=== PATIENT | female | born 1965 | race Caucasian/White ===

== ENCOUNTER → 2020-02-09 08:03 | Outpatient (CLI) | payer BC, SELFPAY ==
--- NOTE | ~2020-02-09 | CT_ITS ---
EXAMINATION:CT lung screening DATE: 02/09/2020 09:01 INDICATION: Personal history of tobacco dependence. Smoker who quit 10 years ago with 70 pack year hi story. TECHNIQUE: Computed tomography (CT) of the chest was performed without intravenous contrast. Automate d exposure control and iterative reconstruction technique were employed. The dose-length product (DLP ) was 386.52 mGy-cm. COMPARISON: Chest CT 05/04/2017 FINDINGS: There is severe emphysema. There is chronic mild scarring at the lung apices. There is a ne w 6 mm nodule in right lung apex. There is a chronic 6 mm nodule at the minor fissure. There are a fe w scattered 2-4 mm nodules in the lungs. No pleural effusion. The heart size is normal. No pericardia l effusion. There are no pathologically enlarged lymph nodes. There are changes of cholecystectomy. T here is moderate thoracic spondylosis. IMPRESSION: 1. Lung-RADS category 4A: Suspicious. Noncontrast, low-dose chest CT is recommended in 3 months. Reviewed, dictated and finalized at location B. IMPRESSION: 1. Lung-RADS category 4A: Suspicious. Noncontrast, low-dose chest CT is recomme nded in 3 months.
== END ==
PROVIDERS: PCP Family Medicine; Visit Provider Nurse Practitioner Family
DX: Z12.2 Encounter for screening for malignant neoplasm of respiratory organs (principal); Z87.891 Personal history of nicotine dependence; R91.8 Other nonspecific abnormal finding of lung field
CPT/HCPCS: G0297

== ENCOUNTER → 2020-02-09 08:05 | Outpatient (CLI) | payer BC, SELFPAY ==
--- NOTE | ~2020-02-09 | XR_ITS ---
XR lumbar spine 2-3V DATE: 02/09/2020 08:45 INDICATION: Low back pain TECHNIQUE: Standing AP, lateral and coned lateral lumbosacral views COMPARISON: 09/16/2009 CT lumbar spine 11/26/2014 MRI lumbar spine FINDINGS: There is a transitional L5 vertebra with sacralization on the right. There is minimal levoscoliosis of the lumbar spine. There is degenerative change of the facet joints with associated grade 1 anterolisthesis at L3-4. There is moderate degenerative disc disease at L2-3 and severe degenerative disc disease at L4-5. The sacroiliac joints are normal. Surgical clips, right upper quadrant, consistent with cholecystectomy. IMPRESSION: Sacralization of L5 on the right Multilevel degenerative disc disease, most pronounced at L4-5 Reviewed, dictated and finalized at location A.
== END ==
PROVIDERS: PCP Family Medicine; Visit Provider Physician Assistant
DX: M54.5 Low back pain (principal); Q76.49 Other congenital malformations of spine, not associated with scoliosis; M51.36 Other intervertebral disc degeneration, lumbar region
CPT/HCPCS: 72100

== ENCOUNTER → 2020-05-11 08:51 | Outpatient (CLI) | payer BC, SELFPAY ==
--- NOTE | ~2020-05-11 | CT_ITS ---
EXAMINATION: CT chest wo con DATE: 05/11/2020 09:07 INDICATION: Other nonspecified abnormal finding of lung field R91.8 - Other nonspecific abnormal find ing of lung field TECHNIQUE: Computed tomography (CT) of the chest was performed without intravenous contrast. Addition al 3D reconstructions utilizing coronal maximum intensity projection (MIP) were performed. Automated exposure control and iterative reconstruction technique were employed. The dose-length product was 32 3.98 mGy-cm. COMPARISON: 02/09/2020 and 05/04/2017 FINDINGS: Severe emphysema with chronic mild biapical pleural-parenchymal scarring. Persistent linear atelectas is/scarring extending across the previously new 6 mm nodule at the right apex which has decreased in size, now measuring 3 mm. Unchanged 6 mm flat lenticular nodule likely an intrafissural lymph node wh ich is aligned along the right minor fissure. No interval change in multiple additional scattered mahsa ateral 2-3 mm nodules throughout both lungs several of which are calcified consistent with old granul omatous disease. No new or enlarging pulmonary nodules identified. No pleural effusion. Heart size is normal. No pericardial effusion. Thoracic aorta is normal in caliber. No pathologically enlarged tho racic lymphadenopathy. Diffuse hepatic steatosis. Moderate thoracic spondylosis. IMPRESSION: 1. Decrease in size of the previously new 6 mm right apical nodule currently measuring 3 mm. Recommen d returning to one-year annual screening with low-dose noncontrast chest CT. 2. Severe emphysema. 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 APPLICATION SUPPORT SPECIALIST IMPRESSION: 1. Decrease in size of the previously new 6 mm right apical nodule currently me asuring 3 mm. Recommend returning to one-year annual screening with low-dose no ncontrast chest CT. 2. Severe emphysema.
== END ==
PROVIDERS: PCP Family Medicine; Visit Provider Nurse Practitioner Family
DX: R91.8 Other nonspecific abnormal finding of lung field (principal); J43.9 Emphysema, unspecified
CPT/HCPCS: 71250

== ENCOUNTER → 2020-10-20 15:33 | Outpatient (CLI) | payer BC, SELFPAY ==
--- NOTE | ~2020-10-20 | XR_ITS ---
EXAMINATION: XR chest 2V DATE: 10/20/2020 15:43 INDICATION: Shortness of breath TECHNIQUE: frontal and lateral views of the chest were obtained. COMPARISON: Chest radiograph dated 03/01/2019 FINDINGS: Emphysema with increased lucency and architectural distortion at the bilateral apices. Mild right api kristy pleural-parenchymal scarring. No other airspace opacities, pulmonary edema, pleural effusion or p neumothorax. The cardiomediastinal silhouette is normal. Moderate thoracic spondylosis. IMPRESSION: 1. Emphysema. No acute cardiopulmonary disease. 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
== END ==
PROVIDERS: PCP Family Medicine; Visit Provider Nurse Practitioner Family
DX: R06.02 Shortness of breath (principal); J43.9 Emphysema, unspecified
CPT/HCPCS: 71046

== ENCOUNTER 2020-12-02 08:02 | Outpatient (CLI) | payer BC, SELFPAY ==
[2020-12-02 08:30] VITALS: PULSE 74; PULSE 84; O2SAT 85; O2SAT 93
[2020-12-02 08:35] VITALS: PULSE 86; O2SAT 86
[2020-12-02 08:40] VITALS: PULSE 94; O2SAT 88
[2020-12-02 08:45] VITALS: PULSE 98; O2SAT 90
[2020-12-02 09:00] VITALS: PULSE 76; O2SAT 92
--- NOTE | 2020-12-02 11:28 | HOMEO2EVAL ---
Evaluation was performed at [facility] Home Oxygen Evaluation RC: Home Oxygen (O2) Evaluation Start: 12/02/20 11:24 Freq: Status: Active Protocol: RPE Activity Type Activity Date Activity User E-Sign Co-Sign Detail Recorded Client Recorded Date Recorded By Document 12/02/20 08:30 CHINYERE [id number] 12/02/20 11:28 CHINYERE Document 12/02/20 08:30 CHINYERE [email or web address] 12/02/20 11:28 CHINYERE Document 12/02/20 08:35 CHINYERE [email or web address] 12/02/20 11:28 CHINYERE Document 12/02/20 08:40 CHINYERE [email or web address] 12/02/20 11:28 CHINYERE Document 12/02/20 08:45 CHINYERE [email or web address] 12/02/20 11:28 CHINYERE Document 12/02/20 09:00 CHINYERE [email or web address] 12/02/20 11:28 CHINYERE 12/02/20 12/02/20 12/02/20 08:30 08:30 08:35 Home O2 Evaluation Test Phase Resting Exercise Exercise Oxygen Delivery Room Air Room Air Nasal Cannula Oxygen Flow Rate (L/min) 1 Pulse Oximetry (90-100 %) 93 85 L 86 L Pulse Rate (60-100 beats/min) 74 84 86 Activity Tolerance Ambulation Distance (feet) Treatment Charges O2 Evaluation - Outpatient 12/02/20 12/02/20 12/02/20 08:40 08:45 09:00 Home O2 Evaluation Test Phase Exercise Exercise Resting Oxygen Delivery Nasal Cannula Nasal Cannula Room Air Oxygen Flow Rate (L/min) 2 3 Pulse Oximetry (90-100 %) 88 L 90 92 Pulse Rate (60-100 beats/min) 94 98 76 Activity Tolerance Excellent Ambulation Distance (feet) 1,000 Treatment Charges
== END 2020-12-02 08:03 | disposition home or self-care (01) ==
PROVIDERS: PCP Family Medicine; Visit Provider Nurse Practitioner Family
DX: R06.02 Shortness of breath (principal)
CPT/HCPCS: 94618

== ENCOUNTER → 2020-12-02 09:34 | Outpatient (CLI) | payer BC, SELFPAY ==
--- NOTE | ~2020-12-02 | XR_ITS ---
EXAMINATION: XR hand LT min 3V DATE: 12/02/2020 10:01 INDICATION: Pain at the left first metacarpal TECHNIQUE: Posteroanterior, oblique and lateral views of the left hand were obtained. COMPARISON: None. FINDINGS: Alignment is normal. No fracture. Mild polyarticular osteoarthritis including at the distal radioulna r, wrist, midcarpal, triscaphe, first carpometacarpal and multiple metacarpophalangeal and interphala ngeal joints. No erosions to suggest inflammatory arthritis. Soft tissues are unremarkable. IMPRESSION: 1. 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 No other osseous abnormality. 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 IMPRESSION: 1. 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 No other osseo us abnormality.
== END ==
PROVIDERS: PCP Family Medicine; Visit Provider Physician Assistant
DX: M19.032 Primary osteoarthritis, left wrist (principal); M19.042 Primary osteoarthritis, left hand
CPT/HCPCS: 73130

== ENCOUNTER 2021-01-07 14:24 | Outpatient (CLI) | payer BC, SELFPAY ==
--- NOTE | 2021-01-12 14:46 | P.PCNPFT_ITS ---
PFT Procedure Performed PFT Procedure Performed Spirometry with Pre/Post Bronchodilator Plethysmography (Lung Vol) Diffusing Cap (DLCO) Flow Vol Loop PFT Interpretation DOS: 01/07/2021 REQUESTING: Fabio Martinez APRN REASON FOR TESTING: COPD PULMONARY FUNCTION TESTS Results are reliable and reproducible. Spirometry: FEV1 is 35% predicted, 0.98 L. FVC is 67%. FEV 1% is reduced 41% consistent with airflow obstruction. There is a 14% increase in FEV1 after bronchodilator, and this is greater than 200 mils. This is statistically significant. Lung volumes: Total lung capacity 104% normal. Vital capacity 75% which is higher than the forced vital capacity. This suggests dynamic airway obstruc tion. residual volume increased 148% consistent with moderate air trapping. Increased airway resistance 344%. Diffusion: DLCO 56% moderately reduced Flow volume loop: scooping of the expiratory limb consistent with obstruction. IMPRESSION: severe obstructive ventilatory impairment, moderate air trapping, moderate diffusion impairment. Good response to bronchodilator. Since a prior study 05/04/2017 values are similar. FEV1 was 37% now 35%. The FVC has improved currently 67% and 2.39 L compared to 58% and 2.03 L. more air trapping is present. Diffusion is the same. Skyla Anderson MD
--- NOTE | 2021-01-12 15:00 | WPDSIXMINUTE ---
Six Minute Walk Procedure Procedure Performed Pulmonary Stress Test (6 min walk) Six Minute Walk Six Minute Walk: DATE OF SERVICE: 01/07/2021 REQUESTING: Dr Anderson REASON: Exertional dyspnea SIX MINUTE WALK This test was conducted per ATS guidelines. The initial saturation was 97% on room air and pulse was 76. The patient walked without stopping for a total of 950 ft/ 289.6 m. He did not use any assist device. His lowest saturation was 93%. Highest pulse 128. IMPRESSION: No supplemental oxygen is indicated with exertion. Distance walked is less than expected for age. Skyla Anderson MD
--- NOTE | 2021-01-12 15:04 | WPDPFTINT ---
PFT Procedure Performed PFT Procedure Performed Spirometry with Pre/Post Bronchodilator Plethysmography (Lung Vol) Diffusing Cap (DLCO) Flow Vol Loop PFT Interpretation DOS:01/07/2021 REQUESTING: Dr Anderson REASON FOR TESTING: Exertional dyspnea PULMONARY FUNCTION TESTS Spirometry results are reliable and reproducible. Spirometry: FEV1 is 64% predicted, 2.13 L. FVC is 61%. The ratio is normal 80%. There is no change with bronchodilator administration. Lung volumes: Total lung capacity is 63% consistent with moderate restriction. residual volume is 66%. RV/TLC is 36% consistent with air trapping. Airway resistance is elevated 203%. Diffusion: DLCO 67% mildly decreased. Flow volume loop: Irregular and not reproducible IMPRESSION: There is a moderate restrictive impairment with mild air trapping and mild diffusion impairment. This is consistent with restrictive and obstructive overlap. Restriction can mask obstruction. There is no response to bronchodilator. Lack of response to bronchodilators should not preclude use of clinically indicated Skyla Anderson MD
== END 2021-01-07 14:25 | disposition home or self-care (01) ==
PROVIDERS: PCP Family Medicine; Visit Provider Nurse Practitioner Family
DX: J44.9 Chronic obstructive pulmonary disease, unspecified (principal)
CPT/HCPCS: 94060; 94726; 94729

== ENCOUNTER 2021-03-01 14:42 | Emergency (ER) | payer BC, SELFPAY ==
--- NOTE | 2021-03-01 14:45 | ED.SKABFB ---
HPI - Skin/Abscess/Foreign Bdy General Chief complaint: Skin/Abscess/Foreign Body Stated complaint: rash Time Seen by Provider: 03/01/21 14:56 Source: patient and RN notes reviewed Mode of arrival: ambulatory Limitations: no limitations History of Present Illness HPI narrative: 56-year-old female presents with concern for rash to the right wrist. Reports noticing the rash yesterday, reports it spread slightly today. Reports it is very itchy. Reports she is used [id number] cream, taken a Benadryl with little relief. She denies any other rash, swollen lips, swollen tongue, trouble breathing. Denies any recent change in medications, household products, personal care products. She denies history of allergies. MD complaint: rash Related Data Home Medications Medication Instructions Recorded Confirmed brimonidine 0.2 % eye drops 1 drop EACH EYE Q12H ml 06/17/19 12/28/20 ipratropium 20 mcg-albuterol 100 1 puff INHALATION QID 06/17/19 12/28/20 mcg/actuation mist for inhalation latanoprost 0.005 % eye drops 1 drop EACH EYE QPM 06/17/19 12/28/20 Allergies Allergy/AdvReac Type Severity Reaction Status Date / Time amoxicillin Allergy Unknown Rash Verified 12/28/20 14:51 codeine Allergy Unknown Nausea Verified 12/28/20 14:51 clavulanic acid AdvReac Unknown UTI Verified 12/28/20 14:51 Review of Systems Review of Systems: CONSTITUTIONAL: Denies malaise, chills, sweats, or fever. ENT: Denies polyps, swollen tongue CARDIOVASCULAR: Denies chest pain, palpitations, or edema. RESPIRATORY: Denies cough or dyspnea. SKIN: Itchy rash to the right wrist All systems reviewed & are unremarkable except as noted in HPI and below PMFSH Surgical History Surgical History History of bladder surgery History of cholecystectomy Status post hysterectomy with oophorectomy Family History Family History Father Hypertension Family history of diabetes mellitus in first degree relative Family history of lung cancer Diabetes mellitus Mother Hypertension Family history of chronic obstructive pulmonary disease Family history of diabetes mellitus in first degree relative Diabetes mellitus Acute myocardial infarction Family history of sleep apnea Sibling Diabetes mellitus Hypertension Family history of sleep apnea Social History Social History Smoking packs per day: 2 Smoking cigarettes per day: 40.0 Years smoked: 35 Smoking pack-years: 70.00 Smoking status: Never smoker Tobacco type: cigarettes Second hand tobacco smoke exposure: No Smoking end date: 07/02/09 Alcohol intake: current Drinks per week: 5 Substance use: never Substance use type: does not use Additional living arrangements comments: lives with spouse 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 There is no relevant family history pertinent to the presenting complaint Exam Narrative: GENERAL: Well-appearing, well-nourished, and in no acute distress. HEAD: Normocephalic, atraumatic. EYES: PERRLA, conjunctivae clear ENT: Mucous membranes moist. NECK: Supple. No lymphadenopathy CHEST: Clear to auscultation. No respiratory distress. HEART: Regular rate and rhythm. SKIN: Warm, dry. 4-5 scattered erythematous papules noted to the right lateral wrist with mild surrounding erythema without induration, warmth, edema NEURO: Alert and oriented x3. PSYCH: Normal mood and affect Course Course Emergency Course: Patient is aware of diagnosis, understands and agrees to treatment plan. Anticipatory guidance given. Patient agrees to follow-u
[2021-03-01 14:47] VITALS: BP 173/71; PULSE 79; RESP 20; TEMP 36.8; O2SAT 95
== END 2021-03-01 15:10 | disposition home or self-care (01) ==
PROVIDERS: Emergency Provider Nurse Practitioner; PCP Family Medicine
DX: R21 Rash and other nonspecific skin eruption (principal); F17.210 Nicotine dependence, cigarettes, uncomplicated
CPT/HCPCS: 99213; G0463

== ENCOUNTER → 2021-05-25 09:46 | Outpatient (CLI) | payer BC, SELFPAY ==
--- NOTE | ~2021-05-25 | CT_ITS ---
EXAMINATION: CT lung screening DATE: 05/25/2021 10:04 INDICATION: Personal history of nicotine dependence. TECHNIQUE: Computed tomography (CT) of the chest was performed without intravenous contrast. The dose -length product was 356.28 mGy-cm. Automated exposure control and iterative reconstruction technique were employed. COMPARISON: CT dated 05/11/2020 FINDINGS: No thoracic lymphadenopathy. No significant pleural or pericardial effusion. Heart size is normal. There is mild atherosclerosis. The upper abdomen is unremarkable. There is severe emphysema. Stable fissural nodule on the right measuring 6 mm. There are multiple additional smaller right upper lobe nodules, unchanged from prior examination. There is a 3-4 mm left upper lobe nodule which is no t significantly changed. No significant pleural effusion. No lytic or blastic lesions are identified. Mild thoracic spondylosis. No new or enlarging pulmonary nodules. IMPRESSION: 1. Lung-RADS category 2: Benign appearance or behavior. Continue annual screening with noncontrast lo w-dose chest CT in 12 months. 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 Lung-RADS category 2: Benign appearance or behavior. Continue annual screeni ng with noncontrast low-dose chest CT in 12 months.
== END ==
PROVIDERS: PCP Family Medicine; Visit Provider Nurse Practitioner Family
DX: Z87.891 Personal history of nicotine dependence (principal)
CPT/HCPCS: 71271

== ENCOUNTER 2021-06-02 08:20 | Outpatient (CLI) | payer BC, SELFPAY ==
--- NOTE | 2021-06-20 16:12 | WPDSLEEPSTUD ---
Sleep Study Date of Study: 06/02/21 <Adela Dunbar, DO - Last Filed: 06/20/21 18:15> Ordering Provider: Fabio Martinez APRN <Adela Dunbar, DO - Last Filed: 06/20/21 18:15> Interpreting Physician: Adela Dunbar DO <Adela Dunbar DO - Last Filed: 06/20/21 18:15> Sleep Study Type: CPAP Titration <Adela Dunbar DO - Last Filed: 06/20/21 18:15> Height: 1.68 m <Adela Dunbar DO - Last Filed: 06/20/21 18:15> Weight: 124.738 kg <Adela Dunbar DO - Last Filed: 06/20/21 18:15> Body Mass Index: 44.4 <Adela Dunbar DO - Last Filed: 06/20/21 18:15> Neck Circumference (inches): 17 <Adela Dunbar DO - Last Filed: 06/20/21 18:15> [place]: 12 <Adela Dunbar DO - Last Filed: 06/20/21 18:15> Reason for Sleep Study The patient has known RANI and is on PAP Therapy. The patient had nocturnal oximetry that showed 131 minutes spent with an SpO2 below 88%. <Adela Dunbar, DO - Last Filed: 06/20/21 18:15> Sleep History The patient is a 56 y/o female with asthma, COPD, emphysema, RANI on PAP, and arthritis that had a PAP Titration ordered due to nocturnal hypoxemia. The patient occasionally awakens from sleep short of breath. The patient rarely awakens at night with heartburn, belching or cough. The patient occasionally snores loud enough that other complain. The patient occasionally has trouble sleeping when she has a cold. The patient occasionally wakes up gasping for breath throughout the night. The patient frequently has breathing problems at night observed by others. The patient constantly sweats excessively at night. The patient rarely notices heart palpitations or irregular heart beats throughout the night. The patient occasionally falls asleep during the day but never while driving. The patient denies sleep paralysis. The patient occasionally experiences loss of muscle tone when extremely emotional. The patient occasionally has trouble at work due to sleepiness. The patient rarely experiences vivid dreamlike scenes upon awakening or falling asleep. The patient occasionally has nightmares. The patient frequently has thoughts racing through her mind. The patient occasionally feels sad, depressed and anxious. The patient frequently notices parts of her body jerk as well as kicking throughout the night. The patient constantly experiences crawling and aching feelings in her legs as well as leg pain during the night. The patient denies grinding her teeth at night and rarely has morning jaw pain. The patient is constantly bothered by pain during the day and frequently awakened by pain during the night. The patient frequently wakes up feeling stiff in the morning with sore and achy muscles. She constantly awakends with pain in the neck, spine and other joints. The patient goes to bed between 10-11 pm on both weekdays and weekends. The patient falls asleep within 30 minutes. She wakes up 2-4 times per night. When she awakens, she will take a drink of water and see what time it is. She can fall back asleep within 5 minutes. She wakes up between 6-7 am on both weekdays and weekends. She typically gets between 6 and 7 hours of sleep per night. She will stay in bed for 30 minutes after awakening in the morning. The patient currently lives with her . The patient does not consume any caffeinated beverages within 2 hours of bedtime. She does not engage in physical exercise before bedtime. She will watch television before falling asleep. The patient does not nap in the afternoon or evening. The patient smokes 2 ppd x 35 years. The patient drinks 5 alcoholic beverages per week. The patient denies recreational drug use. <Adela Dunbar DO - Last Filed: 06/20/21 18:15> [facility] Surgical History Surgical History: Surgical History History of bladder surgery History of cholecystec
[2021-06-20 17:01] VITALS: BMI 44.4
== END 2021-06-03 07:40 | disposition home or self-care (01) ==
LOC: ANHCSM 08:21
PROVIDERS: PCP Family Medicine; Visit Provider Nurse Practitioner Family
DX: G47.33 Obstructive sleep apnea (adult) (pediatric) (principal)
CPT/HCPCS: 95811

== ENCOUNTER 2022-01-23 08:56 | Outpatient (CLI) | payer BC, SELFPAY ==
--- NOTE | ~2022-01-23 | XR_ITS ---
MODIFIED ESOPHAGRAM HISTORY: Dysphagia. TECHNIQUE: Modified barium esophagram was performed by speech pathologist under radiologist fluorosco pic guidance. This was recorded on tape. The exam was reviewed on 01/23/2022 10:29 CDT. The DAP for this procedure was 0.694 Gycm2. Fluoroscopy time is 0.6 minutes. FINDINGS: Lateral projection of the cervical spine demonstrates normal alignment. Normal swallowing function without penetration or aspiration.. IMPRESSION: 1: Normal swallowing function without penetration or aspiration. 2: Please refer to speech pathologist report for additional detail. 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
--- NOTE | 2022-01-23 11:22 | STOPEVAL ---
Outpatient Evaluation Modified Barium Swallow Study 01/23/02 Adela Brooks, Ph.D., [facility] [employer]AL[employer] MANAGEMENT Speech Pathologist Thank you for referring Autumn Eli to [facility] Attending Provider: SCARLETT Mello Outpatient Evaluation Start: 01/23/22 10:42 Freq: Status: Active Protocol: Document 01/23/22 11:09 [facility] (Rec: 01/23/22 11:21 [facility] [email or web address]) Therapy Assessment Status Assessment Status Assessment Status Evaluation Outpatient Past Medical History Past Medical History No Past Medical/Surgical History Patient/Family Denies Significant Past Medical/ Surgical History Evaluation Information Problem Diagnosis swallowing difficulty Onset 10/30/21 Subjective Information Patient reports frequent Query Text:As Reported By Patient/ coughing and coughing up of Family food pieces during eating, including potato chips and breads. Pain Assessment Self Report Self Report Pain Level 0 Pain Score Pain Score 0: Self Report Modified Barium Swallow Evaluation Recent Swallowing History Reports Dysphagia Yes Onset of Dysphagia 10/30/21 History of Dysphagia No Reported Difficult Consistencies Solids Intake Method Prior to Swallow Oral Evaluation Diet Prior to Swallow Evaluation Regular, Level 7 Liquid Consistency Prior to Swallow Thin (0) Evaluation Consistency Mixed Consistency 3 mL Method of Presentation Spoon Oral Preparatory Symptoms None Oral Phase Symptoms None Pharyngeal Phase Symptoms None Severity of Vallecular Residue None - 0% No Residue Severity of Pyriform Sinus Residue None - 0% No Residue 8 Point Laryngeal Penetration-Aspiration Material Does Not Enter Airway Scale Cervical/Esophageal Symptoms None Solid Consistency Method of Presentation nabila sized piece of chuy cracker by fingers Oral Preparatory Symptoms None Oral Phase Symptoms None Pharyngeal Phase Symptoms None Severity of Vallecular Residue None - 0% No Residue Severity of Pyriform Sinus Residue None - 0% No Residue 8 Point Laryngeal Penetration-Aspiration Material Does Not Enter Airway Scale Cervical/Esophageal Symptoms None Pureed Consistency 3 mL Method of Presentation Spoon Oral Preparatory Symptoms None Oral Phase Symptoms None Pharyngeal Phase Symptoms None Severity of Vallecular Residue None - 0% No Residue Severity of Pyriform Sinus Residue None - 0% No Residue 8 Point Laryngeal Penetration-Aspiration Material Does Not Enter Airway Scale
== END 2022-01-23 08:57 | disposition home or self-care (01) ==
PROVIDERS: PCP Family Medicine; Visit Provider Physician Assistant
DX: R13.10 Dysphagia, unspecified (principal)
CPT/HCPCS: 92611

== ENCOUNTER → 2022-02-16 15:05 | Outpatient (CLI) | payer BC, SELFPAY ==
--- NOTE | ~2022-02-16 | XR_ITS ---
XR knee RT 3V 02/16/2022 15:16 Indication: Right knee pain Procedure: 3 views right knee Comparison: No prior studies for comparison. Findings: There is mild osteoarthritis of the right knee. No fracture, subluxation or dislocation. No significant joint effusion. Impression: 1: Mild osteoarthritis of the right knee. Reviewed, dictated and finalized at location B. Impression: 1: Mild osteoarthritis of the right knee.
== END ==
PROVIDERS: PCP Family Medicine; Visit Provider Nurse Practitioner Family
DX: M17.11 Unilateral primary osteoarthritis, right knee (principal)
CPT/HCPCS: 73562

== ENCOUNTER 2022-02-20 00:58 | Day surgery (SDC) | payer BC, SELFPAY ==
[2022-02-07 14:53] VITALS: BMI 45.1
--- NOTE | 2022-02-17 15:20 | PM.HPGS ---
History of Present Illness History of Present Illness Consent: Risks, benefits, and alternatives have been discussed and questions answered. Patient agrees to proceed with procedure. Chief complaint: neoplasm screening, hx of rectal polyp Narrative: Autumn Eli is a 57 year old female Referred for colon cancer screening. She had a polyp removed 5 years ago. Review of Systems Review of Systems: All systems reviewed & are unremarkable except as noted in HPI and below PMFSH Past Medical History Medical History Asthma-COPD overlap syndrome Chronic GERD Dysphagia Essential (primary) hypertension Former smoker HLD (hyperlipidemia) Lung nodules Surgical History Surgical History History of bladder surgery History of cholecystectomy Status post hysterectomy with oophorectomy Family History Family History Father Hypertension Family history of diabetes mellitus in first degree relative Family history of lung cancer Diabetes mellitus Mother Hypertension Family history of chronic obstructive pulmonary disease Family history of diabetes mellitus in first degree relative Diabetes mellitus Acute myocardial infarction Family history of sleep apnea Sibling Diabetes mellitus Hypertension Family history of sleep apnea Social History Social History Smoking packs per day: 2 Smoking cigarettes per day: 40.0 Years smoked: 35 Smoking pack-years: 70.00 Smoking status: Former smoker Tobacco type: cigarettes Second hand tobacco smoke exposure: No Smoking end date: 07/02/09 Alcohol intake: current Drinks per week: 5 Substance use: never Substance use type: does not use Living arrangements: with family Additional living arrangements comments: lives with spouse 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 Gender identity (if verbalized by the patient): Female Sexual Orientation (if Verbalized by the Patient): Straight or Heterosexual Spiritual care concerns: No Meds Home Medications and Allergies Home Medications Medication Instructions Recorded Confirmed Type brimonidine 0.2 % eye drops 1 drop ophthalmic (eye) Q12H 06/17/19 02/20/22 History latanoprost 0.005 % eye drops 1 drop ophthalmic (eye) QPM /02/20/22 History fluticasone propionate 50 2 spray intranasal DAILY #16 grams 02/28/21 02/20/22 Rx mcg/actuation nasal spray,suspension clobetasol 0.05 % topical cream 1 applic topical BID 7 days #45 03/01/21 02/20/22 Rx grams fluticasone fur. 100 mcg-umeclid 1 inh inhalation Q24H #60 ea 05/06/21 02/20/22 Rx 62.5 mcg-vilant 25 mcg inhalat.powder (Trelegy Ellipta) Ventolin HFA 90 mcg/actuation See Rx Instructions .Route 06/15/21 02/20/22 Rx aerosol inhaler (albuterol sulfate) .COMPLEX #18 grams albuterol sulfate 2.5 mg/3 mL 2.5 mg (3 mL) inhalation Q4-6H PRN 07/12/21 02/20/22 Rx (0.083 %) solution for nebulization shortness of breath or wheezing #90 mL hydrochlorothiazide 25 mg tablet 25 mg PO DAILY #90 tabs 10/10/21 02/20/22 Rx lansoprazole 30 mg capsule,delayed See Rx Instructions .Route 10/10/21 02/20/22 Rx release .COMPLEX #90 caps losartan 100 mg tablet 100 mg PO DAILY #90 tabs 10/10/21 02/20/22 Rx amlodipine 10 mg tablet 10 mg PO DAILY #30 tabs 11/30/21 02/20/22 Rx meloxicam 15 mg tablet 15 mg PO DAILY #30 tabs 11/30/21 02/20/22 Rx cetirizine 10 mg tablet See Rx Instructions .Route 01/23/22 02/20/22 Rx .COMPLEX #90 tabs hydrocodone 5 mg-acetaminophen 325 1 tablet PO Q6H PRN pain #60 tabs 01/25/22 02/20/22 Rx mg tablet escitalopram oxalate 20 mg tablet 20 mg PO DAILY #90 tabs 02/15/22 02/20/22 Rx Allergies Allergy/AdvReac Type Severity Reaction Status Date / Time amoxicillin Allergy Unknown Rash Ve
[2022-02-20 07:49] VITALS: BP 161/67; PULSE 83; RESP 20; TEMP 36.4; O2SAT 93
[2022-02-20] MEDS: LACTATED RINGERS 1,000 ML 150 ML IV CONT (07:52)
--- NOTE | 2022-02-20 08:34 | WPDANESEPPF ---
Anes - Initial Pre Proc Eval Procedure: Operation Date: 02/20/22 09:00 Proposed Procedures p Screening Colonoscopy - Caleb Olivera MD Date/Time: 02/20/22 08:34 Surgeon: Caleb Olivera MD Pre Op Diagnosis: neoplasm screening, hx of rectal polyp Patient Data Age: 57 Gender: F Height: 1.68 m Weight: 128.3 kg Last Vital Signs Temp 97.6 F 02/20/22 07:49 Pulse 83 02/20/22 07:49 Resp 20 02/20/22 07:49 BP 161/67 H 02/20/22 07:49 Pulse Ox 93 02/20/22 07:49 O2 Del Method Room Air 02/20/22 07:49 Allergies Allergy/AdvReac Type Severity Reaction Status Date / Time amoxicillin Allergy Unknown Rash Verified 02/20/22 07:47 codeine Allergy Unknown Nausea Verified 02/20/22 07:47 clavulanic acid AdvReac Unknown UTI Verified 02/20/22 07:47 Home Medications Medication Instructions Recorded Confirmed Type brimonidine 0.2 % eye drops 1 drop ophthalmic (eye) Q12H 06/17/19 02/20/22 History latanoprost 0.005 % eye drops 1 drop ophthalmic (eye) QPM 06/17/19 02/20/22 History fluticasone propionate 50 2 spray intranasal DAILY #16 grams 02/28/21 02/20/22 Rx mcg/actuation nasal spray,suspension clobetasol 0.05 % topical cream 1 applic topical BID 7 days #45 03/01/21 02/20/22 Rx grams fluticasone fur. 100 mcg-umeclid 1 inh inhalation Q24H #60 ea 05/06/21 02/20/22 Rx 62.5 mcg-vilant 25 mcg inhalat.powder (Trelegy Ellipta) Ventolin HFA 90 mcg/actuation See Rx Instructions .Route 06/15/21 02/20/22 Rx aerosol inhaler (albuterol sulfate) .COMPLEX #18 grams albuterol sulfate 2.5 mg/3 mL 2.5 mg (3 mL) inhalation Q4-6H PRN 07/12/21 02/20/22 Rx (0.083 %) solution for nebulization shortness of breath or wheezing #90 mL hydrochlorothiazide 25 mg tablet 25 mg PO DAILY #90 tabs 10/10/21 02/20/22 Rx lansoprazole 30 mg capsule,delayed See Rx Instructions .Route 10/10/21 02/20/22 Rx release .COMPLEX #90 caps losartan 100 mg tablet 100 mg PO DAILY #90 tabs 10/10/21 02/20/22 Rx amlodipine 10 mg tablet 10 mg PO DAILY #30 tabs 11/30/21 02/20/22 Rx meloxicam 15 mg tablet 15 mg PO DAILY #30 tabs 11/30/21 02/20/22 Rx cetirizine 10 mg tablet See Rx Instructions .Route 01/23/22 02/20/22 Rx .COMPLEX #90 tabs hydrocodone 5 mg-acetaminophen 325 1 tablet PO Q6H PRN pain #60 tabs 01/25/22 02/20/22 Rx mg tablet escitalopram oxalate 20 mg tablet 20 mg PO DAILY #90 tabs 02/15/22 02/20/22 Rx Patient hx anesthesia problems: none Family hx anesthesia problems: none Results Review: All pre-operative results and documents have been reviewed as part of the pre-operative evaluation. [facility] Past Medical History Medical History Asthma-COPD overlap syndrome Chronic GERD Dysphagia Essential (primary) hypertension Former smoker HLD (hyperlipidemia) Lung nodules Surgical History Surgical History History of bladder surgery History of cholecystectomy Status post hysterectomy with oophorectomy Family History Family History Father Hypertension Family history of diabetes mellitus in first degree relative Family history of lung cancer Diabetes mellitus Mother Hypertension Family history of chronic obstructive pulmonary disease Family history of diabetes mellitus in first degree relative Diabetes mellitus Acute myocardial infarction Family history of sleep apnea Sibling Diabetes mellitus Hypertension Family history of sleep apnea Social History Social History Smoking packs per day: 2 Smoking cigarettes per day: 40.0 Years smoked: 35 Smoking pack-years: 70.00 Smoking status: Former smoker Tobacco type: cigarettes Second hand tobacco smoke exposure: No Smoking end date: 07/02/09 Alcohol intake: current Drinks per week: 5 Substance use: never Substance
[2022-02-20 09:19] VITALS: BP 142/78; PULSE 69; RESP 19; O2SAT 96
[2022-02-20 09:29] VITALS: BP 167/82; PULSE 64; RESP 18; O2SAT 98
[2022-02-20 09:39] VITALS: BP 154/92; PULSE 63; RESP 16; O2SAT 95
== END 2022-02-20 09:56 | disposition home or self-care (01) ==
PROVIDERS: PCP Family Medicine; Visit Provider Internal Medicine Gastroenterology
PROC: 0DJD8ZZ Inspection of Lower Intestinal Tract, Via Natural or Artificial Opening Endoscopic (ICD-10-PCS; CPT 45378; principal; 2022-02-20 09:00)
DX: Z12.11 Encounter for screening for malignant neoplasm of colon (principal); Z86.010 Personal history of colon polyps; K57.30 Diverticulosis of large intestine without perforation or abscess without bleeding; Z79.51 Long term (current) use of inhaled steroids; K21.9 Gastro-esophageal reflux disease without esophagitis; E78.5 Hyperlipidemia, unspecified; Z90.49 Acquired absence of other specified parts of digestive tract; Z87.891 Personal history of nicotine dependence; E66.01 Morbid (severe) obesity due to excess calories; Z68.42 Body mass index [BMI] 45.0-49.9, adult; J45.909 Unspecified asthma, uncomplicated
CPT/HCPCS: 45378; J2704; J7120

== ENCOUNTER → 2022-04-04 14:05 | Outpatient (CLI) | payer BC, SELFPAY ==
--- NOTE | ~2022-04-04 | XR_ITS ---
XR foot RT min 3V 04/04/2022 14:28 Indication: Right foot pain Procedure: 4 views right foot Comparison: 11/09/2008 Findings: No acute fracture, subluxation or dislocation. There is mild osteoarthritis of the first MT P joint. Lisfranc joint intact. There is a prominent degenerative calcaneal enthesophyte. No focal so ft tissue abnormality. No foreign bodies. Impression: 1: Prominent degenerative calcaneal plantar enthesophyte. Reviewed, dictated and finalized at location B. Impression: 1: Prominent degenerative calcaneal plantar enthesophyte.
--- NOTE | ~2022-04-04 | XR_ITS ---
XR_[id number] 04/04/2022 14:27 Indication: Neck pain Procedure: 4 view cervical spine Comparison: No prior studies for comparison. Findings: There is moderate disc narrowing at C5-6 and C6-7. Vertebral body heights are maintained. N o prevertebral soft tissue swelling. There is multilevel uncinate and facet hypertrophy. Lung apices are normal. Odontoid process is normal. Impression: 1: Moderate cervical spondylosis. Reviewed, dictated and finalized at location B. Impression: 1: Moderate cervical spondylosis.
== END ==
PROVIDERS: PCP Family Medicine; Visit Provider Nurse Practitioner Family
DX: M77.31 Calcaneal spur, right foot (principal); M47.892 Other spondylosis, cervical region
CPT/HCPCS: 72040; 73630

== ENCOUNTER → 2022-05-17 12:41 | Outpatient (CLI) | payer BC, SELFPAY ==
--- NOTE | ~2022-05-17 | MR_ITS ---
EXAMINATION: MR cervical spine wo con DATE: 05/17/2022 13:37 INDICATION: Neck pain. TECHNIQUE: Magnetic resonance imaging (MRI) of the cervical spine was performed without intravenous c ontrast. Sequences included sagittal T2-weighted FSE, sagittal T2-weighted FS FSE, sagittal T1-weight ed FSE, axial MERGE, and axial T2-weighted FSE. COMPARISON: Cervical spine MRI 11/26/2014 FINDINGS: There is kyphosis of cervical spine. Vertebral body heights are normal. There is mildly dec reased disc height at C3-C4 and severely decreased disc height at C5-C6 and C6-C7. The spinal cord si gnal intensity is normal. The following disc levels are specifically discussed: C2-C3: The disc does not extend beyond the endplate margin. There is no uncovertebral joint osteoarth ritis. There is mild bilateral facet joint osteoarthritis. There is no neural foraminal stenosis. The re is no central canal stenosis. C3-C4: The disc is bulging. There is mild bilateral uncovertebral joint osteoarthritis. There is mode rate right and mild left facet joint osteoarthritis. There is no neural foraminal stenosis. There is mild central canal stenosis with ventral indentation of the spinal cord. C4-C5: The disc does not extend beyond the endplate margin. There is mild bilateral uncovertebral aakash nt osteoarthritis. There is severe right and moderate left facet joint osteoarthritis. There is mild right neural foraminal stenosis. There is no central canal stenosis. C5-C6: The disc is bulging. There is severe bilateral uncovertebral joint osteoarthritis. There is mi ld bilateral facet joint osteoarthritis. There is mild right and moderate left neural foraminal steno sis. There is moderate central canal stenosis with ventral and dorsal indentation of the spinal cord. C6-C7: The disc is bulging. There is mild bilateral uncovertebral joint osteoarthritis. There is no f acet joint osteoarthritis. There is mild bilateral neural foraminal stenosis. There is mild central c anal stenosis. C7-T1: The disc does not extend beyond the endplate margin. There is no uncovertebral joint osteoarth ritis. There is severe bilateral facet joint osteoarthritis. There is mild bilateral neural foraminal stenosis. There is no central canal stenosis. IMPRESSION: 1. Severe cervical spondylosis, slightly worsened from 11/26/2014. 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
== END ==
PROVIDERS: PCP Family Medicine; Visit Provider Nurse Practitioner Family
DX: M47.892 Other spondylosis, cervical region (principal)
CPT/HCPCS: 72141

== ENCOUNTER → 2022-05-29 14:06 | Outpatient (CLI) | payer BC, SELFPAY ==
--- NOTE | ~2022-05-29 | CT_ITS ---
EXAMINATION: CT lung screening DATE: 05/29/2022 14:22 INDICATION: Annual screening mammogram. TECHNIQUE: Computed tomography (CT) of the chest was performed without intravenous contrast. The dose -length product was 370.03 mGy-cm. Automated exposure control and iterative reconstruction technique were employed. COMPARISON: CT dated 05/25/2021 and 05/11/2020 FINDINGS: No thoracic lymphadenopathy. There is atherosclerosis. Heart size is normal. No significant pleural or pericardial effusion. The upper abdomen is unremarkable. Severe emphysema. There is a sub solid nodule in the right upper lobe with central cavitation measuring 7 x 4 mm greatest axial dimens ion. This is new compared with prior study. Largest solid component measures 3 mm. There is apical pl eural thickening/scarring. Stable 6 mm fissural nodule on the right, image 63. There are additional u pper lobe nodules measuring 3 mm or less which are stable. There are a few scattered calcified granul omas of the lungs. No focal airspace consolidation. No endobronchial lesions. No pneumothorax. Modera te thoracic spondylosis. IMPRESSION: 1. Lung-RADS category 3: Probably benign. Further evaluation is recommended with noncontrast low-dose chest CT in 6 months. 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 TION WORKER IMPRESSION: 1. Lung-RADS category 3: Probably benign. Further evaluation is recommended wit h noncontrast low-dose chest CT in 6 months.
== END ==
PROVIDERS: PCP Family Medicine; Visit Provider Physician Assistant
DX: Z12.2 Encounter for screening for malignant neoplasm of respiratory organs (principal); Z87.891 Personal history of nicotine dependence
CPT/HCPCS: 71271

== ENCOUNTER 2022-09-09 11:07 | Inpatient (IN) | payer BC, SELFPAY ==
[2022-09-09] VITALS (17 sets, daily range): BP systolic 114–170; BP diastolic 64–109; PULSE 79–104; RESP 16–22; TEMP 36.6–37.4; O2SAT 81–98; BMI 45.7
--- NOTE | ~2022-09-09 | XR_ITS ---
EXAMINATION: XR chest 1V portable DATE: 09/09/2022 11:36 INDICATION: COVID positive presenting with cough and shortness of breath TECHNIQUE: frontal view of the chest was obtained. COMPARISON: Chest radiograph dated 05/21/2022 FINDINGS: The lungs are clear with no focal airspace opacities, pulmonary edema, pleural effusion or pneumothor ax. Increased lucency and architectural distortion in the upper lung zones consistent with emphysema better appreciated on the prior CT. The cardiomediastinal silhouette is normal. Visualized bones and soft tissues are unremarkable. IMPRESSION: 1. Emphysema. No acute cardiopulmonary disease. 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 TECHNICIAN
--- NOTE | 2022-09-09 11:09 | ECG_ITS ---
Measurements Intervals [place] Rate: 100 P: 53 [place]: 161 QRS: 65 QRSD: 92 T: 65 QT: 329 QTc: 425 Interpretive Statements SINUS TACHYCARDIA VENTRICULAR PREMATURE COMPLEX BORDERLINE ECG NO PREVIOUS ECG AVAILABLE FOR COMPARISON Electronically Signed On 09-09-2022 12:34:31 ZIPPER LINING FOLDER by Abram Sandoval D.O.
--- NOTE | 2022-09-09 11:34 | ED.GENADULT ---
HPI - General Adult General Chief complaint: Shortness of Breath/Dyspnea Stated complaint: fever, boday aches, covid+ History of Present Illness HPI narrative: 57-year-old female with history of COPD, high cholesterol, hypertension presenting to the emergency department by EMS from a local [facility] care for evaluation after testing positive for COVID. Patient states last night she had onset of chills and did check her temperature and it was 102.9. Patient did take some Tylenol this morning at about 6 AM. Patient did take a COVID test at home that was positive. [facility] the [facility] and they were concerned about her vital signs so they sent her to the emergency department by EMS for evaluation. Patient states when she is at rest at home she is not on oxygen and she states her normal oxygenation is at 92 to 94%. Patient increases her oxygen to 3 L with ambulation. Patient did have her oxygen at 3 L when she walked into the [facility] care and she was saturating 84%. Related Data Home Medications Medication Instructions Recorded Confirmed brimonidine 0.2 % eye drops 1 drop ophthalmic (eye) Q12H 06/17/19 09/09/22 latanoprost 0.005 % eye drops 1 drop ophthalmic (eye) QPM 06/17/19 09/09/22 Allergies Allergy/AdvReac Type Severity Reaction Status Date / Time amoxicillin Allergy Unknown Rash Verified 06/01/22 13:06 clavulanic acid AdvReac Unknown UTI Verified 06/01/22 13:06 codeine AdvReac Unknown Nausea Verified 09/09/22 12:00 Review of Systems Review of Systems: All systems reviewed & are unremarkable except as noted in HPI and below PMFSH Past Medical History Medical History (Updated 09/09/22 @ 15:53 by Danika Sood NP) Anxiety Asthma-COPD overlap syndrome Chronic GERD Dysphagia Essential (primary) hypertension Former smoker Glaucoma Hiatal hernia HLD (hyperlipidemia) Lung nodules Obstructive sleep apnea (adult) (pediatric) bipap Surgical History Surgical History (Updated 09/09/22 @ 15:53 by Danika Sood NP) H/O cataract extraction H/O tubal ligation History of appendectomy History of bladder surgery TVT History of cholecystectomy History of nasal surgery Status post hysterectomy with oophorectomy Family History Family History Father Hypertension Family history of diabetes mellitus in first degree relative Family history of lung cancer Diabetes mellitus Mother Hypertension Family history of chronic obstructive pulmonary disease Family history of diabetes mellitus in first degree relative Diabetes mellitus Acute myocardial infarction Family history of sleep apnea Sibling Diabetes mellitus Hypertension Family history of sleep apnea Social History Social History (Updated 09/09/22 @ 15:54 by Danika Sood NP) Social History: She lives with her . She has 2 children. 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 Code status full code Smoking packs per day: 1 Smoking cigarettes per day: 20.0 Years smoked: 35 Smoking pack-years: 35.00 Smoking status: Former smoker Tobacco type: cigarettes Second hand tobacco smoke exposure: No Smoking end date: 07/02/09 Alcohol intake: current Drinks per week: 4 Substance use: never Substance use type: does not use Lack of Transportation: No Lack of Food: Never True Current Housing: I Have Housing Concerned About Future Housing: No Difficulty Paying Gas/Electric Bills: No Difficulty Paying for Meds: No Currently Unemployed: No Education: High School Diploma/GED Difficulty w/ Childcare or Family Care: No Living arrangements: with family Additional living arrangements comments: lives with spouse Occupation/Education: occupation 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
[2022-09-09 11:42] LABS: Basophils Absolute Auto 0.1 K/mm3 (0.0-0.1); Basophils Percent Auto 0.9 % (0.2-1.2); Eosinophils Absolute Auto 0.1 K/mm3 (0-0.3); Eosinophils Percent Auto 0.8 % (0-4.4); Hematocrit 48.7 % (37.0-47.0); Hemoglobin 15.6 g/dL (12.0-15.0); Immature Granulocyte Absolute 0.06 K/mm3 (0.00-0.031); Immature Granulocyte Percent A 0.8 % (0-0.5); Lymphocytes Absolute Auto 1.49 K/mm3 (0.9-3.2); Lymphocytes Percent Auto 19.4 % (18.3-44.2); Mean Corpuscular Hemoglobin 29.6 pg (26-34); Mean Corpuscular Volume 92.4 fl (80-100); Mean Platelet Volume 11.1 fl (7.4-10.4); Monocytes Absolute Auto 1.3 K/mm3 (0.1-0.6); Monocytes Percent Auto 16.4 % (2.6-8.5); Neutrophils Absolute Auto 4.8 K/mm3 (1.3-6.7); Neutrophils Percent Auto 61.7 % (45.5-73.1); Platelet Count Result 189 k/mm3 (150-375); Red Blood Count 5.27 M/mm3 (4.2-5.4); Red Cell Distribution Width 13.4 % (11.5-14.5); White Blood Count 7.7 K/mm3 (4.5-10.0)
[2022-09-09] MEDS: ALBUTEROL SULFATE NEB 2.5 MG/3 ML INH 5 MG INHALATION (11:50)
[2022-09-09 11:54] LABS: Alanine Aminotransferase 52 U/L (6-35); Albumin Level 4.7 g/dL (3.5-5.1); Alkaline Phosphatase 86 U/L (38-126); Anion Gap 7 mmol/L (8-16); Aspartate Amino Transferase 50 U/L (14-36); Bilirubin,Total 0.9 mg/dL (0.2-1.3); Blood Urea Nitrogen 20 mg/dL (7-17); Carbon Dioxide 31 mmol/L (22-30); Chloride 103 mmol/L (98-107); Estimated CRCL calculation 123 ml/min; Estimated Glomerular Filt Rate > 60; Glucose 97 mg/dL (65-110); Potassium 4.3 mmol/L (3.4-5.0); Sodium 141 mmol/L (137-145)
[2022-09-09] MEDS: hydroCHLOROthiazide 25 MG TABLET PO (12:11)
[2022-09-09] MEDS: LOSARTAN POTASSIUM 100 MG TABLET PO (12:30)
[2022-09-09 13:16] LABS: Influenza A QL RT-PCR Negative (Negative); Influenza B QL RT-PCR Negative (Negative); RSV RNA, RT-PCR Negative (Negative); SARS-CoV-2 RNA PCR Positive
--- NOTE | 2022-09-09 13:45 | PM.IMHP ---
H&P: HPI History of Present Illness Date/Time: 09/09/22 13:45 Chief Complaint: Shortness of breath Narrative: This is a 57-year-old female patient who has a history of COPD, hyperlipidemia and hypertension. The patient came to the emergency department with complaints of shortness of breath. The patient did go to local urgent care for evaluation after his chest positive for home COVID. Last night she started having fever and chills and she had a temperature of 102.9?. The patient took Tylenol at 6:00 a.m. this morning. The patient does not have any home oxygen and on oxygen level is 92-94%. When the patient ambulate she desaturates to 84% and was given oxygen at 3 L per nasal cannula. The patient was started on Decadron and remdesivir. H&H is 15.6 and 48.7. She is for COVID here as well. She was given a nebulizer treatment losartan, hydrochlorothiazide Decadron remdesivir and magnesium in the emergency room. The patient is being admitted to inpatient status on the date of service of 09/09/2022. Review of Systems Review of Systems: See HPI All systems reviewed & are unremarkable except as noted in HPI and below Constitutional: Constitutional: Reports as per HPI and Reports no additional constitutional complaints Eyes: Eyes: Reports as per HPI and Reports no additional eye complaints ENT: Reports system reviewed and no additional complaints, except as documented and Reports Normal hearing present Cardiovascular: Cardiovascular: Reports no additional cardiovascular complaints Respiratory: Respiratory: Reports no additional respiratory complaints and Reports no additional respiratory complaints Gastrointestinal: Gastrointestinal: Reports as per HPI and Reports no additional gastrointestinal complaints Musculoskeletal: Musculoskeletal: Reports no additional musculoskeletal complaints Integumentary/Breasts: Skin/Breast: Reports system reviewed and no additional complaints, except as docu and Reports as per HPI Neurologic: Reports system reviewed and no additional complaints, except as documented, Reports as per HPI and Reports Normal hearing present Psychiatric: Psychiatric: Reports no additional psychiatric complaints and Reports as per HPI Endocrine: Endocrine: Reports no additional endocrine complaints Hematologic/Lymphatic: Hematologic/Lymphatic: Reports no additional hematologic/lymphatic complaints Allergic/Immunologic: Allergic/Immunologic: Reports no additional allergic/immunologic complaints [facility] Past Medical History Medical History (Updated 09/09/22 @ 15:53 by Danika Sood NP) Anxiety Asthma-COPD overlap syndrome Chronic GERD Dysphagia Essential (primary) hypertension Former smoker Glaucoma Hiatal hernia HLD (hyperlipidemia) Lung nodules Obstructive sleep apnea (adult) (pediatric) bipap Surgical History Surgical History (Updated 09/09/22 @ 15:53 by Danika Sood NP) H/O cataract extraction H/O tubal ligation History of appendectomy History of bladder surgery TVT History of cholecystectomy History of nasal surgery Status post hysterectomy with oophorectomy Family History Family History Father Hypertension Family history of diabetes mellitus in first degree relative Family history of lung cancer Diabetes mellitus Mother Hypertension Family history of chronic obstructive pulmonary disease Family history of diabetes mellitus in first degree relative Diabetes mellitus Acute myocardial infarction Family history of sleep apnea Sibling Diabetes mellitus Hypertension Family history of sleep apnea Social History Social History (Updated 09/09/22 @ 15:54 by Danika Sood NP) Social History: She lives with her . She has 2 children. 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 Code status full code Smoking packs per day: 1 Smoking cigarettes per day: 20.0 Years smoked: 35 Smoking pack-years: 35.0
--- NOTE | 2022-09-09 14:29 | PC.NURSE ---
This patient, Auutmn Eli, was admitted to IMU status, and placed in IMU Room 211-01. Patient/family oriented to hospital policies and general routines including ID bracelet, bed and alarms, visiting hours, pain management, procedures, bathroom and other care routines, personal items, smoking policy, room service/diet, and visiting hours. Valuables list has been completed. Information on how to activate the Rapid Response Team has been discussed. Patient/Family are encouraged to report perceived risks to care and to ask questions if they do not understand what they are told or what they should do.
[2022-09-09] MEDS: REMDESIVIR 200 MG/NS 250 ML 200 MG/250 ML BAG 250 MG IVPB (15:11)
[2022-09-09 15:22] LABS: Alanine Aminotransferase 52 U/L (6-35); Estimated CRCL calculation 121 ml/min; Estimated Glomerular Filt Rate > 60
[2022-09-09 15:24] LABS: Prothrombin Time 12.3 Seconds (11.1-14.7)
[2022-09-09] MEDS: MAGNESIUM SULF 2 GM/WATER 50ML 2 GM/50 ML BAG IVPB (16:41)
[2022-09-09] MEDS: LATANOPROST 0.005% OP SOLN 2.5 ML BTL 1 DROP EACH EYE (16:41)
[2022-09-09] MEDS: BRIMONIDINE TARTRATE 0.2% OP SOLN 5 ML BTL 1 DROP EACH EYE (19:36)
[2022-09-09] MEDS: HYDROcodone/acetaminophen (*CRX) 5-325 MG TABLET 1 TAB PO (19:56)
[2022-09-09] MEDS: ALBUTEROL SULFATE NEB 2.5 MG/3 ML INH INHALATION ×2 (20:31→20:32)
[2022-09-10] VITALS (23 sets, daily range): BP systolic 121–157; BP diastolic 56–72; PULSE 68–89; RESP 14–20; TEMP 35.7–36.5; O2SAT 92–100
--- NOTE | 2022-09-10 00:52 | PC.NURSE ---
Daylight Savings Time For Daylight Savings Time Ending in the Fall - Clocks are moved back. For Daylight Savings Time Beginning in the Spring - Clocks are moved ahead. For [facility], the time of change occurs at 0200 hrs. Time is taken from the websphere process server developer. This entry on the patient's chart recognizes the change in time reflected during documentation. Example: 2 entries for vital signs may be charted for 0200 hrs.
[2022-09-10] MEDS: ALBUTEROL SULFATE NEB 2.5 MG/3 ML INH INHALATION ×3 (03:21→20:37)
[2022-09-10] MEDS: HYDROcodone/acetaminophen (*CRX) 5-325 MG TABLET 1 TAB PO ×3 (03:56→20:40)
[2022-09-10 04:14] LABS: Basophils Percent Auto 0.4 % (0.2-1.2); Hematocrit 44.6 % (37.0-47.0); Hemoglobin 14.3 g/dL (12.0-15.0); Immature Granulocyte Absolute 0.05 K/mm3 (0.00-0.031); Immature Granulocyte Percent A 0.9 % (0-0.5); Lymphocytes Absolute Auto 1.26 K/mm3 (0.9-3.2); Lymphocytes Percent Auto 23.6 % (18.3-44.2); Mean Corpuscular HGB Conc 32.1 g/dl (32-36); Mean Corpuscular Hemoglobin 29.6 pg (26-34); Mean Corpuscular Volume 92.3 fl (80-100); Mean Platelet Volume 10.7 fl (7.4-10.4); Monocytes Absolute Auto 0.6 K/mm3 (0.1-0.6); Monocytes Percent Auto 10.5 % (2.6-8.5); Neutrophils Absolute Auto 3.4 K/mm3 (1.3-6.7); Neutrophils Percent Auto 64.6 % (45.5-73.1); Platelet Count Result 157 k/mm3 (150-375); Red Blood Count 4.83 M/mm3 (4.2-5.4); Red Cell Distribution Width 13.4 % (11.5-14.5); White Blood Count 5.3 K/mm3 (4.5-10.0)
[2022-09-10 04:26] LABS: Lactic Acid Reflex 0.9 mmol/L (0.7-2.0)
[2022-09-10 04:28] LABS: Prothrombin Time 12.9 Seconds (11.1-14.7)
[2022-09-10 04:42] LABS: Alanine Aminotransferase 47 U/L (6-35); Alkaline Phosphatase 78 U/L (38-126); Anion Gap 5 mmol/L (8-16); Aspartate Amino Transferase 36 U/L (14-36); Bilirubin,Total 0.5 mg/dL (0.2-1.3); Blood Urea Nitrogen 20 mg/dL (7-17); Calcium 8.4 mg/dL (8.4-10.2); Carbon Dioxide 30 mmol/L (22-30); Chloride 102 mmol/L (98-107); Estimated CRCL calculation 142 ml/min; Estimated Glomerular Filt Rate > 60; Glucose 150 mg/dL (65-110); Lactate Dehydrogenase 222 U/L (120-246); Magnesium 2.8 mg/dL (1.6-2.3); Potassium 3.8 mmol/L (3.4-5.0); Sodium 137 mmol/L (137-145)
[2022-09-10 06:01] LABS: Thyroid Stimulating Hormone Reflex 0.333 uIU/mL (0.465-4.68)
[2022-09-10 06:43] LABS: Free T4 Free Thyroxine Reflex 1.25 ng/dL (0.78-2.19)
[2022-09-10 09:24] LABS: CRP 1.8 mg/dL (<1.0)
[2022-09-10] MEDS: ENOXAPARIN 40 MG/0.4 ML SYRINGE SUB-Q (09:45)
[2022-09-10] MEDS: MONTELUKAST SODIUM 10 MG TABLET PO (09:45)
[2022-09-10] MEDS: LOSARTAN POTASSIUM 100 MG TABLET PO (09:45)
[2022-09-10] MEDS: PANTOPRAZOLE 40 MG TABLET PO (09:45)
[2022-09-10] MEDS: hydroCHLOROthiazide 25 MG TABLET PO (09:45)
[2022-09-10] MEDS: ESCITALOPRAM OXALATE 10 MG TABLET 20 MG PO (09:45)
[2022-09-10] MEDS: FLUTICASONE PROPIONATE 0.05% NA SPR 16 GM BTL (*BKC) 2 SPRAY NASAL (09:45)
[2022-09-10] MEDS: MELOXICAM 7.5 MG TABLET 15 MG PO (09:46)
[2022-09-10] MEDS: REMDESIVIR 100 MG/NS 250 ML 100 MG/250 ML BAG 250 MG IVPB (09:46)
[2022-09-10] MEDS: FLUTICASONE/UMECLIDIN/VILANTER 100-62.5-25 MCG ELLIPTA 1 PUFF INHALATION (10:43)
[2022-09-10] MEDS: BRIMONIDINE TARTRATE 0.2% OP SOLN 5 ML BTL 1 DROP EACH EYE ×2 (11:29→20:40)
--- NOTE | 2022-09-10 12:11 | PM.IMPN ---
Progress Note: A&P Assessment and Plan (1) COVID: Code(s): U07.1 - COVID-19 Status: Acute Assessment and Plan: Decadron and remdesivir Neb treatment Robitussin Droplet and contact isolation (2) Asthma-COPD overlap syndrome: Code(s): J44.9 - Chronic obstructive pulmonary disease, unspecified Status: Acute Assessment and Plan: The patient was given magnesium Continue with Decadron Continue with nebulizer treatment Continue singular (3) Essential (primary) hypertension: Code(s): I10 - Essential (primary) hypertension Status: Acute Assessment and Plan: Continue with hydrochlorothiazide Continue with losartan (4) Chronic GERD: Code(s): K21.9 - Gastro-esophageal reflux disease without esophagitis Status: Acute Assessment and Plan: Continue with PPI (5) Glaucoma: Code(s): H40.9 - Unspecified glaucoma Status: Acute Assessment and Plan: Patient stated that she had surgery. (6) Anxiety: Code(s): F41.9 - Anxiety disorder, unspecified Status: Acute Assessment and Plan: The patient is no longer on Lexapro Subjective Date/time seen: 09/10/22 12:11 No new complaints Exam Const: General: cooperative, healthy appearing, comfortable, no acute distress, well developed, alert, awake, Physically active, average body habitus and overweight Nutritional Appearance: average body habitus and overweight Orientation/consciousness: oriented to person, oriented to place, oriented to time and patient oriented x3 Limitations: no limitations HENMT: Head: normal to inspection, No palpable skull fracture present, normocephalic and atraumatic Ears: hearing grossly normal bilaterally and external ears normal Face/Nose/Sinus: Normal external nose present and Normal nares present Mouth: Yes Normal oral and palatal mucosa present Eyes: General: appearance normal, both eyes and all related structures Alignment and Position: alignment normal Periorbital: periorbital findings normal Eyelids: eyelids normal Sclera: sclerae normal Cornea: corneas normal Pupils: Equal, round and reactive pupils present EOM: EOMs intact bilaterally Neck: Neck: normal visual inspection, full ROM, no lymphadenopathy, trachea midline and supple Chest: Chest palpation & inspection: normal inspection of the chest Resp: Effort & Inspection: normal respiratory effort Auscultation: diminished lung sounds Cardio: Palpation: normal PMI Rate: tachycardic Rhythm: regular rhythm Heart sounds: S1 normal heart sound present and S2 normal heart sound present Peripheral pulses: Peripheral pulses 2+ throughout GI: Inspection: normal to inspection Auscultation: normal bowel sounds Rectal Exam: deferred : General: Yes no CVA tenderness Back/Spine/Pelvis: Back: no CVA tenderness Cervical Spine: cervical ROM normal Thoracic/Lumbar Spine: thoracic and lumbar spine normal to inspection Pelvis: no pain with anterior-posterior compression Skin: General skin exam: normal color Lesions: no lesions Rashes: no rashes Trauma: no lacerations or abrasions Wounds: no wounds Hair: normal Nails: normal Neuro: General: oriented to person, oriented to place, oriented to time and patient oriented x3 Cranial nerves: Yes Equal, round and reactive pupils present and Yes Normal hearing present Cognition (Neuro): normal cognition Speech: normal speech Gait exam (Neuro): Normal gait present Motor exam (neuro): 5/5 motor strength present throughout Sensory Exam: normal sensation Extrem: General: normal to inspection Right upper extremity: normal to inspection and shoulder/upper arm Left upper extremity: normal to inspection and shoulder/upper arm Right lower extremity: normal to inspection and edema Details: 2+ Left lower extremity: normal to inspection and edema Details: 2+ Psych: Appearance: grossly normal Mental Status: mental status grossly normal Speech and move
[2022-09-10] MEDS: LATANOPROST 0.005% OP SOLN 2.5 ML BTL 1 DROP EACH EYE (18:30)
[2022-09-10] MEDS: CYCLOBENZAPRINE HCL 10 MG TABLET PO (22:11)
[2022-09-10] MEDS: amLODIPine BESYLATE 5 MG TABLET 10 MG PO (22:11)
[2022-09-11] VITALS (23 sets, daily range): BP systolic 141–162; BP diastolic 62–76; PULSE 63–91; RESP 16–22; TEMP 35.8–36.7; O2SAT 88–98
[2022-09-11] MEDS: ALBUTEROL SULFATE NEB 2.5 MG/3 ML INH INHALATION ×3 (04:00→20:37)
[2022-09-11 04:54] LABS: Basophils Percent Auto 0.3 % (0.2-1.2); Hematocrit 46.8 % (37.0-47.0); Hemoglobin 15.2 g/dL (12.0-15.0); Immature Granulocyte Absolute 0.03 K/mm3 (0.00-0.031); Immature Granulocyte Percent A 0.4 % (0-0.5); Lymphocytes Absolute Auto 2.24 K/mm3 (0.9-3.2); Lymphocytes Percent Auto 32.8 % (18.3-44.2); Mean Corpuscular HGB Conc 32.5 g/dl (32-36); Mean Corpuscular Hemoglobin 29.8 pg (26-34); Mean Corpuscular Volume 91.8 fl (80-100); Mean Platelet Volume 10.6 fl (7.4-10.4); Monocytes Absolute Auto 0.8 K/mm3 (0.1-0.6); Neutrophils Absolute Auto 3.8 K/mm3 (1.3-6.7); Neutrophils Percent Auto 55.5 % (45.5-73.1); Platelet Count Result 166 k/mm3 (150-375); Red Cell Distribution Width 13.2 % (11.5-14.5); White Blood Count 6.8 K/mm3 (4.5-10.0)
[2022-09-11 05:03] LABS: Prothrombin Time 12.3 Seconds (11.1-14.7)
[2022-09-11 05:07] LABS: Anion Gap 6 mmol/L (8-16); Blood Urea Nitrogen 17 mg/dL (7-17); Calcium 8.9 mg/dL (8.4-10.2); Carbon Dioxide 31 mmol/L (22-30); Chloride 100 mmol/L (98-107); Estimated CRCL calculation 142 ml/min; Estimated Glomerular Filt Rate > 60; Glucose 109 mg/dL (65-110); Potassium 3.3 mmol/L (3.4-5.0); Sodium 137 mmol/L (137-145)
[2022-09-11 08:06] LABS: Alanine Aminotransferase 45 U/L (6-35)
[2022-09-11] MEDS: HYDROcodone/acetaminophen (*CRX) 5-325 MG TABLET 1 TAB PO ×2 (08:12→21:11)
[2022-09-11] MEDS: ESCITALOPRAM OXALATE 10 MG TABLET 20 MG PO (08:12)
[2022-09-11] MEDS: LOSARTAN POTASSIUM 100 MG TABLET PO (08:12)
[2022-09-11] MEDS: hydroCHLOROthiazide 25 MG TABLET PO (08:12)
[2022-09-11] MEDS: PANTOPRAZOLE 40 MG TABLET PO (08:12)
[2022-09-11] MEDS: MONTELUKAST SODIUM 10 MG TABLET PO (08:12)
[2022-09-11] MEDS: MELOXICAM 7.5 MG TABLET 15 MG PO (08:13)
[2022-09-11] MEDS: FLUTICASONE PROPIONATE 0.05% NA SPR 16 GM BTL (*BKC) 2 SPRAY NASAL (08:13)
[2022-09-11] MEDS: ENOXAPARIN 40 MG/0.4 ML SYRINGE SUB-Q (08:13)
[2022-09-11] MEDS: BRIMONIDINE TARTRATE 0.2% OP SOLN 5 ML BTL 1 DROP EACH EYE ×2 (08:14→21:40)
[2022-09-11] MEDS: FLUTICASONE/UMECLIDIN/VILANTER 100-62.5-25 MCG ELLIPTA 1 PUFF INHALATION (08:41)
[2022-09-11] MEDS: REMDESIVIR 100 MG/NS 250 ML 100 MG/250 ML BAG 250 MG IVPB (09:37)
[2022-09-11] MEDS: POTASSIUM CHLORIDE 20 MEQ PACKET (FOR LIQUID) 40 MEQ PO (10:40)
--- NOTE | 2022-09-11 12:26 | P.PNIM_ITS ---
Progress Note: A&P Assessment and Plan (1) COVID: Code(s): U07.1 - COVID-19 Status: Acute Assessment and Plan: Decadron and remdesivir Neb treatment Robitussin Droplet and contact isolation (2) Asthma-COPD overlap syndrome: Code(s): J44.9 - Chronic obstructive pulmonary disease, unspecified Status: Acute Assessment and Plan: The patient was given magnesium Continue with Decadron Continue with nebulizer treatment Continue singular (3) Essential (primary) hypertension: Code(s): I10 - Essential (primary) hypertension Status: Acute Assessment and Plan: Continue with hydrochlorothiazide Continue with losartan (4) Chronic GERD: Code(s): K21.9 - Gastro-esophageal reflux disease without esophagitis Status: Acute Assessment and Plan: Continue with PPI (5) Glaucoma: Code(s): H40.9 - Unspecified glaucoma Status: Acute Assessment and Plan: Patient stated that she had surgery. (6) Anxiety: Code(s): F41.9 - Anxiety disorder, unspecified Status: Acute Assessment and Plan: The patient is no longer on Lexapro Subjective Date/time seen: 09/11/22 12:26 Still mildly short of breath Exam Const: General: cooperative, healthy appearing, comfortable, no acute distress, well developed, alert, awake, Physically active, average body habitus and overweight Nutritional Appearance: average body habitus and overweight Orientation/consciousness: oriented to person, oriented to place, oriented to time and patient oriented x3 Limitations: no limitations HENMT: Head: normal to inspection, No palpable skull fracture present, normocephalic and atraumatic Ears: hearing grossly normal bilaterally and external ears normal Face/Nose/Sinus: Normal external nose present and Normal nares present Mouth: Yes Normal oral and palatal mucosa present Eyes: General: appearance normal, both eyes and all related structures Alignment and Position: alignment normal Periorbital: periorbital findings normal Eyelids: eyelids normal Sclera: sclerae normal Cornea: corneas normal Pupils: Equal, round and reactive pupils present EOM: EOMs intact bilaterally Neck: Neck: normal visual inspection, full ROM, no lymphadenopathy, trachea midline and supple Chest: Chest palpation & inspection: normal inspection of the chest Resp: Effort & Inspection: normal respiratory effort Auscultation: diminished lung sounds Cardio: Palpation: normal PMI Rate: tachycardic Rhythm: regular rhythm Heart sounds: S1 normal heart sound present and S2 normal heart sound present Peripheral pulses: Peripheral pulses 2+ throughout GI: Inspection: normal to inspection Auscultation: normal bowel sounds Rectal Exam: deferred : General: Yes no CVA tenderness Back/Spine/Pelvis: Back: no CVA tenderness Cervical Spine: cervical ROM normal Thoracic/Lumbar Spine: thoracic and lumbar spine normal to inspection Pelvis: no pain with anterior-posterior compression Skin: General skin exam: normal color Lesions: no lesions Rashes: no rashes Trauma: no lacerations or abrasions Wounds: no wounds Hair: normal Nails: normal Neuro: General: oriented to person, oriented to place, oriented to time and patient oriented x3 Cranial nerves: Yes Equal, round and reactive pupils present and Yes Normal hearing present Cognition (Neuro): normal cognition Speech: normal speech Gait exam (Neuro)
[2022-09-11] MEDS: LATANOPROST 0.005% OP SOLN 2.5 ML BTL 1 DROP EACH EYE (17:02)
[2022-09-11] MEDS: amLODIPine BESYLATE 5 MG TABLET 10 MG PO (21:06)
[2022-09-11] MEDS: DOCUSATE SODIUM 100 MG CAPSULE PO (21:06)
[2022-09-11] MEDS: CYCLOBENZAPRINE HCL 10 MG TABLET PO (21:10)
[2022-09-12] VITALS (8 sets, daily range): BP systolic 141–147; BP diastolic 72–84; PULSE 61–87; RESP 18; TEMP 36.3–36.6; O2SAT 93–98
[2022-09-12 05:51] LABS: Prothrombin Time 12.5 Seconds (11.1-14.7)
[2022-09-12 06:06] LABS: Alanine Aminotransferase 52 U/L (6-35); Estimated CRCL calculation 142 ml/min; Estimated Glomerular Filt Rate > 60
[2022-09-12] MEDS: BRIMONIDINE TARTRATE 0.2% OP SOLN 5 ML BTL 1 DROP EACH EYE (08:35)
[2022-09-12] MEDS: DOCUSATE SODIUM 100 MG CAPSULE PO (08:36)
[2022-09-12] MEDS: ENOXAPARIN 40 MG/0.4 ML SYRINGE SUB-Q (08:36)
[2022-09-12] MEDS: FLUTICASONE/UMECLIDIN/VILANTER 100-62.5-25 MCG ELLIPTA 1 PUFF INHALATION (08:37)
[2022-09-12] MEDS: ESCITALOPRAM OXALATE 10 MG TABLET 20 MG PO (08:37)
[2022-09-12] MEDS: FLUTICASONE PROPIONATE 0.05% NA SPR 16 GM BTL (*BKC) 2 SPRAY NASAL (08:37)
[2022-09-12] MEDS: LOSARTAN POTASSIUM 100 MG TABLET PO (08:38)
[2022-09-12] MEDS: hydroCHLOROthiazide 25 MG TABLET PO (08:38)
[2022-09-12] MEDS: PANTOPRAZOLE 40 MG TABLET PO (08:39)
[2022-09-12] MEDS: MONTELUKAST SODIUM 10 MG TABLET PO (08:39)
[2022-09-12] MEDS: MELOXICAM 7.5 MG TABLET 15 MG PO (08:39)
[2022-09-12] MEDS: ALBUTEROL SULFATE NEB 2.5 MG/3 ML INH INHALATION (08:52)
[2022-09-12] MEDS: REMDESIVIR 100 MG/NS 250 ML 100 MG/250 ML BAG 250 MG IVPB (09:21)
--- NOTE | 2022-09-12 11:40 | PM.DS ---
DS: Admitting Diagnosis Discharge Date September 12, 2022 Admitting Diagnosis COVID DS: Discharge Diagnosis Discharge Diagnosis (1) COVID: Code(s): U07.1 - COVID-19 Status: Acute (2) Asthma-COPD overlap syndrome: Code(s): J44.9 - Chronic obstructive pulmonary disease, unspecified Status: Acute (3) Essential (primary) hypertension: Code(s): I10 - Essential (primary) hypertension Status: Acute (4) Chronic GERD: Code(s): K21.9 - Gastro-esophageal reflux disease without esophagitis Status: Acute (5) Glaucoma: Code(s): H40.9 - Unspecified glaucoma Status: Acute (6) Anxiety: Code(s): F41.9 - Anxiety disorder, unspecified Status: Acute DS: Summary Hospital Course Hospital Course: Patient was admitted for COVID and COPD exacerbation. That being said she never required any additional oxygen. She was mostly just feeling weak and had a viral illness. She will be sent home on dexamethasone for the next few days but otherwise she is feeling like her normal self and can be discharged home. Time Spent with Patient Time attestation: Total time spent providing and/or coordinating discharge services: Exam Const: General: cooperative, healthy appearing, comfortable, no acute distress, well developed, alert, awake, Physically active, average body habitus and overweight Nutritional Appearance: average body habitus and overweight Orientation/consciousness: oriented to person, oriented to place, oriented to time and patient oriented x3 Limitations: no limitations HENMT: Head: normal to inspection, No palpable skull fracture present, normocephalic and atraumatic Ears: hearing grossly normal bilaterally and external ears normal Face/Nose/Sinus: Normal external nose present and Normal nares present Mouth: Yes Normal oral and palatal mucosa present Eyes: General: appearance normal, both eyes and all related structures Alignment and Position: alignment normal Periorbital: periorbital findings normal Eyelids: eyelids normal Sclera: sclerae normal Cornea: corneas normal Pupils: Equal, round and reactive pupils present EOM: EOMs intact bilaterally Neck: Neck: normal visual inspection, full ROM, no lymphadenopathy, trachea midline and supple Chest: Chest palpation & inspection: normal inspection of the chest Resp: Effort & Inspection: normal respiratory effort Auscultation: diminished lung sounds Cardio: Palpation: normal PMI Rate: tachycardic Rhythm: regular rhythm Heart sounds: S1 normal heart sound present and S2 normal heart sound present Peripheral pulses: Peripheral pulses 2+ throughout GI: Inspection: normal to inspection Auscultation: normal bowel sounds Rectal Exam: deferred : General: Yes no CVA tenderness Back/Spine/Pelvis: Back: no CVA tenderness Cervical Spine: cervical ROM normal Thoracic/Lumbar Spine: thoracic and lumbar spine normal to inspection Pelvis: no pain with anterior-posterior compression Skin: General skin exam: normal color Lesions: no lesions Rashes: no rashes Trauma: no lacerations or abrasions Wounds: no wounds Hair: normal Nails: normal Neuro: General: oriented to person, oriented to place, oriented to time and patient oriented x3 Cranial nerves: Yes Equal, round and reactive pupils present and Yes Normal hearing present Cognition (Neuro): normal cognition Speech: normal speech Gait exam (Neuro): Normal gait present Motor exam (neuro): 5/5 motor strength present throughout Sensory Exam: normal sensation Extrem: General: normal to inspection Right upper extremity: normal to inspection and shoulder/upper arm Left upper extremity: normal to inspection and shoulder/upper arm Right lower extremity: normal to inspection and edema Details: 2+ Left lower extremity: normal to inspection and edema Details: 2+ Psych: Appearance: grossly normal Mental Status: mental status grossly normal Speech and movement: Normal speec
== END 2022-09-12 12:55 | disposition home or self-care (01) | DRG 178 ==
LOC: ANHED 12:34 → ANHIMU 13:51
PROVIDERS: Nurse Practitioner; Admitting Provider Internal Medicine; Emergency Provider Emergency Medicine; PCP Family Medicine; Visit Provider Chiropractor
DX: U07.1 COVID-19 (principal); J44.1 Chronic obstructive pulmonary disease with (acute) exacerbation; I10 Essential (primary) hypertension; K21.9 Gastro-esophageal reflux disease without esophagitis; F41.9 Anxiety disorder, unspecified; H40.9 Unspecified glaucoma; E78.5 Hyperlipidemia, unspecified; G47.33 Obstructive sleep apnea (adult) (pediatric); Z87.891 Personal history of nicotine dependence; Z88.1 Allergy status to other antibiotic agents; Z88.5 Allergy status to narcotic agent; Z79.899 Other long term (current) drug therapy
CPT/HCPCS: 36415; 71045; 80048; 80053; 82565; 83605; 83615; 83735; 84439; 84443; 84460; 84480; 85025; 85610; 86140; 87637; 93005; 94640; 96374; 99285; A9270; J0248; J1100; J1650; J3475

== ENCOUNTER → 2022-11-21 14:47 | Outpatient (CLI) | payer BC, SELFPAY ==
--- NOTE | ~2022-11-21 | CT_ITS ---
EXAMINATION: CT diagnostic chest wo con DATE: 11/21/2022 15:02 INDICATION: Pulmonary nodule TECHNIQUE: Computed tomography (CT) of the chest was performed without intravenous contrast. The dose -length product was 364.53 mGy-cm. Automated exposure control and iterative reconstruction technique were employed. COMPARISON: CT dated 05/29/2022 FINDINGS: No thoracic lymphadenopathy. Heart size normal. No significant pleural or pericardial effus ion. There is atherosclerosis of the aorta. Upper abdomen is unremarkable. There are emphysematous ch anges. There is right apical pleural thickening/scarring. There is calcified granuloma right upper lo be, image 37. There is a 2 mm right upper lobe nodule, image 44 which is unchanged. Stable 5 mm fissu ral nodule on the right, image 55. There are a few additional nodules in the upper lobes measuring 2 mm or less. There is emphysema. No pneumothorax. No endobronchial lesion. There is moderate thoracic spondylosis. IMPRESSION: 1. Stable bilateral pulmonary nodules, likely benign. Recommend follow-up low dose CT chest in 12 mon ths. 2: Emphysema. Reviewed, dictated and finalized at location B. IMPRESSION: 1. Stable bilateral pulmonary nodules, likely benign. Recommend follow-up low d ose CT chest in 12 months. 2: Emphysema.
== END ==
PROVIDERS: PCP Family Medicine; Visit Provider Physician Assistant
DX: R91.8 Other nonspecific abnormal finding of lung field (principal); J43.9 Emphysema, unspecified
CPT/HCPCS: 71250

== ENCOUNTER 2022-11-28 14:40 | Outpatient (CLI) | payer BC, SELFPAY ==
--- NOTE | ~2022-11-28 | XR_ITS ---
EXAMINATION: XR chest 2V DATE: 11/28/2022 14:58 INDICATION: Chronic obstructive pulmonary disease. TECHNIQUE: frontal and lateral views of the chest were obtained. COMPARISON: Chest radiograph dated 09/09/[address] dated 11/21/2022 FINDINGS: Hyperexpansion of lungs consistent with emphysema which is better appreciated on prior CT. There is m ild right apical pleural-parenchymal scarring. No other airspace opacities, pulmonary edema, pleural effusion or pneumothorax. The cardiomediastinal silhouette is normal. Moderate thoracic spondylosis w ith mild anterior wedging of a couple mid thoracic vertebral bodies. IMPRESSION: 1. Emphysema with mild right apical pleural-parenchymal scarring. Reviewed, dictated and finalized at location B.
== END 2022-11-28 14:41 ==
LOC: MICIMG 14:41
PROVIDERS: PCP Family Medicine; Visit Provider Physician Assistant
DX: J44.9 Chronic obstructive pulmonary disease, unspecified (principal); J43.9 Emphysema, unspecified
CPT/HCPCS: 71046

== ENCOUNTER → 2023-02-23 13:29 | Outpatient (CLI) | payer BC, SELFPAY ==
--- NOTE | ~2023-02-23 | MR_ITS ---
EXAMINATION: MR lumbar spine wo con DATE: 02/23/2023 13:56 INDICATION: Lumbar radiculopathy. Low back pain. Bilateral leg pain. TECHNIQUE: Magnetic resonance imaging (MRI) of the lumbar spine was performed without intravenous con trast. Sequences included sagittal T2-weighted FSE, sagittal T2-weighted FS FSE, sagittal T1-weighted FSE, and axial T2-weighted FSE. COMPARISON: Lumbar spine MRI 11/26/2014 FINDINGS: There is 8 degrees levocurvature of lumbar spine. S1 is a transitional segment. There is 3 mm anterolisthesis of L4 on L5. There is mild chronic anterior wedging of T11 and T12 vertebral ana s. There is moderately decreased disc height at T12-L1, severely decreased disc height at L3-L4, mild ly decreased disc height at L4-L5, and severely decreased disc height at L5-S1. The distal spinal cor d signal intensity is normal. The conus medullaris is at L2. The following disc levels are specifical ly discussed: L1-L2: The disc does not extend beyond the endplate margin. There is moderate right and mild left fac et joint osteoarthritis. There is no neural foraminal stenosis. There is no central canal stenosis. L2-L3: There is a right central protrusion. There is mild right and moderate left facet joint osteoar thritis. There is no neural foraminal stenosis. There is mild central canal stenosis. L3-L4: The disc is bulging. There is moderate bilateral facet joint osteoarthritis. There is mild mahsa ateral neural foraminal stenosis. There is mild central canal stenosis. L4-L5: The disc is bulging. There is severe bilateral facet joint osteoarthritis. There is mild bilat eral neural foraminal stenosis. There is mild central canal stenosis. L5-S1: The disc is bulging. There is severe bilateral facet joint osteoarthritis. There is mild right and moderate left neural foraminal stenosis. There is no central canal stenosis. IMPRESSION: 1. Severe lumbar spondylosis, worsened from 11/18/2014. 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
== END ==
PROVIDERS: PCP Family Medicine; Visit Provider Nurse Practitioner Family
DX: M47.26 Other spondylosis with radiculopathy, lumbar region (principal)
CPT/HCPCS: 72148

== ENCOUNTER → 2023-03-16 14:46 | Outpatient (CLI) | payer MEDICARE, OTHER, SELFPAY ==
--- NOTE | ~2023-03-16 | MM_ITS ---
EXAMINATION: MM screening liliana BI w fransico HISTORY: Screening mammogram TECHNIQUE: Craniocaudal and mediolateral oblique 3-D tomosynthesis images were obtained and synthetic 2-D images were generated. CAD analysis was submitted and interpreted. COMPARISON: 01/27/2019 bilateral screening mammogram examination 12/25/2017 bilateral screening mammogram BREAST PARENCHYMAL COMPOSITION: There are scattered areas of fibroglandular density. FINDINGS: There is no evidence of suspicious mass, calcification, or architectural distortion to sugg est malignancy in either breast. There has been no suspicious interval change. IMPRESSION: 1. No mammographic evidence of malignancy. 2. Recommend routine screening mammography in one year. BI-RADS Category 1: Negative Reviewed, dictated and finalized at location A.
== END ==
PROVIDERS: PCP Family Medicine; Visit Provider Family Medicine
DX: Z12.31 Encounter for screening mammogram for malignant neoplasm of breast (principal)
CPT/HCPCS: 77063; 77067

== ENCOUNTER 2023-08-24 10:06 | Emergency (ER) | payer MEDICARE, OTHER, SELFPAY ==
--- NOTE | ~2023-08-24 | XR_ITS ---
EXAMINATION: XR chest 2V DATE: 08/24/2023 10:45 INDICATION: Cough and fever TECHNIQUE: Frontal and lateral views of the chest are obtained COMPARISON: 11/28/2022 FINDINGS: The lungs are free of acute opacities. No pleural effusion or pneumothorax. The cardiomedia stinal silhouette is normal. There is moderate thoracic spondylosis. IMPRESSION: 1. No acute cardiopulmonary abnormality. Reviewed, dictated and finalized at location B. 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
[2023-08-24 10:20] VITALS: BP 156/74; PULSE 91; RESP 20; TEMP 37.7; O2SAT 93
[2023-08-24 10:36] LABS: Basophils Absolute Auto 0.1 K/mm3 (0.0-0.1); Basophils Percent Auto 1.1 % (0.2-1.2); Eosinophils Percent Auto 0.4 % (0-4.4); Hematocrit 46.6 % (37.0-47.0); Hemoglobin 15.4 g/dL (12.0-15.0); Immature Granulocyte Absolute 0.02 K/mm3 (0.00-0.031); Immature Granulocyte Percent A 0.4 % (0-0.5); Lymphocytes Percent Auto 33.3 % (18.3-44.2); Mean Corpuscular Hemoglobin 29.3 pg (26-34); Mean Corpuscular Volume 88.8 fl (80-100); Mean Platelet Volume 10.7 fl (7.4-10.4); Monocytes Absolute Auto 0.7 K/mm3 (0.1-0.6); Monocytes Percent Auto 13.5 % (2.6-8.5); Neutrophils Absolute Auto 2.8 K/mm3 (1.3-6.7); Neutrophils Percent Auto 51.3 % (45.5-73.1); Platelet Count Result 154 k/mm3 (150-375); Red Blood Count 5.25 M/mm3 (4.2-5.4); White Blood Count 5.4 K/mm3 (4.5-10.0)
[2023-08-24 10:49] LABS: Alanine Aminotransferase 59 U/L (6-35); Albumin Level 4.3 g/dL (3.5-5.1); Alkaline Phosphatase 89 U/L (38-126); Anion Gap 5 mmol/L (8-16); Aspartate Amino Transferase 46 U/L (14-36); Bilirubin,Total 0.7 mg/dL (0.2-1.3); Blood Urea Nitrogen 17 mg/dL (7-17); Calcium 9.3 mg/dL (8.4-10.2); Carbon Dioxide 32 mmol/L (22-30); Chloride 100 mmol/L (98-107); Estimated CRCL calculation 121 ml/min; Estimated Glomerular Filt Rate > 60; Glucose 127 mg/dL (65-110); Potassium 2.8 mmol/L (3.4-5.0); Sodium 137 mmol/L (137-145)
[2023-08-24 11:16] LABS: Influenza A QL RT-PCR Positive (Negative); Influenza B QL RT-PCR Negative (Negative); RSV RNA, RT-PCR Negative (Negative); SARS-CoV-2 RNA PCR Negative (Negative)
--- NOTE | 2023-08-24 12:29 | ED.GENADULT ---
HPI - General Adult General Chief complaint: Fever Stated complaint: FEVER ON HOME O2 Time Seen by Provider: 08/24/23 12:29 Source: patient and family History of Present Illness HPI narrative: 58 years old white female came to the emergency room by private car complaining of fever, chills, runny nose, nasal congestion, coughing, body aches started yesterday. History of COPD on oxygen as needed. Related Data Home Medications Medication Instructions Recorded Confirmed brimonidine 0.2 % eye drops 1 drop ophthalmic (eye) Q12H 06/17/19 06/06/23 latanoprost 0.005 % eye drops 1 drop ophthalmic (eye) QPM 06/17/19 06/06/23 amlodipine 10 mg tablet 10 mg PO HS 09/10/22 06/06/23 cyclobenzaprine 10 mg tablet 10 mg PO TID PRN Muscle Spasm 09/10/22 06/06/23 Allergies Allergy/AdvReac Type Severity Reaction Status Date / Time amoxicillin Allergy Unknown Rash Verified 08/24/23 10:07 clavulanic acid AdvReac Unknown UTI Verified 08/24/23 10:07 codeine AdvReac Unknown Nausea Verified 08/24/23 10:07 Review of Systems Review of Systems: All systems reviewed & are unremarkable except as noted in HPI and below PMFSH Past Medical History Medical History Anxiety Asthma-COPD overlap syndrome Chronic GERD Dysphagia Essential (primary) hypertension Former smoker Glaucoma Hiatal hernia HLD (hyperlipidemia) Lung nodules Obstructive sleep apnea (adult) (pediatric) bipap Surgical History Surgical History H/O cataract extraction H/O tubal ligation History of appendectomy History of bladder surgery TVT History of cholecystectomy History of nasal surgery Status post hysterectomy with oophorectomy Family History Family History Father Hypertension Family history of diabetes mellitus in first degree relative Family history of lung cancer Diabetes mellitus Mother Hypertension Family history of chronic obstructive pulmonary disease Family history of diabetes mellitus in first degree relative Diabetes mellitus Acute myocardial infarction Family history of sleep apnea Sibling Diabetes mellitus Hypertension Family history of sleep apnea Social History Social History Social History: She lives with her . She has 2 children. 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 Code status full code Smoking packs per day: 1 Smoking cigarettes per day: 20.0 Years smoked: 35 Smoking pack-years: 35.00 Smoking status: Former smoker Tobacco type: cigarettes Second hand tobacco smoke exposure: No Smoking end date: 07/02/09 Alcohol intake: current Drinks per week: 4 Alcohol use details: socially Substance use: never Substance use type: does not use Lack of Transportation: No Lack of Food: Never True Current Housing: I Have Housing Concerned About Future Housing: No Difficulty Paying Gas/Electric Bills: No Difficulty Paying for Meds: No Currently Unemployed: No Education: High School Diploma/GED Difficulty w/ Childcare or Family Care: No Living arrangements: with family Additional living arrangements comments: lives with spouse Occupation/Education: occupation 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
[2023-08-24] MEDS: POTASSIUM CHLORIDE 20 MEQ ER TABLET 40 MEQ PO (13:18)
[2023-08-24] MEDS: predniSONE 20 MG TABLET 60 MG PO (13:19)
[2023-08-24 13:21] VITALS: BP 139/74; PULSE 80; RESP 18; TEMP 36.7; O2SAT 96
[2023-08-24 13:27] VITALS: RESP 18
[2023-08-24 13:45] VITALS: BP 138/72; PULSE 72; RESP 18; TEMP 36.7; O2SAT 97
[2023-08-24 14:14] LABS: Appearance Urine Clear (Clear); Bacteria Urine None Seen /hpf; Bilirubin Urine Negative (Negative); Blood Urine Negative (Negative); Color Urine Yellow (Yellow); Glucose Urine UA Negative (Negative); Ketones Urine Negative (Negative); Leukocyte Esterase Ur 1+ LEU/UL (Negative); Need Manual Microscopic Reviewed; Nitrate Urine Negative (Negative); Non Pathogenic Casts 0-2; Protein Urine Negative (Negative); RBC Urine 0-2 /hpf (0-2); Specific Grav Ur 1.012 (1.001-1.035); Squamous Epithelial Cell Urine None seen /hpf (Few); Urobilinogen Urine 0.2 mg/dL (<2.0); WBC Urine 0-5 /hpf; pH Urine 6.5 (5.0-9.0)
[2023-08-24 14:16] LABS: Add Urine Microscopic? YES
== END 2023-08-24 13:46 | disposition home or self-care (01) ==
PROVIDERS: Emergency Medicine; Emergency Provider Emergency Medicine; PCP Family Medicine
DX: J10.1 Influenza due to other identified influenza virus with other respiratory manifestations (principal); E87.6 Hypokalemia; J44.9 Chronic obstructive pulmonary disease, unspecified; I10 Essential (primary) hypertension; E78.5 Hyperlipidemia, unspecified; H40.9 Unspecified glaucoma; K21.9 Gastro-esophageal reflux disease without esophagitis; G47.33 Obstructive sleep apnea (adult) (pediatric); Z98.49 Cataract extraction status, unspecified eye; Z90.49 Acquired absence of other specified parts of digestive tract; Z90.710 Acquired absence of both cervix and uterus; Z87.891 Personal history of nicotine dependence
CPT/HCPCS: 36415; 71046; 80053; 81001; 85025; 87637; 99283; A9270; J7512

== ENCOUNTER 2023-11-26 13:26 | Emergency (ER) | payer MEDICARE, OTHER, SELFPAY ==
[2023-11-26 13:36] VITALS: BP 137/66; PULSE 93; RESP 16; TEMP 37.1; O2SAT 99
--- NOTE | 2023-11-26 13:49 | ED.SKABFB ---
HPI - Skin/Abscess/Foreign Bdy General Chief complaint: Skin/Abscess/Foreign Body Stated complaint: Bite On Face/Ear Pain Time Seen by Provider: 11/26/23 13:49 Source: patient Mode of arrival: ambulatory Limitations: no limitations History of Present Illness HPI narrative: 58-year-old female presents with complaint of insect bite to right side of face with tenderness, itching and swelling. States she woke up with it 2 days ago. Concern for spider bite. All systems reviewed and negative except as noted above. Related Data Allergies Allergy/AdvReac Type Severity Reaction Status Date / Time amoxicillin Allergy Unknown Rash Verified 11/26/23 13:47 clavulanic acid AdvReac Unknown UTI Verified 11/26/23 13:47 codeine AdvReac Unknown Nausea Verified 11/26/23 13:47 Review of Systems Review of Systems: CONSTITUTIONAL: Denies fever, chills, or sweats. EYES: Denies visual changes, redness, or discharge. ENT: Denies rhinorrhea, congestion, sore throat, or otalgia. CARDIOVASCULAR: Denies chest pain, palpitations, or edema. RESPIRATORY: Denies cough or dyspnea. GASTROINTESTINAL: Denies abdominal pain, nausea, vomiting, or diarrhea. GENITOURINARY: Denies dysuria or hematuria. SKIN: Reports redness, swelling, itching to right forehead. MUSCULOSKELETAL: Denies back pain, joint pain, or myalgia. NEUROLOGIC: Denies headache, numbness, or weakness. PSYCHIATRIC: Denies anxiety or depression. All other systems reviewed are negative, except as documented in HPI. [facility] Past Medical History Medical History Anxiety Asthma-COPD overlap syndrome Chronic GERD Dysphagia Essential (primary) hypertension Former smoker Glaucoma Hiatal hernia HLD (hyperlipidemia) Lung nodules Obstructive sleep apnea (adult) (pediatric) bipap Surgical History Surgical History H/O cataract extraction H/O tubal ligation History of appendectomy History of bladder surgery TVT History of cholecystectomy History of nasal surgery Status post hysterectomy with oophorectomy Family History Family History Father Hypertension Family history of diabetes mellitus in first degree relative Family history of lung cancer Diabetes mellitus Mother Hypertension Family history of chronic obstructive pulmonary disease Family history of diabetes mellitus in first degree relative Diabetes mellitus Acute myocardial infarction Family history of sleep apnea Sibling Diabetes mellitus Hypertension Family history of sleep apnea Social History Social History Social History: She lives with her . She has 2 children. 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 Code status full code Smoking packs per day: 1 Smoking cigarettes per day: 20.0 Years smoked: 35 Smoking pack-years: 35.00 Smoking status: Former smoker Tobacco type: cigarettes Second hand tobacco smoke exposure: No Smoking end date: 07/02/09 Alcohol intake: current Drinks per week: 4 Alcohol use details: socially Substance use: never Substance use type: does not use Lack of Transportation: No Lack of Food: Never True Current Housing: I Have Housing Concerned About Future Housing: No Difficulty Paying Gas/Electric Bills: No Difficulty Paying for Meds: No Currently Unemployed: No Education: High School Diploma/GED Difficulty w/ Childcare or Family Care: No Living arrangements: with family Additional living arrangements comments: lives with spouse Occupation/Education: occupation 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
== END 2023-11-26 14:10 | disposition home or self-care (01) ==
PROVIDERS: Emergency Provider Nurse Practitioner Family; PCP Family Medicine
DX: S00.86XA Insect bite (nonvenomous) of other part of head, initial encounter (principal); L08.9 Local infection of the skin and subcutaneous tissue, unspecified; W57.XXXA Bitten or stung by nonvenomous insect and other nonvenomous arthropods, initial encounter; Z87.891 Personal history of nicotine dependence; J44.9 Chronic obstructive pulmonary disease, unspecified; K21.9 Gastro-esophageal reflux disease without esophagitis; I10 Essential (primary) hypertension; H40.9 Unspecified glaucoma; E78.5 Hyperlipidemia, unspecified; G47.33 Obstructive sleep apnea (adult) (pediatric)
CPT/HCPCS: 99213; G0463

== ENCOUNTER 2023-11-29 10:50 | Outpatient (CLI) | payer MEDICARE, OTHER, SELFPAY ==
--- NOTE | ~2023-11-29 | CT_ITS ---
CT Scan of the Chest without Contrast: Clinical Indication: Lung cancer screening, nicotine dependence Technique: Contiguous sections were acquired throughout the chest without intravenous contrast. Dose reduction technique was used on this scan by utilizing automated exposure control and iterative recon struction technique. The dose-length product (DLP) was 370.03 mGy-cm. COMPARISON: 11/22/2019 Findings: There is no evidence of any significant mediastinal, hilar or axillary lymphadenopathy. The mediastin al soft tissues appear normal. There is no evidence of pleural or pericardial effusion. There is moderate to advanced emphysema. Stable 3 mm right upper lobe pulmonary nodules noted. Stable 5 mm fissural nodule along the right minor fissure. . Images through the upper abdomen reveal no abnormalities. Impression: Lung RADS 2: Benign appearance. 12 month follow-up screening CT advised. Reviewed, dictated and finalized at [facility]. Impression: Lung RADS 2: Benign appearance. 12 month follow-up screening CT advised.
== END 2023-11-29 10:51 ==
LOC: MICIMG 10:51
PROVIDERS: PCP Family Medicine; Visit Provider Physician Assistant
DX: Z12.2 Encounter for screening for malignant neoplasm of respiratory organs (principal); Z87.891 Personal history of nicotine dependence
CPT/HCPCS: 71271

== ENCOUNTER 2024-01-02 14:44 | Outpatient (CLI) | payer MEDICARE, OTHER, SELFPAY ==
[2024-01-02 16:01] LABS: Influenza A QL RT-PCR Negative (Negative); Influenza B QL RT-PCR Negative (Negative); RSV RNA, RT-PCR Negative (Negative); SARS-CoV-2 RNA PCR Negative (Negative)
== END 2024-01-02 14:45 | disposition home or self-care (01) ==
LOC: ANHLAB 14:46
PROVIDERS: PCP Family Medicine; Visit Provider Physician Assistant
DX: R09.02 Hypoxemia (principal); Z20.822 Contact with and (suspected) exposure to COVID-19
CPT/HCPCS: 87637

== ENCOUNTER 2024-01-16 09:12 | Outpatient (CLI) | payer MEDICARE, OTHER, SELFPAY ==
--- NOTE | ~2024-01-16 | XR_ITS ---
Left foot Technique: AP and lateral views were obtained. Clinical History: Pain Findings: No acute fracture or dislocation is seen. Osseous alignment is anatomic. Joint spaces are p reserved without erosive or degenerative change. Soft tissues are unremarkable. Impression: Unremarkable left foot radiographs. Reviewed, dictated and finalized at [facility]. Impression: Unremarkable left foot radiographs.
== END 2024-01-16 09:13 ==
PROVIDERS: PCP Family Medicine; Visit Provider Family Medicine
DX: M79.672 Pain in left foot (principal)
CPT/HCPCS: 73620

== ENCOUNTER 2024-02-25 15:15 | Outpatient (CLI) | payer MEDICARE, OTHER, SELFPAY ==
[2024-02-25 16:51] LABS: Vitamin D 25 Hydroxy 15.3 ng/mL
[2024-02-25 17:50] LABS: Hemoglobin A1C 5.8 % (<5.7)
== END 2024-02-25 15:16 | disposition home or self-care (01) ==
LOC: ANHLAB 15:18
PROVIDERS: PCP Family Medicine; Visit Provider Podiatrist Foot & Ankle Surgery
DX: E55.9 Vitamin D deficiency, unspecified (principal); E11.49 Type 2 diabetes mellitus with other diabetic neurological complication
CPT/HCPCS: 36415; 82306; 83036

== ENCOUNTER 2024-05-13 15:26 | Outpatient (CLI) | payer MEDICARE, OTHER, SELFPAY ==
[2024-05-13 16:01] LABS: Alanine Aminotransferase 34 U/L (6-35); Aspartate Amino Transferase 36 U/L (14-36)
== END 2024-05-13 15:27 | disposition home or self-care (01) ==
PROVIDERS: PCP Family Medicine; Visit Provider Podiatrist Foot & Ankle Surgery
DX: B35.1 Tinea unguium (principal)
CPT/HCPCS: 36415; 84450; 84460

== ENCOUNTER 2024-06-10 10:31 | Outpatient (CLI) | payer MEDICARE, OTHER, SELFPAY ==
[2024-06-10 11:44] LABS: Alanine Aminotransferase 37 U/L (6-35); Albumin Level 4.4 g/dL (3.5-5.1); Alkaline Phosphatase 96 U/L (38-126); Anion Gap 1 mmol/L (4-12); Aspartate Amino Transferase 32 U/L (14-36); Bilirubin,Total 0.5 mg/dL (0.2-1.3); Blood Urea Nitrogen 13 mg/dL (7-17); Calcium 9.8 mg/dL (8.4-10.2); Carbon Dioxide 35 mmol/L (22-30); Chloride 105 mmol/L (98-107); Estimated Glomerular Filt Rate > 60; Glucose 101 mg/dL (65-110); Potassium 3.7 mmol/L (3.4-5.0); Sodium 141 mmol/L (137-145)
[2024-06-10 12:47] LABS: Hemoglobin A1C 5.8 % (<5.7)
== END 2024-06-10 10:32 | disposition home or self-care (01) ==
LOC: ANHLAB 10:33
PROVIDERS: PCP Family Medicine; Visit Provider Family Medicine
DX: R73.01 Impaired fasting glucose (principal); I10 Essential (primary) hypertension
CPT/HCPCS: 36415; 80053; 83036

== ENCOUNTER 2024-06-18 10:21 | Inpatient (IN) | payer MEDICARE, OTHER, SELFPAY ==
[2024-06-18] VITALS (14 sets, daily range): BP systolic 132–149; BP diastolic 56–75; PULSE 86–110; RESP 14–30; TEMP 36.1–37; O2SAT 93–99
--- NOTE | ~2024-06-18 | XR_ITS ---
XR chest 2V Ordering provider: Danielle Donovan PA-C History: 59 years Female with . SOB, copd, FEVER, CONGESTION . Comparison: August 24, 2023 FINDINGS: MEDIASTINUM: The cardiac silhouette is not enlarged. LUNGS: No infiltrates, effusions or pneumothorax. Prominent bronchovascular markings bilaterally with interstitial thickening which may indicate pneumonitis. Follow-up advised. Underlying emphysematous changes. OTHER: No free air under the diaphragm. IMPRESSION: Possible bilateral pneumonitis. Follow-up advised. 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
--- NOTE | ~2024-06-18 | CT_ITS ---
CTA chest PE protocol Ordering provider: Danielle Donovan PA-C History: 59 years Female with . dyspnea, tachycardia . Comparison: November 29, 2023 Technique: CT angiogram chest was performed following timed intravenous injection of contrast. Thin s lice axial images and reformatted coronal images were obtained. Three dimensional reformatted images of the chest were also obtained using a [employer] workstation. . Automated exposure control and iterati ve reconstruction technique were employed. The dose-length product was 1060.40 mGy-cm. 100 mL Omnipaq ue 350 was given IV. Findings: PULMONARY ARTERIES: No pulmonary embolus. VISUALIZED THORACIC INLET: Normal. MEDIASTINUM: Aorta/coronary arteries: Mild atheromatous disease. Heart/other: The heart is not enlarged. Lymph nodes: No mediastinal adenopathy. Right hilar lymph node is seen measuring 2.7 x 1.3 cm. LUNGS: 5 mm nodule is seen in the right upper lobe. Follow-up CT scan in 6 to 12 months is advised. No pulmo nary masses. No infiltrates or effusions. No pneumothorax. Emphysematous changes of the lungs. VISUALIZED UPPER ABDOMEN: Fat infiltration of the liver. Status post cholecystectomy. Stone in the ri ght kidney midpole. Otherwise, the visualized upper abdomen is normal. MUSCULOSKELETAL: Soft tissues: The superficial soft tissues are normal. Bones: Age appropriate degenerative changes of the spine. IMPRESSION: 1. No pulmonary embolism. 2. No acute cardiopulmonary pathology. 3. 5 mm nodule in the right upper lobe. Follow-up CT in 6-12 months is advised. 4. Right hilar lymphadenopathy. 5. Fat infiltration of the liver. 6. Stone in the right kidney. 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 SE RACK WORKER IMPRESSION: 1. No pulmonary embolism. 2. No acute cardiopulmonary pathology. 3. 5 mm nodule in the right upper lobe. Follow-up CT in 6-12 months is advised . 4. Right hilar lymphadenopathy. 5. Fat infiltration of the liver. 6. Stone in the right kidney.
--- NOTE | 2024-06-18 10:46 | ECG_ITS ---
Test Date: 2024-06-18 10:53:08 Measurements Intervals [place] Rate: 96 P: 63 VA: 165 QRS: 50 QRSD: 107 T: 65 QT: 348 QTc: 441 Interpretive Statements SINUS RHYTHM No previous ECG available for comparison Electronically Signed On 06-18-2024 14:45:07 MANUFACTURING PRODUCTION TECHNICIAN by Sara Medel M.D.
--- NOTE | 2024-06-18 10:52 | ED.URI ---
HPI - URI/Sore Throat General Chief Complaint: Upper Respiratory Infection <Danielle Donovan PA-C - Last Filed: 06/18/24 13:34> Stated Complaint: fever, headache, cough <RHIANNON Schmitz Last Filed: 06/18/24 13:34> Time Seen by Provider: 06/18/24 10:42 <RHIANNON Schmitz Last Filed: 06/18/24 13:34> History of Present Illness HPI Narrative: 59-year-old female with history of hyperlipidemia, hypertension, COPD on O2 presents to emergency department with complaints of URI symptoms for 3 days. Patient states 3 days ago she woke up with right ear pain and over the past couple of days has progressed into shortness of breath, chest burning, productive cough, malaise. She went to her PCPs office yesterday and was given antibiotics and steroids, however woke up today with worsening symptoms. She states she took Tylenol 2 hours prior to arrival with improvement in her fever. T-max was 103? at home. Patient states she would normally does not wear O2 at rest but wears 3 L when mobile. She reports extremity edema that is unchanged from her baseline. Denies history of CHF. Reports decreased p.o. intake over the past 3 days. <RHIANNON Schmitz Last Filed: 06/18/24 13:34> Related Data Home Medications: Home Medications ?Medication ?Instructions ?Recorded ?Confirmed ?Last Taken ?Type terbinafine HCl 250 mg tablet 250 mg PO DAILY 05/26/24 06/18/24 Unknown History <RHIANNON Schmitz Last Filed: 06/18/24 13:34> Allergies/Adverse Reactions: Allergies Allergy/AdvReac Type Severity Reaction Status Date / Time amoxicillin Allergy Unknown Rash Verified 06/18/24 16:23 clavulanic acid AdvReac Unknown UTI Verified 06/18/24 16:23 codeine AdvReac Unknown Nausea Verified 06/18/24 16:23 <RHIANNON Schmitz Last Filed: 06/18/24 13:34> Review of Systems Review of Systems: All systems reviewed & are unremarkable except as noted in HPI and below <RHIANNON Schmitz Last Filed: 06/18/24 13:34> [facility] Past Medical History Medical History: Medical History Hiatal hernia Anxiety Dysphagia Asthma-COPD overlap syndrome HLD (hyperlipidemia) Former smoker Chronic GERD Essential (primary) hypertension Glaucoma Lung nodules Obstructive sleep apnea (adult) (pediatric) bipap <Danielle Donovan PA-C - Last Filed: 06/18/24 13:34> Surgical History Surgical History: Surgical History H/O tubal ligation History of appendectomy History of nasal surgery H/O cataract extraction History of bladder surgery TVT History of cholecystectomy Status post hysterectomy with oophorectomy <Danielle Donovan PA-C - Last Filed: 06/18/24 13:34> Family History Family History: Family History Father Hypertension Family history of diabetes mellitus in first degree relative Family history of lung cancer Diabetes mellitus Mother Hypertension Family history of chronic obstructive pulmonary disease Family history of diabetes mellitus in first degree relative Diabetes mellitus Acute myocardial infarction Family history of sleep apnea Sibling Diabetes mellitus Hypertension Family history of sleep apnea <Danielle Donovan PA-C - Last Filed: 06/18/24 13:34> Social History Social History: Social History Social History: She lives with her . She has 2 children. 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 Code status full code Smoking packs per day: 1 Smoking cigarettes per day: 20.0 Years smoked: 35 Smoking pack-years: 35.00 Smoking status: Former smoker Tobacco type: cigarettes Second hand tobacco smoke exposure: No Smoking end date: 07/02/09 Alcohol intake: never Drinks per week: 4 Alcohol use details: socially Substance use: never Substance use type: does not use Do You Feel Safe in your Home?: Yes Lack of Transportation: No Lack of Food: Never True Current Housing: I Have Housing Concerned About Future Housing: No Difficulty Paying Gas/Electric Bills: No Difficulty Paying for Meds: No Currently Unemployed: No Education: Don't Know Difficulty w/ Childcare or Family Care: No Living arrangements: with family Additional living arrangements comments: lives with spouse Occupation/Education: occupation 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 EYES: PERRLA and EOMI. ENT: Nares clear, no rhinorrhea or epistaxis. Mucous membranes moist. Bilateral TMs are chakraborty nonbulging with normal canals NECK: Supple. CHEST: expiratory wheezing in the lower lung cueto satting 94% on room air HEART: Regular rate and rhythm. No murmur heard. Normal peripheral pulses. ABDOMEN: Soft, nontender, nondistended, normal active bowel sounds. EXTREMITIES: Normal range of motion. No edema. SKIN: Warm, dry, no rash. NEURO: No focal deficits. Alert and oriented x3 <Danielle Donovan PA-C - Last Filed: 06/18/24 13:34> Course CLINICAL ENGINEERING DIRECTOR/PA Physician Supervision For this patient encounter, I reviewed the CLINICAL ENGINEERING DIRECTOR or PA documentation, treatment plan, and medical decision making; and I had [id number] time with this patient. <Marshall Weaver MD - Last Filed: 06/18/24 20:01> Vital Signs Vital signs: Vital Signs Temperature 98.6 F 06/18/24 10:25 Pulse Rate 103 H 06/18/24 10:25 Respiratory Rate 18 06/18/24 10:25 Blood Pressure 149/75 H 06/18/24 10:25 Pulse Oximetry 93 06/18/24 10:25 Oxygen Delivery Nasal Cannula 06/18/24 10:25 Oxygen Flow Rate 6 06/18/24 10:25 Temperature 97.3 F L 06/18/24 16:20 Pulse Rate 88 06/18/24 16:20 Respiratory Rate 20 06/18/24 16:20 Blood Pressure 132/60 06/18/24 16:20 Pulse Oximetry 96 06/18/24 16:20 Oxygen Delivery Room Air 06/18/24 11:06 Oxygen Flow Rate 6 06/18/24 10:25 <Danielle Donovan PA-C - Last Filed: 06/18/24 13:34> Vital Signs Temperature 98.6 F 06/18/24 10:25 Pulse Rate 103 H 06/18/24 10:25 Respiratory Rate 18 06/18/24 10:25 Blood Pressure 149/75 H 06/18/24 10:25 Pulse Oximetry 93 06/18/24 10:25 Oxygen Delivery Nasal Cannula 06/18/24 10:25 Oxygen Flow Rate 6 06/18/24 10:25 Temperature 97.3 F L 06/18/24 16:20 Pulse Rate 88 06/18/24 16:20 Respiratory Rate 20 06/18/24 16:20 Blood Pressure 132/60 06/18/24 16:20 Pulse Oximetry 96 06/18/24 16:20 Oxygen Delivery Room Air 06/18/24 11:06 Oxygen Flow Rate 6 06/18/24 10:25 <Marshall Weaver MD - Last Filed: 06/18/24 20:01> MDM - URI/Sore Throat MDM Narrative Medical decision making narrative: 59-year-old female with history of COPD and chronic hypoxic respiratory failure presents to the emergency department for fever, cough, congestion, otalgia for 3 days. See HPI for further history. Triage vitals with mild tachycardia 103, otherwise unremarkable. Patient is afebrile upon arrival to the ED but did reportedly take Tylenol 2 hours prior to arrival. Upon my evaluation the patient was satting 97% on 3 L nasal cannula. I did decrease the O2 to room air and she remains satting 94% in no respiratory distress. Lung sounds are significant for expiratory wheezing. CBC shows no leukocytosis. ABG shows normal pH is 7.430, pCO2 45, PO2 53 next hemoglobin of 87.7. Chemistries revealed hypokalemia of 3.1 which is been orally repleted, magnesium is normal. CTA chest PE obtained which shows no PE, no acute cardiopulmonary pathology. There is a 5 mm nodule right upper lobe with recommendations for 6-12 month follow-up, right hilar lymphadenopathy, fatty infiltration of the liver no stone in the right kidney. EKG shows sinus rhythm with no ischemic changes. Troponin within normal limits. Viral swabs are positive for influenza A. Patient received 125 mg of Solu-Medrol an hour long DuoNeb for presumed COPD exacerbation. She did become hypoxic at 88% while off of her O2 while at rest. she normally does not need O2 at rest. 4 L of O2 provided and she has now satting 90s%. Plan to admit for acute on chronic hypoxic respiratory failure with influenza and COPD exacerbation. Patient was given a dose of Tamiflu in the ED. hospitalist CLINICAL ENGINEERING DIRECTOR, Nanci, accepts admission. <Danielle Donovan PA-C - Last Filed: 06/18/24 13:34> Lab Data Result diagrams: 06/18/24 10:58 06/18/24 10:58 <Danielle Donovan PA-C - Last Filed: 06/18/24 13:34> Labs: Lab Results 06/18/24 06/18/24 06/18/24 Range/Units 10:58 10:58 10:58 WBC 6.4 (4.5-10.0) K/mm3 RBC 5.18 (4.2-5.4) M/mm3 Hgb 15.4 H (12.0-15.0) g/dL Hct 46.0 (37.0-47.0) % MCV 88.8 (80-100) fl MCH 29.7 (26-34) pg MCHC 33.5 (32-36) g/dl RDW 13.1 (11.5-14.5) % Plt Count 148 L (150-375) k/mm3 MPV 10.5 H (7.4-10.4) fl Immature Gran % (Auto) 0.8 H (0-0.5) % Neut % (Auto) 81.9 H (45.5-73.1) % Lymph % (Auto) 8.0 L (18.3-44.2) % Davison % (Auto) 8.8 H (2.6-8.5) % Eos % (Auto) 0.0 (0-4.4) % Baso % (Auto) 0.5 (0.2-1.2) % Lymph # (Auto) 0.51 L (0.9-3.2) K/mm3 Davison # (Auto) 0.6 (0.1-0.6) K/mm3 Eos # (Auto) 0.0 (0-0.3) K/mm3 Baso # (Auto) 0.0 (0.0-0.1) K/mm3 Abs Immat Gran (auto) 0.05 H (0.00-0.031) K/mm3 Absolute Neuts (auto) 5.2 (1.3-6.7) K/mm3 Absolute Nucleated RBC 0.000 (0.0-0.012) K/mm3 Nucleated RBC % 0.0 (0.0-0.2) % PT 13.5 (11.1-14.7) Seconds INR 1.0 APTT 36.4 (22.3-36.8) Seconds Sodium 138 (137-145) mmol/L Potassium 3.1 L (3.4-5.0) mmol/L Chloride 100 (98-107) mmol/L Carbon Dioxide 33 H (22-30) mmol/L Anion Gap 5 (4-12) mmol/L BUN 14 (7-17) mg/dL Creatinine 0.70 (0.7-1.0) mg/dL Estim Creat Clear Calc 103 ml/min Estimated GFR > 60 (59 - ) Glucose 126 H (65-110) mg/dL Calcium 9.3 (8.4-10.2) mg/dL Magnesium 1.9 Cancelled (1.6-2.3) mg/dL Total Bilirubin 0.6 (0.2-1.3) mg/dL AST 41 H (14-36) U/L ALT 40 H (6-35) U/L Alkaline Phosphatase 88 (38-126) U/L Troponin I 0.023 Cancelled (0.000-0.034) ng/mL Total Protein 8.0 (6.3-8.2) g/dL Albumin 4.3 (3.5-5.1) g/dL Urine Color (Yellow) Urine Appearance (Clear) Urine pH (5.0-9.0) Ur Specific [place] (1.001-1.035) Urine Protein (Negative) mg/dL Urine Glucose (UA) (Negative) mg/dL Urine Ketones (Negative) mg/dL Ur Blood (Man) (Negative) Urine Nitrate (Negative) Urine Bilirubin (Negative) Urine Urobilinogen (<2.0) mg/dL Leukocyte Esterase Rfl (Negative) FRAN/UL Influenza A (RT-PCR) Positive A (Negative) Influenza B (RT-PCR) Negative (Negative) SARS-CoV-2 RNA (RT-PCR) Negative (Negative) 06/18/24 Range/Units 12:55 WBC (4.5-10.0) K/mm3 RBC (4.2-5.4) M/mm3 Hgb (12.0-15.0) g/dL Hct (37.0-47.0) % MCV (80-100) fl MCH (26-34) pg MCHC (32-36) g/dl RDW (11.5-14.5) % Plt Count (150-375) k/mm3 MPV (7.4-10.4) fl Immature Gran % (Auto) (0-0.5) % Neut % (Auto) (45.5-73.1) % Lymph % (Auto) (18.3-44.2) % Davison % (Auto) (2.6-8.5) % Eos % (Auto) (0-4.4) % Baso % (Auto) (0.2-1.2) % Lymph # (Auto) (0.9-3.2) K/mm3 Davison # (Auto) (0.1-0.6) K/mm3 Eos # (Auto) (0-0.3) K/mm3 Baso # (Auto) (0.0-0.1) K/mm3 Abs Immat Gran (auto) (0.00-0.031) K/mm3 Absolute Neuts (auto) (1.3-6.7) K/mm3 Absolute Nucleated RBC (0.0-0.012) K/mm3 Nucleated RBC % (0.0-0.2) % PT (11.1-14.7) Seconds INR APTT (22.3-36.8) Seconds Sodium (137-145) mmol/L Potassium (3.4-5.0) mmol/L Chloride (98-107) mmol/L Carbon Dioxide (22-30) mmol/L Anion Gap (4-12) mmol/L BUN (7-17) mg/dL Creatinine (0.7-1.0) mg/dL Estim Creat Clear Calc ml/min Estimated GFR (59 - ) Glucose (65-110) mg/dL Calcium (8.4-10.2) mg/dL Magnesium (1.6-2.3) mg/dL Total Bilirubin (0.2-1.3) mg/dL AST (14-36) U/L ALT (6-35) U/L Alkaline Phosphatase (38-126) U/L Troponin I (0.000-0.034) ng/mL Total Protein (6.3-8.2) g/dL Albumin (3.5-5.1) g/dL Urine Color Yellow (Yellow) Urine Appearance Clear (Clear) Urine pH 6.5 (5.0-9.0) Ur Specific [place] 1.025 (1.001-1.035) Urine Protein Negative (Negative) mg/dL Urine Glucose (UA) Negative (Negative) mg/dL Urine Ketones Negative (Negative) mg/dL Ur Blood (Man) Negative (Negative) Urine Nitrate Negative (Negative) Urine Bilirubin Negative (Negative) Urine Urobilinogen 0.2 (<2.0) mg/dL Leukocyte Esterase Rfl Negative (Negative) FRAN/UL Influenza A (RT-PCR) (Negative) Influenza B (RT-PCR) (Negative) SARS-CoV-2 RNA (RT-PCR) (Negative) <Danielle Donovan PA-C - Last Filed: 06/18/24 13:34> Lab Results 06/18/24 06/18/24 06/18/24 Range/Units 10:58 10:58 10:58 WBC 6.4 (4.5-10.0) K/mm3 RBC 5.18 (4.2-5.4) M/mm3 Hgb 15.4 H (12.0-15.0) g/dL Hct 46.0 (37.0-47.0) % MCV 88.8 (80-100) fl MCH 29.7 (26-34) pg MCHC 33.5 (32-36) g/dl RDW 13.1 (11.5-14.5) % Plt Count 148 L (150-375) k/mm3 MPV 10.5 H (7.4-10.4) fl Immature Gran % (Auto) 0.8 H (0-0.5) % Neut % (Auto) 81.9 H (45.5-73.1) % Lymph % (Auto) 8.0 L (18.3-44.2) % Davison % (Auto) 8.8 H (2.6-8.5) % Eos % (Auto) 0.0 (0-4.4) % Baso % (Auto) 0.5 (0.2-1.2) % Lymph # (Auto) 0.51 L (0.9-3.2) K/mm3 Davison # (Auto) 0.6 (0.1-0.6) K/mm3 Eos # (Auto) 0.0 (0-0.3) K/mm3 Baso # (Auto) 0.0 (0.0-0.1) K/mm3 Abs Immat Gran (auto) 0.05 H (0.00-0.031) K/mm3 Absolute Neuts (auto) 5.2 (1.3-6.7) K/mm3 Absolute Nucleated RBC 0.000 (0.0-0.012) K/mm3 Nucleated RBC % 0.0 (0.0-0.2) % PT 13.5 (11.1-14.7) Seconds INR 1.0 APTT 36.4 (22.3-36.8) Seconds Sodium 138 (137-145) mmol/L Potassium 3.1 L (3.4-5.0) mmol/L Chloride 100 (98-107) mmol/L Carbon Dioxide 33 H (22-30) mmol/L Anion Gap 5 (4-12) mmol/L BUN 14 (7-17) mg/dL Creatinine 0.70 (0.7-1.0) mg/dL Estim Creat Clear Calc 103 ml/min Estimated GFR > 60 (59 - ) Glucose 126 H (65-110) mg/dL Calcium 9.3 (8.4-10.2) mg/dL Magnesium 1.9 Cancelled (1.6-2.3) mg/dL Total Bilirubin 0.6 (0.2-1.3) mg/dL AST 41 H (14-36) U/L ALT 40 H (6-35) U/L Alkaline Phosphatase 88 (38-126) U/L Troponin I 0.023 Cancelled (0.000-0.034) ng/mL Total Protein 8.0 (6.3-8.2) g/dL Albumin 4.3 (3.5-5.1) g/dL Urine Color (Yellow) Urine Appearance (Clear) Urine pH (5.0-9.0) Ur Specific [place] (1.001-1.035) Urine Protein (Negative) mg/dL Urine Glucose (UA) (Negative) mg/dL Urine Ketones (Negative) mg/dL Ur Blood (Man) (Negative) Urine Nitrate (Negative) Urine Bilirubin (Negative) Urine Urobilinogen (<2.0) mg/dL Leukocyte Esterase Rfl (Negative) FRAN/UL Influenza A (RT-PCR) Positive A (Negative) Influenza B (RT-PCR) Negative (Negative) SARS-CoV-2 RNA (RT-PCR) Negative (Negative) 06/18/24 Range/Units 12:55 WBC (4.5-10.0) K/mm3 RBC (4.2-5.4) M/mm3 Hgb (12.0-15.0) g/dL Hct (37.0-47.0) % MCV (80-100) fl MCH (26-34) pg MCHC (32-36) g/dl RDW (11.5-14.5) % Plt Count (150-375) k/mm3 MPV (7.4-10.4) fl Immature Gran % (Auto) (0-0.5) % Neut % (Auto) (45.5-73.1) % Lymph % (Auto) (18.3-44.2) % Davison % (Auto) (2.6-8.5) % Eos % (Auto) (0-4.4) % Baso % (Auto) (0.2-1.2) % Lymph # (Auto) (0.9-3.2) K/mm3 [place]ison # (Auto) (0.1-0.6) K/mm3 Eos # (Auto) (0-0.3) K/mm3 Baso # (Auto) (0.0-0.1) K/mm3 Abs Immat Gran (auto) (0.00-0.031) K/mm3 Absolute Neuts (auto) (1.3-6.7) K/mm3 Absolute Nucleated RBC (0.0-0.012) K/mm3 Nucleated RBC % (0.0-0.2) % PT (11.1-14.7) Seconds INR APTT (22.3-36.8) Seconds Sodium (137-145) mmol/L Potassium (3.4-5.0) mmol/L Chloride (98-107) mmol/L Carbon Dioxide (22-30) mmol/L Anion Gap (4-12) mmol/L BUN (7-17) mg/dL Creatinine (0.7-1.0) mg/dL Estim Creat Clear Calc ml/min Estimated GFR (59 - ) Glucose (65-110) mg/dL Calcium (8.4-10.2) mg/dL Magnesium (1.6-2.3) mg/dL Total Bilirubin (0.2-1.3) mg/dL AST (14-36) U/L ALT (6-35) U/L Alkaline Phosphatase (38-126) U/L Troponin I (0.000-0.034) ng/mL Total Protein (6.3-8.2) g/dL Albumin (3.5-5.1) g/dL Urine Color Yellow (Yellow) Urine Appearance Clear (Clear) Urine pH 6.5 (5.0-9.0) Ur Specific [place] 1.025 (1.001-1.035) Urine Protein Negative (Negative) mg/dL Urine Glucose (UA) Negative (Negative) mg/dL Urine Ketones Negative (Negative) mg/dL Ur Blood (Man) Negative (Negative) Urine Nitrate Negative (Negative) Urine Bilirubin Negative (Negative) Urine Urobilinogen 0.2 (<2.0) mg/dL Leukocyte Esterase Rfl Negative (Negative) FRAN/UL Influenza A (RT-PCR) (Negative) Influenza B (RT-PCR) (Negative) SARS-CoV-2 RNA (RT-PCR) (Negative) <Marshall Weaver MD - Last Filed: 06/18/24 20:01> ABG Data ABG results: 06/18/24 11:06 Puncture Site Right radial ABG pH 7.430 ABG pCO2 45.0 ABG pO2 53.0 L ABG PO2/FiO2 Ratio 2.52 ABG HCO3 29.2 H ABG O2 Saturation 88.2 L ABG O2 Content 19.7 ABG Base Excess 4.1 A-a Gradient 42.8 Oxyhemoglobin 87.7 L* Total Hemoglobin 16.0 O2 Delivery Device Room air O2 Liters/Min Not Reportable FiO2 21 <Danielle Donovan PA-C - Last Filed: 06/18/24 13:34> 06/18/24 11:06 Puncture Site Right radial ABG pH 7.430 ABG pCO2 45.0 ABG pO2 53.0 L ABG PO2/FiO2 Ratio 2.52 ABG HCO3 29.2 H ABG O2 Saturation 88.2 L ABG O2 Content 19.7 ABG Base Excess 4.1 A-a Gradient 42.8 Oxyhemoglobin 87.7 L* Total Hemoglobin 16.0 O2 Delivery Device Room air O2 Liters/Min Not Reportable FiO2 21 <Marshall Weaver MD - Last Filed: 06/18/24 20:01> Discharge Plan Discharge Clinical Impression: Influenza A, Acute and chronic respiratory failure with hypoxia, COPD exacerbation <Danielle Donovan PA-C - Last Filed: 06/18/24 13:34> Patient Disposition: Still a Patient <Danielle Donovan PA-C - Last Filed: 06/18/24 13:34> Condition: Stable <Danielle Donovan PA-C - Last Filed: 06/18/24 13:34>
[2024-06-18] MEDS: IPRATROPIUM 0.5 MG/ALBUTEROL SULFATE 2.5 MG AMPUL.NEB 3 ML NEBULIZE ×3 (11:03→11:38)
[2024-06-18 11:07] LABS: Basophils Percent Auto 0.5 % (0.2-1.2); Hemoglobin 15.4 g/dL (12.0-15.0); Immature Granulocyte Absolute 0.05 K/mm3 (0.00-0.031); Immature Granulocyte Percent A 0.8 % (0-0.5); Lymphocytes Absolute Auto 0.51 K/mm3 (0.9-3.2); Mean Corpuscular HGB Conc 33.5 g/dl (32-36); Mean Corpuscular Hemoglobin 29.7 pg (26-34); Mean Corpuscular Volume 88.8 fl (80-100); Mean Platelet Volume 10.5 fl (7.4-10.4); Monocytes Absolute Auto 0.6 K/mm3 (0.1-0.6); Monocytes Percent Auto 8.8 % (2.6-8.5); Neutrophils Absolute Auto 5.2 K/mm3 (1.3-6.7); Neutrophils Percent Auto 81.9 % (45.5-73.1); Platelet Count Result 148 k/mm3 (150-375); Red Blood Count 5.18 M/mm3 (4.2-5.4); Red Cell Distribution Width 13.1 % (11.5-14.5); White Blood Count 6.4 K/mm3 (4.5-10.0)
[2024-06-18] MEDS: methylPREDNISolone SOD SUCC 125 MG VIAL IV PUSH (11:07)
[2024-06-18 11:08] LABS: Alveolar/Arterial O2 Gradient 42.8 mmHg; Base Excess ABG 4.1 mEq/l (+/-2.0); Fractional Inspired Oxygen 21 %; HCO3 ABG 29.2 mEq/l (22.0-26.0); Oxygen Content ABG 19.7 %vol (16.0-22.0); Oxygen Saturation ABG 88.2 % (95.0-100.0); PO2 FiO2 Ratio Arterial Blood 2.52 %
[2024-06-18] MEDS: SODIUM CHLORIDE 0.9% IV 500 ML 999 ML IV CONT (11:09)
[2024-06-18 11:10] LABS: Device ROOM AIR; Modified Allen's Test Pass; Oxyhemoglobin 87.7 % THb (90.0-100.0); Site Drawn RIGHT RADIAL
[2024-06-18 11:17] LABS: Alanine Aminotransferase 40 U/L (6-35); Albumin Level 4.3 g/dL (3.5-5.1); Alkaline Phosphatase 88 U/L (38-126); Anion Gap 5 mmol/L (4-12); Aspartate Amino Transferase 41 U/L (14-36); Bilirubin,Total 0.6 mg/dL (0.2-1.3); Blood Urea Nitrogen 14 mg/dL (7-17); Calcium 9.3 mg/dL (8.4-10.2); Carbon Dioxide 33 mmol/L (22-30); Chloride 100 mmol/L (98-107); Estimated CRCL calculation 103 ml/min; Estimated Glomerular Filt Rate > 60; Glucose 126 mg/dL (65-110); Magnesium 1.9 mg/dL (1.6-2.3); Potassium 3.1 mmol/L (3.4-5.0); Sodium 138 mmol/L (137-145)
[2024-06-18 11:28] LABS: Troponin I 0.023 ng/mL (0.000-0.034)
[2024-06-18 11:32] LABS: Prothrombin Time 13.5 Seconds (11.1-14.7)
[2024-06-18 11:33] LABS: Partial Thromboplastin Time 36.4 Seconds (22.3-36.8)
[2024-06-18] MEDS: POTASSIUM CHLORIDE 20 MEQ PACKET (FOR LIQUID) 40 MEQ PO (11:43)
[2024-06-18 11:44] LABS: Influenza A QL RT-PCR Positive (Negative); Influenza B QL RT-PCR Negative (Negative); SARS-CoV-2 RNA PCR Negative (Negative)
--- NOTE | 2024-06-18 12:19 | PC.NURSE ---
pt noted to be 86% on RA after returning from CT scan pt placed on 3l NC PROVIDER IN ROOM, NNO
[2024-06-18] MEDS: ACETAMINOPHEN 500 MG TABLET 1000 MG PO (12:54)
[2024-06-18 13:12] LABS: Add Urine Microscopic? NO; Appearance Urine Clear (Clear); Bilirubin Urine Negative (Negative); Blood Urine Negative (Negative); Color Urine Yellow (Yellow); Glucose Urine UA Negative (Negative); Ketones Urine Negative (Negative); Leukocyte Esterase Ur Negative LEU/UL (Negative); Nitrate Urine Negative (Negative); Protein Urine Negative (Negative); Specific Grav Ur 1.025 (1.001-1.035); Urobilinogen Urine 0.2 mg/dL (<2.0); pH Urine 6.5 (5.0-9.0)
[2024-06-18] MEDS: OSELTAMIVIR PHOSPHATE 75 MG CAPSULE PO ×2 (14:46→20:56)
--- NOTE | 2024-06-18 14:52 | PM.IMHP ---
H&P: HPI History of Present Illness Date/Time: 06/18/24 14:52 Chief Complaint: URI Symptoms Narrative: 59 y/o F presents here with sore throat, cough, ear pain with PMH of asthma- COPD, HLD, former smoker, HTN, glaucoma, and RANI. The patient presents here with cold-like symptoms that have been ongoing for the past 2 days. She initially sought care with her PCP on 06/17. She was started on a steroid course of which she has taken 2 doses. However, her symptoms have worsened over the last 24 hours including worsening shortness of breath. Now running a fever at home, max T of 103? F. Patient contacted her PCP who directed her to the ED for further evaluation of possible pneumonia. She is currently endorsing shortness of breath, intermittently productive cough, sore throat, ear pain, headache, weakness, and body aches. Denies nausea, vomiting or diarrhea. She is a former smoker with cessation 13 years ago, previously smoked 2 PPD x 30ish years. Has baseline O2 requirement: 3L with ambulation, 2L at night, and none at rest. Now requiring 2L at rest. Initial VS at presentation: ED workup showed: No leukocytosis, hemoglobin 15.4, coags within normal limits, ABG showed low O2 saturation, high bicarb, and low oxyhemoglobin, potassium 3.1, normal renal function, glucose 126, initial troponin 0.0-3, and UA unremarkable. Patient tested positive for flu A.CXR showed possible bilateral pneumonitis. Chest CTA showed no PE, no acute cardiopulmonary pathology, 5 mm nodule in the right upper lobe, right hilar lymphadenopathy, fatty infiltration of the liver, stone in the right kidney. EKG showed sinus rhythm, rate 96. Review of Systems Review of Systems: All systems reviewed & are unremarkable except as noted in HPI and below PMFSH Past Medical History Medical History Hiatal hernia Anxiety Dysphagia Asthma-COPD overlap syndrome HLD (hyperlipidemia) Former smoker Chronic GERD Essential (primary) hypertension Glaucoma Lung nodules Obstructive sleep apnea (adult) (pediatric) bipap Surgical History Surgical History H/O tubal ligation History of appendectomy History of nasal surgery H/O cataract extraction History of bladder surgery TVT History of cholecystectomy Status post hysterectomy with oophorectomy Family History Family History Father Hypertension Family history of diabetes mellitus in first degree relative Family history of lung cancer Diabetes mellitus Mother Hypertension Family history of chronic obstructive pulmonary disease Family history of diabetes mellitus in first degree relative Diabetes mellitus Acute myocardial infarction Family history of sleep apnea Sibling Diabetes mellitus Hypertension Family history of sleep apnea Social History Social History Social History: She lives with her . She has 2 children. 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 Code status full code Smoking packs per day: 1 Smoking cigarettes per day: 20.0 Years smoked: 35 Smoking pack-years: 35.00 Smoking status: Former smoker Tobacco type: cigarettes Second hand tobacco smoke exposure: No Smoking end date: 07/02/09 Alcohol intake: never Drinks per week: 4 Alcohol use details: socially Substance use: never Substance use type: does not use Do You Feel Safe in your Home?: Yes Lack of Transportation: No Lack of Food: Never True Current Housing: I Have Housing Concerned About Future Housing: No Difficulty Paying Gas/Electric Bills: No Difficulty Paying for Meds: No Currently Unemployed: No Education: Don't Know Difficulty w/ Childcare or Family Care: No Living arrangements: with family Additional living arrangements comments: lives with spouse Occupation/Education: occupation 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 Gender identity (if verbalized by the patient): Female Sexual Orientation (if Verbalized by the Patient): Straight or Heterosexual Spiritual care concerns: No Meds Home Medications and Allergies Home Medications ?Medication ?Instructions ?Recorded ?Confirmed ?Type triamcinolone acetonide 0.1 % 1 applic topical BID PRN insect 11/26/23 06/18/24 Rx topical cream bite #15 grams albuterol sulfate 2.5 mg/3 mL 2.5 mg (3 mL) inhalation Q4-6H PRN 12/12/23 06/18/24 Rx (0.083 %) solution for nebulization shortness of breath or wheezing #90 mL brimonidine 0.2 % eye drops 1 drp ophthalmic (eye) Q12H #5 mL 12/12/23 06/18/24 Rx cyclobenzaprine 10 mg tablet 10 mg PO TID PRN Muscle Spasm #30 12/12/23 06/18/24 Rx tabs fluticasone propionate 50 2 spray intranasal DAILY #16 grams 12/12/23 06/18/24 Rx mcg/actuation nasal spray,suspension latanoprost 0.005 % eye drops 1 drp ophthalmic (eye) QPM #2.5 mL 12/12/23 06/18/24 Rx amlodipine 10 mg tablet 10 mg PO HS #90 tabs 12/13/23 06/18/24 Rx hydrochlorothiazide 25 mg tablet 25 mg PO DAILY #90 tabs 02/05/24 06/18/24 Rx montelukast 10 mg tablet 10 mg PO DAILY #90 tabs 02/05/24 06/18/24 Rx (Singulair) losartan 100 mg tablet 100 mg PO DAILY #90 tabs 02/11/24 06/18/24 Rx fluticasone fur. 100 mcg-umeclid See Rx Instructions .Route 02/12/24 06/18/24 Rx 62.5 mcg-vilant 25 mcg .COMPLEX #60 ea inhalat.powder (Trelegy Ellipta) lansoprazole 30 mg capsule,delayed See Rx Instructions .Route 03/27/24 06/18/24 Rx release .COMPLEX #90 caps meloxicam 15 mg tablet See Rx Instructions .Route 03/27/24 06/18/24 Rx .COMPLEX #90 tabs terbinafine HCl 250 mg tablet 250 mg PO DAILY 05/26/24 06/18/24 History hydrocodone 5 mg-acetaminophen 325 1 tablet PO Q6H PRN pain #60 tabs 06/04/24 06/18/24 Rx mg tablet albuterol sulfate 90 mcg/actuation See Rx Instructions .Route 06/05/24 06/18/24 Rx aerosol inhaler .COMPLEX #8.5 grams cetirizine 10 mg tablet See Rx Instructions .Route 06/09/24 06/18/24 Rx .COMPLEX #90 tabs prednisone 10 mg tablet See Rx Instructions .Route 06/17/24 06/18/24 Rx .COMPLEX #18 tabs Allergies Allergy/AdvReac Type Severity Reaction Status Date / Time amoxicillin Allergy Unknown Rash Verified 06/18/24 16:23 clavulanic acid AdvReac Unknown UTI Verified 06/18/24 16:23 codeine AdvReac Unknown Nausea Verified 06/18/24 16:23 Vital Signs Vital Signs - 24 hr 06/18/24 10:25 06/18/24 11:03 06/18/24 11:06 Temperature 98.6 F Pulse Rate 103 H 97 Respiratory Rate 18 22 H Blood Pressure 149/75 H Pulse Oximetry 93 98 Oxygen Delivery Nasal Cannula Room Air Oxygen Flow Rate 6 06/18/24 11:12 06/18/24 11:26 06/18/24 11:32 Temperature Pulse Rate 101 H 93 102 H Respiratory Rate 14 30 H 24 H Blood Pressure Pulse Oximetry Oxygen Delivery Oxygen Flow Rate 06/18/24 11:38 06/18/24 11:47 Temperature Pulse Rate 103 H 110 H Respiratory Rate 18 19 Blood Pressure Pulse Oximetry Oxygen Delivery Oxygen Flow Rate Exam Const: General: comfortable and no acute distress Other: , female, modestly ill-appearing HENMT: Face/Nose/Sinus: Normal nares present Mouth: Yes moist mucous membranes Other: NC in place Eyes: General: appearance normal, both eyes and all related structures Sclera: sclerae normal Pupils: Equal, round and reactive pupils present EOM: EOMs intact bilaterally Resp: Effort & Inspection: normal respiratory effort Other: tight on left, faint exp wheeze on right. Cardio: Rate: regular rate Rhythm: regular rhythm Other: S1-S2 present without murmur, rub, ectopy GI: Other: Abdomen soft, nondistended, nontender Skin: General skin exam: normal color and no rashes or lesions noted Wounds: no wounds Neuro: Speech: normal speech Motor exam (neuro): 5/5 motor strength present throughout Sensory Exam: normal sensation Other: A&O x4 Extrem: General: normal to inspection Psych: Mental Status: mental status grossly normal Affect: normal affect Other: Good insight and judgment, pleasant H&P: Results Labs Labs: Short CBC 06/18/24 Range/Units 10:58 WBC 6.4 (4.5-10.0) K/mm3 Hgb 15.4 H (12.0-15.0) g/dL Hct 46.0 (37.0-47.0) % Plt Count 148 L (150-375) k/mm3 BMP 06/18/24 10:58 Sodium 138 Potassium 3.1 L Chloride 100 Carbon Dioxide 33 H BUN 14 Creatinine 0.70 Glucose 126 H Calcium 9.3 Cardiac Enzymes 06/18/24 12 Range/Units 10:58 10:58 Troponin I 0.023 Cancelled (0.000-0.034) ng/mL Liver Function 06/18/24 Range/Units 10:58 Total Bilirubin 0.6 (0.2-1.3) mg/dL AST 41 H (14-36) U/L ALT 40 H (6-35) U/L Alkaline Phosphatase 88 (38-126) U/L Albumin 4.3 (3.5-5.1) g/dL Urine 06/18/24 Range/Units 12:55 Urine Color Yellow (Yellow) Urine Appearance Clear (Clear) Urine pH 6.5 (5.0-9.0) Ur Specific [place] 1.025 (1.001-1.035) Urine Protein Negative (Negative) mg/dL Urine Glucose (UA) Negative (Negative) mg/dL Assessment and Plan Assessment and plan (1) Influenza A: Code(s): J10.1 - Influenza due to other identified influenza virus with other respiratory manifestations Status: Acute Assessment and Plan: - CXR: Possible bilateral pneumonitis, follow-up advised. - Chest CTA: 1. No pulmonary embolism. 2. No acute cardiopulmonary pathology. 3. 5 mm nodule in the right upper lobe. Follow-up CT in 6-12 months is advised. 4. Right hilar lymphadenopathy. 5. Fat infiltration of the liver. 6. Stone in the right kidney. - started on Tamiflu on 06/18 - new O2 requirement, continue to maintain O2 sat above 92%. Wean as tolerated. - supportive care (2) COPD exacerbation: Code(s): J44.1 - Chronic obstructive pulmonary disease with (acute) exacerbation Status: Acute Assessment and Plan: - started on Solu-Medrol IVP scheduled - scheduled nebs (3) Essential (primary) hypertension: Code(s): I10 - Essential (primary) hypertension Status: Chronic Assessment and Plan: - chronic, currently 149/75 - continue home medications: Amlodipine, HCTZ, losartan - monitor (4) Obstructive sleep apnea (adult) (pediatric): Code(s): G47.33 - Obstructive sleep apnea (adult) (pediatric) Status: Acute Assessment and Plan: - continue home BiPAP/CPAP Plan mild hypokalemia, K 3.1. repleted with 40 p.o., repeat in a.m.. Diet: heart healthy GI Prophylaxis: not currently indicated DVT Prophylaxis: SCDs Lines: peripheral Code Status: full code Quality VTE Prophylaxis VTE prophylaxis: mechanical ordered Hospitalist MIPS Advance Care Plan I have confirmed that the patient's Advanced Care Plan is present, code status is documented, or surrogate decision maker is listed in patient medical record.: Yes Medication Reconciliation I have utilized all available resources to obtain, update and review the patients current medications (includes all prescriptions, OTC, herbals, cannabis, and nutritional supplements).: Yes
--- NOTE | 2024-06-18 16:12 | ADMGEN ---
This patient, Autumn Eli, was admitted to [facility] Surg Room 309-01. Patient/family oriented to hospital policies and general routines including ID bracelet, bed and alarms, visiting hours, pain management, procedures, bathroom and other care routines, personal items, smoking policy, room service/diet, and visiting hours. Information on how to activate the Rapid Response Team has been discussed. Patient/Family are encouraged to report perceived risks to care and to ask questions if they do not understand what they are told or what they should do.
[2024-06-18] MEDS: LACTATED RINGERS 1,000 ML 100 ML IV CONT (16:46)
[2024-06-18] MEDS: methylPREDNISolone SOD SUCC 125 MG VIAL 60 MG IV PUSH ×2 (16:46→23:37)
[2024-06-18] MEDS: IPRATROPIUM 0.5 MG/ALBUTEROL SULFATE 2.5 MG AMPUL.NEB 3 ML INHALATION (20:20)
[2024-06-18] MEDS: guaiFENesin 12 HR 600 MG TABCR PO (20:56)
[2024-06-18] MEDS: HYDROcodone/acetaminophen (*CRX) 5-325 MG TABLET 1 TAB PO (22:05)
[2024-06-18] MEDS: BRIMONIDINE TARTRATE 0.2% OP SOLN 5 ML BTL 1 DROP EACH EYE (23:36)
[2024-06-19] VITALS (15 sets, daily range): BP systolic 127–163; BP diastolic 56–77; PULSE 77–90; RESP 16–20; TEMP 36.5–36.6; O2SAT 92–94
[2024-06-19] MEDS: IPRATROPIUM 0.5 MG/ALBUTEROL SULFATE 2.5 MG AMPUL.NEB 3 ML INHALATION ×4 (02:32→21:15)
[2024-06-19] MEDS: methylPREDNISolone SOD SUCC 125 MG VIAL 60 MG IV PUSH ×3 (05:44→17:52)
[2024-06-19 07:19] LABS: Basophils Percent Auto 0.2 % (0.2-1.2); Hematocrit 45.6 % (37.0-47.0); Immature Granulocyte Absolute 0.03 K/mm3 (0.00-0.031); Immature Granulocyte Percent A 0.6 % (0-0.5); Lymphocytes Absolute Auto 0.75 K/mm3 (0.9-3.2); Mean Corpuscular HGB Conc 32.9 g/dl (32-36); Mean Corpuscular Hemoglobin 29.9 pg (26-34); Mean Corpuscular Volume 90.8 fl (80-100); Mean Platelet Volume 10.8 fl (7.4-10.4); Monocytes Absolute Auto 0.2 K/mm3 (0.1-0.6); Monocytes Percent Auto 4.1 % (2.6-8.5); Neutrophils Absolute Auto 4.3 K/mm3 (1.3-6.7); Neutrophils Percent Auto 81.1 % (45.5-73.1); Platelet Count Result 143 k/mm3 (150-375); Red Blood Count 5.02 M/mm3 (4.2-5.4); Red Cell Distribution Width 13.1 % (11.5-14.5); White Blood Count 5.4 K/mm3 (4.5-10.0)
[2024-06-19 07:29] LABS: Anion Gap 3 mmol/L (4-12); Blood Urea Nitrogen 14 mg/dL (7-17); Calcium 9.2 mg/dL (8.4-10.2); Carbon Dioxide 34 mmol/L (22-30); Chloride 102 mmol/L (98-107); Estimated CRCL calculation 139 ml/min; Estimated Glomerular Filt Rate > 60; Glucose 143 mg/dL (65-110); Potassium 3.5 mmol/L (3.4-5.0); Sodium 139 mmol/L (137-145)
[2024-06-19] MEDS: FLUTICASONE/UMECLIDIN/VILANTER 100-62.5-25 MCG ELLIPTA 1 PUFF INHALATION (08:50)
[2024-06-19] MEDS: MONTELUKAST SODIUM 10 MG TABLET PO (09:14)
[2024-06-19] MEDS: OSELTAMIVIR PHOSPHATE 75 MG CAPSULE PO ×2 (09:14→21:11)
[2024-06-19] MEDS: guaiFENesin 12 HR 600 MG TABCR PO ×2 (09:14→21:11)
[2024-06-19] MEDS: hydroCHLOROthiazide 25 MG TABLET PO (09:14)
[2024-06-19] MEDS: PANTOPRAZOLE 40 MG TABLET PO (09:14)
[2024-06-19] MEDS: LOSARTAN POTASSIUM 100 MG TABLET PO (09:14)
[2024-06-19] MEDS: MELOXICAM 7.5 MG TABLET 15 MG PO (09:14)
[2024-06-19] MEDS: LORATADINE 10 MG TABLET PO (09:14)
[2024-06-19] MEDS: BENZOCAINE/MENTHOL (*BKC) 18 EA LOZENGE 1 LOZENGE PO (09:15)
[2024-06-19] MEDS: BRIMONIDINE TARTRATE 0.2% OP SOLN 5 ML BTL 1 DROP EACH EYE ×2 (09:16→21:13)
[2024-06-19] MEDS: FLUTICASONE PROPIONATE 0.05% NA SPR 16 GM BTL (*BKC) 2 SPRAY NASAL (09:17)
[2024-06-19] MEDS: TERBINAFINE HCL 250 MG TABLET PO (09:21)
[2024-06-19] MEDS: ACETAMINOPHEN 325 MG TABLET 650 MG PO (09:21)
--- NOTE | 2024-06-19 11:56 | P.PNIM_ITS ---
Progress Note: A&P Assessment and Plan (1) Influenza A: Code(s): J10.1 - Influenza due to other identified influenza virus with other respiratory manifestations Status: Acute Assessment and Plan: - CXR: Possible bilateral pneumonitis, follow-up advised. - Chest CTA: 1. No pulmonary embolism. 2. No acute cardiopulmonary pathology. 3. 5 mm nodule in the right upper lobe. Follow-up CT in 6-12 months is advised. 4. Right hilar lymphadenopathy. 5. Fat infiltration of the liver. 6. Stone in the right kidney. - started on Tamiflu on 06/18 - new O2 requirement, continue to maintain O2 sat above 92%. Wean as tolerated. - supportive care 06/19/24: * Continue supportive care. * Attempt to wean oxygen as tolerated. She does not normally require her supplemental oxygen at rest. * Continue meds as ordered. * Droplet solation. (2) COPD exacerbation: Code(s): J44.1 - Chronic obstructive pulmonary disease with (acute) exacerbation Status: Acute Assessment and Plan: - started on Solu-Medrol IVP scheduled - scheduled nebs 06/19/24: * Continue supportive care, solumedrol and nebs * Wean oxygen as tolerated. (3) Essential (primary) hypertension: Code(s): I10 - Essential (primary) hypertension Status: Chronic Assessment and Plan: - chronic, currently 149/75 - continue home medications: Amlodipine, HCTZ, losartan - monitor 06/19/24: * Continue current medication regimen. * BP is fluctuating ranging from 1-teens SBP-160s/60s-70s. * Continue to monitor. (4) Obstructive sleep apnea (adult) (pediatric): Code(s): G47.33 - Obstructive sleep apnea (adult) (pediatric) Status: Acute Assessment and Plan: - continue home BiPAP/CPAP 06/19/24: * Continue home settings * Consider pulmonology consult if any worsening in respiratory status. Time Spent With Patient Time with patient: 25 - 35 minutes Subjective Date/time seen: 06/19/24 1030 Interval history: This pt was examined at the bedside today in interval assessment since being admitted to the hospital positive for Influenza A. She has a baseline oxygen requirement but is also requiring it at rest currently at 3L which she did not require at home previously. She has no acute complaints otherwise. Review of Systems Review of Systems: All systems reviewed & are unremarkable except as noted in HPI and below Exam Narrative: CONSTITUTIONAL: Pleasant female sitting up in bed at this time in no acute distress. She appears comfortable HENMT: Head is atraumatic and normocephalic. MMM RESPIRATORY: Decreased in bases bilaterally CARDIO: RRR, S1 and S2 present. No S3, S4, m,r,g,h or displacement of PMI. GI: Soft, NT, BS+x4 quads and without any rebound or guarding. SKIN: Intact without lesion and no pallor. NEURO: Grossly intact and without any focal deficits. EXTREMITIES: No edema, intact pulses and full active ROM. PSYCH: Pleasant, Alert and oriented x4 Objective Data Vital Signs Vital Signs: Vital Signs - 24 hr 06/18/24 15:52 06/18/24 16:20 06/18/24 20:00 Temperature 97.3 F L Pulse Rate 86 88 Respiratory Rate 16 20 Blood Pressure 144/75 H 132/60 Pulse Oximetry 93 96 95 Oxygen Delivery Nasal Cannula Oxygen Flow Rate 3 06/18/24 20:35 06/18/24 20:45 06/18/24 20:45 Temperature Pulse Rate 90 90 94 Respiratory Rate 20 20 Blood Pressure Pulse Oximetry 95 Oxygen Delivery Nasal Cannula Oxygen Flow Rate 3 06/18/24 22:28 06/19/24 02:15 06/19/24 02:25 Temperature 97.0 F L Pulse Rate 93 80 84 Respiratory Rate 20 20 20 Blood Pressure 135/56 L Pulse Oximetry 99 Oxygen Delivery Oxygen Flow Rate 06/19/24 06:00 06/19/24 06:17 06/19/24 06:40 Temperature 97.9 F Pulse Rate 85 80 82 Respiratory Rate 16 20 20 Blood Pressure 163/77 H Pulse Oximetry 94 Oxygen Delivery Oxygen Flow Rate 06/19/24 06:40 06/19/24 08:50 Temperature Pulse Rate 80 Respiratory Rate Blood Pressure Pulse Oximetry 94 92 Oxygen Delivery Nasal Cannula Nasal Cannula Oxygen Flow Rate 3 3 Intake/Output Intake/Output: Intake & Output 06/16/24 06/17/24 06/18/24 06/19/24 23:59 23:59 23:59 23:59 Intake Total 740 1840 Balance 740 1840 Meds/Results Medications: Active Medications Generic Name Dose Route Start Last Admin Trade Name Freq PRN Reason Stop Dose Admin Acetaminophen 650 mg 12/18/24 19:00 06/19/24 09:21 Acetaminophen 325 Mg Tablet PO 650 mg Q6H PRN Administration Mild Pain (1-3) or Fever Hydrocodone Bitart/Acetaminophen 1 tab 06/18/24 21:51 06/18/24 22:05 Hydrocodone/Acetaminophen (*Crx) 5-325 Mg Tablet PO 1 tab Q6H PRN Administration PAIN RATED 4-6 Albuterol 2 puff 06/18/24 21:55 Albuterol Sulfate (*Sp) Aerosol 1 Puff INHALATION Q6H PRN SHORTNESS OF BREATH/WHEEZING Albuterol/Ipratropium 3 ml 06/18/24 14:00 06/19/24 06:17 Ipratropium 0.5 Mg/Albuterol Sulfate 2.5 Mg Ampul.Neb 3 Ml INHALATION 3 ml Q6HRT MEHRAN Administration Amlodipine Besylate 10 mg 06/19/24 21:00 Amlodipine Besylate 10 Mg Tablet PO HS [facility] Benzocaine 1 lozenge 06/18/24 15:05 06/19/24 09:15 Benzocaine/Menthol (*Bkc) 18 Ea Lozenge PO 1 lozenge PRN PRN Administration Sore Throat Benzonatate 100 mg 06/18/24 15:05 Benzonatate 100 Mg Capsule PO TID PRN Cough Brimonidine Tartrate 1 drop 06/18/24 23:05 06/19/24 09:16 Brimonidine Tartrate 0.2% Op Soln 5 Ml Btl EACH EYE 1 drop Q12HR MEHRAN Administration Cyclobenzaprine HCl 10 mg 06/18/24 23:02 Cyclobenzaprine Hcl 10 Mg Tablet PO TID PRN Muscle Spasm Fluticasone Propionate 2 spray 06/19/24 09:00 06/19/24 09:17 Fluticasone Propionate 0.05% Na Spr 16 Gm Btl (*Bkc) NASAL 2 spray DAILY MEHRAN Administration Fluticasone/Umeclidinium/Vilanterol 1 puff 06/19/24 08:00 06/19/24 08:50 Fluticasone/Umeclidin/Vilanter 100-62.5-25 Mcg Ellipta INHALATION 1 puff DAILYRT [facility] Administration Guaifenesin 600 mg 06/18/24 21:00 06/19/24 09:14 Guaifenesin 12 Hr 600 Mg Tabcr PO 600 mg Q12HR MEHRAN Administration Hydrochlorothiazide 25 mg 06/19/24 09:00 06/19/24 09:14 Hydrochlorothiazide 25 Mg Tablet PO 25 mg DAILY MEHRAN Administration Latanoprost 1 drop 06/19/24 18:00 Latanoprost 0.005% Op Soln 2.5 Ml Btl EACH EYE QPM MEHRAN Loratadine 10 mg 06/19/24 09:00 06/19/24 09:14 Loratadine 10 Mg Tablet PO 10 mg QAM MEHRAN Administration Losartan Potassium 100 mg 06/19/24 09:00 06/19/24 09:14 Losartan Potassium 100 Mg Tablet PO 100 mg DAILY MEHRAN Administration Meloxicam 15 mg 06/19/24 09:00 06/19/24 09:14 Meloxicam 7.5 Mg Tablet PO 15 mg QAM MEHRAN Administration Methylprednisolone Sodium Succinate 60 mg 06/18/24 18:00 06/19/24 05:44 Methylprednisolone Sod Succ 125 Mg Vial IV PUSH 60 mg Q6HR MEHRAN Administration Montelukast Sodium 10 mg 06/19/24 09:00 06/19/24 09:14 Montelukast Sodium 10 Mg Tablet PO 10 mg DAILY [facility] Administration Ondansetron HCl 4 mg 06/18/24 15:05 Ondansetron Hcl Odt 4 Mg Tablet PO Q6H PRN Nausea And Vomiting Oseltamivir Phosphate 75 mg 06/18/24 13:40 06/19/24 09:14 Oseltamivir Phosphate 75 Mg Capsule PO 06/23/24 13:39 75 mg Q12HR MEHRAN Administration Pantoprazole Sodium 40 mg 06/19/24 09:00 06/19/24 09:14 Pantoprazole 40 Mg Tablet PO 40 mg QAM [facility] Administration Terbinafine HCl 250 mg 06/19/24 09:00 06/19/24 09:21 Terbinafine Hcl 250 Mg Tablet PO 250 mg DAILY [facility] Administration Triamcinolone Acetonide 1 applic 06/18/24 23:02 Triamcinolone Acet 0.1% Cream 15 Gm Tube TOPICAL BID PRN insect bite Radiology Results: ITS Impressions Chest X-Ray 06/18/24 11:25 IMPRESSION: Possible bilateral pneumonitis. Follow-up advised. Chest CTA 06/18/24 12:15 IMPRESSION: 1. No pulmonary embolism. 2. No acute cardiopulmonary pathology. 3. 5 mm nodule in the right upper lobe. Follow-up CT in 6-12 months is advised. 4. Right hilar lymphadenopathy. 5. Fat infiltration of the liver. 6. Stone in the right kidney. Labs Labs: Laboratory Results - last 24 hr 06/18/24 06/19/24 12:55 07:01 WBC 5.4 RBC 5.02 Hgb 15.0 Hct 45.6 MCV 90.8 MCH 29.9 MCHC 32.9 RDW 13.1 Plt Count 143 L MPV 10.8 H Immature Gran % (Auto) 0.6 H Neut % (Auto) 81.1 H Lymph % (Auto) 14.0 L [place] % (Auto) 4.1 Eos % (Auto) 0.0 Baso % (Auto) 0.2 Lymph # (Auto) 0.75 L [place] # (Auto) 0.2 Eos # (Auto) 0.0 Baso # (Auto) 0.0 Abs Immat Gran (auto) 0.03 Absolute Neuts (auto) 4.3 Absolute Nucleated RBC 0.000 Nucleated RBC % 0.0 Sodium 139 Potassium 3.5 Chloride 102 Carbon Dioxide 34 H Anion Gap 3 L BUN 14 Creatinine 0.50 L Estim Creat Clear Calc 139 Estimated GFR > 60 Glucose 143 H Calcium 9.2 Urine Color Yellow Urine Appearance Clear Urine pH 6.5 Ur Specific [place] 1.025 Urine Protein Negative Urine Glucose (UA) Negative Urine Ketones Negative Ur Blood (Man) Negative Urine Nitrate Negative Urine Bilirubin Negative Urine Urobilinogen 0.2 Leukocyte Esterase Rfl Negative Quality VTE Prophylaxis VTE prophylaxis: mechanical ordered
[2024-06-19] MEDS: LATANOPROST 0.005% OP SOLN 2.5 ML BTL 1 DROP EACH EYE (17:55)
[2024-06-19] MEDS: amLODIPine BESYLATE 10 MG TABLET PO (21:11)
[2024-06-19] MEDS: CYCLOBENZAPRINE HCL 10 MG TABLET PO (21:11)
[2024-06-19] MEDS: HYDROcodone/acetaminophen (*CRX) 5-325 MG TABLET 1 TAB PO (21:12)
[2024-06-20] VITALS (13 sets, daily range): BP systolic 137–148; BP diastolic 57–82; PULSE 71–88; RESP 16–24; TEMP 35.8–36.2; O2SAT 92–100
[2024-06-20] MEDS: methylPREDNISolone SOD SUCC 125 MG VIAL 60 MG IV PUSH ×4 (00:28→17:07)
[2024-06-20] MEDS: IPRATROPIUM 0.5 MG/ALBUTEROL SULFATE 2.5 MG AMPUL.NEB 3 ML INHALATION ×4 (02:12→14:33)
[2024-06-20 07:10] LABS: Basophils Percent Auto 0.1 % (0.2-1.2); Hematocrit 47.9 % (37.0-47.0); Hemoglobin 15.7 g/dL (12.0-15.0); Immature Granulocyte Absolute 0.07 K/mm3 (0.00-0.031); Immature Granulocyte Percent A 0.7 % (0-0.5); Lymphocytes Absolute Auto 0.95 K/mm3 (0.9-3.2); Lymphocytes Percent Auto 9.4 % (18.3-44.2); Mean Corpuscular HGB Conc 32.8 g/dl (32-36); Mean Corpuscular Hemoglobin 29.4 pg (26-34); Mean Corpuscular Volume 89.7 fl (80-100); Mean Platelet Volume 11.2 fl (7.4-10.4); Monocytes Absolute Auto 0.5 K/mm3 (0.1-0.6); Monocytes Percent Auto 4.4 % (2.6-8.5); Neutrophils Absolute Auto 8.7 K/mm3 (1.3-6.7); Neutrophils Percent Auto 85.4 % (45.5-73.1); Platelet Count Result 164 k/mm3 (150-375); Red Blood Count 5.34 M/mm3 (4.2-5.4); Red Cell Distribution Width 13.1 % (11.5-14.5); White Blood Count 10.2 K/mm3 (4.5-10.0)
[2024-06-20 07:17] LABS: Alanine Aminotransferase 36 U/L (6-35); Alkaline Phosphatase 77 U/L (38-126); Anion Gap 4 mmol/L (4-12); Aspartate Amino Transferase 37 U/L (14-36); Bilirubin,Total 0.5 mg/dL (0.2-1.3); Blood Urea Nitrogen 20 mg/dL (7-17); Calcium 9.5 mg/dL (8.4-10.2); Carbon Dioxide 34 mmol/L (22-30); Chloride 101 mmol/L (98-107); Estimated CRCL calculation 118 ml/min; Estimated Glomerular Filt Rate > 60; Glucose 174 mg/dL (65-110); Magnesium 2.1 mg/dL (1.6-2.3); Potassium 3.5 mmol/L (3.4-5.0); Sodium 139 mmol/L (137-145)
[2024-06-20] MEDS: FLUTICASONE/UMECLIDIN/VILANTER 100-62.5-25 MCG ELLIPTA 1 PUFF INHALATION (08:20)
[2024-06-20] MEDS: hydroCHLOROthiazide 25 MG TABLET PO (09:35)
[2024-06-20] MEDS: LOSARTAN POTASSIUM 100 MG TABLET PO (09:35)
[2024-06-20] MEDS: PANTOPRAZOLE 40 MG TABLET PO (09:35)
[2024-06-20] MEDS: MONTELUKAST SODIUM 10 MG TABLET PO (09:35)
[2024-06-20] MEDS: TERBINAFINE HCL 250 MG TABLET PO (09:35)
[2024-06-20] MEDS: LORATADINE 10 MG TABLET PO (09:35)
[2024-06-20] MEDS: guaiFENesin 12 HR 600 MG TABCR PO ×2 (09:35→21:20)
[2024-06-20] MEDS: OSELTAMIVIR PHOSPHATE 75 MG CAPSULE PO ×2 (09:36→21:19)
[2024-06-20] MEDS: FLUTICASONE PROPIONATE 0.05% NA SPR 16 GM BTL (*BKC) 2 SPRAY NASAL (09:36)
[2024-06-20] MEDS: MELOXICAM 7.5 MG TABLET 15 MG PO (09:36)
[2024-06-20] MEDS: TRIAMCINOLONE ACET 0.1% CREAM 15 GM TUBE 1 APPLIC TOPICAL (09:37)
[2024-06-20] MEDS: BRIMONIDINE TARTRATE 0.2% OP SOLN 5 ML BTL 1 DROP EACH EYE ×2 (09:37→21:21)
[2024-06-20] MEDS: ALBUTEROL SULFATE (*SP) AEROSOL 1 PUFF 2 PUFF INHALATION (09:44)
--- NOTE | 2024-06-20 15:18 | PM.IMPN ---
Progress Note: A&P Assessment and Plan (1) Influenza A: Code(s): J10.1 - Influenza due to other identified influenza virus with other respiratory manifestations Status: Acute Assessment and Plan: Increasing shortness of breath with new fevers on Sunday Baseline oxygen: none at rest, 3L with activity - CXR: Possible bilateral pneumonitis, follow-up advised. - Chest CTA: 1. No pulmonary embolism. 2. No acute cardiopulmonary pathology. 3. 5 mm nodule in the right upper lobe. Follow-up CT in 6-12 months is advised. 4. Right hilar lymphadenopathy. 5. Fat infiltration of the liver. 6. Stone in the right kidney. - started Tamiflu 06/18 - new O2 requirement, continue to maintain O2 sat above 92%. Wean as tolerated. - supportive care --Holding off on cpap due to cough for now --Droplet solation. --Tessalon perles, lozenges and guaifenesin dm for cough (2) COPD exacerbation: Code(s): J44.1 - Chronic obstructive pulmonary disease with (acute) exacerbation Status: Acute Assessment and Plan: Home meds: Trelegy Ellipta, Albuterol prn On Solumedrol 60 q6, continue. Start prednisone in AM Change q6 duonebs to albuterol q4, duonebs q8 Wean oxygen as tolerated. (3) Essential (primary) hypertension: Code(s): I10 - Essential (primary) hypertension Status: Chronic Assessment and Plan: Blood pressures slightly above goal. In the setting of mildly increased work of breathing and steroids - chronic, currently 149/75 - continue home medications: Amlodipine, HCTZ, losartan - monitor (4) Obstructive sleep apnea (adult) (pediatric): Code(s): G47.33 - Obstructive sleep apnea (adult) (pediatric) Status: Acute Assessment and Plan: Continue BiPAP/CPAP, home settings Consider pulmonology consult if any worsening in respiratory status. Time Spent With Patient Time: 57 minutes Subjective Date/time seen: 06/20/24 15:18 Interval history: This pt was examined at the bedside today in interval assessment since being admitted to the hospital positive for Influenza A. She has a baseline oxygen requirement but is also requiring it at rest currently at 3L which she did not require at home previously. She has no acute complaints otherwise. Review of Systems Review of Systems: All systems reviewed & are unremarkable except as noted in HPI and below Exam Narrative: CONSTITUTIONAL: Pleasant female sitting up in bed at this time in no acute distress. She appears comfortable HENMT: Head is atraumatic and normocephalic. MMM RESPIRATORY: Decreased in bases bilaterally CARDIO: RRR, S1 and S2 present. No S3, S4, m,r,g,h or displacement of PMI. GI: Soft, NT, BS+x4 quads and without any rebound or guarding. SKIN: Intact without lesion and no pallor. NEURO: Grossly intact and without any focal deficits. EXTREMITIES: No edema, intact pulses and full active ROM. PSYCH: Pleasant, Alert and oriented x4 Objective Data Vital Signs Vital Signs: Vital Signs - 24 hr 06/19/24 20:00 06/19/24 21:15 06/19/24 21:16 Temperature 97.7 F Pulse Rate 79 77 Respiratory Rate 20 20 Blood Pressure 127/68 Pulse Oximetry 94 93 Oxygen Delivery Nasal Cannula Oxygen Flow Rate 2 06/19/24 21:19 06/19/24 21:25 06/20/24 02:12 Temperature Pulse Rate 87 77 Respiratory Rate 20 20 Blood Pressure Pulse Oximetry 94 Oxygen Delivery Nasal Cannula Oxygen Flow Rate 3 06/20/24 02:22 06/20/24 05:20 06/20/24 08:00 Temperature 96.9 F L Pulse Rate 88 87 Respiratory Rate 20 20 Blood Pressure 144/68 H Pulse Oximetry 95 95 Oxygen Delivery Nasal Cannula Oxygen Flow Rate 3 06/20/24 08:22 06/20/24 08:22 06/20/24 08:34 Temperature Pulse Rate 76 84 Respiratory Rate 20 20 Blood Pressure Pulse Oximetry 94 Oxygen Delivery Nasal Cannula Oxygen Flow Rate 3 06/20/24 14:00 06/20/24 14:33 06/20/24 14:40 Temperature 96.5 F L Pulse Rate 74 71 77 Respiratory Rate 16 18 18 Blood Pressure 137/57 L Pulse Oximetry 97 Oxygen Delivery Oxygen Flow Rate Intake/Output Intake/Output: Intake & Output 06/17/24 06/18/24 06/19/24 06/20/24 23:59 23:59 23:59 23:59 Intake Total 740 2320 1576 Balance 740 2320 1576 Meds/Results Medications: Active Medications Generic Name Dose Route Start Last Admin Trade Name Freq PRN Reason Stop Dose Admin Acetaminophen 650 mg 06/18/24 19:00 06/19/24 09:21 Acetaminophen 325 Mg Tablet PO 650 mg Q6H PRN Administration Mild Pain (1-3) or Fever Hydrocodone Bitart/Acetaminophen 1 tab 06/18/24 21:51 06/19/24 21:12 Hydrocodone/Acetaminophen (*Crx) 5-325 Mg Tablet PO 1 tab Q6H PRN Administration PAIN RATED 4-6 Albuterol 2 puff 06/18/24 21:55 06/20/24 09:44 Albuterol Sulfate (*Sp) Aerosol 1 Puff INHALATION 2 puff Q6H PRN Administration SHORTNESS OF BREATH/WHEEZING Albuterol/Ipratropium 3 ml 06/18/24 14:00 06/20/24 14:33 Ipratropium 0.5 Mg/Albuterol Sulfate 2.5 Mg Ampul.Neb 3 Ml INHALATION 3 ml Q6HRT MEHRAN Administration Amlodipine Besylate 10 mg 06/19/24 21:00 06/19/24 21:11 Amlodipine Besylate 10 Mg Tablet PO 10 mg HS MEHRAN Administration Benzocaine 1 lozenge 06/18/24 15:05 06/19/24 09:15 Benzocaine/Menthol (*Bkc) 18 Ea Lozenge PO 1 lozenge PRN PRN Administration Sore Throat Benzonatate 100 mg 06/18/24 15:05 Benzonatate 100 Mg Capsule PO TID PRN Cough Brimonidine Tartrate 1 drop 06/18/24 23:05 06/20/24 09:37 Brimonidine Tartrate 0.2% Op Soln 5 Ml Btl EACH EYE 1 drop Q12HR MEHRAN Administration Cyclobenzaprine HCl 10 mg 06/18/24 23:02 06/19/24 21:11 Cyclobenzaprine Hcl 10 Mg Tablet PO 10 mg TID PRN Administration Muscle Spasm Fluticasone Propionate 2 spray 06/19/24 09:00 06/20/24 09:36 Fluticasone Propionate 0.05% Na Spr 16 Gm Btl (*Bkc) NASAL 2 spray DAILY MEHRAN Administration Fluticasone/Umeclidinium/Vilanterol 1 puff 06/19/24 08:00 06/20/24 08:20 Fluticasone/Umeclidin/Vilanter 100-62.5-25 Mcg Ellipta INHALATION 1 puff DAILYRT MEHRAN Administration Guaifenesin 600 mg 06/18/24 21:00 06/20/24 09:35 Guaifenesin 12 Hr 600 Mg Tabcr PO 600 mg Q12HR MEHRAN Administration Hydrochlorothiazide 25 mg 06/19/24 09:00 06/20/24 09:35 Hydrochlorothiazide 25 Mg Tablet PO 25 mg DAILY MEHRAN Administration Latanoprost 1 drop 06/19/24 18:00 06/19/24 17:55 Latanoprost 0.005% Op Soln 2.5 Ml Btl EACH EYE 1 drop QPM MEHRAN Administration Loratadine 10 mg 06/19/24 09:00 06/20/24 09:35 Loratadine 10 Mg Tablet PO 10 mg QAM MEHRAN Administration Losartan Potassium 100 mg 06/19/24 09:00 06/20/24 09:35 Losartan Potassium 100 Mg Tablet PO 100 mg DAILY MEHRAN Administration Meloxicam 15 mg 06/19/24 09:00 06/20/24 09:36 Meloxicam 7.5 Mg Tablet PO 15 mg QAM MEHRAN Administration Methylprednisolone Sodium Succinate 60 mg 06/18/24 18:00 06/20/24 13:04 Methylprednisolone Sod Succ 125 Mg Vial IV PUSH 60 mg Q6HR MEHRAN Administration Montelukast Sodium 10 mg 06/19/24 09:00 06/20/24 09:35 Montelukast Sodium 10 Mg Tablet PO 10 mg DAILY MEHRAN Administration Ondansetron HCl 4 mg 06/18/24 15:05 Ondansetron Hcl Odt 4 Mg Tablet PO Q6H PRN Nausea And Vomiting Oseltamivir Phosphate 75 mg 06/18/24 13:40 06/20/24 09:36 Oseltamivir Phosphate 75 Mg Capsule PO 06/23/24 13:39 75 mg Q12HR MEHRAN Administration Pantoprazole Sodium 40 mg 06/19/24 09:00 06/20/24 09:35 Pantoprazole 40 Mg Tablet PO 40 mg QAM MEHRNA Administration Terbinafine HCl 250 mg 06/19/24 09:00 06/20/24 09:35 Terbinafine Hcl 250 Mg Tablet PO 250 mg DAILY MEHRAN Administration Triamcinolone Acetonide 1 applic 06/18/24 23:02 06/20/24 09:37 Triamcinolone Acet 0.1% Cream 15 Gm Tube TOPICAL 1 applic BID PRN Administration insect bite Radiology Results: ITS Impressions Chest X-Ray 06/18/24 11:25 IMPRESSION: Possible bilateral pneumonitis. Follow-up advised. Chest CTA 06/18/24 12:15 IMPRESSION: 1. No pulmonary embolism. 2. No acute cardiopulmonary pathology. 3. 5 mm nodule in the right upper lobe. Follow-up CT in 6-12 months is advised. 4. Right hilar lymphadenopathy. 5. Fat infiltration of the liver. 6. Stone in the right kidney. Labs Labs: Laboratory Results - last 24 hr 06/20/24 06:32 WBC 10.2 H RBC 5.34 Hgb 15.7 H Hct 47.9 H MCV 89.7 MCH 29.4 MCHC 32.8 RDW 13.1 Plt Count 164 MPV 11.2 H Immature Gran % (Auto) 0.7 H Neut % (Auto) 85.4 H Lymph % (Auto) 9.4 L [place] % (Auto) 4.4 Eos % (Auto) 0.0 Baso % (Auto) 0.1 L Lymph # (Auto) 0.95 [place] # (Auto) 0.5 Eos # (Auto) 0.0 Baso # (Auto) 0.0 Abs Immat Gran (auto) 0.07 H Absolute Neuts (auto) 8.7 H Absolute Nucleated RBC 0.000 Nucleated RBC % 0.0 Sodium 139 Potassium 3.5 Chloride 101 Carbon Dioxide 34 H Anion Gap 4 BUN 20 H Creatinine 0.60 L Estim Creat Clear Calc 118 Estimated GFR > 60 Glucose 174 H Calcium 9.5 Magnesium 2.1 Total Bilirubin 0.5 AST 37 H ALT 36 H Alkaline Phosphatase 77 Total Protein 7.0 Albumin 4.0 Quality VTE Prophylaxis VTE prophylaxis: mechanical ordered Hospitalist [facility] Advance Care Plan I have confirmed that the patient's Advanced Care Plan is present, code status is documented, or surrogate decision maker is listed in patient medical record.: Yes Medication Reconciliation I have utilized all available resources to obtain, update and review the patients current medications (includes all prescriptions, OTC, herbals, cannabis, and nutritional supplements).: Yes
[2024-06-20] MEDS: BENZONATATE 100 MG CAPSULE 200 MG PO (17:07)
[2024-06-20] MEDS: LATANOPROST 0.005% OP SOLN 2.5 ML BTL 1 DROP EACH EYE (17:07)
[2024-06-20] MEDS: ALBUTEROL SULFATE NEB 2.5 MG/3 ML INH INHALATION (21:02)
[2024-06-20] MEDS: amLODIPine BESYLATE 10 MG TABLET PO (21:20)
[2024-06-20] MEDS: CYCLOBENZAPRINE HCL 10 MG TABLET PO (21:27)
[2024-06-20] MEDS: HYDROcodone/acetaminophen (*CRX) 5-325 MG TABLET 1 TAB PO (21:28)
[2024-06-21] VITALS (21 sets, daily range): BP systolic 142–160; BP diastolic 70–82; PULSE 69–91; RESP 14–20; TEMP 36.1; O2SAT 92–100
[2024-06-21] MEDS: methylPREDNISolone SOD SUCC 125 MG VIAL 60 MG IV PUSH ×2 (00:47→05:06)
[2024-06-21] MEDS: ALBUTEROL SULFATE NEB 2.5 MG/3 ML INH INHALATION ×7 (00:51→23:46)
[2024-06-21] MEDS: FLUTICASONE/UMECLIDIN/VILANTER 100-62.5-25 MCG ELLIPTA 1 PUFF INHALATION (07:32)
[2024-06-21] MEDS: PANTOPRAZOLE 40 MG TABLET PO (09:54)
[2024-06-21] MEDS: OSELTAMIVIR PHOSPHATE 75 MG CAPSULE PO ×2 (09:54→22:03)
[2024-06-21] MEDS: MONTELUKAST SODIUM 10 MG TABLET PO (09:54)
[2024-06-21] MEDS: guaiFENesin 12 HR 600 MG TABCR PO ×2 (09:54→22:03)
[2024-06-21] MEDS: LOSARTAN POTASSIUM 100 MG TABLET PO (09:54)
[2024-06-21] MEDS: BENZONATATE 100 MG CAPSULE 200 MG PO ×3 (09:54→16:46)
[2024-06-21] MEDS: MELOXICAM 7.5 MG TABLET 15 MG PO (09:55)
[2024-06-21] MEDS: LORATADINE 10 MG TABLET PO (09:55)
[2024-06-21] MEDS: TERBINAFINE HCL 250 MG TABLET PO (09:55)
[2024-06-21] MEDS: hydroCHLOROthiazide 25 MG TABLET PO (09:55)
[2024-06-21] MEDS: predniSONE 20 MG TABLET 60 MG PO (11:56)
[2024-06-21] MEDS: BRIMONIDINE TARTRATE 0.2% OP SOLN 5 ML BTL 1 DROP EACH EYE ×2 (11:59→22:04)
[2024-06-21] MEDS: FLUTICASONE PROPIONATE 0.05% NA SPR 16 GM BTL (*BKC) 2 SPRAY NASAL (11:59)
--- NOTE | 2024-06-21 12:01 | P.PNIM_ITS ---
Progress Note: A&P Assessment and Plan (1) Influenza A: Code(s): J10.1 - Influenza due to other identified influenza virus with other respiratory manifestations Status: Acute Assessment and Plan: Increasing shortness of breath with new fevers on Sunday Baseline oxygen: none at rest, 3L with activity - CXR: Possible bilateral pneumonitis, follow-up advised. - Chest CTA: 1. No pulmonary embolism. 2. No acute cardiopulmonary pathology. 3. 5 mm nodule in the right upper lobe. Follow-up CT in 6-12 months is advised. 4. Right hilar lymphadenopathy. 5. Fat infiltration of the liver. 6. Stone in the right kidney. - started Tamiflu 06/18 - new O2 requirement, continue to maintain O2 sat above 92%. Wean as tolerated. - supportive care --Holding off on cpap due to cough for now --Droplet solation. --Tessalon perles, lozenges and guaifenesin dm for cough (2) COPD exacerbation: Code(s): J44.1 - Chronic obstructive pulmonary disease with (acute) exacerbation Status: Acute Assessment and Plan: Home meds: Trelegy Ellipta, Albuterol prn * Slightly improved but still wheezing, change IV solumedrol to prednisone 60mg today * Continuing trelegy * Change q6 duonebs to albuterol q4, duonebs q8 * Wean oxygen as tolerated. * Pulmonary consult if not improving (3) Essential (primary) hypertension: Code(s): I10 - Essential (primary) hypertension Status: Chronic Assessment and Plan: Blood pressures slightly above goal. In the setting of mildly increased work of breathing and steroids. 127-163/56-77 during admission - continue home medications: Amlodipine, HCTZ, losartan - monitor -142/82 this morning (4) Obstructive sleep apnea (adult) (pediatric): Code(s): G47.33 - Obstructive sleep apnea (adult) (pediatric) Status: Acute Assessment and Plan: * Continue BiPAP/CPAP, home settings * Consider pulmonology consult if any worsening in respiratory status. Time Spent With Patient Time: 62 minutes Subjective Date/time seen: 06/21/24 12:01 Interval history: Still desatting to 70's with 4L O2 with activity Can tolerate short periods at rest without oxygen but still needs 1-2 liters at rest Feeling slightly better, but still some wheezing with IV solumedrol Review of Systems Review of Systems: All systems reviewed & are unremarkable except as noted in HPI and below Exam Narrative: CONSTITUTIONAL: Pleasant female sitting up in bed at this time in no acute di stress. She appears comfortable HENMT: Head is atraumatic and normocephalic. MMM RESPIRATORY: Mild wheezing CARDIO: RRR, S1 and S2 present. No S3, S4, m,r,g,h or displacement of PMI. GI: Soft, NT, BS+x4 quads and without any rebound or guarding. SKIN: Intact without lesion and no pallor. NEURO: Grossly intact and without any focal deficits. EXTREMITIES: No edema, intact pulses and full active ROM. PSYCH: Pleasant, Alert and oriented x4 Objective Data Vital Signs Vital Signs: Vital Signs - 24 hr 06/20/24 14:00 06/20/24 14:33 06/20/24 14:40 Temperature 96.5 F L Pulse Rate 74 71 77 Respiratory Rate 16 18 18 Blood Pressure 137/57 L Pulse Oximetry 97 Oxygen Delivery Oxygen Flow Rate 06/20/24 20:00 06/20/24 21:02 06/20/24 21:02 Temperature Pulse Rate 74 74 Respiratory Rate 20 Blood Pressure Pulse Oximetry 92 92 Oxygen Delivery Nasal Cannula Nasal Cannula Oxygen Flow Rate 2 2 06/20/24 21:09 06/20/24 21:14 06/21/24 00:51 Temperature 97.1 F L Pulse Rate 72 79 72 Respiratory Rate 24 H 20 18 Blood Pressure 148/82 H Pulse Oximetry 100 Oxygen Delivery Oxygen Flow Rate 06/21/24 01:04 06/21/24 05:01 06/21/24 05:11 Temperature Pulse Rate 69 74 77 Respiratory Rate 18 20 20 Blood Pressure Pulse Oximetry Oxygen Delivery Oxygen Flow Rate 06/21/24 05:26 06/21/24 07:32 06/21/24 07:34 Temperature 96.9 F L Pulse Rate 84 83 Respiratory Rate 18 20 Blood Pressure 142/82 H Pulse Oximetry 94 95 Oxygen Delivery Nasal Cannula Oxygen Flow Rate 2 06/21/24 07:42 06/21/24 08:00 06/21/24 11:43 Temperature Pulse Rate 88 78 Respiratory Rate 20 20 Blood Pressure Pulse Oximetry 94 Oxygen Delivery Nasal Cannula Oxygen Flow Rate 2 06/21/24 11:53 Temperature Pulse Rate 78 Respiratory Rate 20 Blood Pressure Pulse Oximetry Oxygen Delivery Oxygen Flow Rate Intake/Output Intake/Output: Intake & Output 06/18/24 06/19/24 06/20/24 06/21/24 23:59 23:59 23:59 23:59 Intake Total 740 2320 2916 1530 Balance 740 2320 2916 1530 Meds/Results Medications: Active Medications Generic Name Dose Route Start Last Admin Trade Name Freq PRN Reason Stop Dose Admin Acetaminophen 650 mg 06/18/24 19:00 06/19/24 09:21 Acetaminophen 325 Mg Tablet PO 650 mg Q6H PRN Administration Mild Pain (1-3) or Fever Hydrocodone Bitart/Acetaminophen 1 tab 06/18/24 21:51 06/20/24 21:28 Hydrocodone/Acetaminophen (*Crx) 5-325 Mg Tablet PO 1 tab Q6H PRN Administration PAIN RATED 4-6 Albuterol 2 puff 06/18/24 21:55 06/20/24 09:44 Albuterol Sulfate (*Sp) Aerosol 1 Puff INHALATION 2 puff Q6H PRN Administration SHORTNESS OF BREATH/WHEEZING Albuterol 2.5 mg 06/20/24 16:00 06/21/24 11:42 Albuterol Sulfate Neb 2.5 Mg/3 Ml Inh INHALATION 2.5 mg Q4HRT MEHRAN Administration Amlodipine Besylate 10 mg 06/19/24 21:00 06/20/24 21:20 Amlodipine Besylate 10 Mg Tablet PO 10 mg HS MEHRAN Administration Benzocaine 1 lozenge 06/18/24 15:05 06/19/24 09:15 Benzocaine/Menthol (*Bkc) 18 Ea Lozenge PO 1 lozenge PRN PRN Administration Sore Throat Benzonatate 100 mg 06/18/24 15:05 Benzonatate 100 Mg Capsule PO TID PRN Cough Benzonatate 200 mg 06/20/24 17:00 06/21/24 11:59 Benzonatate 100 Mg Capsule PO 200 mg TID MEHRAN Administration Brimonidine Tartrate 1 drop 06/18/24 23:05 06/21/24 11:59 Brimonidine Tartrate 0.2% Op Soln 5 Ml Btl EACH EYE 1 drop Q12HR MEHRAN Administration Cyclobenzaprine HCl 10 mg 06/18/24 23:02 06/20/24 21:27 Cyclobenzaprine Hcl 10 Mg Tablet PO 10 mg TID PRN Administration Muscle Spasm Fluticasone Propionate 2 spray 06/19/24 09:00 06/21/24 11:59 Fluticasone Propionate 0.05% Na Spr 16 Gm Btl (*Bkc) NASAL 2 spray DAILY MEHRAN Administration Fluticasone/Umeclidinium/Vilanterol 1 puff 06/19/24 08:00 06/21/24 07:32 Fluticasone/Umeclidin/Vilanter 100-62.5-25 Mcg Ellipta INHALATION 1 puff DAILYRT MEHRAN Administration Guaifenesin 600 mg 06/18/24 21:00 06/21/24 09:54 Guaifenesin 12 Hr 600 Mg Tabcr PO 600 mg Q12HR MEHRAN Administration Hydrochlorothiazide 25 mg 06/19/24 09:00 06/21/24 09:55 Hydrochlorothiazide 25 Mg Tablet PO 25 mg DAILY MEHRAN Administration Ipratropium [place] 0.5 mg 06/20/24 15:25 Ipratropium Br 0.02% Inh Soln 0.5 Mg/2.5 Ml Vial INHALATION Q8HRT PRN Shortness Of Breath Latanoprost 1 drop 06/19/24 18:00 06/20/24 17:07 Latanoprost 0.005% Op Soln 2.5 Ml Btl EACH EYE 1 drop QPM MEHRAN Administration Loratadine 10 mg 06/19/24 09:00 06/21/24 09:55 Loratadine 10 Mg Tablet PO 10 mg QAM MEHRAN Administration Losartan Potassium 100 mg 06/19/24 09:00 06/21/24 09:54 Losartan Potassium 100 Mg Tablet PO 100 mg DAILY MEHRAN Administration Meloxicam 15 mg 06/19/24 09:00 06/21/24 09:55 Meloxicam 7.5 Mg Tablet PO 15 mg QAM MEHRAN Administration Montelukast Sodium 10 mg 06/19/24 09:00 06/21/24 09:54 Montelukast Sodium 10 Mg Tablet PO 10 mg DAILY MEHRAN Administration Ondansetron HCl 4 mg 06/18/24 15:05 Ondansetron Hcl Odt 4 Mg Tablet PO Q6H PRN Nausea And Vomiting Oseltamivir Phosphate 75 mg 06/18/24 13:40 06/21/24 09:54 Oseltamivir Phosphate 75 Mg Capsule PO 06/23/24 13:39 75 mg Q12HR MEHRAN Administration Pantoprazole Sodium 40 mg 06/19/24 09:00 06/21/24 09:54 Pantoprazole 40 Mg Tablet PO 40 mg QAM MEHRAN Administration Prednisone 60 mg 06/21/24 11:30 06/21/24 11:56 Prednisone 20 Mg Tablet PO 60 mg DAILY@0800 MEHRAN Administration Terbinafine HCl 250 mg 06/19/24 09:00 06/21/24 09:55 Terbinafine Hcl 250 Mg Tablet PO 250 mg DAILY MEHRAN Administration Triamcinolone Acetonide 1 applic 06/18/24 23:02 06/20/24 09:37 Triamcinolone Acet 0.1% Cream 15 Gm Tube TOPICAL 1 applic BID PRN Administration insect bite Radiology Results: ITS Impressions Chest X-Ray 06/18/24 11:25 IMPRESSION: Possible bilateral pneumonitis. Follow-up advised. Chest CTA 06/18/24 12:15 IMPRESSION: 1. No pulmonary embolism. 2. No acute cardiopulmonary pathology. 3. 5 mm nodule in the right upper lobe. Follow-up CT in 6-12 months is advised. 4. Right hilar lymphadenopathy. 5. Fat infiltration of the liver. 6. Stone in the right kidney. Quality VTE Prophylaxis VTE prophylaxis: mechanical ordered and pharmacologic ordered Hospitalist [facility] Advance Care Plan I have confirmed that the patient's Advanced Care Plan is present, code status is documented, or surrogate decision maker is listed in patient medical record.: Yes Medication Reconciliation I have utilized all available resources to obtain, update and review the patients current medications (includes all prescriptions, OTC, herbals, cannabis, and nutritional supplements).: Yes
[2024-06-21] MEDS: LATANOPROST 0.005% OP SOLN 2.5 ML BTL 1 DROP EACH EYE (17:00)
[2024-06-21] MEDS: amLODIPine BESYLATE 10 MG TABLET PO (22:03)
[2024-06-21] MEDS: HYDROcodone/acetaminophen (*CRX) 5-325 MG TABLET 1 TAB PO (22:03)
[2024-06-21] MEDS: CYCLOBENZAPRINE HCL 10 MG TABLET PO (22:03)
[2024-06-21] MEDS: ENOXAPARIN 40 MG/0.4 ML SYRINGE SUB-Q (22:04)
[2024-06-22] VITALS (11 sets, daily range): BP systolic 134–157; BP diastolic 74–91; PULSE 75–84; RESP 16–22; TEMP 36.1–36.9; O2SAT 91–97
[2024-06-22] MEDS: ALBUTEROL SULFATE NEB 2.5 MG/3 ML INH INHALATION ×3 (06:55→16:20)
[2024-06-22] MEDS: FLUTICASONE/UMECLIDIN/VILANTER 100-62.5-25 MCG ELLIPTA 1 PUFF INHALATION (06:56)
[2024-06-22 08:44] LABS: Basophils Percent Auto 0.1 % (0.2-1.2); Eosinophils Percent Auto 0.1 % (0-4.4); Hematocrit 51.2 % (37.0-47.0); Hemoglobin 16.4 g/dL (12.0-15.0); Immature Granulocyte Absolute 0.11 K/mm3 (0.00-0.031); Immature Granulocyte Percent A 1.1 % (0-0.5); Lymphocytes Absolute Auto 1.86 K/mm3 (0.9-3.2); Lymphocytes Percent Auto 18.7 % (18.3-44.2); Mean Corpuscular Hemoglobin 29.2 pg (26-34); Mean Corpuscular Volume 91.3 fl (80-100); Mean Platelet Volume 10.5 fl (7.4-10.4); Monocytes Percent Auto 10.4 % (2.6-8.5); Neutrophils Absolute Auto 6.9 K/mm3 (1.3-6.7); Neutrophils Percent Auto 69.6 % (45.5-73.1); Platelet Count Result 170 k/mm3 (150-375); Red Blood Count 5.61 M/mm3 (4.2-5.4); Red Cell Distribution Width 13.1 % (11.5-14.5); White Blood Count 9.9 K/mm3 (4.5-10.0)
[2024-06-22 08:56] LABS: Blood Urea Nitrogen 21 mg/dL (7-17); Calcium 9.4 mg/dL (8.4-10.2); Carbon Dioxide > 40 mmol/L (22-30); Chloride 97 mmol/L (98-107); Estimated CRCL calculation 118 ml/min; Estimated Glomerular Filt Rate > 60; Glucose 96 mg/dL (65-110); Potassium 3.1 mmol/L (3.4-5.0); Sodium 140 mmol/L (137-145)
[2024-06-22] MEDS: hydroCHLOROthiazide 25 MG TABLET PO (09:12)
[2024-06-22] MEDS: PANTOPRAZOLE 40 MG TABLET PO (09:12)
[2024-06-22] MEDS: BENZONATATE 100 MG CAPSULE 200 MG PO ×3 (09:12→17:26)
[2024-06-22] MEDS: LOSARTAN POTASSIUM 100 MG TABLET PO (09:12)
[2024-06-22] MEDS: MELOXICAM 7.5 MG TABLET 15 MG PO (09:12)
[2024-06-22] MEDS: OSELTAMIVIR PHOSPHATE 75 MG CAPSULE PO ×2 (09:12→21:55)
[2024-06-22] MEDS: LORATADINE 10 MG TABLET PO (09:12)
[2024-06-22] MEDS: MONTELUKAST SODIUM 10 MG TABLET PO (09:12)
[2024-06-22] MEDS: predniSONE 20 MG TABLET 60 MG PO (09:12)
[2024-06-22] MEDS: TERBINAFINE HCL 250 MG TABLET PO (09:12)
[2024-06-22] MEDS: guaiFENesin 12 HR 600 MG TABCR PO ×2 (09:13→21:55)
[2024-06-22] MEDS: FLUTICASONE PROPIONATE 0.05% NA SPR 16 GM BTL (*BKC) 2 SPRAY NASAL (09:14)
[2024-06-22] MEDS: BRIMONIDINE TARTRATE 0.2% OP SOLN 5 ML BTL 1 DROP EACH EYE ×2 (09:15→21:56)
[2024-06-22] MEDS: ENOXAPARIN 40 MG/0.4 ML SYRINGE SUB-Q ×2 (09:19→21:55)
[2024-06-22] MEDS: POTASSIUM CHLORIDE 20 MEQ ER TABLET 40 MEQ PO (10:00)
[2024-06-22 11:37] LABS: Glucose Point of Care 113 mg/dl (65-105)
[2024-06-22 16:53] LABS: Glucose Point of Care 176 mg/dl (65-105)
[2024-06-22] MEDS: LATANOPROST 0.005% OP SOLN 2.5 ML BTL 1 DROP EACH EYE (17:27)
--- NOTE | 2024-06-22 19:09 | P.PNIM_ITS ---
Progress Note: A&P Assessment and Plan (1) Influenza A: Code(s): J10.1 - Influenza due to other identified influenza virus with other respiratory manifestations Status: Acute Assessment and Plan: Increasing shortness of breath with new fevers on Sunday Baseline oxygen: none at rest, 3L with activity - CXR: Possible bilateral pneumonitis, follow-up advised. - Chest CTA: 1. No pulmonary embolism. 2. No acute cardiopulmonary pathology. 3. 5 mm nodule in the right upper lobe. Follow-up CT in 6-12 months is advised. 4. Right hilar lymphadenopathy. 5. Fat infiltration of the liver. 6. Stone in the right kidney. - started Tamiflu 06/18 - new O2 requirement, continue to maintain O2 sat above 92%. Wean as tolerated. - supportive care --Holding off on cpap due to cough for now --Droplet solation. --Tessalon perles, lozenges and guaifenesin dm for cough (2) COPD exacerbation: Code(s): J44.1 - Chronic obstructive pulmonary disease with (acute) exacerbation Status: Acute Assessment and Plan: Home meds: Trelegy Ellipta, Albuterol prn * Not improving quickly. Still wheezing, changed IV solumedrol to prednisone 60mg 06/22 * Continuing trelegy * Change q6 duonebs to albuterol q4, duonebs q8 * Wean oxygen as tolerated. * Pulmonary consult (3) Essential (primary) hypertension: Code(s): I10 - Essential (primary) hypertension Status: Chronic Assessment and Plan: Blood pressures slightly above goal. In the setting of mildly increased work of breathing and steroids. 127-163/56-77 during admission - continue home medications: Amlodipine, HCTZ, losartan - monitor (4) Obstructive sleep apnea (adult) (pediatric): Code(s): G47.33 - Obstructive sleep apnea (adult) (pediatric) Status: Acute Assessment and Plan: * Continue BiPAP/CPAP, home settings * Consider pulmonology consult if any worsening in respiratory status. Time Spent With Patient Time: 65 minutes Subjective Date/time seen: 06/22/24 19:09 Interval history: Still wheezing, tight Still on 2L at rest, desats with activity and still wheezing. [place] breathing was worse this morning but better in the afternoon. Not improving quickly l Review of Systems Review of Systems: All systems reviewed & are unremarkable except as noted in HPI and below Exam Narrative: CONSTITUTIONAL: Pleasant female sitting up in bed at this time in no acute distress. She appears comfortable HENMT: Head is atraumatic and normocephalic. MMM RESPIRATORY: Wheezing, tight CARDIO: RRR, S1 and S2 present. No S3, S4, m,r,g,h or displacement of PMI. GI: Soft, NT, BS+x4 quads and without any rebound or guarding. SKIN: Intact without lesion and no pallor. NEURO: Grossly intact and without any focal deficits. EXTREMITIES: No edema, intact pulses and full active ROM. PSYCH: Pleasant, Alert and oriented x4 Objective Data Vital Signs Vital Signs: Vital Signs - 24 hr 06/21/24 20:00 06/21/24 20:22 06/21/24 20:24 Temperature Pulse Rate 86 Respiratory Rate 20 Blood Pressure Pulse Oximetry 93 94 Oxygen Delivery Nasal Cannula Nasal Cannula Oxygen Flow Rate 2 2 06/21/24 20:30 06/21/24 22:00 06/21/24 23:48 Temperature 96.9 F L Pulse Rate 83 74 80 Respiratory Rate 20 20 20 Blood Pressure 154/70 H Pulse Oximetry 92 Oxygen Delivery Oxygen Flow Rate 06/21/24 23:54 06/22/24 05:54 06/22/24 06:55 Temperature 98.0 F Pulse Rate 74 75 76 Respiratory Rate 20 22 H 18 Blood Pressure 134/74 Pulse Oximetry 97 95 Oxygen Delivery Nasal Cannula Oxygen Flow Rate 2 06/22/24 06:55 06/22/24 07:05 06/22/24 08:00 Temperature Pulse Rate 76 75 Respiratory Rate 18 18 Blood Pressure Pulse Oximetry 95 Oxygen Delivery Nasal Cannula Oxygen Flow Rate 2 06/22/24 10:40 06/22/24 10:48 06/22/24 14:00 Temperature 97.0 F L Pulse Rate 82 80 84 Respiratory Rate 20 18 18 Blood Pressure 157/79 H Pulse Oximetry 91 Oxygen Delivery Oxygen Flow Rate 06/22/24 16:20 06/22/24 16:30 Temperature Pulse Rate 83 82 Respiratory Rate 18 18 Blood Pressure Pulse Oximetry Oxygen Delivery Oxygen Flow Rate Intake/Output Intake/Output: Intake & Output 06/19/24 06/20/24 06/21/24 06/22/24 23:59 23:59 23:59 23:59 Intake Total 2320 2916 3710 2490 Balance 2320 2916 9040 2490 Meds/Results Medications: Active Medications Generic Name Dose Route Start Last Admin Trade Name Freq PRN Reason Stop Dose Admin Acetaminophen 650 mg 06/18/24 19:00 06/19/24 09:21 Acetaminophen 325 Mg Tablet PO 650 mg Q6H PRN Administration Mild Pain (1-3) or Fever Hydrocodone Bitart/Acetaminophen 1 tab 06/18/24 21:51 06/21/24 22:03 Hydrocodone/Acetaminophen (*Crx) 5-325 Mg Tablet PO 1 tab Q6H PRN Administration PAIN RATED 4-6 Albuterol 2 puff 06/18/24 21:55 06/20/24 09:44 Albuterol Sulfate (*Sp) Aerosol 1 Puff INHALATION 2 puff Q6H PRN Administration SHORTNESS OF BREATH/WHEEZING Albuterol 2.5 mg 06/20/24 16:00 06/22/24 16:20 Albuterol Sulfate Neb 2.5 Mg/3 Ml Inh INHALATION 2.5 mg Q4HRT MEHRAN Administration Amlodipine Besylate 10 mg 06/19/24 21:00 06/21/24 22:03 Amlodipine Besylate 10 Mg Tablet PO 10 mg HS MEHRAN Administration Benzocaine 1 lozenge 06/18/24 15:05 06/19/24 09:15 Benzocaine/Menthol (*Bkc) 18 Ea Lozenge PO 1 lozenge PRN PRN Administration Sore Throat Benzonatate 100 mg 06/18/24 15:05 Benzonatate 100 Mg Capsule PO TID PRN Cough Benzonatate 200 mg 06/20/24 17:00 06/22/24 17:26 Benzonatate 100 Mg Capsule PO 200 mg TID MEHRAN Administration Brimonidine Tartrate 1 drop 06/18/24 23:05 06/22/24 09:15 Brimonidine Tartrate 0.2% Op Soln 5 Ml Btl EACH EYE 1 drop Q12HR MEHRAN Administration Cyclobenzaprine HCl 10 mg 06/18/24 23:02 06/21/24 22:03 Cyclobenzaprine Hcl 10 Mg Tablet PO 10 mg TID PRN Administration Muscle Spasm Dextrose 12.5 gm 06/22/24 07:49 Dextrose 50% 25 Gm/50 Ml Syringe IV PUSH PRN PRN Hypoglycemia Protocol Enoxaparin Sodium 40 mg 06/21/24 21:00 06/22/24 09:19 Enoxaparin 40 Mg/0.4 Ml Syringe SUB-Q 40 mg Q12HR MEHRAN Administration Fluticasone Propionate 2 spray 06/19/24 09:00 06/22/24 09:14 Fluticasone Propionate 0.05% Na Spr 16 Gm Btl (*Bkc) NASAL 2 spray DAILY MEHRAN Administration Fluticasone/Umeclidinium/Vilanterol 1 puff 06/19/24 08:00 06/22/24 06:56 Fluticasone/Umeclidin/Vilanter 100-62.5-25 Mcg Ellipta INHALATION 1 puff DAILYRT MEHRAN Administration Glucagon 1 mg 06/22/24 07:49 Glucagon For Inj 1 Mg Vial IM PRN PRN Hypoglycemia Protocol Glucose 15 gm 06/22/24 07:49 Glucose Oral Gel 15 Gm Of Glucse In 37.5 Gm Tube PO PRN PRN Hypoglycemia Protocol Guaifenesin 600 mg 06/18/24 21:00 06/22/24 09:13 Guaifenesin 12 Hr 600 Mg Tabcr PO 600 mg Q12HR MEHRAN Administration Hydrochlorothiazide 25 mg 06/19/24 09:00 06/22/24 09:12 Hydrochlorothiazide 25 Mg Tablet PO 25 mg DAILY MEHRAN Administration Dextrose 1,000 mls @ 100 mls/hr 06/22/24 07:49 Dextrose 5% 1,000 Ml IVPB PRN PRN Hypoglycemia Protocol Insulin Aspart 2 - 5 units 06/22/24 08:00 06/22/24 17:26 Insulin Aspart (*Bkc) 100 Units/Ml SUB-Q Not Given TIDWM MEHRAN Protocol Insulin Aspart 1 - 2 units 06/22/24 21:00 Insulin Aspart (*Bkc) 100 Units/Ml SUB-Q HS MEHRAN Protocol Ipratropium [place] 0.5 mg 06/20/24 15:25 Ipratropium Br 0.02% Inh Soln 0.5 Mg/2.5 Ml Vial INHALATION Q8HRT PRN Shortness Of Breath Latanoprost 1 drop 06/19/24 18:00 06/22/24 17:27 Latanoprost 0.005% Op Soln 2.5 Ml Btl EACH EYE 1 drop QPM MEHRAN Administration Loratadine 10 mg 06/19/24 09:00 06/22/24 09:12 Loratadine 10 Mg Tablet PO 10 mg QAM MEHRAN Administration Losartan Potassium 100 mg 06/19/24 09:00 06/22/24 09:12 Losartan Potassium 100 Mg Tablet PO 100 mg DAILY MEHRAN Administration Meloxicam 15 mg 06/19/24 09:00 06/22/24 09:12 Meloxicam 7.5 Mg Tablet PO 15 mg QAM MEHRAN Administration Montelukast Sodium 10 mg 06/19/24 09:00 06/22/24 09:12 Montelukast Sodium 10 Mg Tablet PO 10 mg DAILY MEHRAN Administration Ondansetron HCl 4 mg 06/18/24 15:05 Ondansetron Hcl Odt 4 Mg Tablet PO Q6H PRN Nausea And Vomiting Oseltamivir Phosphate 75 mg 06/18/24 13:40 06/22/24 09:12 Oseltamivir Phosphate 75 Mg Capsule PO 06/23/24 13:39 75 mg Q12HR MEHRAN Administration Pantoprazole Sodium 40 mg 06/19/24 09:00 06/22/24 09:12 Pantoprazole 40 Mg Tablet PO 40 mg QAM MEHRAN Administration Prednisone 60 mg 06/21/24 11:30 06/22/24 09:12 Prednisone 20 Mg Tablet PO 60 mg DAILY@0800 MEHRAN Administration Terbinafine HCl 250 mg 06/19/24 09:00 06/22/24 09:12 Terbinafine Hcl 250 Mg Tablet PO 250 mg DAILY MEHRAN Administration Triamcinolone Acetonide 1 applic 06/18/24 23:02 06/20/24 09:37 Triamcinolone Acet 0.1% Cream 15 Gm Tube TOPICAL 1 applic BID PRN Administration insect bite Radiology Results: ITS Impressions Chest X-Ray 06/18/24 11:25 IMPRESSION: Possible bilateral pneumonitis. Follow-up advised. Chest CTA 06/18/24 12:15 IMPRESSION: 1. No pulmonary embolism. 2. No acute cardiopulmonary pathology. 3. 5 mm nodule in the right upper lobe. Follow-up CT in 6-12 months is advised. 4. Right hilar lymphadenopathy. 5. Fat infiltration of the liver. 6. Stone in the right kidney. Labs Labs: Laboratory Results - last 24 hr 06/22/24 06/22/24 06/22/24 08:38 11:32 16:40 WBC 9.9 RBC 5.61 H Hgb 16.4 H Hct 51.2 H MCV 91.3 MCH 29.2 MCHC 32.0 RDW 13.1 Plt Count 170 MPV 10.5 H Immature Gran % (Auto) 1.1 H Neut % (Auto) 69.6 Lymph % (Auto) 18.7 [place] % (Auto) 10.4 H Eos % (Auto) 0.1 Baso % (Auto) 0.1 L Lymph # (Auto) 1.86 [place] # (Auto) 1.0 H Eos # (Auto) 0.0 Baso # (Auto) 0.0 Abs Immat Gran (auto) 0.11 H Absolute Neuts (auto) 6.9 H Absolute Nucleated RBC 0.000 Nucleated RBC % 0.0 Sodium 140 Potassium 3.1 L Chloride 97 L Carbon Dioxide > 40 H Anion Gap BUN 21 H Creatinine 0.60 L Estim Creat Clear Calc 118 Estimated GFR > 60 Glucose 96 POC Capillary Glucose 113 H 176 H Calcium 9.4 Quality VTE Prophylaxis VTE prophylaxis: mechanical ordered and pharmacologic ordered Hospitalist MIPS Advance Care Plan I have confirmed that the patient's Advanced Care Plan is present, code status is documented, or surrogate decision maker is listed in patient medical record.: Yes Medication Reconciliation I have utilized all available resources to obtain, update and review the patients current medications (includes all prescriptions, OTC, herbals, cannabis, and nutritional supplements).: Yes
[2024-06-22] MEDS: amLODIPine BESYLATE 10 MG TABLET PO (21:55)
[2024-06-22] MEDS: CYCLOBENZAPRINE HCL 10 MG TABLET PO (21:55)
[2024-06-22] MEDS: HYDROcodone/acetaminophen (*CRX) 5-325 MG TABLET 1 TAB PO (21:55)
[2024-06-23] VITALS (17 sets, daily range): BP systolic 134–150; BP diastolic 75–89; PULSE 64–93; RESP 16–20; TEMP 36.1–36.3; O2SAT 92–94
[2024-06-23] MEDS: ALBUTEROL SULFATE NEB 2.5 MG/3 ML INH INHALATION ×6 (01:06→20:27)
[2024-06-23 01:57] LABS: Glucose Point of Care 172 mg/dl (65-105)
[2024-06-23 06:51] LABS: Basophils Percent Auto 0.4 % (0.2-1.2); Hematocrit 47.7 % (37.0-47.0); Hemoglobin 15.4 g/dL (12.0-15.0); Immature Granulocyte Absolute 0.14 K/mm3 (0.00-0.031); Immature Granulocyte Percent A 1.8 % (0-0.5); Lymphocytes Percent Auto 32.8 % (18.3-44.2); Mean Corpuscular HGB Conc 32.3 g/dl (32-36); Mean Corpuscular Hemoglobin 29.2 pg (26-34); Mean Corpuscular Volume 90.5 fl (80-100); Mean Platelet Volume 11.2 fl (7.4-10.4); Monocytes Absolute Auto 0.9 K/mm3 (0.1-0.6); Monocytes Percent Auto 11.5 % (2.6-8.5); Neutrophils Absolute Auto 4.1 K/mm3 (1.3-6.7); Neutrophils Percent Auto 53.5 % (45.5-73.1); Platelet Count Result 148 k/mm3 (150-375); Red Blood Count 5.27 M/mm3 (4.2-5.4); Red Cell Distribution Width 13.1 % (11.5-14.5); White Blood Count 7.6 K/mm3 (4.5-10.0)
[2024-06-23 07:26] LABS: Anion Gap 0 mmol/L (4-12); Blood Urea Nitrogen 23 mg/dL (7-17); Calcium 8.9 mg/dL (8.4-10.2); Carbon Dioxide 37 mmol/L (22-30); Chloride 99 mmol/L (98-107); Estimated CRCL calculation 118 ml/min; Estimated Glomerular Filt Rate > 60; Glucose 101 mg/dL (65-110); Magnesium 2.1 mg/dL (1.6-2.3); Phosphorus 3.2 mg/dL (2.5-4.5); Potassium 3.6 mmol/L (3.4-5.0); Sodium 136 mmol/L (137-145)
[2024-06-23] MEDS: FLUTICASONE/UMECLIDIN/VILANTER 100-62.5-25 MCG ELLIPTA 1 PUFF INHALATION (07:31)
[2024-06-23] MEDS: MELOXICAM 7.5 MG TABLET 15 MG PO (08:41)
[2024-06-23] MEDS: MONTELUKAST SODIUM 10 MG TABLET PO (08:41)
[2024-06-23] MEDS: PANTOPRAZOLE 40 MG TABLET PO (08:41)
[2024-06-23] MEDS: predniSONE 20 MG TABLET 60 MG PO (08:41)
[2024-06-23] MEDS: TERBINAFINE HCL 250 MG TABLET PO (08:41)
[2024-06-23] MEDS: OSELTAMIVIR PHOSPHATE 75 MG CAPSULE PO (08:41)
[2024-06-23] MEDS: hydroCHLOROthiazide 25 MG TABLET PO (08:41)
[2024-06-23] MEDS: BENZONATATE 100 MG CAPSULE 200 MG PO ×3 (08:42→16:12)
[2024-06-23] MEDS: guaiFENesin 12 HR 600 MG TABCR PO ×2 (08:42→21:34)
[2024-06-23] MEDS: LORATADINE 10 MG TABLET PO (08:42)
[2024-06-23] MEDS: LOSARTAN POTASSIUM 100 MG TABLET PO (08:42)
[2024-06-23] MEDS: FLUTICASONE PROPIONATE 0.05% NA SPR 16 GM BTL (*BKC) 2 SPRAY NASAL (08:48)
[2024-06-23] MEDS: BRIMONIDINE TARTRATE 0.2% OP SOLN 5 ML BTL 1 DROP EACH EYE ×2 (08:48→21:35)
[2024-06-23] MEDS: ENOXAPARIN 40 MG/0.4 ML SYRINGE SUB-Q ×2 (08:52→21:34)
[2024-06-23 11:26] LABS: Glucose Point of Care 111 mg/dl (65-105)
--- NOTE | 2024-06-23 11:55 | P.PNIM_ITS ---
Progress Note: A&P Assessment and Plan (1) Influenza A: Code(s): J10.1 - Influenza due to other identified influenza virus with other respiratory manifestations Status: Acute Assessment and Plan: Increasing shortness of breath with new fevers on Sunday Baseline oxygen: none at rest, 3L with activity - CXR: Possible bilateral pneumonitis, follow-up advised. - Chest CTA: 1. No pulmonary embolism. 2. No acute cardiopulmonary pathology. 3. 5 mm nodule in the right upper lobe. Follow-up CT in 6-12 months is advised. 4. Right hilar lymphadenopathy. 5. Fat infiltration of the liver. 6. Stone in the right kidney. - started Tamiflu 06/18 - new O2 requirement, continue to maintain O2 sat above 92%. Wean as tolerated. - supportive care --Holding off on cpap due to cough for now --Droplet isolation. --Tessalon perles, lozenges and guaifenesin dm for cough (2) COPD exacerbation: Code(s): J44.1 - Chronic obstructive pulmonary disease with (acute) exacerbation Status: Acute Assessment and Plan: Home meds: Trelegy Ellipta, Albuterol prn * Not improving quickly. Still wheezing, changed IV solumedrol to prednisone 60mg 06/22 * Continuing trelegy * Change q6 duonebs to albuterol q4, duonebs q8 * Wean oxygen as tolerated. * Pulmonary consult (3) Essential (primary) hypertension: Code(s): I10 - Essential (primary) hypertension Status: Chronic Assessment and Plan: Blood pressures slightly above goal. In the setting of mildly increased work of breathing and steroids. 127-163/56-77 during admission - continue home medications: Amlodipine, HCTZ, losartan - Blood pressure 134/75 today. - monitor (4) Obstructive sleep apnea (adult) (pediatric): Code(s): G47.33 - Obstructive sleep apnea (adult) (pediatric) Status: Acute Assessment and Plan: * Continue BiPAP/CPAP, home settings * Pulmonology consult. (5) Headache: Code(s): R51.9 - Headache, unspecified Status: Acute Assessment and Plan: * Tylenol 650 mg PO q 6 PRN. Subjective Date/time seen: 06/23/24 11:55 Interval history: Patient reports shortness of breath at times at rest and with activity. Patient denies chest pain, palpitations, headache, dizziness, nausea, or vomiting. Patient reports feeling a little better. Patient reports a headache that is a 7 , constant, and aching. Patient reports coughing up yellow green sputum. Review of Systems Review of Systems: All systems reviewed & are unremarkable except as noted in HPI and below Exam Const: General: no acute distress and uncomfortable Eyes: Sclera: sclerae normal Resp: Auscultation: wheezes expiratory wheezes and diminished lung sounds Cardio: Rate: regular rate Rhythm: regular rhythm GI: GI Palp: Yes Soft to palpation Auscultation: normal bowel sounds Skin: General skin exam: no rashes or lesions noted Extrem: General: no pedal edema Psych: Mental Status: mental status grossly normal Affect: normal affect Objective Data Vital Signs Vital Signs: Vital Signs - 24 hr 06/22/24 14:00 06/22/24 16:20 06/22/24 16:30 Temperature 97.0 F L Pulse Rate 84 83 82 Respiratory Rate 18 18 18 Blood Pressure 157/79 H Pulse Oximetry 91 Oxygen Delivery Oxygen Flow Rate Fraction of Inspired Oxygen 06/22/24 20:00 06/22/24 22:16 06/23/24 01:07 Temperature 98.5 F Pulse Rate 78 87 Respiratory Rate 16 20 Blood Pressure 154/91 H Pulse Oximetry 94 93 Oxygen Delivery Nasal Cannula Oxygen Flow Rate 2 Fraction of Inspired Oxygen 06/23/24 01:18 06/23/24 04:26 06/23/24 04:35 Temperature Pulse Rate 82 73 76 Respiratory Rate 20 20 20 Blood Pressure Pulse Oximetry Oxygen Delivery Oxygen Flow Rate Fraction of Inspired Oxygen 06/23/24 06:00 06/23/24 07:28 06/23/24 07:28 Temperature 97.0 F L Pulse Rate 64 77 Respiratory Rate 16 20 Blood Pressure 134/75 Pulse Oximetry 93 91 Oxygen Delivery Room Air Oxygen Flow Rate Fraction of Inspired Oxygen 06/23/24 07:42 Temperature Pulse Rate 80 Respiratory Rate 20 Blood Pressure Pulse Oximetry Oxygen Delivery Oxygen Flow Rate Fraction of Inspired Oxygen Intake/Output Intake/Output: Intake & Output 06/20/24 06/21/24 06/22/24 06/23/24 23:59 23:59 23:59 23:59 Intake Total 2916 3710 3590 880 Balance 2916 3710 3590 880 Meds/Results Medications: Active Medications Generic Name Dose Route Start Last Admin Trade Name Freq PRN Reason Stop Dose Admin Acetaminophen 650 mg 06/18/24 19:00 06/19/24 09:21 Acetaminophen 325 Mg Tablet PO 650 mg Q6H PRN Administration Mild Pain (1-3) or Fever Hydrocodone Bitart/Acetaminophen 1 tab 06/18/24 21:51 06/22/24 21:55 Hydrocodone/Acetaminophen (*Crx) 5-325 Mg Tablet PO 1 tab Q6H PRN Administration PAIN RATED 4-6 Albuterol 2 puff 06/18/24 21:55 06/20/24 09:44 Albuterol Sulfate (*Sp) Aerosol 1 Puff INHALATION 2 puff Q6H PRN Administration SHORTNESS OF BREATH/WHEEZING Albuterol 2.5 mg 06/20/24 16:00 06/23/24 07:28 Albuterol Sulfate Neb 2.5 Mg/3 Ml Inh INHALATION 2.5 mg Q4HRT MEHRAN Administration Amlodipine Besylate 10 mg 06/19/24 21:00 06/22/24 21:55 Amlodipine Besylate 10 Mg Tablet PO 10 mg HS MEHRAN Administration Benzocaine 1 lozenge 06/18/24 15:05 06/19/24 09:15 Benzocaine/Menthol (*Bkc) 18 Ea Lozenge PO 1 lozenge PRN PRN Administration Sore Throat Benzonatate 100 mg 06/18/24 15:05 Benzonatate 100 Mg Capsule PO TID PRN Cough Benzonatate 200 mg 06/20/24 17:00 06/23/24 08:42 Benzonatate 100 Mg Capsule PO 200 mg TID MEHRAN Administration Brimonidine Tartrate 1 drop 06/18/24 23:05 06/23/24 08:48 Brimonidine Tartrate 0.2% Op Soln 5 Ml Btl EACH EYE 1 drop Q12HR MEHRAN Administration Cyclobenzaprine HCl 10 mg 06/18/24 23:02 06/22/24 21:55 Cyclobenzaprine Hcl 10 Mg Tablet PO 10 mg TID PRN Administration Muscle Spasm Dextrose 12.5 gm 06/22/24 07:49 Dextrose 50% 25 Gm/50 Ml Syringe IV PUSH PRN PRN Hypoglycemia Protocol Enoxaparin Sodium 40 mg 06/21/24 21:00 06/23/24 08:52 Enoxaparin 40 Mg/0.4 Ml Syringe SUB-Q 40 mg Q12HR MEHRAN Administration Fluticasone Propionate 2 spray 06/19/24 09:00 06/23/24 08:48 Fluticasone Propionate 0.05% Na Spr 16 Gm Btl (*Bkc) NASAL 2 spray DAILY MEHRAN Administration Fluticasone/Umeclidinium/Vilanterol 1 puff 06/19/24 08:00 06/23/24 07:31 Fluticasone/Umeclidin/Vilanter 100-62.5-25 Mcg Ellipta INHALATION 1 puff DAILYRT MEHRAN Administration Glucagon 1 mg 06/22/24 07:49 Glucagon For Inj 1 Mg Vial IM PRN PRN Hypoglycemia Protocol Glucose 15 gm 06/22/24 07:49 Glucose Oral Gel 15 Gm Of Glucse In 37.5 Gm Tube PO PRN PRN Hypoglycemia Protocol Guaifenesin 600 mg 06/18/24 21:00 06/23/24 08:42 Guaifenesin 12 Hr 600 Mg Tabcr PO 600 mg Q12HR MEHRAN Administration Hydrochlorothiazide 25 mg 06/19/24 09:00 06/23/24 08:41 Hydrochlorothiazide 25 Mg Tablet PO 25 mg DAILY MEHRAN Administration Dextrose 1,000 mls @ 100 mls/hr 06/22/24 07:49 Dextrose 5% 1,000 Ml IVPB PRN PRN Hypoglycemia Protocol Insulin Aspart 2 - 5 units 06/22/24 08:00 06/23/24 08:48 Insulin Aspart (*Bkc) 100 Units/Ml SUB-Q Not Given TIDWM MEHRAN Protocol Insulin Aspart 1 - 2 units 06/22/24 21:00 06/22/24 21:56 Insulin Aspart (*Bkc) 100 Units/Ml SUB-Q Not Given HS MEHRAN Protocol Ipratropium [place] 0.5 mg 06/20/24 15:25 Ipratropium Br 0.02% Inh Soln 0.5 Mg/2.5 Ml Vial INHALATION Q8HRT PRN Shortness Of Breath Latanoprost 1 drop 06/19/24 18:00 06/22/24 17:27 Latanoprost 0.005% Op Soln 2.5 Ml Btl EACH EYE 1 drop QPM MEHRAN Administration Loratadine 10 mg 06/19/24 09:00 06/23/24 08:42 Loratadine 10 Mg Tablet PO 10 mg QAM MEHRAN Administration Losartan Potassium 100 mg 06/19/24 09:00 06/23/24 08:42 Losartan Potassium 100 Mg Tablet PO 100 mg DAILY MEHRAN Administration Meloxicam 15 mg 06/19/24 09:00 06/23/24 08:41 Meloxicam 7.5 Mg Tablet PO 15 mg QAM MEHRAN Administration Montelukast Sodium 10 mg 06/19/24 09:00 06/23/24 08:41 Montelukast Sodium 10 Mg Tablet PO 10 mg DAILY MEHRAN Administration Ondansetron HCl 4 mg 06/18/24 15:05 Ondansetron Hcl Odt 4 Mg Tablet PO Q6H PRN Nausea And Vomiting Oseltamivir Phosphate 75 mg 06/18/24 13:40 06/23/24 08:41 Oseltamivir Phosphate 75 Mg Capsule PO 06/23/24 13:39 75 mg Q12HR MEHRAN Administration Pantoprazole Sodium 40 mg 06/19/24 09:00 06/23/24 08:41 Pantoprazole 40 Mg Tablet PO 40 mg QAM MEHRAN Administration Prednisone 60 mg 06/21/24 11:30 06/23/24 08:41 Prednisone 20 Mg Tablet PO 60 mg DAILY@0800 MEHRAN Administration Terbinafine HCl 250 mg 06/19/24 09:00 06/23/24 08:41 Terbinafine Hcl 250 Mg Tablet PO 250 mg DAILY MEHRAN Administration Triamcinolone Acetonide 1 applic 06/18/24 23:02 06/20/24 09:37 Triamcinolone Acet 0.1% Cream 15 Gm Tube TOPICAL 1 applic BID PRN Administration insect bite Radiology Results: ITS Impressions Chest X-Ray 06/18/24 11:25 IMPRESSION: Possible bilateral pneumonitis. Follow-up advised. Chest CTA 06/18/24 12:15 IMPRESSION: 1. No pulmonary embolism. 2. No acute cardiopulmonary pathology. 3. 5 mm nodule in the right upper lobe. Follow-up CT in 6-12 months is advised. 4. Right hilar lymphadenopathy. 5. Fat infiltration of the liver. 6. Stone in the right kidney. Labs Labs: Laboratory Results - last 24 hr 06/22/24 06/22/24 06/23/24 16:40 21:19 06:08 WBC 7.6 RBC 5.27 Hgb 15.4 H Hct 47.7 H MCV 90.5 MCH 29.2 MCHC 32.3 RDW 13.1 Plt Count 148 L MPV 11.2 H Immature Gran % (Auto) 1.8 H Neut % (Auto) 53.5 Lymph % (Auto) 32.8 [place] % (Auto) 11.5 H Eos % (Auto) 0.0 Baso % (Auto) 0.4 Lymph # (Auto) 2.50 [place] # (Auto) 0.9 H Eos # (Auto) 0.0 Baso # (Auto) 0.0 Abs Immat Gran (auto) 0.14 H Absolute Neuts (auto) 4.1 Absolute Nucleated RBC 0.000 Nucleated RBC % 0.0 Sodium 136 L Potassium 3.6 Chloride 99 Carbon Dioxide 37 H Anion Gap 0 L BUN 23 H Creatinine 0.60 L Estim Creat Clear Calc 118 Estimated GFR > 60 Glucose 101 POC Capillary Glucose 176 H 172 H Calcium 8.9 Phosphorus 3.2 Magnesium 2.1 06/23/24 11:18 WBC RBC Hgb Hct MCV MCH MCHC RDW Plt Count MPV Immature Gran % (Auto) Neut % (Auto) Lymph % (Auto) [place] % (Auto) Eos % (Auto) Baso % (Auto) Lymph # (Auto) [place] # (Auto) Eos # (Auto) Baso # (Auto) Abs Immat Gran (auto) Absolute Neuts (auto) Absolute Nucleated RBC Nucleated RBC % Sodium Potassium Chloride Carbon Dioxide Anion Gap BUN Creatinine Estim Creat Clear Calc Estimated GFR Glucose POC Capillary Glucose 111 H Calcium Phosphorus Magnesium Quality VTE Prophylaxis VTE prophylaxis: mechanical ordered and pharmacologic ordered
[2024-06-23] MEDS: LATANOPROST 0.005% OP SOLN 2.5 ML BTL 1 DROP EACH EYE (16:12)
[2024-06-23 16:45] LABS: Glucose Point of Care 271 mg/dl (65-105)
[2024-06-23] MEDS: INSULIN ASPART (*BKC) 100 UNITS/ML SUB-Q (17:58)
[2024-06-23] MEDS: amLODIPine BESYLATE 10 MG TABLET PO (21:34)
[2024-06-23] MEDS: CYCLOBENZAPRINE HCL 10 MG TABLET PO (21:34)
[2024-06-23] MEDS: HYDROcodone/acetaminophen (*CRX) 5-325 MG TABLET 1 TAB PO (21:37)
[2024-06-23 23:04] LABS: Glucose Point of Care 169 mg/dl (65-105)
[2024-06-24] VITALS (19 sets, daily range): BP systolic 128–138; BP diastolic 65–77; PULSE 70–104; RESP 16–20; TEMP 36.3–36.4; O2SAT 92–96
[2024-06-24] MEDS: ALBUTEROL SULFATE NEB 2.5 MG/3 ML INH INHALATION ×7 (00:50→23:40)
[2024-06-24 06:26] LABS: Basophils Percent Auto 0.4 % (0.2-1.2); Eosinophils Percent Auto 0.4 % (0-4.4); Hematocrit 46.9 % (37.0-47.0); Hemoglobin 15.4 g/dL (12.0-15.0); Immature Granulocyte Absolute 0.24 K/mm3 (0.00-0.031); Immature Granulocyte Percent A 2.9 % (0-0.5); Lymphocytes Absolute Auto 2.73 K/mm3 (0.9-3.2); Lymphocytes Percent Auto 32.6 % (18.3-44.2); Mean Corpuscular HGB Conc 32.8 g/dl (32-36); Mean Corpuscular Hemoglobin 29.3 pg (26-34); Mean Corpuscular Volume 89.3 fl (80-100); Monocytes Absolute Auto 0.8 K/mm3 (0.1-0.6); Monocytes Percent Auto 9.3 % (2.6-8.5); Neutrophils Absolute Auto 4.6 K/mm3 (1.3-6.7); Neutrophils Percent Auto 54.4 % (45.5-73.1); Platelet Count Result 163 k/mm3 (150-375); Red Blood Count 5.25 M/mm3 (4.2-5.4); Red Cell Distribution Width 12.9 % (11.5-14.5); White Blood Count 8.4 K/mm3 (4.5-10.0)
[2024-06-24 06:44] LABS: Alanine Aminotransferase 148 U/L (6-35); Albumin Level 3.7 g/dL (3.5-5.1); Alkaline Phosphatase 86 U/L (38-126); Anion Gap -3 mmol/L (4-12); Aspartate Amino Transferase 54 U/L (14-36); Bilirubin,Total 0.7 mg/dL (0.2-1.3); Blood Urea Nitrogen 20 mg/dL (7-17); Carbon Dioxide 39 mmol/L (22-30); Chloride 99 mmol/L (98-107); Estimated CRCL calculation 118 ml/min; Estimated Glomerular Filt Rate > 60; Glucose 97 mg/dL (65-110); Potassium 3.2 mmol/L (3.4-5.0); Sodium 135 mmol/L (137-145)
[2024-06-24] MEDS: FLUTICASONE/UMECLIDIN/VILANTER 100-62.5-25 MCG ELLIPTA 1 PUFF INHALATION (06:55)
[2024-06-24 08:01] LABS: Glucose Point of Care 105 mg/dl (65-105)
[2024-06-24] MEDS: MONTELUKAST SODIUM 10 MG TABLET PO (08:30)
[2024-06-24] MEDS: predniSONE 20 MG TABLET 60 MG PO (08:30)
[2024-06-24] MEDS: hydroCHLOROthiazide 25 MG TABLET PO (08:30)
[2024-06-24] MEDS: TERBINAFINE HCL 250 MG TABLET PO (08:31)
[2024-06-24] MEDS: guaiFENesin 12 HR 600 MG TABCR PO ×2 (08:31→20:37)
[2024-06-24] MEDS: LOSARTAN POTASSIUM 100 MG TABLET PO (08:31)
[2024-06-24] MEDS: PANTOPRAZOLE 40 MG TABLET PO (08:31)
[2024-06-24] MEDS: BENZONATATE 100 MG CAPSULE 200 MG PO ×3 (08:31→17:08)
[2024-06-24] MEDS: MELOXICAM 7.5 MG TABLET 15 MG PO (08:31)
[2024-06-24] MEDS: LORATADINE 10 MG TABLET PO (08:31)
[2024-06-24] MEDS: FLUTICASONE PROPIONATE 0.05% NA SPR 16 GM BTL (*BKC) 2 SPRAY NASAL (08:35)
[2024-06-24] MEDS: BRIMONIDINE TARTRATE 0.2% OP SOLN 5 ML BTL 1 DROP EACH EYE ×2 (08:36→20:37)
[2024-06-24] MEDS: ENOXAPARIN 40 MG/0.4 ML SYRINGE SUB-Q ×2 (08:41→20:36)
[2024-06-24] MEDS: POTASSIUM CHLORIDE 20 MEQ ER TABLET 40 MEQ PO (08:41)
--- NOTE | 2024-06-24 10:51 | P.PNIM_ITS ---
Progress Note: A&P Assessment and Plan (1) Influenza A: Code(s): J10.1 - Influenza due to other identified influenza virus with other respiratory manifestations Status: Acute Assessment and Plan: Increasing shortness of breath with new fevers on Sunday Baseline oxygen: none at rest, 3L with activity - CXR: Possible bilateral pneumonitis, follow-up advised. - Chest CTA: 1. No pulmonary embolism. 2. No acute cardiopulmonary pathology. 3. 5 mm nodule in the right upper lobe. Follow-up CT in 6-12 months is advised. 4. Right hilar lymphadenopathy. 5. Fat infiltration of the liver. 6. Stone in the right kidney. - started Tamiflu 06/18 - new O2 requirement, continue to maintain O2 sat above 92%. Wean as tolerated. - supportive care --Holding off on cpap due to cough for now --Droplet isolation. --Tessalon perles, lozenges and guaifenesin dm for cough (2) COPD exacerbation: Code(s): J44.1 - Chronic obstructive pulmonary disease with (acute) exacerbation Status: Acute Assessment and Plan: Home meds: Trelegy Ellipta, Albuterol prn * Not improving quickly. Still wheezing, changed IV solumedrol to prednisone 60mg 06/22 * Continuing trelegy * Change q6 duonebs to albuterol q4, duonebs q8 * Wean oxygen as tolerated. * Pulmonary consult (3) Essential (primary) hypertension: Code(s): I10 - Essential (primary) hypertension Status: Chronic Assessment and Plan: Blood pressures slightly above goal. In the setting of mildly increased work of breathing and steroids. 127-163/56-77 during admission - continue home medications: Amlodipine, HCTZ, losartan - Blood pressure 138/77 today. - monitor (4) Obstructive sleep apnea (adult) (pediatric): Code(s): G47.33 - Obstructive sleep apnea (adult) (pediatric) Status: Acute Assessment and Plan: * Continue BiPAP/CPAP, home settings * Pulmonology consult. (5) Headache: Code(s): R51.9 - Headache, unspecified Status: Acute Assessment and Plan: * Tylenol 650 mg PO q 6 PRN. (6) Hypokalemia: Code(s): E87.6 - Hypokalemia Status: Acute Assessment and Plan: * Potassium 3.2. * Potassium chloride 40 meq PO X1 Subjective Date/time seen: 06/24/24 10:51 Interval history: Patient sitting up in bed. Patient denies shortness of breath at rest, chest pain, palpitations, headache, or dizziness. Review of Systems Review of Systems: All systems reviewed & are unremarkable except as noted in HPI and below Exam Const: General: comfortable and no acute distress Resp: Auscultation: wheezes expiratory wheezes and diminished lung sounds Cardio: Rate: regular rate Rhythm: regular rhythm GI: GI Palp: Yes Soft to palpation Auscultation: normal bowel sounds Skin: General skin exam: no rashes or lesions noted Neuro: Speech: normal speech Extrem: General: no pedal edema Psych: Mental Status: mental status grossly normal Affect: normal affect Objective Data Vital Signs Vital Signs: Vital Signs - 24 hr 06/23/24 12:01 06/23/24 12:09 06/23/24 14:00 Temperature 97.1 F L Pulse Rate 76 78 93 Respiratory Rate 20 20 16 Blood Pressure 150/85 H Pulse Oximetry 94 Oxygen Delivery Oxygen Flow Rate 06/23/24 16:13 06/23/24 16:20 06/23/24 20:00 Temperature Pulse Rate 85 86 Respiratory Rate 20 20 Blood Pressure Pulse Oximetry 94 Oxygen Delivery Nasal Cannula Oxygen Flow Rate 2 06/23/24 20:27 06/23/24 20:27 06/23/24 20:34 Temperature Pulse Rate 81 85 Respiratory Rate 20 20 Blood Pressure Pulse Oximetry 92 Oxygen Delivery Nasal Cannula Oxygen Flow Rate 2 06/23/24 22:00 06/24/24 00:52 06/24/24 00:58 Temperature 97.4 F L Pulse Rate 77 76 76 Respiratory Rate 16 18 20 Blood Pressure 145/89 H Pulse Oximetry 94 Oxygen Delivery Oxygen Flow Rate 06/24/24 04:06 06/24/24 04:14 06/24/24 06:00 Temperature 97.5 F L Pulse Rate 70 74 79 Respiratory Rate 18 20 16 Blood Pressure 136/73 Pulse Oximetry 93 Oxygen Delivery Oxygen Flow Rate 06/24/24 06:55 06/24/24 06:55 06/24/24 07:05 Temperature Pulse Rate 74 74 75 Respiratory Rate 18 18 18 Blood Pressure Pulse Oximetry 92 Oxygen Delivery Nasal Cannula Oxygen Flow Rate 2 Intake/Output Intake/Output: Intake & Output 06/21/24 06/22/24 06/23/24 06/24/24 23:59 23:59 23:59 23:59 Intake Total 3710 3590 1440 1740 Balance 3710 3590 1440 1740 Meds/Results Medications: Active Medications Generic Name Dose Route Start Last Admin Trade Name Freq PRN Reason Stop Dose Admin Acetaminophen 650 mg 06/18/24 19:00 06/19/24 09:21 Acetaminophen 325 Mg Tablet PO 650 mg Q6H PRN Administration Mild Pain (1-3) or Fever Hydrocodone Bitart/Acetaminophen 1 tab 06/18/24 21:51 06/23/24 21:37 Hydrocodone/Acetaminophen (*Crx) 5-325 Mg Tablet PO 1 tab Q6H PRN Administration PAIN RATED 4-6 Albuterol 2 puff 06/18/24 21:55 06/20/24 09:44 Albuterol Sulfate (*Sp) Aerosol 1 Puff INHALATION 2 puff Q6H PRN Administration SHORTNESS OF BREATH/WHEEZING Albuterol 2.5 mg 06/20/24 16:00 06/24/24 06:55 Albuterol Sulfate Neb 2.5 Mg/3 Ml Inh INHALATION 2.5 mg Q4HRT MEHRAN Administration Amlodipine Besylate 10 mg 06/19/24 21:00 06/23/24 21:34 Amlodipine Besylate 10 Mg Tablet PO 10 mg HS MEHRAN Administration Benzocaine 1 lozenge 06/18/24 15:05 06/19/24 09:15 Benzocaine/Menthol (*Bkc) 18 Ea Lozenge PO 1 lozenge PRN PRN Administration Sore Throat Benzonatate 100 mg 06/18/24 15:05 Benzonatate 100 Mg Capsule PO TID PRN Cough Benzonatate 200 mg 06/20/24 17:00 06/24/24 08:31 Benzonatate 100 Mg Capsule PO 200 mg TID MEHRAN Administration Brimonidine Tartrate 1 drop 06/18/24 23:05 06/24/24 08:36 Brimonidine Tartrate 0.2% Op Soln 5 Ml Btl EACH EYE 1 drop Q12HR MEHRAN Administration Calcium Carbonate 200 mg 06/23/24 16:42 Calcium Carbonate (Tums) 500 Mg (200 Mg Elemental) PO Q6H PRN Indigestion Cyclobenzaprine HCl 10 mg 06/18/24 23:02 06/23/24 21:34 Cyclobenzaprine Hcl 10 Mg Tablet PO 10 mg TID PRN Administration Muscle Spasm Dextrose 12.5 gm 06/22/24 07:49 Dextrose 50% 25 Gm/50 Ml Syringe IV PUSH PRN PRN Hypoglycemia Protocol Enoxaparin Sodium 40 mg 06/21/24 21:00 06/24/24 08:41 Enoxaparin 40 Mg/0.4 Ml Syringe SUB-Q 40 mg Q12HR MEHRAN Administration Fluticasone Propionate 2 spray 06/19/24 09:00 06/24/24 08:35 Fluticasone Propionate 0.05% Na Spr 16 Gm Btl (*Bkc) NASAL 2 spray DAILY MEHRAN Administration Fluticasone/Umeclidinium/Vilanterol 1 puff 06/19/24 08:00 06/24/24 06:55 Fluticasone/Umeclidin/Vilanter 100-62.5-25 Mcg Ellipta INHALATION 1 puff DAILYRT MEHRAN Administration Glucagon 1 mg 06/22/24 07:49 Glucagon For Inj 1 Mg Vial IM PRN PRN Hypoglycemia Protocol Glucose 15 gm 06/22/24 07:49 Glucose Oral Gel 15 Gm Of Glucse In 37.5 Gm Tube PO PRN PRN Hypoglycemia Protocol Guaifenesin 600 mg 06/18/24 21:00 06/24/24 08:31 Guaifenesin 12 Hr 600 Mg Tabcr PO 600 mg Q12HR MEHRAN Administration Hydrochlorothiazide 25 mg 06/19/24 09:00 06/24/24 08:30 Hydrochlorothiazide 25 Mg Tablet PO 25 mg DAILY MEHRAN Administration Dextrose 1,000 mls @ 100 mls/hr 06/22/24 07:49 Dextrose 5% 1,000 Ml IVPB PRN PRN Hypoglycemia Protocol Insulin Aspart 2 - 5 units 06/22/24 08:00 06/24/24 08:43 Insulin Aspart (*Bkc) 100 Units/Ml SUB-Q Not Given TIDWM MEHRAN Protocol Insulin Aspart 1 - 2 units 06/22/24 21:00 06/23/24 21:34 Insulin Aspart (*Bkc) 100 Units/Ml SUB-Q Not Given HS MEHRAN Protocol Ipratropium [place] 0.5 mg 06/20/24 15:25 Ipratropium Br 0.02% Inh Soln 0.5 Mg/2.5 Ml Vial INHALATION Q8HRT PRN Shortness Of Breath Latanoprost 1 drop 06/19/24 18:00 06/23/24 16:12 Latanoprost 0.005% Op Soln 2.5 Ml Btl EACH EYE 1 drop QPM MEHRAN Administration Loratadine 10 mg 06/19/24 09:00 06/24/24 08:31 Loratadine 10 Mg Tablet PO 10 mg QAM MEHRAN Administration Losartan Potassium 100 mg 06/19/24 09:00 06/24/24 08:31 Losartan Potassium 100 Mg Tablet PO 100 mg DAILY MEHRAN Administration Meloxicam 15 mg 06/19/24 09:00 06/24/24 08:31 Meloxicam 7.5 Mg Tablet PO 15 mg QAM MEHRAN Administration Montelukast Sodium 10 mg 06/19/24 09:00 06/24/24 08:30 Montelukast Sodium 10 Mg Tablet PO 10 mg DAILY MEHRAN Administration Ondansetron HCl 4 mg 06/18/24 15:05 Ondansetron Hcl Odt 4 Mg Tablet PO Q6H PRN Nausea And Vomiting Pantoprazole Sodium 40 mg 06/19/24 09:00 06/24/24 08:31 Pantoprazole 40 Mg Tablet PO 40 mg QAM MEHRAN Administration Prednisone 60 mg 06/21/24 11:30 06/24/24 08:30 Prednisone 20 Mg Tablet PO 60 mg DAILY@0800 MEHRAN Administration Terbinafine HCl 250 mg 06/19/24 09:00 06/24/24 08:31 Terbinafine Hcl 250 Mg Tablet PO 250 mg DAILY MEHRAN Administration Triamcinolone Acetonide 1 applic 06/18/24 23:02 06/20/24 09:37 Triamcinolone Acet 0.1% Cream 15 Gm Tube TOPICAL 1 applic BID PRN Administration insect bite Radiology Results: ITS Impressions Chest X-Ray 06/18/24 11:25 IMPRESSION: Possible bilateral pneumonitis. Follow-up advised. Chest CTA 06/18/24 12:15 IMPRESSION: 1. No pulmonary embolism. 2. No acute cardiopulmonary pathology. 3. 5 mm nodule in the right upper lobe. Follow-up CT in 6-12 months is advised. 4. Right hilar lymphadenopathy. 5. Fat infiltration of the liver. 6. Stone in the right kidney. Labs Labs: Laboratory Results - last 24 hr 06/23/24 06/23/24 06/23/24 11:18 16:36 21:13 WBC RBC Hgb Hct MCV MCH MCHC RDW Plt Count MPV Immature Gran % (Auto) Neut % (Auto) Lymph % (Auto) [place] % (Auto) Eos % (Auto) Baso % (Auto) Lymph # (Auto) [place] # (Auto) Eos # (Auto) Baso # (Auto) Abs Immat Gran (auto) Absolute Neuts (auto) Absolute Nucleated RBC Nucleated RBC % Sodium Potassium Chloride Carbon Dioxide Anion Gap BUN Creatinine Estim Creat Clear Calc Estimated GFR Glucose POC Capillary Glucose 111 H 271 H 169 H Calcium Total Bilirubin AST ALT Alkaline Phosphatase Total Protein Albumin 06/24/24 06/24/24 05:42 07:48 WBC 8.4 RBC 5.25 Hgb 15.4 H Hct 46.9 MCV 89.3 MCH 29.3 MCHC 32.8 RDW 12.9 Plt Count 163 MPV 11.0 H Immature Gran % (Auto) 2.9 H Neut % (Auto) 54.4 Lymph % (Auto) 32.6 [place] % (Auto) 9.3 H Eos % (Auto) 0.4 Baso % (Auto) 0.4 Lymph # (Auto) 2.73 [place] # (Auto) 0.8 H Eos # (Auto) 0.0 Baso # (Auto) 0.0 Abs Immat Gran (auto) 0.24 H Absolute Neuts (auto) 4.6 Absolute Nucleated RBC 0.000 Nucleated RBC % 0.0 Sodium 135 L Potassium 3.2 L Chloride 99 Carbon Dioxide 39 H Anion Gap -3 L BUN 20 H Creatinine 0.60 L Estim Creat Clear Calc 118 Estimated GFR > 60 Glucose 97 POC Capillary Glucose 105 Calcium 9.0 Total Bilirubin 0.7 AST 54 H ALT 148 H Alkaline Phosphatase 86 Total Protein 6.0 L Albumin 3.7 Quality VTE Prophylaxis VTE prophylaxis: mechanical ordered and pharmacologic ordered
[2024-06-24 11:48] LABS: Glucose Point of Care 151 mg/dl (65-105)
[2024-06-24 16:59] LABS: Glucose Point of Care 185 mg/dl (65-105)
[2024-06-24] MEDS: LATANOPROST 0.005% OP SOLN 2.5 ML BTL 1 DROP EACH EYE (17:08)
[2024-06-24] MEDS: ALBUTEROL SULFATE (*SP) AEROSOL 1 PUFF 2 PUFF INHALATION (17:09)
[2024-06-24 19:51] LABS: Glucose Point of Care 237 mg/dl (65-105)
[2024-06-24] MEDS: amLODIPine BESYLATE 10 MG TABLET PO (20:36)
[2024-06-24] MEDS: CYCLOBENZAPRINE HCL 10 MG TABLET PO (20:36)
[2024-06-24] MEDS: INSULIN ASPART (*BKC) 100 UNITS/ML SUB-Q (20:37)
[2024-06-25] VITALS (14 sets, daily range): BP systolic 128–163; BP diastolic 69–88; PULSE 71–89; RESP 12–20; TEMP 35.7–36.4; O2SAT 92–99
[2024-06-25] MEDS: ALBUTEROL SULFATE NEB 2.5 MG/3 ML INH INHALATION ×5 (03:37→20:42)
[2024-06-25 06:30] LABS: Basophils Absolute Auto 0.1 K/mm3 (0.0-0.1); Basophils Percent Auto 0.7 % (0.2-1.2); Eosinophils Absolute Auto 0.1 K/mm3 (0-0.3); Eosinophils Percent Auto 0.5 % (0-4.4); Hematocrit 47.3 % (37.0-47.0); Hemoglobin 15.3 g/dL (12.0-15.0); Immature Granulocyte Absolute 0.36 K/mm3 (0.00-0.031); Immature Granulocyte Percent A 3.4 % (0-0.5); Lymphocytes Absolute Auto 2.83 K/mm3 (0.9-3.2); Lymphocytes Percent Auto 26.4 % (18.3-44.2); Mean Corpuscular HGB Conc 32.3 g/dl (32-36); Mean Corpuscular Hemoglobin 29.1 pg (26-34); Mean Corpuscular Volume 90.1 fl (80-100); Mean Platelet Volume 10.4 fl (7.4-10.4); Monocytes Absolute Auto 0.8 K/mm3 (0.1-0.6); Monocytes Percent Auto 7.8 % (2.6-8.5); Neutrophils Absolute Auto 6.6 K/mm3 (1.3-6.7); Neutrophils Percent Auto 61.2 % (45.5-73.1); Platelet Count Result 181 k/mm3 (150-375); Red Blood Count 5.25 M/mm3 (4.2-5.4); Red Cell Distribution Width 12.8 % (11.5-14.5); White Blood Count 10.7 K/mm3 (4.5-10.0)
[2024-06-25 06:43] LABS: Alanine Aminotransferase 140 U/L (6-35); Albumin Level 3.7 g/dL (3.5-5.1); Alkaline Phosphatase 85 U/L (38-126); Anion Gap 0 mmol/L (4-12); Aspartate Amino Transferase 51 U/L (14-36); Bilirubin,Total 0.5 mg/dL (0.2-1.3); Blood Urea Nitrogen 25 mg/dL (7-17); Calcium 9.3 mg/dL (8.4-10.2); Carbon Dioxide 36 mmol/L (22-30); Chloride 102 mmol/L (98-107); Estimated CRCL calculation 118 ml/min; Estimated Glomerular Filt Rate > 60; Glucose 104 mg/dL (65-110); Potassium 3.7 mmol/L (3.4-5.0); Sodium 138 mmol/L (137-145)
[2024-06-25] MEDS: FLUTICASONE/UMECLIDIN/VILANTER 100-62.5-25 MCG ELLIPTA 1 PUFF INHALATION (07:10)
[2024-06-25 07:32] LABS: Glucose Point of Care 116 mg/dl (65-105)
[2024-06-25] MEDS: LOSARTAN POTASSIUM 100 MG TABLET PO (08:24)
[2024-06-25] MEDS: PANTOPRAZOLE 40 MG TABLET PO (08:24)
[2024-06-25] MEDS: MELOXICAM 7.5 MG TABLET 15 MG PO (08:24)
[2024-06-25] MEDS: TERBINAFINE HCL 250 MG TABLET PO (08:24)
[2024-06-25] MEDS: MONTELUKAST SODIUM 10 MG TABLET PO (08:24)
[2024-06-25] MEDS: predniSONE 20 MG TABLET 60 MG PO (08:24)
[2024-06-25] MEDS: LORATADINE 10 MG TABLET PO (08:25)
[2024-06-25] MEDS: guaiFENesin 12 HR 600 MG TABCR PO ×2 (08:25→20:59)
[2024-06-25] MEDS: BENZONATATE 100 MG CAPSULE 200 MG PO ×3 (08:25→17:33)
[2024-06-25] MEDS: hydroCHLOROthiazide 25 MG TABLET PO (08:25)
[2024-06-25] MEDS: FLUTICASONE PROPIONATE 0.05% NA SPR 16 GM BTL (*BKC) 2 SPRAY NASAL (08:28)
[2024-06-25] MEDS: ENOXAPARIN 40 MG/0.4 ML SYRINGE SUB-Q ×2 (08:28→20:59)
[2024-06-25] MEDS: BRIMONIDINE TARTRATE 0.2% OP SOLN 5 ML BTL 1 DROP EACH EYE ×2 (08:28→21:00)
[2024-06-25 11:40] LABS: Glucose Point of Care 168 mg/dl (65-105)
[2024-06-25 16:55] LABS: Glucose Point of Care 235 mg/dl (65-105)
[2024-06-25] MEDS: LATANOPROST 0.005% OP SOLN 2.5 ML BTL 1 DROP EACH EYE (17:33)
--- NOTE | 2024-06-25 17:37 | PM.CNPUL ---
Assessment and Plan Assessment and plan (1) Influenza A: Code(s): J10.1 - Influenza due to other identified influenza virus with other respiratory manifestations Status: Acute Assessment and Plan: Tested positive for influenza A this admission, on Tamiflu. She did not have influenza vaccination this season. She was planning to get flu vaccine and COVID booster at the same time but waiting until June is not recommended. She needs to get her vaccinations earlier in the fall so she has several weeks to build immunity. (2) Asthma-COPD overlap syndrome: Code(s): J44.9 - Chronic obstructive pulmonary disease, unspecified Status: Acute Assessment and Plan: Longstanding asthma COPD overlap (3) Former smoker: Code(s): Z87.891 - Personal history of nicotine dependence Status: Acute Assessment and Plan: No tobacco for 14 years, quit 2010, 70 pack years (4) Nocturnal oxygen desaturation: Code(s): G47.34 - Idiopathic sleep related nonobstructive alveolar hypoventilation Status: Acute Assessment and Plan: Use oxygen at home 3 L at night Plan plan: she is stable and should be discharged tomorrow. She can follow up with our pulmonary office in 2-4 weeks. She needs a COVID booster, can wait 2 weeks to recover from this episode of influenza to get this. History of Present Illness History of Present Illness Consult date: 06/25/24 Chief complaint: Influenza Narrative: NEW: Autumn Eli is 59 years old, is a patient in our practice who had influenza A on 08/24/2023. She has, obstructive sleep apnea on BiPAP with 2 L of oxygen. Is COPD asthma, uses Trelegy, p.r.n. albuterol, Flonase and Singulair. She tells me that last Sunday over a week ago she had a significant earache, saw Dr. Boyer in the office on Sunday while she was feeling short of breath. He treated her inner ear was steroids. She noted fever up to 103 and 104. Her saturation was fluctuating. She also had a cough. He eventually told her to go to the emergency department and she was admitted 06/18, a week ago, with influenza A, started Tamilflu, and feels much better. She is now on her usual oxygen, room air at rest and 3 L with exertion. She also uses oxygen with sleep. She was not able to use PAP last night because of her coughing but has a machine in the room to night which she please use at least 4 hours. She feels much better compared to admission. Sputum was ionitially green, now less amount and light yellow color. She still wheezes however air entry is better, and she is less short of breath. Her was also sick around the same time, he may have had influenza a but did not get tested and did not take any specific medications. He has diabetes but does not have lung disease. He smokes but keeps all of his smoking activity outdoors. She did not have a flu vaccination this fall or a COVID booster. She says that because she gets sick after taking these, she wanted to schedule a visit to get her vaccinations at a time where was convenient. I instructed her to get her vaccinations in March on a day when she feels good. She does not need to schedule a vaccination. She can pick a day when she feels well, go to a drug store and get the vaccination. With her medical comorbidities she cannot wait at to get this into June. Influenza A positive 08/24/23. COPD: Today she tells me overall her breathing feels better some days than others. Tx 1 month ago with azithromycin + prednisone for flare up. She states her cough is at baseline, no worse than her normal. Was wheezing last month but that resolved with the medications. She is maintained on Trelegy daily; albuterol PRN. She uses Flonase once daily, Singulair daily. Using albuterol HFA a few times per day lately. Has a nebulizer for albuterol she only uses when she's sick. O2: She is on 3L/min with exertion and takes it off with rest. Uses a pulse oximeter at home to check oxygen saturations, occasionally dipping to 88% with exertion with O2 on - stops to take breaks and recovers quickly. Planning for a month-long trip next summer so planning out oxygen needs/supplies. Tobacco: Former smoker, quit in 2009. 70 pack year history. Sleep: She is on BiPAP with 2L/min O2 bleed in. Uses BiPAP nightly without issues. Not sleeping well and partly attributes this to back pain and recent foot pain. Denies morning headaches. Denies nocturia. Overall her daytime function feels adequate, able to stay awake and alert. Using a half face mask with BiPAP and doing well with this. DATA * 06/18/24; CTA MEDIASTINUM: Aorta/coronary arteries: Mild atheromatous disease. Heart/other: The heart is not enlarged. Lymph nodes: No mediastinal adenopathy. Right hilar lymph node is seen measuring 2.7 x 1.3 cm. LUNGS: 5 mm nodule is seen in the right upper lobe. Follow-up CT scan in 6 to 12 months is advised. No pulmonary masses. No infiltrates or effusions. No pneumothorax. Emphysematous changes of the lungs. VISUALIZED UPPER ABDOMEN: Fat infiltration of the liver. Status post cholecystectomy. Stone in the right kidney midpole. Otherwise, the visualized upper abdomen is normal. MUSCULOSKELETAL: Soft tissues: The superficial soft tissues are normal. Bones: Age appropriate degenerative changes of the spine. IMPRESSION: 1. No pulmonary embolism. 2. No acute cardiopulmonary pathology. 3. 5 mm nodule in the right upper lobe. Follow-up CT in 6-12 months is advised. 4. Right hilar lymphadenopathy. 5. Fat infiltration of the liver. 6. Stone in the right kidney. * 06/18/2024, ABG, pH 7.43, pCO2 45, pO2 53, HC03 29, saturation 88% on room air * 06/18/2024 white blood cell count 6.4, fluctuated up to 10.2, today June 25 10.7 * 06/18/24 Hemoglobin hematocrit 15.3/47.3, elevated Review of Systems Review of Systems: All systems reviewed & are unremarkable except as noted in HPI and below PMFSH Past Medical History Medical History Hiatal hernia Anxiety Dysphagia Asthma-COPD overlap syndrome HLD (hyperlipidemia) Former smoker Chronic GERD Essential (primary) hypertension Glaucoma Lung nodules Obstructive sleep apnea (adult) (pediatric) bipap Surgical History Surgical History H/O tubal ligation History of appendectomy History of nasal surgery H/O cataract extraction History of bladder surgery TVT History of cholecystectomy Status post hysterectomy with oophorectomy Family History Family History Father Hypertension Family history of diabetes mellitus in first degree relative Family history of lung cancer Diabetes mellitus Mother Hypertension Family history of chronic obstructive pulmonary disease Family history of diabetes mellitus in first degree relative Diabetes mellitus Acute myocardial infarction Family history of sleep apnea Sibling Diabetes mellitus Hypertension Family history of sleep apnea Social History Social History Social History: She lives with her . She has 2 children. 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 Code status full code Smoking packs per day: 1 Smoking cigarettes per day: 20.0 Years smoked: 35 Smoking pack-years: 35.00 Smoking status: Former smoker Tobacco type: cigarettes Second hand tobacco smoke exposure: No Smoking end date: 07/02/09 Alcohol intake: never Drinks per week: 4 Alcohol use details: socially Substance use: never Substance use type: does not use Do You Feel Safe in your Home?: Yes Lack of Transportation: No Lack of Food: Never True Current Housing: I Have Housing Concerned About Future Housing: No Difficulty Paying Gas/Electric Bills: No Difficulty Paying for Meds: No Currently Unemployed: No Education: Don't Know Difficulty w/ Childcare or Family Care: No Living arrangements: with family Additional living arrangements comments: lives with spouse Occupation/Education: occupation 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 Gender identity (if verbalized by the patient): Female Sexual Orientation (if Verbalized by the Patient): Straight or Heterosexual Spiritual care concerns: No Meds Home Medications and Allergies Home Medications ?Medication ?Instructions ?Recorded ?Confirmed ?Type triamcinolone acetonide 0.1 % 1 applic topical BID PRN insect 11/26/23 06/18/24 Rx topical cream bite #15 grams albuterol sulfate 2.5 mg/3 mL 2.5 mg (3 mL) inhalation Q4-6H PRN 12/12/23 06/18/24 Rx (0.083 %) solution for nebulization shortness of breath or wheezing #90 mL brimonidine 0.2 % eye drops 1 drp ophthalmic (eye) Q12H #5 mL 12/12/23 06/18/24 Rx cyclobenzaprine 10 mg tablet 10 mg PO TID PRN Muscle Spasm #30 12/12/23 06/18/24 Rx tabs fluticasone propionate 50 2 spray intranasal DAILY #16 grams 12/12/23 06/18/24 Rx mcg/actuation nasal spray,suspension latanoprost 0.005 % eye drops 1 drp ophthalmic (eye) QPM #2.5 mL 12/12/23 06/18/24 Rx amlodipine 10 mg tablet 10 mg PO HS #90 tabs 12/13/23 06/18/24 Rx hydrochlorothiazide 25 mg tablet 25 mg PO DAILY #90 tabs 02/05/24 06/18/24 Rx montelukast 10 mg tablet 10 mg PO DAILY #90 tabs 02/05/24 06/18/24 Rx (Singulair) losartan 100 mg tablet 100 mg PO DAILY #90 tabs 02/11/24 06/18/24 Rx fluticasone fur. 100 mcg-umeclid See Rx Instructions .Route 02/12/24 06/18/24 Rx 62.5 mcg-vilant 25 mcg .COMPLEX #60 ea inhalat.powder (Trelegy Ellipta) lansoprazole 30 mg capsule,delayed See Rx Instructions .Route 03/27/24 06/18/24 Rx release .COMPLEX #90 caps meloxicam 15 mg tablet See Rx Instructions .Route 03/27/24 06/18/24 Rx .COMPLEX #90 tabs terbinafine HCl 250 mg tablet 250 mg PO DAILY 05/26/24 06/18/24 History hydrocodone 5 mg-acetaminophen 325 1 tablet PO Q6H PRN pain #60 tabs 06/04/24 06/18/24 Rx mg tablet albuterol sulfate 90 mcg/actuation See Rx Instructions .Route 06/05/24 06/18/24 Rx aerosol inhaler .COMPLEX #8.5 grams cetirizine 10 mg tablet See Rx Instructions .Route 06/09/24 06/18/24 Rx .COMPLEX #90 tabs prednisone 10 mg tablet See Rx Instructions .Route 06/17/24 06/18/24 Rx .COMPLEX #18 tabs Allergies Allergy/AdvReac Type Severity Reaction Status Date / Time amoxicillin Allergy Unknown Rash Verified 06/18/24 16:23 clavulanic acid AdvReac Unknown UTI Verified 06/18/24 16:23 codeine AdvReac Unknown Nausea Verified 06/18/24 16:23 Vital Signs Vital Signs - 24 hr 06/24/24 19:55 06/24/24 19:55 06/24/24 20:00 Temperature Pulse Rate 104 H 104 H Respiratory Rate 20 Blood Pressure Pulse Oximetry 96 96 Oxygen Delivery Nasal Cannula Nasal Cannula Oxygen Flow Rate 2 2 06/24/24 20:04 06/24/24 20:51 06/24/24 23:40 Temperature 36.3 C L Pulse Rate 92 84 89 Respiratory Rate 20 19 20 Blood Pressure 128/65 Pulse Oximetry 96 Oxygen Delivery Oxygen Flow Rate 06/24/24 23:59 06/24/24 23:59 06/25/24 03:39 Temperature Pulse Rate 75 75 84 Respiratory Rate 20 20 17 Blood Pressure Pulse Oximetry 96 Oxygen Delivery BiPAP Oxygen Flow Rate 06/25/24 03:45 06/25/24 06:00 06/25/24 07:05 Temperature 36.4 C L Pulse Rate 80 77 Respiratory Rate 20 12 Blood Pressure 135/69 Pulse Oximetry 99 92 Oxygen Delivery Nasal Cannula Oxygen Flow Rate 2 06/25/24 07:05 06/25/24 07:13 06/25/24 08:00 Temperature Pulse Rate 71 75 Respiratory Rate 20 20 Blood Pressure Pulse Oximetry 95 Oxygen Delivery Nasal Cannula Oxygen Flow Rate 1 06/25/24 11:29 06/25/24 11:36 06/25/24 14:00 Temperature 36.3 C L Pulse Rate 81 80 88 Respiratory Rate 20 20 20 Blood Pressure 128/69 Pulse Oximetry 95 Oxygen Delivery Oxygen Flow Rate 06/25/24 15:15 06/25/24 15:23 Temperature Pulse Rate 87 84 Respiratory Rate 20 20 Blood Pressure Pulse Oximetry Oxygen Delivery Oxygen Flow Rate Exam Narrative: GEN: Alert, oriented, not in distress. She had expiratory wheezes, on room air. HEENT: pupils are equal, EOMI, symmetrical face; oral membranes moist, Mallampati III airway NECK: Trachea is midline CHEST: Equal air entry, symmetric excursion, expiratory wheezes, few crackles scattered CV: Regular S1S2 no m/g/r ABD : (+) bowel sounds Extremities : no clubbing, cyanosis, 1+ non pitting pre-tibial edema PSYCH: normal thought and speech, gait is not tested Results Laboratory Findings 06/25/24 06:21 06/25/24 06:21 ABG, PT/INR, D-dimer: ABG ABG pH 7.430 (7.350-7.450) 06/18/24 11:06 ABG pCO2 45.0 mmHg (35.0-45.0) 06/18/24 11:06 ABG pO2 53.0 mmHg (80.0-100.0) L 06/18/24 11:06 ABG O2 Saturation 88.2 % (95.0-100.0) L 06/18/24 11:06 PT/INR, D-dimer PT 13.5 Seconds (11.1-14.7) 06/18/24 10:58 INR 1.0 06/18/24 10:58 Abnormal lab findings: Abnormal Labs 06/18/24 06/18/24 06/19/24 10:58 11:06 07:01 WBC RBC Hgb 15.4 H Hct Plt Count 148 L 143 L MPV 10.5 H 10.8 H Immature Gran % (Auto) 0.8 H 0.6 H Neut % (Auto) 81.9 H 81.1 H Lymph % (Auto) 8.0 L 14.0 L [place] % (Auto) 8.8 H Baso % (Auto) Lymph # (Auto) 0.51 L 0.75 L [place] # (Auto) Abs Immat Gran (auto) 0.05 H Absolute Neuts (auto) ABG pO2 53.0 L ABG HCO3 29.2 H ABG O2 Saturation 88.2 L Oxyhemoglobin 87.7 L* Sodium Potassium 3.1 L Chloride Carbon Dioxide 33 H 34 H Anion Gap 3 L BUN Creatinine 0.50 L Glucose 126 H 143 H POC Capillary Glucose AST 41 H ALT 40 H Total Protein Influenza A (RT-PCR) Positive A 06/20/24 06/22/24 06/22/24 06:32 08:38 11:32 WBC 10.2 H RBC 5.61 H Hgb 15.7 H 16.4 H Hct 47.9 H 51.2 H Plt Count MPV 11.2 H 10.5 H Immature Gran % (Auto) 0.7 H 1.1 H Neut % (Auto) 85.4 H Lymph % (Auto) 9.4 L [place] % (Auto) 10.4 H Baso % (Auto) 0.1 L 0.1 L Lymph # (Auto) [place] # (Auto) 1.0 H Abs Immat Gran (auto) 0.07 H 0.11 H Absolute Neuts (auto) 8.7 H 6.9 H ABG pO2 ABG HCO3 ABG O2 Saturation Oxyhemoglobin Sodium Potassium 3.1 L Chloride 97 L Carbon Dioxide 34 H > 40 H Anion Gap BUN 20 H 21 H Creatinine 0.60 L 0.60 L Glucose 174 H POC Capillary Glucose 113 H AST 37 H ALT 36 H Total Protein Influenza A (RT-PCR) 06/22/24 06/22/24 06/23/24 16:40 21:19 06:08 WBC RBC Hgb 15.4 H Hct 47.7 H Plt Count 148 L MPV 11.2 H Immature Gran % (Auto) 1.8 H Neut % (Auto) Lymph % (Auto) [place] % (Auto) 11.5 H Baso % (Auto) Lymph # (Auto) [place] # (Auto) 0.9 H Abs Immat Gran (auto) 0.14 H Absolute Neuts (auto) ABG pO2 ABG HCO3 ABG O2 Saturation Oxyhemoglobin Sodium 136 L Potassium Chloride Carbon Dioxide 37 H Anion Gap 0 L BUN 23 H Creatinine 0.60 L Glucose POC Capillary Glucose 176 H 172 H AST ALT Total Protein Influenza A (RT-PCR) 06/23/24 06/23/24 06/23/24 11:18 16:36 21:13 WBC RBC Hgb Hct Plt Count MPV Immature Gran % (Auto) Neut % (Auto) Lymph % (Auto) [place] % (Auto) Baso % (Auto) Lymph # (Auto) [place] # (Auto) Abs Immat Gran (auto) Absolute Neuts (auto) ABG pO2 ABG HCO3 ABG O2 Saturation Oxyhemoglobin Sodium Potassium Chloride Carbon Dioxide Anion Gap BUN Creatinine Glucose POC Capillary Glucose 111 H 271 H 169 H AST ALT Total Protein Influenza A (RT-PCR) 06/24/24 06/24/24 06/24/24 05:42 11:44 16:45 WBC RBC Hgb 15.4 H Hct Plt Count MPV 11.0 H Immature Gran % (Auto) 2.9 H Neut % (Auto) Lymph % (Auto) [place] % (Auto) 9.3 H Baso % (Auto) Lymph # (Auto) [place] # (Auto) 0.8 H Abs Immat Gran (auto) 0.24 H Absolute Neuts (auto) ABG pO2 ABG HCO3 ABG O2 Saturation Oxyhemoglobin Sodium 135 L Potassium 3.2 L Chloride Carbon Dioxide 39 H Anion Gap -3 L BUN 20 H Creatinine 0.60 L Glucose POC Capillary Glucose 151 H 185 H AST 54 H ALT 148 H Total Protein 6.0 L Influenza A (RT-PCR) 06/24/24 06/25/24 06/25/24 19:28 06:21 07:17 WBC 10.7 H RBC Hgb 15.3 H Hct 47.3 H Plt Count MPV Immature Gran % (Auto) 3.4 H Neut % (Auto) Lymph % (Auto) [place] % (Auto) Baso % (Auto) Lymph # (Auto) [place] # (Auto) 0.8 H Abs Immat Gran (auto) 0.36 H Absolute Neuts (auto) ABG pO2 ABG HCO3 ABG O2 Saturation Oxyhemoglobin Sodium Potassium Chloride Carbon Dioxide 36 H Anion Gap 0 L BUN 25 H Creatinine 0.60 L Glucose POC Capillary Glucose 237 H 116 H AST 51 H ALT 140 H Total Protein 6.0 L Influenza A (RT-PCR) 06/25/24 06/25/24 11:35 16:32 WBC RBC Hgb Hct Plt Count MPV Immature Gran % (Auto) Neut % (Auto) Lymph % (Auto) [place] % (Auto) Baso % (Auto) Lymph # (Auto) [place] # (Auto) Abs Immat Gran (auto) Absolute Neuts (auto) ABG pO2 ABG HCO3 ABG O2 Saturation Oxyhemoglobin Sodium Potassium Chloride Carbon Dioxide Anion Gap BUN Creatinine Glucose POC Capillary Glucose 168 H 235 H AST ALT Total Protein Influenza A (RT-PCR)
--- NOTE | 2024-06-25 18:04 | P.PNIM_ITS ---
Progress Note: A&P Assessment and Plan (1) Influenza A: Code(s): J10.1 - Influenza due to other identified influenza virus with other respiratory manifestations Status: Acute Assessment and Plan: Initial CXR with possible bilateral pneumonitis. Baseline oxygen: none at rest, 3L with activity - Repeat CXR ordered. - Chest CTA: 1. No pulmonary embolism. 2. No acute cardiopulmonary pathology. 3. 5 mm nodule in the right upper lobe. Follow-up CT in 6-12 months is advised. 4. Right hilar lymphadenopathy. 5. Fat infiltration of the liver. 6. Stone in the right kidney. - Completed Tamiflu treatment. - new O2 requirement, continue to maintain O2 for sats > 90%. Wean as tolerated. - Continue supportive care; Tessalon perles, lozenges and guaifenesin dm for cough, bronchodilators. (2) COPD exacerbation: Code(s): J44.1 - Chronic obstructive pulmonary disease with (acute) exacerbation Status: Acute Assessment and Plan: Home meds: Trelegy Ellipta, Albuterol prn * Currently on prednisone 60mg. * Continuing trelegy * Continue scheduled duoneb treatment. * Wean oxygen as tolerated, now on 2L/NC for sats > 90 %. * Pulmonary consulted. (3) Essential (primary) hypertension: Code(s): I10 - Essential (primary) hypertension Status: Chronic Assessment and Plan: Blood pressure appears better controlled. Monitor for now on current treatment. (4) Obstructive sleep apnea (adult) (pediatric): Code(s): G47.33 - Obstructive sleep apnea (adult) (pediatric) Status: Acute Assessment and Plan: * Continue BiPAP/CPAP, home settings * Pulmonology consulted. (5) Headache: Code(s): R51.9 - Headache, unspecified Status: Acute Assessment and Plan: * Tylenol 650 mg PO q 6 PRN. (6) Hypokalemia: Code(s): E87.6 - Hypokalemia Status: Acute Assessment and Plan: * Replete as needed. Time Spent With Patient Time with patient: 15 - 25 minutes Subjective Date/time seen: 06/25/24 11:04 Patient states she still gets winded with minimal activity. States unable to tolerate much activity due to SOB. Interval history: Patient on bedrest with conversational dyspnea. Currently on 2L/NC for sats > 90 %. Review of Systems Review of Systems: All systems reviewed & are unremarkable except as noted in HPI and below Exam Narrative: CONSTITUTIONAL: Pleasant female sitting up in bed with some respiratory distress on minimal activity. HENNT: Head is atraumatic and normocephalic. MMM RESPIRATORY: Faint wheezing, slightly tight CARDIO: RRR, No murmurs. GI: Soft, NT, non-distended, BS+x4 quads. SKIN: Intact without lesion and no pallor. NEURO: Grossly intact and without any focal deficits. EXTREMITIES: No edema, intact pulses and full active ROM. PSYCH: Pleasant, Alert and oriented x4 Objective Data Vital Signs Vital Signs: Vital Signs - 24 hr 06/24/24 19:55 06/24/24 19:55 06/24/24 20:00 Temperature Pulse Rate 104 H 104 H Respiratory Rate 20 Blood Pressure Pulse Oximetry 96 96 Oxygen Delivery Nasal Cannula Nasal Cannula Oxygen Flow Rate 2 2 06/24/24 20:04 06/24/24 20:51 06/24/24 23:40 Temperature 97.3 F L Pulse Rate 92 84 89 Respiratory Rate 20 19 20 Blood Pressure 128/65 Pulse Oximetry 96 Oxygen Delivery Oxygen Flow Rate 06/24/24 23:59 06/24/24 23:59 06/25/24 03:39 Temperature Pulse Rate 75 75 84 Respiratory Rate 20 20 17 Blood Pressure Pulse Oximetry 96 Oxygen Delivery BiPAP Oxygen Flow Rate 06/25/24 03:45 06/25/24 06:00 06/25/24 07:05 Temperature 97.5 F L Pulse Rate 80 77 Respiratory Rate 20 12 Blood Pressure 135/69 Pulse Oximetry 99 92 Oxygen Delivery Nasal Cannula Oxygen Flow Rate 2 06/25/24 07:05 06/25/24 07:13 06/25/24 08:00 Temperature Pulse Rate 71 75 Respiratory Rate 20 20 Blood Pressure Pulse Oximetry 95 Oxygen Delivery Nasal Cannula Oxygen Flow Rate 1 06/25/24 11:29 06/25/24 11:36 06/25/24 14:00 Temperature 97.4 F L Pulse Rate 81 80 88 Respiratory Rate 20 20 20 Blood Pressure 128/69 Pulse Oximetry 95 Oxygen Delivery Oxygen Flow Rate 06/25/24 15:15 06/25/24 15:23 Temperature Pulse Rate 87 84 Respiratory Rate 20 20 Blood Pressure Pulse Oximetry Oxygen Delivery Oxygen Flow Rate Intake/Output Intake/Output: Intake & Output 06/22/24 06/23/24 06/24/24 06/25/24 23:59 23:59 23:59 23:59 Intake Total 3590 1440 2340 2310 Balance 3590 1440 2340 2310 Meds/Results Medications: Active Medications Generic Name Dose Route Start Last Admin Trade Name Freq PRN Reason Stop Dose Admin Acetaminophen 650 mg 06/18/24 19:00 06/19/24 09:21 Acetaminophen 325 Mg Tablet PO 650 mg Q6H PRN Administration Mild Pain (1-3) or Fever Hydrocodone Bitart/Acetaminophen 1 tab 06/18/24 21:51 06/23/24 21:37 Hydrocodone/Acetaminophen (*Crx) 5-325 Mg Tablet PO 1 tab Q6H PRN Administration PAIN RATED 4-6 Albuterol 2 puff 06/18/24 21:55 06/24/24 17:09 Albuterol Sulfate (*Sp) Aerosol 1 Puff INHALATION 2 puff Q6H PRN Administration SHORTNESS OF BREATH/WHEEZING Albuterol 2.5 mg 06/20/24 16:00 06/25/24 15:15 Albuterol Sulfate Neb 2.5 Mg/3 Ml Inh INHALATION 2.5 mg Q4HRT MEHRAN Administration Amlodipine Besylate 10 mg 06/19/24 21:00 06/24/24 20:36 Amlodipine Besylate 10 Mg Tablet PO 10 mg HS MEHRAN Administration Benzocaine 1 lozenge 06/18/24 15:05 06/19/24 09:15 Benzocaine/Menthol (*Bkc) 18 Ea Lozenge PO 1 lozenge PRN PRN Administration Sore Throat Benzonatate 100 mg 06/18/24 15:05 Benzonatate 100 Mg Capsule PO TID PRN Cough Benzonatate 200 mg 06/20/24 17:00 06/25/24 17:33 Benzonatate 100 Mg Capsule PO 200 mg TID MEHRAN Administration Brimonidine Tartrate 1 drop 06/18/24 23:05 06/25/24 08:28 Brimonidine Tartrate 0.2% Op Soln 5 Ml Btl EACH EYE 1 drop Q12HR MEHRAN Administration Calcium Carbonate 200 mg 06/23/24 16:42 Calcium Carbonate (Tums) 500 Mg (200 Mg Elemental) PO Q6H PRN Indigestion Cyclobenzaprine HCl 10 mg 06/18/24 23:02 06/24/24 20:36 Cyclobenzaprine Hcl 10 Mg Tablet PO 10 mg TID PRN Administration Muscle Spasm Dextrose 12.5 gm 06/22/24 07:49 Dextrose 50% 25 Gm/50 Ml Syringe IV PUSH PRN PRN Hypoglycemia Protocol Enoxaparin Sodium 40 mg 06/21/24 21:00 06/25/24 08:28 Enoxaparin 40 Mg/0.4 Ml Syringe SUB-Q 40 mg Q12HR MEHRAN Administration Fluticasone Propionate 2 spray 06/19/24 09:00 06/25/24 08:28 Fluticasone Propionate 0.05% Na Spr 16 Gm Btl (*Bkc) NASAL 2 spray DAILY MEHRAN Administration Fluticasone/Umeclidinium/Vilanterol 1 puff 06/19/24 08:00 06/25/24 07:10 Fluticasone/Umeclidin/Vilanter 100-62.5-25 Mcg Ellipta INHALATION 1 puff DAILYRT MEHRAN Administration Glucagon 1 mg 06/22/24 07:49 Glucagon For Inj 1 Mg Vial IM PRN PRN Hypoglycemia Protocol Glucose 15 gm 06/22/24 07:49 Glucose Oral Gel 15 Gm Of Glucse In 37.5 Gm Tube PO PRN PRN Hypoglycemia Protocol Guaifenesin 600 mg 06/18/24 21:00 06/25/24 08:25 Guaifenesin 12 Hr 600 Mg Tabcr PO 600 mg Q12HR MEHRAN Administration Hydrochlorothiazide 25 mg 06/19/24 09:00 06/25/24 08:25 Hydrochlorothiazide 25 Mg Tablet PO 25 mg DAILY MEHRAN Administration Dextrose 1,000 mls @ 100 mls/hr 06/22/24 07:49 Dextrose 5% 1,000 Ml IVPB PRN PRN Hypoglycemia Protocol Insulin Aspart 2 - 5 units 06/22/24 08:00 06/25/24 08:29 Insulin Aspart (*Bkc) 100 Units/Ml SUB-Q Not Given TIDWM MEHRAN Protocol Insulin Aspart 1 - 2 units 06/22/24 21:00 06/24/24 20:37 Insulin Aspart (*Bkc) 100 Units/Ml SUB-Q 1 units HS MEHRAN Administration Protocol Ipratropium Axson 0.5 mg 06/20/24 15:25 Ipratropium Br 0.02% Inh Soln 0.5 Mg/2.5 Ml Vial INHALATION Q8HRT PRN Shortness Of Breath Latanoprost 1 drop 06/19/24 18:00 06/25/24 17:33 Latanoprost 0.005% Op Soln 2.5 Ml Btl EACH EYE 1 drop QPM MEHRAN Administration Loratadine 10 mg 06/19/24 09:00 06/25/24 08:25 Loratadine 10 Mg Tablet PO 10 mg QAM MEHRAN Administration Losartan Potassium 100 mg 06/19/24 09:00 06/25/24 08:24 Losartan Potassium 100 Mg Tablet PO 100 mg DAILY MEHRAN Administration Meloxicam 15 mg 06/19/24 09:00 06/25/24 08:24 Meloxicam 7.5 Mg Tablet PO 15 mg QAM MEHRAN Administration Montelukast Sodium 10 mg 06/19/24 09:00 06/25/24 08:24 Montelukast Sodium 10 Mg Tablet PO 10 mg DAILY MEHRAN Administration Ondansetron HCl 4 mg 06/18/24 15:05 Ondansetron Hcl Odt 4 Mg Tablet PO Q6H PRN Nausea And Vomiting Pantoprazole Sodium 40 mg 06/19/24 09:00 06/25/24 08:24 Pantoprazole 40 Mg Tablet PO 40 mg QAM MEHRAN Administration Prednisone 60 mg 06/21/24 11:30 06/25/24 08:24 Prednisone 20 Mg Tablet PO 60 mg DAILY@0800 MEHRAN Administration Terbinafine HCl 250 mg 06/19/24 09:00 06/25/24 08:24 Terbinafine Hcl 250 Mg Tablet PO 250 mg DAILY MEHRAN Administration Triamcinolone Acetonide 1 applic 06/18/24 23:02 06/20/24 09:37 Triamcinolone Acet 0.1% Cream 15 Gm Tube TOPICAL 1 applic BID PRN Administration insect bite Radiology Results: ITS Impressions Chest X-Ray 06/18/24 11:25 IMPRESSION: Possible bilateral pneumonitis. Follow-up advised. Chest CTA 06/18/24 12:15 IMPRESSION: 1. No pulmonary embolism. 2. No acute cardiopulmonary pathology. 3. 5 mm nodule in the right upper lobe. Follow-up CT in 6-12 months is advised. 4. Right hilar lymphadenopathy. 5. Fat infiltration of the liver. 6. Stone in the right kidney. Labs Labs: Laboratory Results - last 24 hr 06/24/24 06/25/24 06/25/24 19:28 06:21 07:17 WBC 10.7 H RBC 5.25 Hgb 15.3 H Hct 47.3 H MCV 90.1 MCH 29.1 MCHC 32.3 RDW 12.8 Plt Count 181 MPV 10.4 Immature Gran % (Auto) 3.4 H Neut % (Auto) 61.2 Lymph % (Auto) 26.4 [place] % (Auto) 7.8 Eos % (Auto) 0.5 Baso % (Auto) 0.7 Lymph # (Auto) 2.83 [place] # (Auto) 0.8 H Eos # (Auto) 0.1 Baso # (Auto) 0.1 Abs Immat Gran (auto) 0.36 H Absolute Neuts (auto) 6.6 Absolute Nucleated RBC 0.000 Nucleated RBC % 0.0 Sodium 138 Potassium 3.7 Chloride 102 Carbon Dioxide 36 H Anion Gap 0 L BUN 25 H Creatinine 0.60 L Estim Creat Clear Calc 118 Estimated GFR > 60 Glucose 104 POC Capillary Glucose 237 H 116 H Calcium 9.3 Total Bilirubin 0.5 AST 51 H ALT 140 H Alkaline Phosphatase 85 Total Protein 6.0 L Albumin 3.7 06/25/24 06/25/24 11:35 16:32 WBC RBC Hgb Hct MCV MCH MCHC RDW Plt Count MPV Immature Gran % (Auto) Neut % (Auto) Lymph % (Auto) [place] % (Auto) Eos % (Auto) Baso % (Auto) Lymph # (Auto) [place] # (Auto) Eos # (Auto) Baso # (Auto) Abs Immat Gran (auto) Absolute Neuts (auto) Absolute Nucleated RBC Nucleated RBC % Sodium Potassium Chloride Carbon Dioxide Anion Gap BUN Creatinine Estim Creat Clear Calc Estimated GFR Glucose POC Capillary Glucose 168 H 235 H Calcium Total Bilirubin AST ALT Alkaline Phosphatase Total Protein Albumin Quality VTE Prophylaxis VTE prophylaxis: mechanical ordered and pharmacologic ordered Hospitalist MIPS Advance Care Plan I have confirmed that the patient's Advanced Care Plan is present, code status is documented, or surrogate decision maker is listed in patient medical record.: Yes Medication Reconciliation I have utilized all available resources to obtain, update and review the patients current medications (includes all prescriptions, OTC, herbals, cannabis, and nutritional supplements).: Yes
[2024-06-25] MEDS: amLODIPine BESYLATE 10 MG TABLET PO (20:59)
[2024-06-25 21:25] LABS: Glucose Point of Care 178 mg/dl (65-105)
[2024-06-25] MEDS: HYDROcodone/acetaminophen (*CRX) 5-325 MG TABLET 1 TAB PO (22:42)
[2024-06-25] MEDS: CYCLOBENZAPRINE HCL 10 MG TABLET PO (22:42)
[2024-06-26] VITALS (12 sets, daily range): BP systolic 136–138; BP diastolic 62–63; PULSE 78–93; RESP 18–20; TEMP 35.8–36.9; O2SAT 91–100
[2024-06-26] MEDS: ALBUTEROL SULFATE NEB 2.5 MG/3 ML INH INHALATION ×4 (01:19→13:37)
[2024-06-26 07:02] LABS: Basophils Absolute Auto 0.1 K/mm3 (0.0-0.1); Basophils Percent Auto 0.6 % (0.2-1.2); Eosinophils Absolute Auto 0.1 K/mm3 (0-0.3); Eosinophils Percent Auto 0.6 % (0-4.4); Hematocrit 50.2 % (37.0-47.0); Immature Granulocyte Absolute 0.52 K/mm3 (0.00-0.031); Immature Granulocyte Percent A 3.8 % (0-0.5); Lymphocytes Absolute Auto 3.51 K/mm3 (0.9-3.2); Lymphocytes Percent Auto 25.5 % (18.3-44.2); Mean Corpuscular HGB Conc 31.9 g/dl (32-36); Mean Corpuscular Volume 91.1 fl (80-100); Mean Platelet Volume 10.7 fl (7.4-10.4); Monocytes Absolute Auto 1.2 K/mm3 (0.1-0.6); Monocytes Percent Auto 8.4 % (2.6-8.5); Neutrophils Absolute Auto 8.4 K/mm3 (1.3-6.7); Neutrophils Percent Auto 61.1 % (45.5-73.1); Platelet Count Result 220 k/mm3 (150-375); Red Blood Count 5.51 M/mm3 (4.2-5.4); White Blood Count 13.8 K/mm3 (4.5-10.0)
[2024-06-26 07:30] LABS: Alanine Aminotransferase 129 U/L (6-35); Alkaline Phosphatase 101 U/L (38-126); Anion Gap -1 mmol/L (4-12); Aspartate Amino Transferase 45 U/L (14-36); Bilirubin,Total 0.5 mg/dL (0.2-1.3); Blood Urea Nitrogen 23 mg/dL (7-17); Calcium 9.5 mg/dL (8.4-10.2); Carbon Dioxide 39 mmol/L (22-30); Chloride 100 mmol/L (98-107); Estimated CRCL calculation 103 ml/min; Estimated Glomerular Filt Rate > 60; Glucose 122 mg/dL (65-110); Potassium 3.5 mmol/L (3.4-5.0); Sodium 138 mmol/L (137-145)
[2024-06-26] MEDS: BENZONATATE 100 MG CAPSULE 200 MG PO (08:36)
[2024-06-26] MEDS: MELOXICAM 7.5 MG TABLET 15 MG PO (08:37)
[2024-06-26] MEDS: predniSONE 20 MG TABLET 60 MG PO (08:37)
[2024-06-26] MEDS: guaiFENesin 12 HR 600 MG TABCR PO (08:37)
[2024-06-26] MEDS: LOSARTAN POTASSIUM 100 MG TABLET PO (08:37)
[2024-06-26] MEDS: TERBINAFINE HCL 250 MG TABLET PO (08:37)
[2024-06-26] MEDS: hydroCHLOROthiazide 25 MG TABLET PO (08:37)
[2024-06-26] MEDS: PANTOPRAZOLE 40 MG TABLET PO (08:37)
[2024-06-26] MEDS: LORATADINE 10 MG TABLET PO (08:37)
[2024-06-26] MEDS: MONTELUKAST SODIUM 10 MG TABLET PO (08:38)
[2024-06-26] MEDS: ENOXAPARIN 40 MG/0.4 ML SYRINGE SUB-Q (08:38)
[2024-06-26] MEDS: BRIMONIDINE TARTRATE 0.2% OP SOLN 5 ML BTL 1 DROP EACH EYE (08:38)
[2024-06-26] MEDS: FLUTICASONE PROPIONATE 0.05% NA SPR 16 GM BTL (*BKC) 2 SPRAY NASAL (08:38)
[2024-06-26] MEDS: FLUTICASONE/UMECLIDIN/VILANTER 100-62.5-25 MCG ELLIPTA 1 PUFF INHALATION (08:39)
--- NOTE | 2024-06-26 09:32 | PCNWS ---
Weekly nutritional screen. Patient is tolerating current Diabetic diet with adequate intake 50-100%. No weight loss reported. No nutritional recommendations at this time.
[2024-06-26 11:46] LABS: Glucose Point of Care 165 mg/dl (65-105)
--- NOTE | 2024-06-26 13:43 | P.DS_ITS ---
DS: Admitting Diagnosis Discharge Date 06/26/24 Admitting Diagnosis Shortness of Breath DS: Discharge Diagnosis Discharge Diagnosis (1) Influenza A: Code(s): J10.1 - Influenza due to other identified influenza virus with other respiratory manifestations Status: Acute Assessment and Plan: Initial CXR with possible bilateral pneumonitis. Baseline oxygen: none at rest, 3L with activity - Repeat CXR ordered. - Chest CTA: 1. No pulmonary embolism. 2. No acute cardiopulmonary pathology. 3. 5 mm nodule in the right upper lobe. Follow-up CT in 6-12 months is advised. 4. Right hilar lymphadenopathy. 5. Fat infiltration of the liver. 6. Stone in the right kidney. - Completed Tamiflu treatment. - Patient on O2 at home, 2-3L/NC with activity and none at rest. - Continue to maintain O2 for sats > 90 with activity and at rest PRN. - Continue supportive care; Tessalon perles, lozenges and guaifenesin dm for cough, bronchodilators. (2) COPD exacerbation: Code(s): J44.1 - Chronic obstructive pulmonary disease with (acute) exacerbation Status: Acute Assessment and Plan: Home meds: Trelegy Ellipta, Albuterol prn * Currently on prednisone 60mg and we'll taper dose. * Continuing trelegy at home. * Continue duoneb treatments at home PRN. * Continue Pulmonary f/u outpatient. (3) Essential (primary) hypertension: Code(s): I10 - Essential (primary) hypertension Status: Chronic Assessment and Plan: Blood pressure fairly well controlled for the most part. Home meds resumed. (4) Obstructive sleep apnea (adult) (pediatric): Code(s): G47.33 - Obstructive sleep apnea (adult) (pediatric) Status: Acute Assessment and Plan: * Continue CPAP with home settings * Seen by [facility] inpatient. (5) Headache: Code(s): R51.9 - Headache, unspecified Status: Acute Assessment and Plan: * Tylenol 650 mg PO q 6 PRN. * Resolved prior to discharge. (6) Hypokalemia: Code(s): E87.6 - Hypokalemia Status: Acute Assessment and Plan: * Replete as needed. * Resolved prior to discharge. Plan Discharge home on self care. DS: Summary Hospital Course Reason for hospitalization: Acute Hypoxic Respiratory Failure Hospital Course: Patient presented to the ER with reports of shortness of breath and flu-like symptoms. Work-up labs in the ER revealed influenza A, and the patient was also noted to be in acute exacerbation of COPD. Patient was treated with Tamiflu, bronchodilators and steroids. She was seen by the cell repairer during her hospitalization who assisted stabilizing her. Patient uses supplemental O2 at home with activity and was initially on supplemental O2 during admission but it has been able to be weaned off prior to discharge during rest. Patient will continue to use supplemental O2 at home during activity and as needed during rest. Patient has been cleared for discharge by the cell repairer who will continue to follow-up with her outpatient. She's being discharged on a tapered steroids dose. Patient states she feels good and is ready to go home. Patient medically stable for discharge with no acute distress noted or reported prior to discharge. Status at Discharge Functional status at discharge: independent ambulation Overall status at discharge: patient is progressing back to baseline Time Spent with Patient Time attestation: Total time spent providing and/or coordinating discharge services: Time spent: Greater than 30 minutes Exam Narrative: CONSTITUTIONAL: Pleasant female sitting up in bed with no acute distress. HEENT: Head is atraumatic and normocephalic. MMM RESPIRATORY: Faint expiratory wheezes. CARDIO: RRR, No murmurs. GI: Soft, NT, non-distended, BS+x4 quads. SKIN: Intact without lesion and no pallor. NEURO: Grossly intact and without any focal deficits. EXTREMITIES: No edema, intact pulses and full active ROM. PSYCH: Pleasant, Alert and oriented x4 DS: Data Data Completed and Pending Labs on day of discharge: Labs from last 24 hours 06/26/24 06/26/24 06/25/24 11:34 06:47 21:04 WBC 13.8 H RBC 5.51 H Hgb 16.0 H Hct 50.2 H MCV 91.1 MCH 29.0 MCHC 31.9 L RDW 13.0 Plt Count 220 MPV 10.7 H Immature Gran % (Auto) 3.8 H Neut % (Auto) 61.1 Lymph % (Auto) 25.5 [place] % (Auto) 8.4 Eos % (Auto) 0.6 Baso % (Auto) 0.6 Lymph # (Auto) 3.51 H [place] # (Auto) 1.2 H Eos # (Auto) 0.1 Baso # (Auto) 0.1 Abs Immat Gran (auto) 0.52 H Absolute Neuts (auto) 8.4 H Absolute Nucleated RBC 0.000 Nucleated RBC % 0.0 Sodium 138 Potassium 3.5 Chloride 100 Carbon Dioxide 39 H Anion Gap -1 L BUN 23 H Creatinine 0.70 Estim Creat Clear Calc 103 Estimated GFR > 60 Glucose 122 H POC Capillary Glucose 165 H 178 H Calcium 9.5 Total Bilirubin 0.5 AST 45 H ALT 129 H Alkaline Phosphatase 101 Total Protein 6.0 L Albumin 4.0 06/25/24 16:32 WBC RBC Hgb Hct MCV MCH MCHC RDW Plt Count MPV Immature Gran % (Auto) Neut % (Auto) Lymph % (Auto) [place] % (Auto) Eos % (Auto) Baso % (Auto) Lymph # (Auto) [place] # (Auto) Eos # (Auto) Baso # (Auto) Abs Immat Gran (auto) Absolute Neuts (auto) Absolute Nucleated RBC Nucleated RBC % Sodium Potassium Chloride Carbon Dioxide Anion Gap BUN Creatinine Estim Creat Clear Calc Estimated GFR Glucose POC Capillary Glucose 235 H Calcium Total Bilirubin AST ALT Alkaline Phosphatase Total Protein Albumin Discharge Plan Discharge Attending physician on discharge: Donald Blackman Consulting providers: Skyla Anderson Discharging Clinician: Jorge Alberto Cam Anticipated Discharge Date/Time: 06/26/24 14:16 Patient Disposition: Home, Self-Care Activity: as tolerated Diet: heart healthy Patient Instructions: Antibiotic Form Patient Language: Monegasque Stand Alone Forms: General Discharge Information Follow-up/Referrals: Yves Boyer MD [Primary Care Provider] - 1 Week Skyla Anderson MD [Physician] - 2 Weeks Discharge Medications: New guaifenesin [Mucus Relief ER] 600 mg Tablet Extended Release 12hr 600 mg PO Q12HR Qty: 10 0RF benzonatate 100 mg Capsule 200 mg PO TID Qty: 20 0RF prednisone 20 mg tablet 60 mg PO DAILY@0800 Qty: 13 0RF Rx Instructions: 60 mg X 2 days 40 mg X 2 days 20 mg X 3 days then discontinue Continued triamcinolone acetonide 0.1 % cream 1 applic topical BID PRN (Reason: insect bite) Qty: 15 0RF latanoprost 0.005 % drops 1 drp EACH EYE QPM Qty: 2.5 0RF fluticasone propionate 50 mcg/actuation spray,suspension 2 spray NASAL DAILY Qty: 16 3RF cyclobenzaprine 10 mg tablet 10 mg PO TID PRN (Reason: Muscle Spasm) Qty: 30 0RF brimonidine 0.2 % drops 1 drp EACH EYE Q12H Qty: 5 0RF albuterol sulfate 2.5 mg /3 mL (0.083 %) solution for nebulization 2.5 mg inhalation Q4-6H PRN (Reason: shortness of breath or wheezing) Qty: 90 3RF terbinafine HCl 250 mg tablet 250 mg PO DAILY amlodipine 10 mg tablet 10 mg PO HS Qty: 90 3RF montelukast [Singulair] 10 mg tablet 10 mg PO DAILY Qty: 90 2RF hydrochlorothiazide 25 mg tablet 25 mg PO DAILY Qty: 90 1RF losartan 100 mg tablet 100 mg PO DAILY Qty: 90 1RF Trelegy Ellipta 100-62.5-25 mcg blister with device See Rx Instructions .ROUTE .COMPLEX Qty: 60 5RF Dose Instruction: INHALE 1 PUFF BY MOUTH EVERY 24 HOURS, RINSE AND SPIT AFTER EVERY USE. THIS IS REPLACING BREZTRI Rx Instructions: INHALE 1 PUFF BY MOUTH EVERY 24 HOURS, RINSE AND SPIT AFTER EVERY USE. THIS IS REPLACING BREZTRI lansoprazole 30 mg capsule,delayed release(DR/EC) See Rx Instructions .ROUTE .COMPLEX Qty: 90 1RF Dose Instruction: TAKE 1 CAPSULE BY MOUTH EVERY DAY BEFORE A MEAL Rx Instructions: TAKE 1 CAPSULE BY MOUTH EVERY DAY BEFORE A MEAL meloxicam 15 mg tablet See Rx Instructions .ROUTE .COMPLEX Qty: 90 1RF Dose Instruction: TAKE 1 TABLET BY MOUTH DAILY Rx Instructions: TAKE 1 TABLET BY MOUTH DAILY hydrocodone-acetaminophen 5-325 mg tablet 1 tablet PO Q6H PRN (Reason: pain) Qty: 60 0RF albuterol sulfate 90 mcg/actuation HFA aerosol inhaler See Rx Instructions .ROUTE .COMPLEX Qty: 8.5 3RF Dose Instruction: INHALE 2 INHALATION BY MOUTH EVERY 6 HOURS NEEDED FOR SHORTNESS OF BREATH OR WHEEZING Rx Instructions: INHALE 2 INHALATION BY MOUTH EVERY 6 HOURS NEEDED FOR SHORTNESS OF BREATH OR WHEEZING cetirizine 10 mg tablet See Rx Instructions .ROUTE .COMPLEX Qty: 90 3RF Dose Instruction: TAKE 1 TABLET BY MOUTH EVERY DAY Rx Instructions: TAKE 1 TABLET BY MOUTH EVERY DAY Discontinued prednisone 10 mg tablet See Rx Instructions .Route .COMPLEX Qty: 18 0RF Rx Instructions: 3 tabs po qd x 3 d, then 2 tabs po qd x 3 d, then 1 tab po qd x 3 d ; Date of admission: 06/18/24 16:08 Primary Care Provider: Yves Boyer Admitting Provider: Toy Mo Attending physician on admission: Paula Leblanc Condition: Stable Quality If No VTE Prophylaxis Answer both mechanical and pharmacologic: Reason no mechanical VTE proph: low risk/not indicated Reason no pharmacologic proph: low risk/not indicated Hospitalist MIPS Heart Failure (Exclusion) Patient has history of Heart Transplant or Left Ventricular Assistive Device?: No IF YES, STOP HERE Heart Failure (Qualifier) Patient has current or prior documentation of LVEF less than or equal to 40%, or mod/servere depressed LVSF?: No IF NO, STOP HERE
== END 2024-06-26 14:50 | disposition home or self-care (01) | DRG 193 ==
LOC: ANHED 12:51 → ANH3MEDSUR 14:14
PROVIDERS: Nurse Practitioner Adult Health; Nurse Practitioner Family; Student in an Organized Health Care Education/Training Program; Admitting Provider Hospitalist; Emergency Provider Physician Assistant; PCP Family Medicine; Visit Provider Nurse Practitioner Acute Care
DX: J10.1 Influenza due to other identified influenza virus with other respiratory manifestations (principal); J96.01 Acute respiratory failure with hypoxia; J44.1 Chronic obstructive pulmonary disease with (acute) exacerbation; G47.33 Obstructive sleep apnea (adult) (pediatric); E78.5 Hyperlipidemia, unspecified; E87.6 Hypokalemia; H40.9 Unspecified glaucoma; I10 Essential (primary) hypertension; J44.9 Chronic obstructive pulmonary disease, unspecified; K21.9 Gastro-esophageal reflux disease without esophagitis; Z99.81 Dependence on supplemental oxygen; Z87.891 Personal history of nicotine dependence; Z90.49 Acquired absence of other specified parts of digestive tract
CPT/HCPCS: 36415; 36600; 71046; 71275; 80048; 80053; 81003; 82805; 82948; 83735; 84100; 84484; 85018; 85025; 85610; 85730; 87636; 93005; 94640; 96361; 96374; 99285; A9270; G0378; J1650; J1815; J2919; J7030; J7120; J7512; Q9967

== ENCOUNTER 2024-08-18 11:43 | Outpatient (CLI) | payer MEDICARE, OTHER, SELFPAY ==
[2024-08-18 12:38] LABS: Influenza A QL RT-PCR Negative (Negative); Influenza B QL RT-PCR Negative (Negative); RSV RNA, RT-PCR Negative (Negative); SARS-CoV-2 RNA PCR Negative (Negative)
--- OUTSIDE RECORDS SUMMARY | 2024-08-18 14:32 | XMS_ITS | Continuity of Care Document ---
Author Organization [facility] Address [address] [place] [address] Phone Care Team Providers Care Artificial Flowers Dyer Name Role Phone Ritesh HOLGUIN, Adrian Unavailable [...] into both eyes 1 drop - Active Procedures Procedure Date EYE EXAM & TREATMENT VISUAL FIELD EXAMINATION(S) GDX Optic Nerve SPECIAL EYE EVALUATION OFFICE/OUTPATIENT VISIT, [facility] GDX Optic Nerve Advance Directives Directive Yes / No Effective Date File Name No Information Encounters Encounter Description Practice Location Reason(s) For Visit Diagnoses Date Provider Providers Copied on Encounter [facility], [address] [place] [address], [id number], tel:[phone] OPH CONSULT KAYE MERCER No Information 8 Ritesh Campbell. [address] [place] [address], [address], [address], [place]. tel:[phone] Referring Provider: Adrian Mei, [address] [place] [address], [id number]. tel:[phone] [facility], [address] [place] [address], [id number], tel:[phone] OPH CONSULT KAYE MERCER POAG (chief complaint) Primary open-angle glaucoma, moderate stageVitreous degeneration, bilateralAge-r elated nuclear cataract, bilateral Mar- 6 Ritesh Campbell. [address] [place] [address], [address], [address], [place]. tel:[phone] Referring Provider: Adrian Mei, [address] [place] [address], [place], [address]. tel:[phone] OFFICE/OUTPA TIENT VISIT, NEW [facility], [address], [place], [place], [id number], [place] tel:[phone] Oph Consult [facility] Office Glc eval (chief complaint) Age-related nuclear cataract, bilateralPrima ry open-angle glaucoma, moderate stageVitreous degeneration, bilateral 6 Eliseo Howard. [address], [address], [place], [address], [place]. tel:[phone] Referring Provider: Lee Weston, [address], [place], [address]. tel:[phone] Family History Family Member Type Diagnosis Age At Onset Mother Problem (finding) Glaucoma Maternal grandmother Problem (finding) Glaucoma Payers Payer name Insurance type Covered democrat ID Authoriza tion(s) No Information Social History Type Description Quantity Date Captured Comments Sex Female Smoking Status No Information Chief Complaint And Reason For Visit No Information Plan Of Treatment Date Type Action Status No Information History Of Present Illness Encounter [...] new physician. Was followed by Dr. Jacobo Instructions Date Instruction Additional Infor davin Impression/Plan [...]
--- OUTSIDE RECORDS SUMMARY | 2024-08-18 14:32 | XMS_ITS | Clinical Summary ---
Author Organization [facility] Address [address] [place] [address] Care Team Providers Care Insurance Clerk Name Role Phone Kari Leblanc MD Primary Care Provider [phone] Source Comments [facility],non-owned Affiliates and Associated Physician Practices is amultiple site organization consisting of ambulatory clinics and hospital sitesin [place], [place], [place] and [place]. This disclosure is being madepursuant to the Care Everywhere program and may not contain all information available regarding this patient. Last updated 18.[facility] Allergies No known active allergies Medications * Be aware that medications may not be up to date on this document. Alwaysverify current medications with the patient. Medication Sig Dispensed Refills Start Date End Date Status amLODIPine (NORVASC) 10 MG tablet Take 10 mg by mouth once daily 5 10/19/2015 Active brimonidine (ALPHAGAN) 0.2 % ophthalmic solution Instill 1 Drop into both eyes 2 times daily 5 09/15/2015 Active dorzolamide (TRUSOPT) 2 % ophthalmic solution Instill 1 Drop into both eyes 2 times daily 1 08/16/2015 Active famotidine (PEPCID) 20 MG tablet Take 20 mg by mouth once daily 5 09/05/2015 Active fluticasone propionate (FLONASE) 50 MCG/ACT nasal spray [place] 2 Sprays into each nostril once daily 5 10/19/2015 Active HYDROcodone-acetamino phen (NORCO) 5-325 MG tablet Take 1 Tab by mouth every 12 hours 0 10/22/2015 Active ipratropium (ATROVENT) 0.02 % nebulizer solution Inhale 3 mL by mouth as needed 11 10/19/2015 Active losartan (COZAAR) 100 MG tablet Take 100 mg by mouth once daily 11/03/2015 Active meloxicam (MOBIC) 15 MG tablet Take 15 mg by mouth once daily 5 10/19/2015 Active DULERA 200-5 MCG/ACT inhaler Inhale 2 Puffs by mouth 2 times daily 11/03/2015 Active montelukast (SINGULAIR) 10 MG tablet Take 10 mg by mouth once daily 5 10/19/2015 Active timolol maleate (TIMOPTIC) 0.5 % ophthalmic solution Instill 1 Drop into both eyes 2 times daily 2 09/15/2015 Active vitamin D3 (CHOLECACIFEROL) 5000 UNITS Take 5,000 Units by mouth once daily Active calcium 600 MG tablet Take 1 Tab by mouth 2 times daily with morning and evening meal Active diclofenac sodium EC (VOLTAREN) 75 MG tablet Take 1 Tab by mouth as directed 180 Tab 3 11/11/2015 Active Encounters Date Type Department Care Team Description 06/19/2024 Travel from Last 3 Months Family History Medical History Relation Name Comments Cancer Father CAD (Coronary Artery Disease) Mother Diabetes Mother Hypertension Mother Relation Name Status Comments Father Mother Social History Tobacco Use Types Packs/Day Years Used Date Smoking Tobacco: Never Alcohol Use Standard Drinks/Week Comments Not Asked 0 (1 standard drink = 0.6 oz pur e alcohol) Sex and Gender Information Value Date Recorded Sex Assigned at Not on file Gender Identity Not on file Sexual Orientation Not on file Last Filed Vital Signs Vital Sign Reading Time Taken Comments Blood Pressure 152/82 11/10/2015 10:27 AM CDT Pulse 84 11/10/2015 10:27 AM CDT Temperature - - Respiratory Rate - - Oxygen Saturation - - Inhaled Oxygen Concentration - - Weight 112.9 kg (249 lb) 11/10/2015 10:27 AM CDT Height 167.6 cm (5' 6 ) 11/10/2015 10:27 AM CDT Body Mass Index 40.19 11/10/2015 10:27 AM CDT Plan of Treatment Upcoming Encounters Date Type Department Care Team (Late st Contact Info) Description 08/29/2024 10:20 AM OUT OF TOWN COLLECTION CLERK Office Visit [facility] - General Dermatology [address] [place] [address] Radha Aguilar MD [address] [facility] [address] [place] [phone] Health Maintenance Due Date Last Done Comments COLOGUARD (AGES 45-75) - COL ON CA SCREENING 1965 COLON MONITORING 1965 COLONOSCOPY - COLON CA SCREENING 1965 CT COLONOGRAPHY - COLON CA SCREENING 1965 Colorectal Cancer Screening 1965 FIT - COLON CA SCREENING 1965 FLEX SIG - COLON CA SCREENING 1965 LIPID TESTING 1965 MAMMOGRAM 1965 MEDICARE AWV 12 MONTHS 1965 PAP SMEAR 1965 HIV SCREENING 01/21/1980 HEPATITIS C SCREENING 01/16/1983 DTAP/TDAP/TD VACCINES (1 - Tdap) 01/21/1984 HEPATITIS B VACCINE (1 of 3 - 19+ 3-dose series) 01/21/1984 PNEUMOCOCCAL VACCINE 50+ (1 of 1 - PCV) 2015 ZOSTER VACCINE (1 of 2) 2015 COVID-19 VACCINE ( - 2023-2 5 season) 2024 INFLUENZA VACCINE (#1) 2024 DEPRESSION SCREENING 07/02/2024 HIB VACCINE Aged Out No longer eligi ble based on patient's age to complete this topic HPV VACCINE Aged Out No longer eligi ble based on patient's age to complete this topic MENINGOCOCCAL (Group B) VACCINE Aged Out No longer eligible based on patient's age to complete this topic MENINGOCOCCAL VACCINE Aged Out No basia savanah eligible based on patient's age to complete this topic PNEUMOCOCCAL VACCINE Aged Out No long er eligible based on patient's age to complete this topic Care Teams Insurance Clerk Relationship Specialty Start Date End Date Kari Leblanc MD [address] [place], [place] [phone] PCP - General Gastroenterology 09/13/15
--- OUTSIDE RECORDS SUMMARY | 2024-08-18 14:32 | XMS_ITS | Patient Health Summary ---
Author Organization [facility] Address [address] [facility] [place] [address] Care Team Providers Care School Librarian Name Role Phone Kari Leblanc MD Primary Care Provider [phone] Note from [facility],non-owned Affiliates and Associated Physician Practices is amultiple site organization consisting of ambulatory clinics and hospital sitesin [place], [place], [place] and [place]. This disclosure is being madepursuant to the Care Everywhere program and may not contain all information available regarding this patient. Last updated 18.[facility] Allergies No known active allergies Medications * Be aware that medications may not be up to date on this document. Alwaysverify current medications with the patient. * amLODIPine (NORVASC) 10 MG tablet(Started 10/19/2015) Take 10 mg by mouth once daily 5 refills left * brimonidine (ALPHAGAN) 0.2 % ophthalmic solution(Started 09/15/2015) Instill 1 Drop into both eyes 2 times daily 5 refills left * dorzolamide (TRUSOPT) 2 % ophthalmic solution(Started 08/16/2015) Instill 1 Drop into both eyes 2 times daily 1 refill left * famotidine (PEPCID) 20 MG tablet(Started 09/05/2015) Take 20 mg by mouth once daily 5 refills left * fluticasone propionate (FLONASE) 50 MCG/ACT nasal spray(Started 10/19/2015) [place] 2 Sprays into each nostril once daily 5 refills left * HYDROcodone-acetaminophen (NORCO) 5-325 MG tablet(Started 10/22/2015) Take 1 Tab by mouth every 12 hours * ipratropium (ATROVENT) 0.02 % nebulizer solution(Started 10/19/2015) Inhale 3 mL by mouth as needed 11 refills left * losartan (COZAAR) 100 MG tablet(Started 11/03/2015) Take 100 mg by mouth once daily * meloxicam (MOBIC) 15 MG tablet(Started 10/19/2015) Take 15 mg by mouth once daily 5 refills left * DULERA 200-5 MCG/ACT inhaler(Started 11/03/2015) Inhale 2 Puffs by mouth 2 times daily * montelukast (SINGULAIR) 10 MG tablet(Started 10/19/2015) Take 10 mg by mouth once daily 5 refills left * timolol maleate (TIMOPTIC) 0.5 % ophthalmic solution(Started 09/15/2015) Instill 1 Drop into both eyes 2 times daily 2 refills left * vitamin D3 (CHOLECACIFEROL) 5000 UNITS Take 5,000 Units by mouth once daily * calcium 600 MG tablet Take 1 Tab by mouth 2 times daily with morning and evening meal * diclofenac sodium EC (VOLTAREN) 75 MG tablet(Started 11/11/2015) Take 1 Tab by mouth as directed 3 refills left Social History Tobacco Use Types Packs/Day Years [...] Mass Index 40.19 11/10/2015 10:27 AM CDT Procedures * DERMATOPATHOLOGY(Performed 09/05/2023) * DERMATOPATHOLOGY(Performed 11/18/2020) * DERMATOPATHOLOGY(Performed 05/04/2020) * DERMATOPATHOLOGY(Performed 05/20/2019) * DERMATOPATH TECHNICAL REPORT(Performed 04/23/2018) * IMAGING/RADIOLOGY/XRAY RESULTS ORDER(Performed 11/26/2014) * IMAGING/RADIOLOGY/XRAY RESULTS ORDER(Performed 11/26/2014) Results * DERMATOPATHOLOGY (09/05/2023 2:34 PM INTEGRATION SOFTWARE ENGINEER) Only the most recent of4 resultswithin the time period is included. Case Report Dermatopathology Report Case: [id number] Authorizing Provider: Merissa Eisenberg MD Collected: 09/05/2023 02:34 PM Ordering Location: [facility] - Received: 09/06/2023 02:03 PM DermPath Lab Pathologist: Radha Aguilar MD Specimen: Skin, left lower lip 1:04 PM CDT DERMATOPATHOLOGY LABORATORY Final Diagnosis Specimen A. SKIN, left lower lip: ACTINIC CHEILITIS (L57.0) 1:04 PM CDT DERMATOPATHOLOGY LABORATORY Clinical History Growing Non Healing Painful R/O ACC vs Actinic Cheilitis vs other 1:04 PM CDT DERMATOPATHOLOGY LABORATORY Gross Description Specimen A: Received is one formalin filled container labeled with the patient's name and designated left lower lip. The specimen consists of a shave biopsy measuring 8x5x1 mm. Jar 0. 1:04 PM CDT DERMATOPATHOLOGY LABORATORY Microscopic Description Specimen A. SKIN, left lower lip: The squamous epithelium has focal parakeratosis, nuclear pleomorphism and slightly disordered maturation. There is solar elastosis of the submucosal connective tissue. 1:04 PM CDT DERMATOPATHOLOGY LABORATORY Disclaimer An external and internal positive and negative controls are appropriate for the histochemical, immunohistochemical and immunofluorescence stain(s) in this case (if any), except where stated explicitly. The performance characteristics of the stain(s) cited in this report were developed and its performance characteristic determined by the Dermatopathology Laboratory at [facility], directed by Dr. Jose Delacruz. These tests need not be, and therefore are not, approved by the [place] Food and Drug Administration. The tests are used for clinical purposes. Billing Codes Specimen Charges Stain Charges 71671 1 4 1:04 PM CDT DERMATOPATHOLOGY LABORATORY Embedded Images 4 1:04 PM CDT DERMATOPATHOLOGY LABORATORY Pathology/Cytolo gy TISSUE SPECIMEN FROM SKIN / Unknown 09/05/2023 2:34 PM INTEGRATION SOFTWARE ENGINEER 09/06/2023 2:03 PM INTEGRATION SOFTWARE ENGINEER Merissa Eisenberg MD LAB - PATHOLOGY/CYT OLOGY ORDERABLES DERMATOPATHOLOGY LABORATORY [facility] Department of Dermatology [address], [address] [phone] * DERMATOPATH TECHNICAL REPORT (04/23/2018 12:00 AM CDT) Case Report Dermatopathology Report Case: [id number] Authorizing Provider: Merissa Eisenberg MD Collected: 04/23/2018 12:00 AM Pathologist: Gucci Delacruz MD Received: 04/25/2018 06:46 AM Specimen: Skin, right boykin 5:54 PM CDT DERMATOPATHOLOGY LABORATORY Clinical History BCC. Non-healing. Check margins. 5:54 PM CDT DERMATOPATHOLOGY LABORATORY Gross Description Specimen A: Received is one formalin filled container labeled with the patient's name and designated right boykin. The specimen consists of a shave measuring [id number]. The margin is inked green. Jar 0. [facility] Dermatopathology Laboratory performed the technical component only. 8 5:54 PM CDT DERMATOPATHOLOGY LABORATORY Embedded Images 5:54 PM CDT DERMATOPATHOLOGY LABORATORY DISCLAIMER An external and internal positive and negative controls are appropriate for the histochemical, immunohistochemical and immunofluorescence stain(s) in this case (if any), except where stated explicitly. The performance characteristics of the stain(s) cited in this report were developed and its performance characteristic determined by the Dermatopathology Laboratory at [facility]. These tests need not be, and therefore are not, approved by the [place] Food and Drug Administration. The tests are used for clinical purposes. 8 5:54 PM CDT DERMATOPATHOLOGY LABORATORY Pathology/Cytolog y TISSUE SPECIMEN FROM SKIN / Unknown 04/23/2018 04/25/2018 6:46 AM CDT Merissa Eisenberg MD LAB - PATHOLOGY/CYT OLOGY ORDERABLES DERMATOPATHOLOGY LABORATORY [facility] - Department of Dermatology [address] [place] [address], 5th Floor Lab [address] [phone] * IMAGING/RADIOLOGY/XRAY RESULTS ORDER (11/26/2014) Only the most recent of2 resultswithin the time period is included. Anatomical Region Laterality Modality Other Provider Unknown IMAGING Care Teams School Librarian Relationship Specialty Start Date End Date Kari Leblanc MD [address] [place], [place] [phone] PCP - General Gastroenterology 09/13/15
--- OUTSIDE RECORDS SUMMARY | 2024-08-18 14:32 | XMS_ITS | Encounter Summary ---
Author Organization [facility] Address [address] [place] [address] Care Team Providers Care Train Brakeman Name Role Phone Kari Leblanc MD Primary Care Provider Encounter Details Date Type Department Care Team (Late Contact Info) Description 09/05/2023 Lab Requisition [facility] - DermPath Lab [address] [place] [address] Merissa Eisenberg MD [facility] DEPT [place] [address] Social History Tobacco Use Types Packs/Day Years Used Date Smoking Tobacco: Never Alcohol Use Standard Drinks/Week Comments Not Asked 0 (1 standard drink = 0.6 oz pur e alcohol) Sex and Gender Information Value Date Recorded Sex Assigned at Not on file Gender Identity Not on file Sexual Orientation Not on file documented as of this encounter Plan of Treatment Upcoming Encounters Date Type Department Care Team (Late Contact Info) Description 08/29/2024 10:20 AM MUSIC CATALOGUER Office Visit [facility] - General Dermatology [address], [facility] [address] [place] [phone] Radha Aguilar MD [address] [place] [address] documented as of this encounter Procedures Procedure Name Priority Date/Time Associated Diagnosis Comments DERMATOPATHOLOGY Routine 09/05/2023 2:34 PM MUSIC CATALOGUER documented in this encounter Results * DERMATOPATHOLOGY (09/05/2023 2:34 PM MUSIC CATALOGUER) Case Report Dermatopathology Report Case: [id number] Authorizing Provider: Merissa Eisenberg MD Collected: 09/05/2023 02:34 PM Ordering Location: [facility] - Received: 09/06/2023 02:03 PM [...] characteristic determined by the Dermatopathology Laboratory at [facility], directed by Dr. Jose Delacruz. These tests need not be, and therefore are not, approved by the [place] Food and Drug Administration. The tests are used for clinical purposes. Billing Codes Specimen Charges Stain Charges [id number] 1 4 1:04 PM CDT DERMATOPATHOLOGY LABORATORY Embedded Images 4 1:04 PM CDT DERMATOPATHOLOGY LABORATORY Pathology/Cytolo gy TISSUE SPECIMEN FROM SKIN / Unknown 09/05/2023 2:34 PM MUSIC CATALOGUER 09/06/2023 2:03 PM MUSIC CATALOGUER Merissa Eisenberg MD LAB - PATHOLOGY/CYT OLOGY ORDERABLES DERMATOPATHOLOGY LABORATORY [facility] - Department of Dermatology [facility] [address] [place] [address], [address] Floor [address] [phone] documented in this encounter Visit Diagnoses Not on filedocumented in this encounter Care Teams Train Brakeman Relationship Specialty Start Date End Date Kari Leblanc MD [address] [place], [place] [phone] PCP - General Gastroenterology 09/13/15 documented as of this encounter
--- OUTSIDE RECORDS SUMMARY | 2024-08-18 14:32 | XMS_ITS | Encounter Summary ---
Author Organization [facility] Address [address] [place] [address] Care Team Providers Care General Ledger Bookkeeper Name Role Phone Kari Leblanc MD Primary Care Provider Encounter Details Date Type Department Care Team (Late Contact Info) Description 05/05/2020 Lab Requisition [facility] [address] [place] [address] Merissa Eisenberg MD [address] [place] [address] [place] [address] Social History Tobacco Use Types Packs/Day Years [...] (Late Contact Info) Description 08/29/2024 10:20 AM INDUSTRIAL FABRIC CUTTER Office Visit [facility] - General Dermatology [address] [place] [phone] Radha Aguilar MD [address] [place] [address] documented as of this encounter Procedures Procedure Name Priority Date/Time Associated Diagnosis Comments DERMATOPATHOLOGY Routine 05/04/2020 12:0 0 AM INDUSTRIAL FABRIC CUTTER documented in this encounter Results * DERMATOPATHOLOGY (05/04/2020 12:00 AM INDUSTRIAL FABRIC CUTTER) Case Report Dermatopathology Report Case: [id number] Authorizing Provider: Merissa Eisenberg MD Collected: 05/04/2020 12:00 AM Ordering Location: [facility] DermPath Lab Received: 05/05/2020 07:26 AM Pathologist: Gucci Delacruz MD Specimen: Skin, left lower leg 0 12:23 PM INDUSTRIAL FABRIC CUTTER DERMATOPATHOLOGY LABORATORY Final Diagnosis Specimen A. SKIN, left lower leg: LICHEN PLANUS-LIKE KERATOSIS (BENIGN LICHENOID KERATOSIS) (L82.1) STASIS DERMATITIS (L30.8) 0 12:23 PM INDUSTRIAL FABRIC CUTTER DERMATOPATHOLOGY LABORATORY Clinical History R/O BCC vs SCC, irritated, non-healing. 0 12:23 PM INDUSTRIAL FABRIC CUTTER DERMATOPATHOLOGY LABORATORY Gross Description Specimen A: Received is one formalin filled container labeled with the patient's name and designated left lower leg. The specimen consists of a shave measuring [id number]. Jar 0. 0 12:23 PM INDUSTRIAL FABRIC CUTTER DERMATOPATHOLOGY LABORATORY Microscopic Description Specimen A. SKIN, left lower leg: The epidermis is mildly acanthotic. There is a lichenoid infiltrate with vacuolar changes of basilar keratinocytes and scattered necrotic keratinocytes. There is focal spongiosis. The dermis shows a sparse, perivascular lymphocytic infiltrate surrounding dilated, thick-walled vessels, which are increased in number. 0 12:23 PM INDUSTRIAL FABRIC CUTTER DERMATOPATHOLOGY LABORATORY Disclaimer An external and internal positive and negative controls are appropriate for the histochemical, immunohistochemical and immunofluorescence stain(s) in this case (if any), except where stated explicitly. The performance characteristics of the stain(s) cited in this report were developed and its performance characteristic determined by the Dermatopathology Laboratory at [facility], directed by Dr. Jose Delacruz. These tests need not be, and therefore are not, approved by the [place] Food and Drug Administration. The tests are used for clinical purposes. Billing Codes Specimen Charges Stain Charges [id number] 1 0 12:23 PM INDUSTRIAL FABRIC CUTTER DERMATOPATHOLOGY LABORATORY Embedded Images 0 12:23 PM INDUSTRIAL FABRIC CUTTER DERMATOPATHOLOGY LABORATORY Pathology/Cytolog y TISSUE SPECIMEN FROM SKIN / Unknown 05/04/2020 05/05/2020 7:26 AM INDUSTRIAL FABRIC CUTTER Merissa Eisenberg MD LAB - PATHOLOGY/CYT OLOGY ORDERABLES DERMATOPATHOLOGY LABORATORY [facility] - Department of Dermatology [facility] Medicine [address] [place] [address], [address] [phone] documented in this encounter Visit Diagnoses Not on filedocumented in this encounter Care Teams General Ledger Bookkeeper Relationship Specialty Start Date End Date Kari Leblanc MD [address] [place], [place] [phone] PCP - General Gastroenterology 09/13/15 documented as of this encounter
--- OUTSIDE RECORDS SUMMARY | 2024-08-18 14:32 | XMS_ITS | Clinical Summary ---
Author Organization [facility] Care Team Providers Care Highway Painter Name Role Phone Unavailable Primary Care Provider Unavailabl e Social History Tobacco Use Types Packs/Day Years Used Date Smoking Tobacco: Never Assessed Comments Unknown Sex and Gender Information Value Date Recorded Sex Assigned at Not on file Legal Sex Female 8:37 AM COLOR SPECIALIST Gender Identity Not on file Sexual Orientation Not on file Plan of Treatment Health Maintenance Due Date Last Done Comments Hepatitis C Virus (HCV) Screening 1965 TdaP Immunization 1965 Hepatitis B Immunization (1 of 3 - 19+ 3-dose series) 01/21/1984 Pap Smear 1986 Cervical Cancer Screening (CCS) 1995 HPV/Cotest 1995 Colonoscopy 2010 Colorectal Cancer Screening 2010 Cologuard 2015 Immunochemical Fecal Occult Blood 2015 Mammogram 2015 Pneumococcal Immunization (5 0+ years) (1 of 1 - PCV) 2015 Zoster Immunization (1 of 2) 2015 Influenza Immunization (#1) 2024 06/30/2019 SARS-COV-2 Immunization (3 - 2023- season) 2024 10/01/2020, 09/10/2020 Respiratory Syncytial Virus (RSV) Immunization (Adult) (1 - 1-dose 75+ series) 01/21/2040 Meningococcal Immunization (ACWY) Aged Out No longer eligible b ased on patient's age to complete this topic Pneumococcal Immunization Combined Aged Out No longer eligible b ased on patient's age to complete this topic Rotavirus Immunization Aged Out No lo nger eligible based on patient's age to complete this topic
--- OUTSIDE RECORDS SUMMARY | 2024-08-18 14:32 | XMS_ITS | Referral Summary ---
Author Organization [facility] Address [address] [place] [address] Care Team Providers Care Class A Truck Driver Name Role Phone Kari Leblanc MD Primary Care Provider [phone] Source Comments [facility],non-owned Affiliates and Associated Physician Practices is amultiple site organization consisting of ambulatory clinics and hospital sitesin [place], [place], [place] and [place]. This disclosure is being madepursuant to the Care Everywhere program and may not contain all information available regarding this patient. Last updated 18.[facility] Encounters Date Type Department Care Team Description 06/19/2024 Travel from Last 3 Months Allergies No known active allergies Medications * [...] fluticasone propionate (FLONASE) 50 MCG/ACT nasal spray [place] 2 Sprays into each nostril once daily [...] as directed 180 Tab 3 11/11/2015 Active Social History Tobacco Use Types Packs/Day Years [...] st Contact Info) Description 08/29/2024 10:20 AM STEM DRYER MAINTAINER Office Visit [facility] - General Dermatology [address] [place] [address] Radha Aguilar MD [address] [place] [address] Care Teams Class A Truck Driver Relationship Specialty Start Date End Date Kari Leblanc MD [address] [place], [place] [phone] PCP - General Gastroenterology 09/13/15
--- OUTSIDE RECORDS SUMMARY | 2024-08-18 14:32 | XMS_ITS | Encounter Summary ---
Author Organization [facility] Address [address] [place] [address] Care Team Providers Care Contracts Analyst Name Role Phone Kari Leblanc MD Primary Care Provider Encounter Details Date Type Department Care Team (Late Contact Info) Description 04/25/2018 Lab Requisition [facility] [address] [place] [address] Merissa Eisenberg MD [address] [place] [address] [place] [address] Social History Tobacco Use Types Packs/Day Years [...] (Late Contact Info) Description 08/29/2024 10:20 AM [employer]KE ASSEMBLER Office Visit [facility] - General Dermatology [address] [place] [id number] Radha Aguilar MD [address] [place] [address] documented as of this encounter Procedures Procedure Name Priority Date/Time Associated Diagnosis Comments DERMATOPATH TECHNICAL REPORT Routine 04/23/2018 12:00 AM CDT documented in this encounter Results * DERMATOPATH TECHNICAL REPORT (04/23/2018 12:00 AM CDT) Case Report Dermatopathology Report Case: [id number] Authorizing Provider: Merissa Eisenberg MD Collected: 04/23/2018 12:00 AM Pathologist: Gucci Delacruz MD Received: 04/25/2018 06:46 AM Specimen: Skin, right boykin 5:54 PM CDT DERMATOPATHOLOGY LABORATORY Clinical History BCC. Non-healing. Check margins. 5:54 PM CDT DERMATOPATHOLOGY LABORATORY Gross Description Specimen A: Received is one formalin filled container labeled with the patient's name and designated right boykin. The specimen consists of a shave measuring [id number]. The margin is inked green. Jar 0. [facility] Dermatopathology Laboratory performed the technical component only. 5:54 PM CDT DERMATOPATHOLOGY LABORATORY Embedded Images 5:54 PM CDT DERMATOPATHOLOGY LABORATORY DISCLAIMER An external and internal positive and negative controls are appropriate for the histochemical, immunohistochemical and immunofluorescence stain(s) in this case (if any), except where stated explicitly. The performance characteristics of the stain(s) cited in this report were developed and its performance characteristic determined by the Dermatopathology Laboratory at [facility]. These tests need not be, and therefore are not, approved by the [place] Food and Drug Administration. The tests are used for clinical purposes. 5:54 PM CDT DERMATOPATHOLOGY LABORATORY Pathology/Cytolog y TISSUE SPECIMEN FROM SKIN / Unknown 04/23/2018 04/25/2018 6:46 AM CDT Merissa Eisenberg MD LAB - PATHOLOGY/CYT OLOGY ORDERABLES DERMATOPATHOLOGY LABORATORY [facility] - Department of Dermatology [address] [facility], 5th [place] [address], [facility] [phone] documented in this encounter Visit Diagnoses Not on filedocumented in this encounter Care Teams Contracts Analyst Relationship Specialty Start Date End Date Kari Leblanc MD [address] [place], [place] [phone] PCP - General Gastroenterology 09/13/15 documented as of this encounter
--- OUTSIDE RECORDS SUMMARY | 2024-08-18 14:32 | XMS_ITS | Encounter Summary ---
Author Organization [facility] Address [address] [place] [address] Care Team Providers Care Lime Kiln Worker Name Role Phone Kari Leblanc MD Primary Care Provider Encounter Details Date Type Department Care Team (Late Contact Info) Description 05/21/2019 Lab Requisition [facility] [address] [place] [address] Elise Aguilar DO [address] [place] [address] Social History Tobacco Use Types Packs/Day Years [...] (Late Contact Info) Description 08/29/2024 10:20 AM CREW CAR DRIVER Office Visit [facility] - General Dermatology [address], [address] [place] [phone] Radha Aguilar MD [address] [place] [address] documented as of this encounter Procedures Procedure Name Priority Date/Time Associated Diagnosis Comments DERMATOPATHOLOGY Routine 05/20/2019 12:0 0 AM CREW CAR DRIVER documented in this encounter Results * DERMATOPATHOLOGY (05/20/2019 12:00 AM CREW CAR DRIVER) Case Report Dermatopathology Report Case: [id number] Authorizing Provider: Elise Aguilar DO Collected: 05/20/2019 12:00 AM Ordering Location: [facility] Received: 05/21/2019 05:39 AM Pathologist: Gucci Delacruz MD Specimens: A) - Skin, right upper back B) - Skin, right mid arm C) - Skin, right ventral FA 9 1:39 PM [facility] Final Diagnosis Specimen A. SKIN, right upper back: ACANTHOSIS AND HYPERKERATOSIS (L98.8) (see microscopic description and comment) Specimen B. SKIN, right mid arm: HYPERPLASTIC (HYPERTROPHIC) ACTINIC KERATOSIS (L57.0) EPIDERMAL NECROSIS SUGGESTIVE OF EXCORIATION (L98.499) Specimen C. SKIN, right ventral FA: ACTINIC KERATOSIS, LICHENOID (L57.0) 9 1:39 PM [facility] Clinical History A: DF R/O atypia. B-C: R/O NMSC. 9 1:39 PM [facility] Gross Description Specimen A: Received is one formalin filled container labeled with the patient's name and designated right upper back. The specimen consists of a shave measuring [id number]. Jar 0. Specimen B: Received is one formalin filled container labeled with the patient's name and designated right mid arm. The specimen consists of a shave measuring [id number]. Jar 0. Specimen C: Received is one formalin filled container labeled with the patient's name and designated right ventral FA. The specimen consists of a shave measuring [id number]. Jar 0. 9 1:39 PM [facility] Microscopic Description Specimen A. SKIN, right upper back: Sections show a superficial biopsy with acanthosis and hyperkeratosis. There is minimal dermis present for evaluation with scattered fibroblasts. COMMENT: These histological findings can be seen in a superficial biopsy of a dermatofibroma. Specimen B. SKIN, right mid arm: There is hyperkeratosis alternating with parakeratosis. There is epidermal hyperplasia with disorderly maturation of keratinocytes with nuclear pleomorphism confined to the lower half of the epidermis. The epidermis is focally necrotic and covered with a scale-crust. There is fibrin at the base. Specimen C. SKIN, right ventral FA: There is focal parakeratosis. The lower half of the epidermis shows disorderly maturation of keratinocytes with nuclear pleomorphism. The dermis shows a band-like, chronic inflammatory infiltrate with occasional apoptotic keratinocytes and some basal vacuolar alteration. 9 1:39 PM [facility] Disclaimer An external and internal positive and negative controls are appropriate for the histochemical, immunohistochemical and immunofluorescence stain(s) in this case (if any), except where stated explicitly. The performance characteristics of the stain(s) cited in this report were developed and its performance characteristic determined by the Dermatopathology Laboratory at [facility], directed by Dr. Jose Delacruz. These tests need not be, and therefore are not, approved by the [place] Food and Drug Administration. The tests are used for clinical purposes. Billing Codes Specimen Charges Stain Charges 72878 [id number] 1 1 1 9 1:39 PM CREW CAR DRIVER DERMATOPATHOLOGY LABORATORY Embedded Images 9 1:39 PM CREW CAR DRIVER DERMATOPATHOLOGY LABORATORY Pathology/Cytology TISSUE SPECIMEN FROM SKIN / Unknown 05/20/2019 05/21/2019 5:39 AM CREW CAR DRIVER Miscellaneous samples (specimen) TISSUE SPECIMEN FROM SKIN / Unknown 05/20/2019 05/21/2019 5:39 AM CREW CAR DRIVER Miscellaneous samples (specimen) TISSUE SPECIMEN FROM SKIN / Unknown 05/20/2019 05/21/2019 5:39 AM CREW CAR DRIVER Elise Aguilar DO LAB - PATHOLOGY/C YTOLOGY ORDERABLES DERMATOPATHOLOGY LABORATORY [facility] - Department of Dermatology [address] [place] [address] 5th Floor Lab [address] [phone] documented in this encounter Visit Diagnoses Not on filedocumented in this encounter Care Teams Lime Kiln Worker Relationship Specialty Start Date End Date Kari Leblanc MD [address] [place], [place] [phone] PCP - General Gastroenterology 09/13/15 documented as of this encounter
--- OUTSIDE RECORDS SUMMARY | 2024-08-18 14:33 | XMS_ITS | Data Portability ---
Author Organization [facility] FRANCISCOBetty Ordoñez Address [address] [place] [address] Care Team Providers Care Training Coordinator Name Role Phone KARI RODRIGUEZ Primary Care Provider Assessment No assessment recorded. Plan of Treatment Reminders Order Date Submit Date Provider Last Modified By Organization Details Last Modified Time Details Appointments None recorded. Lab SARS CoV 2 RNA (COVID-19) , QL, photostat operator-PCR, respirator y specimen - fever, headaches, cough body aches, chills and SOB, X 2 days. Denies being exposed to pos COVID person. [place]. 2019 020 [facility] (Lab), [address] [place], [address], 0 11:50:43 CBC 2015 016 [place] [address] [facility], [address] [place] [address], [facility] [address], [place], [address], 6 11:18:52 CMP, serum or plasma 2015 016 [place] [facility], [facility], [address], [place], [address], 6 02:34:45 lipid panel, serum 2015 016 [place] [address] [facility], [address] [place] [address], [address], [place], [address], 6 11:18:52 Referral pulmonolog ist referral 03/08/ 2016 03/08/2 016 [email or web address] Not available 6 09:28:41 neurosurge ry referral 2015 016 HAI Not available 6 10:06:46 ophthalmol ogist referral - Glaucoma 2015 016 [email or web address] Vinod Gaston MD, [address], [address], 6 09:27:44 Procedures None recorded. Surgeries None recorded. Imaging None recorded. Medication Orders cetirizine 10 mg tablet 2015 016 INTERFACE [facility] #[id number], [address], [place], [place], [id number], 6 12:26:18 hydrocodon e 5 mg-acetami nophen 325 mg tablet [address] [facility]06306, [address], [id number], 6 11:18:52 fluticason e propionate 50 mcg/actuat ion nasal spray,susp ension [address] [facility]33528, [address], [id number], 6 11:18:52 amlodipine 10 mg tablet [address] [facility] #50190, [address], [id number], 6 11:18:52 amoxicilli n 875 mg-potassi um clavulanat e 125 mg tablet 2015 016 [email or web address] [facility] #90409, [address], [id number], 6 12:08:54 hydrocodon e 5 mg-acetami nophen 325 mg tablet [address] [facility] #23097, [address] , [place], [place], [id number], 6 11:14:30 Patient TargetsNo targets recorded. Patient Instructions Encounter Date Encounter Id Patient Instructions Last Modified By Organization Details Last Modified Time 12/16/2019 [id number] Reviewed the following recommendations: -Stay home and separate from others as much as possible. -Monitor your symptoms and seek medical attention for trouble breathing, persistent chest pain, confusion, or bluish lips or face. -Wear a mask if you must be around other people. -Wash your hands often for 20 seconds with soap and water and clean high-touch surfaces daily -You may discontinue home isolation if your symptoms are improving and it has been 10 days since symptoms started. 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 Referral for A sta asthma/COPD Referring Physician: Kari Rodriguez, Internal Medicine, Encounter Date: 09/07/2015 Neurosurgery Referral for Ne ck pain Chronic neck pain Referring Physician: Kari Rodriguez, Internal Medicine, Encounter Date: 09/07/2015 Results Created Date Observation Date Name Description Value Unit Range Abnormal Flag Note LastModifiedBy Organization Detail LastModifiedTime 10/22/19 16 10/30/2015 drug scree n, urine summary FINAL ===== ===== ===== ===== ===== ===== ===== ===== ===== ===== ===== ===== ===== === TOXAS SURE COMP DRUG JULEE SIS,U R ===== ===== ===== ===== ===== ===== ===== ===== ===== ===== ===== ===== ===== === TEST RESUL T FLAG UNITS DRUG PRESE NT AND DECLA RED FOR PRESC RIPTI ON VERIF ICATI ON HYDRO CODON E 496 EXPEC ISIS NG/MG CREAT HYDRO MORPH ONE 445 EXPEC ISIS NG/MG CREAT DIHYD ROCOD EINE 109 EXPEC ISIS NG/MG CREAT NORHY DROCO DONE 638 EXPEC ISIS NG/MG CREAT SOURC ES OF HYDRO CODON E INCLU DE SCHED ULED PRESC RIPTI ON MEDIC ATION S. HYDRO MORPH ONE, DIHYD ROCOD EINE AND NORHY DROCO DONE ARE EXPEC ISIS METAB OLITE S OF HYDRO CODON E. HYDRO MORPH ONE AND DIHYD ROCOD EINE ARE ALSO AVAIL ABLE SCHED ULED PRESC RIPTI ON MEDIC ATION S. DRUG ABSEN T BUT DECLA RED FOR PRESC RIPTI ON VERIF ICATI ON ACETA MINOP HEN NOT DETEC ISIS UNEXP ECTED ACETA MINOP HEN, INDIC ATED IN THE DECLA RED MEDIC ATION LIST, IS NOT ALWAY S DETEC ISIS EVEN WHEN USED DIREC ISIS. ===== ===== ===== ===== ===== ===== ===== ===== ===== ===== ===== ===== ===== === TEST RESUL T FLAG UNITS REF RANGE CREAT ININE 55 MG/DL >=20 ===== ===== ===== ===== ===== ===== ===== ===== ===== ===== ===== ===== ===== === DECLA RED MEDIC ATION S: THE MYCHAL ING AND INTER PRETA TION ON THIS REPOR T ARE BASED ON THE FOLLO WING DECLA RED MEDIC ATION S. UNEXP ECTED RESUL TS MAY ARISE FROM INACC URACI ES IN THE DECLA RED MEDIC ATION S. NOT E: THE TESTI NG SCOPE OF THIS PANEL INCLU LISSETTE THESE MEDIC ATION S: HYDRO CODON E (HYDR OCODO NE-AC ETAMI NOPHE N) NOT E: THE TESTI NG SCOPE OF THIS PANEL DOES NOT INCLU DE SMALL TO MODER ATE AMOUN TS OF THESE REPOR ISIS MEDIC ATION S: ACETA MINOP HEN (HYDR OCODO NE-AC ETAMI NOPHE N) NOT E: THE TESTI NG SCOPE OF THIS PANEL DOES NOT INCLU DE FOLLO WING REPOR ISIS MEDIC ATION S: AMLOD IPINE AMOXI CILLI N AZITH ROMYC IN BECLO METHA SONE (QVAR ) BRIMO NIDIN E TARTR ATE BUDEN OSIDE (SYMB ICORT ) CEFUR OXIME AXETI L DORZO LAMID E FAMOT IDINE FLUTI JOHN PAUL E FORMO TEROL (DULE RA) FORMO TEROL (SYMB ICORT ) IPRAT ROPIU M IPRAT ROPIU M (ATRO VENT) LANSO PRAZO LE LEVOF LOXAC IN LOSAR ALLEN MELOX ICAM MOMET ASONE (DULE RA) MONTE BURT T TIMOL OL ===== ===== ===== ===== ===== ===== ===== ===== ===== ===== ===== ===== ===== === FOR CLINI KRISTY CONSU LTATI ON, PLEAS E CALL [phone]. ===== ===== ===== ===== ===== ===== ===== ===== ===== ===== ===== ===== ===== === Not Available [facility] [address], [place], [address], 10/30/2015 15:13:23 10/22/19 16 10/30/2015 drug scree n, urine pdf . Not Available [facility] [address], [place], [address], 10/30/2015 15:13:23 02/08/20 16 02/09/2016 LDL, direc t, serum direct LDL 150 mg/dL <130 high Ro able range <100 mg/dL for patie nts with CHD or diabe kris and <70 mg/dL for diabe tic patie nts with known heart disea se. Not Available [address] [place], [address], 02/09/2016 02:34:43 02/08/20 16 02/09/2016 desire stero l, total , serum cholesterol, total 230 mg/dL 125-20 0 high Not Available [facility] [address], [address], 02/09/2016 02:34:44 02/08/20 16 02/09/2016 trigl yceri lissette, serum triglyceride s 128 mg/dL <150 normal Not Available [address], [address], 02/09/2016 02:34:44 02/08/20 16 02/09/2016 CMP, serum or plasm a glucose 98 mg/dL 65-99 normal Fasti ng refer ence inter rolanda Not Available [address], [address], 02/09/2016 02:34:44 02/08/20 16 02/09/2016 CMP, serum or plasm a urea nitrogen (BUN) 15 mg/dL 7-25 normal Not Available [facility] [address], [address], 02/09/2016 02:34:44 02/08/2002/09/2016 CMP, serum or plasm a creatinine 0.74 mg/dL 0.50-1 .05 normal For patie nts >49 years of age, the refer ence limit for Creat inine is appro ximat hollis 13% highe r for peopl e ident ified as Afric an-Am julian n. Not Available [facility] [address], [address], 02/09/2016 02:34:44 02/08/20 16 02/09/2016 CMP, serum or plasm a eGFR non-afr. bangladeshi 94 mL/mi n/1.7 3m2 > or = 60 normal Not Available [address], [address], 02/09/2016 02:34:44 02/08/20 16 02/09/2016 CMP, serum or plasm a eGFR 109 mL/mi n/1.7 3m2 > or = 60 normal Not Available [address], [address], 02/09/2016 02:34:44 02/08/2002/09/2016 CMP, serum or plasm a BUN/creatini ne ratio NOT APPLIC ABLE (calc ) 6-22 Not Available [address], [address], 02/09/2016 02:34:44 02/08/20 16 02/09/2016 CMP, serum or plasm a sodium 145 mmol/ L 135-14 6 normal Not Available [address], [address], 02/09/2016 02:34:44 02/08/20 16 02/09/2016 CMP, serum or plasm a potassium 4.3 mmol/ L 3.5-5. 3 normal Not Available [address], [address], 02/09/2016 02:34:44 02/08/2002/09/2016 CMP, serum or plasm a chloride 102 mmol/ L 98-110 normal Not Available [facility] [address], [address], 02/09/2016 02:34:44 02/08/2002/09/2016 CMP, serum or plasm a carbon dioxide 28 mmol/ L 20-31 normal Not Available [address], [address], 02/09/2016 02:34:44 02/08/20 16 02/09/2016 CMP, serum or plasm a calcium 10.2 mg/dL 8.6-10 .4 normal Not Available [address], [address], 02/09/2016 02:34:44 02/08/2002/09/2016 CMP, serum or plasm a protein, total 7.0 g/dL 6.1-8. 1 normal Not Available [address], [address], 02/09/2016 02:34:44 02/08/2002/09/2016 CMP, serum or plasm a albumin 4.4 g/dL 3.6-5. 1 normal Not Available [address], [address], 02/09/2016 02:34:44 02/08/20 16 02/09/2016 CMP, serum or plasm a globulin 2.6 g/dL_ (calc ) 1.9-3. 7 normal Not Available [address], [address], 02/09/2016 02:34:44 02/08/20 16 02/09/2016 CMP, serum or plasm a albumin/glob ulin ratio 1.7 (calc ) 1.0-2. 5 normal Not Available [address], [address], 02/09/2016 02:34:44 02/08/2002/09/2016 CMP, serum or plasm a bilirubin, total 0.4 mg/dL 0.2-1. 2 normal Not Available [address], [address], 02/09/2016 02:34:44 02/08/2002/09/2016 CMP, serum or plasm a alkaline phosphatase 84 U/L 33-130 normal Not Available [address], [address], 02/09/2016 02:34:44 02/08/20 16 02/09/2016 CMP, serum or plasm a AST 24 U/L 10-35 normal Not Available [address], [address], 02/09/2016 02:34:44 02/08/2002/09/2016 CMP, serum or plasm a ALT 41 U/L 6-29 high Not Available [address], [address], 02/09/2016 02:34:44 02/08/2002/09/2016 HDL desire stero l, serum HDL cholesterol 54 mg/dL > or = 46 normal Not Available [address], [address], 02/09/2016 02:34:45 02/08/2002/09/2016 CBC w/ auto diff white blood cell count 5.7 thous and/u L 3.8-10 .8 normal Not Available [address], [address], 02/09/2016 02:34:45 02/08/20 16 02/09/2016 CBC w/ auto diff red blood cell count 5.27 cynthia on/uL 3.80-5 .10 high Not Available [address], [address], 02/09/2016 02:34:45 02/08/2002/09/2016 CBC w/ auto diff hemoglobin 15.4 g/dL 11.7-1 5.5 normal Not Available [address], [address], 02/09/2016 02:34:45 02/08/2002/09/2016 CBC w/ auto diff hematocrit 47.4 % 35.0-4 5.0 high Not Available [address], [address], 02/09/2016 02:34:45 02/08/20 16 02/09/2016 CBC w/ auto diff MCV 90.1 fL 80.0-1 00.0 normal Not Available [address], [address], 02/09/2016 02:34:45 02/08/2002/09/2016 CBC w/ auto diff MCH 29.3 pg 27.0-3 3.0 normal Not Available [address], [address], 02/09/2016 02:34:45 02/08/2002/09/2016 CBC w/ auto diff MCHC 32.5 g/dL 32.0-3 6.0 normal Not Available [address], [address], 02/09/2016 02:34:45 02/08/2002/09/2016 CBC w/ auto diff RDW 13.7 % 11.0-1 5.0 normal Not Available [address], [address], 02/09/2016 02:34:45 02/08/2002/09/2016 CBC w/ auto diff platelet count 199 thous and/u L 140-40 0 normal Not Available [address], [address], 02/09/2016 02:34:45 02/08/2002/09/2016 CBC w/ auto diff MPV 9.3 fL 7.5-11 .5 normal Not Available [address], [address], 02/09/2016 02:34:45 02/08/2002/09/2016 CBC w/ auto diff absolute neutrophils 3380 cells /uL 1500-7 800 normal Not Available [address] [address] [place], [address], 02/09/2016 02:34:45 02/08/2002/09/2016 CBC w/ auto diff absolute lymphocytes 1813 cells /uL 850-39 00 normal Not Available [address] [address] [place], [address], 02/09/2016 02:34:45 02/08/2002/09/2016 CBC w/ auto diff absolute monocytes 376 cells /uL 200-95 0 normal Not Available [facility] [address] [address] [place], [address], 02/09/2016 02:34:45 02/08/2002/09/2016 CBC w/ auto diff absolute eosinophils 97 cells /uL 15-500 normal Not Available [address] [place], [address], 02/09/2016 02:34:45 02/08/2002/09/2016 CBC w/ auto diff absolute basophils 34 cells /uL 0-200 normal Not Available [address] [address] [place], [address], 02/09/2016 02:34:45 02/08/2002/09/2016 CBC w/ auto diff neutrophils 59.3 % normal Not Available [address] [address] [place], [address], 02/09/2016 02:34:45 02/08/2002/09/2016 CBC w/ auto diff lymphocytes 31.8 % normal Not Available [facility] [address] [address] [place], [address], 02/09/2016 02:34:45 02/08/2002/09/2016 CBC w/ auto diff monocytes 6.6 % normal Not Available [facility] [address] [place] [address] [place], [address], 02/09/2016 02:34:45 02/08/2002/09/2016 CBC w/ auto diff eosinophils 1.7 % normal Not Available [facility] [address] [place], [address], 02/09/2016 02:34:45 02/08/20 16 02/09/2016 CBC w/ auto diff basophils 0.6 % normal Not Available [facility] [address] [place], [address], 02/09/2016 02:34:45 12/16/19 20 12/16/2019 SARS CoV 2 RNA (COVI D-19) , QL, photostat operator-P CR, respi rator y speci men sars - cov - 2 PCR NEGATI VE mL Not Available [facility] (Lab) [address] [place], [address], 12/30/2019 11:08:51 12/16/19 20 12/16/2019 SARS CoV 2 RNA (COVI D-19) , QL, photostat operator-P CR, respi rator y speci men covidcom1 COMME NTS: This assay is desig ryanne to detec t the RdRp and N genes of SARS- CoV-2 using nucle ic acid ampli ficat ion. A negat glenn resul t does not precl ude the possi bilit y of 2019- nCoV infec tion since the adequ acy of sampl e colle ction and/o r low viral burde n may resul t in the prese nce of viral nucle ic acids level s below the julee tical sensi tivit y of this test metho d. Not Available [facility] (Lab) [address] [place], [address], 12/30/2019 11:08:51 12/16/1912/16/2019 SARS CoV 2 RNA (COVI D-19) , QL, photostat operator-P CR, respi rator y speci men covidcom2 Posit glenn resul ts are indic ative of the prese nce of SARS- CoV-2 RNA and do not rule out bacte rial infec tion or co-in fecti on with other virus es. Not Available [facility] (Lab) [address], [place], [address], 12/30/2019 11:08:51 12/16/19 20 12/16/2019 SARS CoV 2 RNA (COVI D-19) , QL, photostat operator-P CR, respi rator y speci men covidcom3 Test resul ts shoul d be used along with other clini kristy obser vatio ns, patie nt histo ry, epide miolo gical infor matio n and labor atory data in makin g the diagn osis. Not Available [facility] (Lab) [address], [place], [address], 12/30/2019 11:08:51 12/16/19 20 12/16/2019 SARS CoV 2 RNA (COVI D-19) , QL, photostat operator-P CR, respi rator y speci men covidcom4 This test has recei sara FDA Emerg ency Use Autho rizat ion and has been verif ied by [facility] . This test is only autho rized for the durat ion of the decla ratio n and the circu mstan ladarius that exist to justi fy the autho rizat ion of the emerg ency use of in vitro diagn ostic tests for the detec tion of SARS- CoV-2 virus and/o r diagn osis of COVID -19 infec tion under secti on 564 (b) (1) of the Act. 11 U.S.C . 360bb b-3 (b) (1), unles s the autho rizat ion is termi nated or revok ed soone r. Not Available [facility] (Lab) [address], [place], [address], 12/30/2019 11:08:51 12/16/19 20 12/16/2019 SARS CoV 2 RNA (COVI D-19) , QL, photostat operator-P CR, respi rator y speci men covidcom5 [facility] is certi fied under CLIA- 88 as quali fied to perfo rm high compl exity testi ng. This testi ng was perfo rmed in the [facility] [place] [address] (CLIA Licen se #[id number] 5, CAP #[id number], AU-ID #[id number]). Not Available [facility] (Lab) [address] [place], [address], 12/30/2019 11:08:51 12/16/19 20 12/16/2019 SARS CoV 2 RNA (COVI D-19) , QL, photostat operator-P CR, respi rator y speci men covidcom6 Facts heet for healt hcare provi ders: https ://[employer] .gov/ media /1368 56/do wnloa d Facts heet for patie nts: https ://Voal[employer] .gov/ media /1362 57/do wnloa d Not Available [facility] (Lab) [address] [place], [address], 12/30/2019 11:08:51 10/27/19 16 10/27/2015 MRI cervi kristy spine wwo FABY COY JAMAL LAL 7613 ADMIT/ SERVIC E DATE: ACCT: [id number] DISCHA RGE DATE: : 1964 SEX: F [facility] TYPE: REG CLI ORDERAviva BURROUGHS MD: DEEJAY RODRIGUEZ ND, MD STUDY DATE REPORT # ORDER # EXT ORDER ID [id number] 3.001 PROC CODE: CSPW+W OC PROCED URE DESCRI PTION: MRI CERVIC AL SPINE WWO I MPRESS ION: 1. HIGH-G RADE CANAL STENOS IS C5-6 AND C6-7 LEVELS . 2. MODERA TE CANAL STENOS IS C4-5 AND C7-T1 LEVELS . 3. BILATE RAL FORAMI NAL STENOS IS C5-6, C6-7, AND C7-T1 LEVELS . 4. NONCOM PRESSI VE RIGHT PARACE NTRAL PROTRU DERICK T1-2 DISC. 5. MODERA TE ARTHRI TIS CERVIC AL SPINE. EXAMIN ATION: MRI CERVIC AL SPINE WITHOU T AND WITH CONTRA ST. ACCESS ION: [id number] EXAM DATE/T MARIIA: 016 5:56 PM CLINIC AL HISTOR Y: NECK PAIN. LEFT ARM RADICU LAR PAIN. DECREA SED RANGE OF MOTION . COMPAR ACE: NONE TECHNI QUE: MULTIP LANAR, MULTIS EQUENC E IMAGIN G OF THE CERVIC AL SPINE WAS OBTAIN ED BEFORE AND AFTER UNEVEN TFUL INTRAV ENOUS ADMINI STRATI ON OF 20 ML MULTIH ANCE. FINDIN GS: NO COMPRE SSION FRACTU RE OR SUBLUX ATION. MODERA TE DEGREE OF ARTHRI TIS. PREVER TEBRAL SOFT TISSUE S6). NO EVIDEN CE OF CORD EDEMA. NO SYRINX CAVITY . NO ABNORM AL CORD ENHANC EMENT. C4-5 LEVEL: MODERA TE CANAL STENOS IS. NO SIGNIF ICANT FORAMI NAL STENOS IS. C5-6 LEVEL: HIGH-G RADE CANAL STENOS IS. BILATE RAL FORAMI NAL STENOS IS, WORSE ON THE LEFT SIDE. C6-7 LEVEL: HIGH-G RADE CANAL STENOS IS. BILATE RAL FORAMI NAL STENOS IS, WORSE ON THE RIGHT SIDE. C7-T1 LEVEL: MODERA TE CANAL STENOS IS. MILD BILATE RAL FORAMI NAL STENOS IS. T1-2 LEVEL: RIGHT PARACE NTRAL PROTRU DERIKC T1-2 DISC. NO SIGNIF ICANT CANAL STENOS IS. NO CORD COMPRE SSION. ELECTR ONICAL LY SIGNED BY: THERESA ROSSI ER10/26 7:28 PM [email or web address] [facility], [place], [address], 12/07/2015 11:56:44 10/27/19 16 10/27/2015 MRI lumba r spine wwo JASWINDER Gao,FABY LAL 7613 ADMIT/ SERVIC E DATE: ACCT: [id number] DISCHA RGE DATE: : 1964 SEX: F ORD SITE: [facility] PT TYPE: REG CLI ORDERAviva BURROUGHS MD: DEEJAY RODRIGUEZ ND, MD STUDY DATE REPORT # ORDER # EXT ORDER ID [id number] 4.001 PROC CODE: LSPW+W OC PROCED URE DESCRI PTION: MRI LUMBAR SPINE WWO I MPRESS ION: 1. MODERA TE CANAL STENOS IS L3-4 AND L4-5 LEVELS 2. MILD STENOS IS LEFT L4-5 FORAME N 3. NONCOM PRESSI VE DISC PROTRU DERICK T11-12 DISC 4. MODERA TE DEGREE OF ARTHRI TIS 5. SMALL CYST RIGHT KIDNEY . EXAMIN ATION: MRI LUMBAR SPINE WITH AND WITHOU T CONTRA ST ACCESS ION: [id number] EXAM DATE/T MARIIA: 016 5:56 PM CLINIC AL HISTOR Y: LOW BACK PAIN. DECREA SED RANGE OF MOTION . COMPAR ACE: NONE TECHNI QUE: MUTIPL SANJAY, MULTIS EQUENC E MRI OF THE LUMBAR SPINE WAS OBTAIN ED BEFORE AND AFTER UNEVEN TFUL INTRAV ENOUS ADMINI STRATI ON OF 20 ML MULTIH ANCE THROUG H THE RIGHT ARM. FINDIN GS: NO COMPRE SSION FRACTU RE OR SUBLUX ATION. MODERA TE DEGREE OF ARTHRI TIS. SMALL PROTRU DERICK T11-12 DISC. NO SIGNIF ICANT CANAL OR FORAMI NAL STENOS IS. MODERA TE CANAL STENOS IS L3-4 LEVEL DUE TO DISC PROTRU DERICK, FACET JOINT DISEAS E, AND SOME PROMIN ENT SYSTEMS TRAINER IOR CANAL EPIDUR AL FAT. NO SIGNIF ICANT FORAMI NAL STENOS IS AT THIS LEVEL. MODERA TE CANAL STENOS IS L4-5 LEVEL DUE TO SYSTEMS TRAINER IOR BONY BAR AND FACET JOINT DISEAS E. THERE IS SOME STENOS IS OF THE LEFT L4-5 FORAME N. NO DEFINI TE NERVE COMPRE SSION. NO FURTHE R EVIDEN CE IT IS PROTRU DERICK. NO FURTHE R EVIDEN CE OF CANAL OR FORAMI NAL STENOS IS. NO ABNORM AL FOCUS OF ENHANC EMENT. NONENH ANCING LESION RIGHT KIDNEY CONSIS TENT WITH A CYST. LOWER SPINAL CORD SHOWS NO ENLARG EMENT OR SYRINX . ELECTR ONICAL LY SIGNED BY: THERESA ROSSI ER10/26 7:36 PM [email or web address] [facility] [address], [place], [address], 12/07/2015 11:57:16 Result Notes None recorded. Problems Name Problem SNOMED Code Status Onset Date Resolution Date Notes Provider Name and Address Organization Details Recorded Time Asthma [id number] Active Kari Rodriguez MD Attn: Alcira lemus,[address] [facility], [place], [place], [address] [place] [address] 2, [place] - [facility] 6 15:11:01 Essential hypertension 75912412 Active Kari Rodriguez MD Attn: Alcira lemus,[address] [place], [place], [address] [place] [address] 2, [place] [facility] 6 11:18:51 Gastroesophage al reflux disease 487445069 Active Kari Rodriguez MD Attn: Alcira lemus,[address] [place], [place], [address] [place] [address] 2, [place] [facility] 6 12:17:03 Osteoarthritis 066122835 Active Kari Rodriguez MD Attn: Alcira lemus,[address] [facility], [place], [place], [address] [place] [address] 2, [place] [facility] 6 11:18:52 Venous insufficiency of leg 150254204 Active Kari Rodriguez MD Attn: Alcira lemus,[address] [facility], [place], [address], [place] [facility] 6 12:17:03 Glaucoma 45273695 Active Jen Cardenas LPN null, [place] [facility] 6 10:19:57 Multiple joint pain 96810565 Active Kim Peña LPN [place], [place] [facility] 6 12:11:53 Allergic rhinitis 46177067 Active Kari Rodriguez MD Attn: Alcira lemus,[address] [facility], [place], [address], [place] [facility] 6 11:18:51 Obesity 403739072 Active Kari Rodriguez MD Attn: Ricardodulce lemus,[address] [facility], [place], [address], [place] [facility] 6 12:17:03 Neck pain 06626179 Active Kari Rodriguez MD Attn: Alcira lemus,[address] [facility], [place], [address], [place] [facility] 6 11:14:30 Sinusitis 82217433 Active Kari Rodriguez MD Attn: Alcira lemus,[address] [facility], [place], [address], [place] [facility] 6 15:11:01 Chronic obstructive pulmonary disease 49778018 Active Kari Rodriguez MD Attn: Ricardodulce lemus,[address] [facility], [place], [address], [place] [facility] 6 11:18:51 Hypoxia 773587307 Active Kari Rodriguez MD Attn: Alcira lemus,[address] [facility], [place], [address], [place] [facility] 6 15:11:01 Spinal stenosis 56020853 Active Kari Rodriguez MD Attn: Ricardodulce lemus,[address] [facility], [place], [address], [place] [facility] 6 11:18:52 Problem Notes None recorded. Procedures Surgical History Date Name Laterality Status Provider Name and Address Organization Details Recorded Time 07/02/19 15 Eye Surgery completed Kari Rodriguez MD Attn: Accounting,[address] [facility], [place], [address], [place] [facility] 07/08/2015 11:43:51 07/02/19 09 Other completed Kari Rodriguez MD Attn: Accounting,[address] [facility], [place], [address], [facility] 07/08/2015 11:38:19 07/02/18 98 Cholecystectomy completed Kari Rodriguez MD Attn: Accounting,[address] , [place], [address], [facility] 07/08/2015 11:38:19 Tubal Ligation completed Ankur Hassan MA [facility] 07/08/2015 11:15:31 Hysterectomy completed Ankur Hassan MA [facility] 07/08/2015 11:15:31 Imaging Results Imaging Date Name Status LastModified by Organiz ation Details LastModified Time 10/27/2015 MRI cervical spine wwo completed [address], [id number], 12/07/2015 11:56:44 10/27/2015 MRI lumbar spine wwo completed [address], [address], 12/07/2015 11:57:16 Procedure Notes None recorded. Medical Equipment None Reported. Allergies No known drug allergies Medications Name Sig Start Date Stop Date Status Note LastModified by Organization Details LastModified Time latanoprost 0.005 % eye drops active Not Available Not Available Not Available Qvar 80 mcg/actuati on Metered Aerosol oral inhaler Inhale 2 puffs twice a day by inhalatio n route. 2015 active Not Available Not Available Not Avai lable prednisone 10 mg tablet active Not Available Not Available Not Available albuterol sulfate 2.5 mg/3 mL (0.083 %) solution for nebulizatio n active Not Available Not Available Not Available cetirizine 10 mg tablet Take 1 tablet every day by oral route for 30 days. 2015 active Not Available Not Available Not Avai lable azithromyci n 250 mg tablet active Not Available Not Available Not Available hydrocodone 5 mg-acetamin ophen 325 mg tablet Take 1 tablet every 12 hours by oral route. active Not Available Not Available No t Available meloxicam 15 mg tablet TAKE ONE TABLET BY MOUTH EVERY DAY WITH MEALS active Not Available Not Available No t Available famotidine 20 mg tablet Take 1 tablet every day by oral route for 30 days. active Not Available Not Available No t Available amlodipine 10 mg tablet TAKE 1 TABLET BY MOUTH EVERY DAY active Not Available Not Available No t Available Betimol 0.5 % eye drops active Not Available Not Available Not Available lansoprazol e 30 mg capsule,del ayed release TAKE ONE CAPSULE BY MOUTH EVERY DAY BEFORE A MEAL active Not Available Not Available No t Available brimonidine 0.2 % eye drops active Not Available Not Available Not Available diclofenac sodium 75 mg tablet,marly yed release active Not Available Not Available Not Available dorzolamide 22.3 mg-timolol 6.8 mg/mL eye drops active Not Available Not Available No t Available montelukast 10 mg tablet TAKE ONE TABLET BY MOUTH EVERY DAY active Not Available Not Available No t Available hydrochloro thiazide 25 mg tablet active Not Available Not Available No t Available cefuroxime axetil 500 mg tablet active Not Available Not Available No t Available levofloxaci n 750 mg tablet active Not Available Not Available Not Available methylpredn isolone 4 mg tablets in a dose pack active Not Available Not Available Not Available timolol maleate 0.5 % eye drops active Not Available Not Available Not Available losartan 100 mg tablet TAKE ONE TABLET BY MOUTH EVERY DAY active Not Available Not Available No t Available fluticasone propionate 50 mcg/actuati on nasal spray,suspe nsion SHAKE WELL AND USE 2 SPRAYS IN EACH NOSTRIL EVERY DAY active Not Available Not Available No t Available ipratropium bromide 0.02 % solution for inhalation active Not Available Not Available N ot Available amoxicillin 875 mg-potassiu m clavulanate 125 mg tablet Take 1 tablet every 12 hours by oral route for 10 days. 06/22 completed Not Available Not Available Not Available dorzolamide 2 % eye drops active Not Available Not Available Not Available amoxicillin 500 mg-potassiu m clavulanate 125 mg tablet Take 1 tablet every 8 hours by oral route as directed for 7 days. active Not Available Not Available No t Available Ventolin HFA 90 mcg/actuati on aerosol inhaler active Not Available Not Available Not Available azithromyci n 500 mg tablet active Not Available Not Available Not Available Atrovent HFA 17 mcg/actuati on aerosol inhaler active Not Available Not Available Not Available Symbicort 160 mcg-4.5 mcg/actuati on HFA aerosol inhaler INHALE ONE PUFF BY MOUTH TWICE DAILY active Not Available Not Available No t Available Dulera 200 mcg-5 mcg/actuati on HFA aerosol inhaler active Not Available Not Available Not Available Combivent Respimat 20 mcg-100 mcg/actuati on solution for inhalation active Not Available Not Available N ot Available Trelegy Ellipta 100 mcg-62.5 mcg-25 mcg powder for inhalation active Not Available Not Available N ot Available Afluria Qd 2019- (36 mos up)(PF)60 mcg (15 mcg x4)/0.5 mL IM syringe active Not Available Not Available N ot Available Vitals Date Recorded Body temperature Body mass index (BMI) Heart rate Body height Body weight Systolic blood pressure Diastolic blood pressure Provider Name and Address Organization Details Last Updated DateTime 6 98.6 [degF] 39.4 kg/m2 80 /min 167.64 cm 554746. 86594 g 126 mm[Hg] 80 mm[Hg] Glenis Bojorquez [facility] 6 10:11:47 Date Recorded Body height Body mass index (BMI) Oxygen saturation Oxygen saturation in Arterial blood by Pulse oximetry Body temperature Heart rate Body weight Systolic blood pressure Diastolic blood pressure Provider Name and Address Organization Details Last Updated DateTime 6 167.64 cm 38.4 kg/m2 91 % 91 % 98.3 [degF] 89 /min 950751. 43184 g 122 mm[Hg] 84 mm[Hg] Ella Ibarra [facility] 6 14:43:45 Date Recorded Body weight Body height Body mass index (BMI) Body temperature Systolic blood pressure Diastolic blood pressure Provider Name and Address Organization Details Last Updated DateTime 6 478523. 00981 g 167.64 cm 37.8 kg/m2 98 [degF] 144 mm[Hg] 76 mm[Hg] Ella Ibarra MA [facility] 6 10:35:14 Date Recorded Body height Body weight Body mass index (BMI) Heart rate Body temperature Oxygen saturation Oxygen saturation in Arterial blood by Pulse oximetry Systolic blood pressure Diastolic blood pressure Provider Name and Address Organization Details Last Updated DateTime 6 167.64 cm 091422. 13 g 39.5 kg/m2 85 /min 98.2 [degF] 93 % 93 % 140 mm[Hg] 84 mm[Hg] Andrew NielsOLGA [place] [facility] 6 12:08:16 Social History None recorded. Functional Status None recorded. Mental Status None recorded. Family History Relationship Description Onset Age of this Age Resolved Age Notes LastModified by Organization Details LastModified Time Mother Diabetes mellitus [email or web address] Not available 2015 11:39:59 Mother Hypertensive disorder [email or web address] Not available 2015 11:39:59 Mother Hypercholest erolemia [email or web address] Not available 2015 11:39:59 Father Malignant tumor of lung 2013 Not available 2015 11:39:59 Medical History Condition Response Other High Blood Pressure Y Acid Reflux (GERD) Y Kidney or Bladder Problems Y COPD Y Asthma Y GI Problems Y Gynecological History Statement/Question Response Current Control Method Hysterectom y Obstetrics History GPAL:G 0 P 0 0 0 0 Past Encounters Encounter ID Performer Location Encounter Start Date Encounter Closed Date Diagnosis/Indication Diagnosis SNOMED-CT Code Diagnosis ICD10 Code Diagnosis Note [id number] Maria Victoria Odenfernando Barba (Adult Med) [address] [place] [address] 07/08/2015 10:32:47 07/08/2015 18:08:53 Asthma 315537830 J45.909 Essential hypertension 21315064 I10 Gastroesop hageal reflux disease 769097429 K21.9 Osteoarthritis 828128526 M19.90 Venous ins ufficiency of leg 128807703 I87.2 Glaucoma 40141189 H40.9 Multiple joint pain 3567 8005 M25.50 Neck and back pain. Had been referred to Allergic rhinitis 126406 04 J30.9 Obesity 246946193 E66.9 [id number] Kandy Barba (Adult Med) [address] [place] [address] 09/07/2015 09:38:45 09/07/2015 11:16:40 Asthma 900803708 J45.909 Neck pain 62076952 M54.2 Glaucoma 66938844 H40.9 [id number] Kandy green Freda (Adult Med) [address] [place] [address] 12/22/2015 14:19:21 12/22/2015 18:06:27 Sinusitis 59758656 J32.9 Essential hypertension 16118113 I10 Asthma 937165637 J45.90 9 Allergic rhinitis 366041 04 J30.9 Chronic ob structive pulmonary disease 67988037 J44.9 Hypoxia 167676795 G47.34 Long-term oxygen therapy 257212434 Z99.81 [id number] Ankur Ivan Barba (Adult Med) [address] [place] [address] 01/11/2016 09:46:45 01/12/2016 09:56:55 Chronic obstructive pulmonary disease 77575896 J44.9 Pt to call pulmonolog ist for further management . Essential hypertension 66510214 I10 Allergic rhinitis 332739 04 J30.9 Spinal stenosis 34494112 M48.00 Osteoarthritis 624224734 M19.90 Medication monitoring 39 7572708 Z51.81 [id number] MD Freda Vazquez (Adult Med) [address] [place] [address] 06/22/2016 11:51:42 06/22/2016 12:27:47 Allergic rhinitis 78750298 J30.9 Chronic ob structive pulmonary disease 15508491 J44.9 [id number] NII Fuchs NP [facility] [address] [place] [address] 12/16/2019 11:57:01 12/17/2019 14:53:23 Suspected COVID-19 586811599 Z03.818 D/w pt the current pandemic of COVID-19 and call for social isolation in order to blunt the curve and minimize risk and spread. Encouraged patient and family to take restrictio ns seriously. They have verbalized understand ing of such. Viral syndrome 158270218 B34.9 Coronavirus infection 18 5435638 B34.2 Health Concerns Section Related Observation LastModified by Organization Detai ls LastModified Time None Recorded Concern Status LastModified by Organization Details LastModified Time None Recorded Advance Directives Directive None Recorded Payers Encounter Date Sequence Insurance Name Policy Number Policy Hutchinson Covered Member ID Hutchinson Member ID Guarantor Name 09/07/2015 1 [facility] [id number] Autumn Vicentedouglas [id number] Autumn Eli 12/22/2015 1 [facility] [place] [id number] Autumn Hayesler [id number] Autumn Eli 01/11/2016 1 [facility] [place] [id number] Autumn Hayesler [id number] Autumn Eli 06/22/2016 1 [facility] [place] [id number] Autumn Hayesler [id number] Autumn Eli 12/16/2019 1 [place] [id number] Autumn Kedouglas [id number] Autumn Kedouglas Notes Date Note Type Note Provider Name and Address Organization Details Recorded Time 09/07/2015 text/html Has found a list neurosurgeons re her neck pain. Noticed a sore on the inner lip. Kari Rodriguez MD Attn: Accounting[address] [place], [address], [facility] 09/07/2015 11:14:38 12/22/2015 text/html raad congestion, frontal headache, minimal cough production for 3 days. No nasal drainage. Has increased nebulizer use. O2 sat 72% when first checked in office. >90% on RA after resting awhile. Uses home O2 at night. Kari Rodriguez MD Attn: Accounting[address] [place], [address], [facility] 12/22/2015 15:11:24 01/11/2016 text/html Has had au URI s job last visit. Was given tapering prednisone by pulmonary, and had CXR. Feels tired. Has been seen by NS. NSAID changed to Diclofenac but does not offer relief. Kari Rodriguez MD Attn: Accounting[address] [place], [address], [facility] 01/11/2016 11:19:03 06/22/2016 text/html Upper respirator y sx in past few days. Prescribed azithromycin and prednisone from referral and information aide Kari Rodriguez MD Attn: Accounting[address] [facility], [place], [address], [facility] 06/22/2016 12:26:20 12/16/2019 text/html COVID ScreeningReported bypatient.Onset/Durati on of fever:fever; highest fever 101 Associated Symptoms:cough ComorbiditiesCOPDCOVID -19 Symptoms October 2019Reported bypatient.COVID-19 Signs and Symptomscough resolved; cough same; fever resolved; fever same; shortness of breath resolved; shortness of breath same; chills resolved; chills same; repeated shaking with chills resolved;muscle pain worsening;headache worsening; sore throat resolved; loss of taste or smell resolved; vomiting or diarrhea resolved; fatigue resolved; anorexia resolved Quality:dry cough Context:asthma;COPD Associated Symptoms:no sputum production; no runny nose; no vomiting; no diarrhea; no body aches; no nausea; no change in mental status; no hypotension; no tachycardia;wheezing 54 yo female ,spoke via phone with C/O, fever, headaches, cough body aches, chills and SOB, X 2 days. Denies being exposed to pos COVID person. NII Fuchs NP Attn: Accounting[address] [facility], [place], [address], [facility] 12/16/2019 13:01:15 OBGyn Episode No OBEpisode recorded.
--- OUTSIDE RECORDS SUMMARY | 2024-08-18 14:33 | XMS_ITS | Clinical Summary ---
Author Organization [facility] Address [address] [place] [address] Care Team Providers Care Dance Professor Name Role Phone Kari Leblanc MD Primary Care Provider [phone] Social History Tobacco Use Types Packs/Day Years Used Date Smoking Tobacco: Never Assessed Comments Unknown Sex and Gender Information Value Date Recorded Sex Assigned at Not on file Legal Sex Female 7:00 PM CDT Gender Identity Not on file Sexual Orientation Not on file Plan of Treatment Health Maintenance Due Date Last Done Comments Cervical Cancer Screening Pa p Smear (Age 30 to 64) Every 3 Years 1965 Colorectal Cancer Screening Colonoscopy (10 Years) 1965 Annual Physical 01/21/1968 Hepatitis C 1983 DTaP, Tdap and Td Vaccines ( 1 - Tdap) 01/21/1984 Cervical Cancer Screening Pa p with HPV Testing (Age 30 to 64) Every 5 Years 1995 Cervical Cancer Screening with HPV 1995 Mammogram Screening 2005 Zoster Vaccines (1 of 2) 2015 COVID-19 Vaccine (2023-2 5 season) 2024 Influenza Adult (#1) 2024 Meningococcal B Vaccine Aged Out No l onger eligible based on patient's age to complete this topic Meningococcal Vaccine Aged Out No basia savanah eligible based on patient's age to complete this topic Pneumococcal Vaccine: Pediat rics (0 to 5 Years) and At-Risk Patients (6 to 64 Years) Aged Out No longer eligible b ased on patient's age to complete this topic RSV Immunizations Under 20 Months Aged Out No longer eligible based on patient's age to complete this topic Care Teams Dance Professor Relationship Specialty Start Date End Date Kari Leblanc MD [address] [place] [address] PCP - General 12/23/15
--- OUTSIDE RECORDS SUMMARY | 2024-08-18 14:33 | XMS_ITS | Continuity of Care Document ---
Author Organization [facility] Address [address] [facility] [address] [place] [address] Phone Care Team Providers Care Fryline Attendant Name Role Phone Osito Aragon Unavailable Unavailable Procedures Procedure Date Office/outpatient [...] Providers Copied on Encounter [place]pat [place], [facility] [address] [place] [address] [address], [place], [place], [id number], [place] tel:[phone] [facility] No Information 0-201 0 Mahesh Mcneill. [address] [facility] [address] [place] [address], [place], [address], [place]. tel:[phone] Office/outpat ient Visit, [facility], [address] [place] [address] [address], [place], [place], [id number], [place] tel:[phone] [facility] [place] No Information Mar-0 8-201 0 Krishnasamy Osito. [address] [place], [place] [address]ate [place] [address], [place], [place], [facility], [place]. tel:[phone] [facility], [address] [place] [address] [address], [place], [place], [id number], [place] tel:[phone] [facility] [place] No Information Apr-1 5-200 9 Krishnasamy Osito. [address] [place] [address], [facility], [place]. tel:[phone] Referring Provider: Osito her, [address] [place], [place] [address]ate [place] [address], [place], [place], [facility]. tel:[phone] Office/outpat ient Visit, [facility], [address] [place] [address] [address], [place], [place], [id number], [place] tel:[phone] [facility] [place] No Information Bernardino-1 6-200 9 Krishnasamy Osito. [address] [place], [place] [address]ate [address], [facility], [place]. tel:[phone] [facility], [address] [place] [address] [address], [place], [place], [id number], [place] tel:[phone] [facility] [place] No Information Aug-2 4-200 9 Krishnasamy Osito. [address] [place], [place] [address] [address], [facility], [place]. tel:[phone] [facility], [address] [place] [address] [address], [place], [place], [id number], [place] tel:[phone] [facility] [place] No Information Apr-2 7-200 8 Krishnasamy Osito. [address] [place], [place] [address] [address], [facility], [place]. tel:[phone] Referring Provider: Osito her, [address] [place] [address], [place], [place], [facility]. tel:[phone] Office/outpat ient Visit, [facility], [address], [place], [place], [id number], [place] tel:[phone] [facility] No Information 3-200 8 Krishnasamy Osito. [address] [place] [address], [place], [place], [facility], [place]. tel:[phone] [facility]pat ient [facility], [facility], [address] [place] [address] [address], [place], [place], [id number], [place] tel:[phone] [facility] No Information 0-200 8 Krishnasamy Osito. [address] [place] [address], [facility], [place]. tel:[phone] Office/outpat ient Visit, [facility], [address] [place] [address] [address], [place], [place], [id number], [place] tel:[phone] [facility] No Information 6-200 8 Krishnasamy Osito. [address] [place] [address], [facility], [place]. tel:[phone] Office/outpat ient Visit, [facility], [address] [place] [address] [address], [place], [place], [id number], [place] tel:[phone] [facility] No Information 5-200 8 Krishnasamy Osito. [address] [place] [address], [place], [facility], [place]. tel:[phone] [facility], [address] [place] [address] [address], [place], [place], [id number], tel:[phone] [facility] No Information 0-200 7 April Hunter. [address] [place], [place], [id number], . tel:[phone] Referring Provider: Dale Mei, [address] [place], [address] . tel:[phone] Office/outpat ient Visit, [facility], [address], [place], [place], [id number], tel:[phone] [facility] No Information 6200 7 April Hunter. [address] [facility], [place], [place], [id number], . tel:[phone] Office/outpat ient Visit, [facility] [address], [place], [place], [id number], [place] tel:[phone] [facility] No Information 0200 7 April Hunter. [address] [place], [place], [id number], [place]. tel:[phone] Office/outpat ient Visit, [facility] [address], [place], [place], [id number], [place] tel:[phone] [facility] No Information 9-200 7 April Hunter. [address] [place], [place], [id number], . tel:[phone] Family History Family Member Type Diagnosis Age At Onset No Information Payers Payer name Insurance type Covered green party ID Vinicio houstonsergey(s) Medicaid [facility] [id number] Social History Type Description Quantity Date Captured [...]
== END 2024-08-18 11:44 | disposition home or self-care (01) ==
LOC: ANHLAB 11:45
PROVIDERS: PCP Family Medicine; Visit Provider Physician Assistant Medical
DX: R50.9 Fever, unspecified (principal); R05.9 Cough, unspecified; Z20.822 Contact with and (suspected) exposure to COVID-19
CPT/HCPCS: 87637

== ENCOUNTER 2024-09-08 08:38 | Outpatient (CLI) | payer MEDICARE, OTHER, SELFPAY ==
--- OUTSIDE RECORDS SUMMARY | 2024-09-08 09:13 | XMS_ITS | Patient Health Summary ---
Author Organization [facility] Address [address] [place] [address] Care Team Providers Care Heel Builder Name Role Phone Yves Boyer MD Primary Care Provider [phone] Note from [facility],non-owned Affiliates and Associated Physician Practices is amultiple site organization consisting of ambulatory clinics and hospital sitesin [place], [place], [place]. This disclosure is being madepursuant to the Care Everywhere program and may not contain all information available regarding this patient. Last updated 18.[facility] Allergies * Codeine(Nausea and/or Vomiting) Medications * Be aware that medications may not be up to date on this document. Alwaysverify current medications with the patient. * amLODIPine (NORVASC) 10 MG tablet(Started 10/19/2015) Take 1 (one) tablet by mouth once daily 5 refills left * brimonidine (ALPHAGAN) 0.2 % ophthalmic solution(Started 09/15/2015) Instill 1 (one) drop into both eyes 2 times daily 5 refills left * dorzolamide (TRUSOPT) 2 % ophthalmic solution(Started 08/16/2015) Instill 1 Drop into both eyes 2 times daily 1 refill left * famotidine (PEPCID) 20 MG tablet(Started 09/05/2015) Take 20 mg by mouth once daily 5 refills left * fluticasone propionate (FLONASE) 50 MCG/ACT nasal spray(Started 10/19/2015) [place] 2 (two) sprays into each nostril once daily 5 refills left * HYDROcodone-acetaminophen (NORCO) 5-325 MG tablet(Started 10/22/2015) Take 1 (one) tablet by mouth every 12 hours * ipratropium (ATROVENT) 0.02 % nebulizer solution(Started 10/19/2015) Inhale 3 mL by mouth as needed 11 refills left * losartan (COZAAR) 100 MG tablet(Started 11/03/2015) Take 1 (one) tablet by mouth once daily * meloxicam (MOBIC) 15 MG tablet(Started 10/19/2015) Take 1 (one) tablet by mouth once daily 5 refills left * DULERA 200-5 MCG/ACT inhaler(Started 11/03/2015) Inhale 2 Puffs by mouth 2 times daily * montelukast (SINGULAIR) 10 MG tablet(Started 10/19/2015) Take 1 (one) tablet by mouth once daily 5 refills left * timolol maleate (TIMOPTIC) 0.5 % ophthalmic solution(Started 09/15/2015) Instill 1 (one) drop into both eyes 2 times daily 2 refills left * vitamin D3 (CHOLECACIFEROL) 5000 UNITS Take 5,000 Units by mouth once daily * calcium 600 MG tablet Take 1 Tab by mouth 2 times daily with morning and evening meal * diclofenac sodium EC (VOLTAREN) 75 MG tablet(Started 11/11/2015) Take 1 Tab by mouth as directed 3 refills left * Ventolin HFA 108 (90 Base) MCG/ACT inhaler Inhale 1 (one) puff by mouth every 6 hours as needed * benzonatate (Tessalon) 200 MG capsule(Started 08/06/2024) Take 1 (one) capsule by mouth 3 times daily as needed for cough * cetirizine (ZyrTEC) 10 MG tablet(Started 06/09/2024) Take 1 (one) tablet by mouth once daily * cyclobenzaprine (Flexeril) 10 MG tablet(Started 06/13/2024) Take 1 (one) tablet by mouth 3 times daily * Oxuvcoqgwnb-Dhwynhoga-Wtedbd (Trelegy Ellipta) 100-62.5-25 MCG/ACT Inhale 1 (one) puff by mouth once daily * hydroCHLOROthiazide (Hydrodiuril) 25 MG tablet Take 1 (one) tablet by mouth once daily * lansoprazole (Prevacid) 30 MG capsule Take 1 (one) capsule by mouth daily before breakfast * latanoprost (Xalatan) 0.005 % ophthalmic solution(Started 08/27/2024) Instill 1 (one) drop into both eyes at bedtime * predniSONE (Deltasone) 10 MG tablet(Started 06/17/2024) Take 1 (one) tablet by mouth as directed TAKE 3 TABLETS BY MOUTH EVERY DAY FOR 3 DAYS THEN TAKE 2 TABLETS BY MOUTH EVERY DAY FOR 3 DAYS THEN TAKE 1 TABLET BY MOUTH EVERY DAY FOR 3 DAYS * terbinafine (LamISIL) 250 MG tablet(Started 05/14/2024) Take 1 (one) tablet by mouth once daily * triamcinolone acetonide (Kenalog) 0.1 % cream(Started 11/26/2023) Apply to affected area 2 times daily Active Problems No known active problems Social History Tobacco Use Types Packs/Day Years Used Date Smoking Tobacco: Former Cigarettes Q uit: 2011 Tobacco Cessation:Counseling Given: Not Answered Alcohol Use Standard Drinks/Week Comments Not Currently 0 (1 standard drink = 0.6 oz pur e alcohol) 4 Sex and Gender Information Value Date Recorded Sex Assigned at Female 08/22/2024 9:37 AM RENTAL SALES ASSOCIATE Gender Identity Female 08/22/2024 9:37 AM RENTAL SALES ASSOCIATE Sexual Orientation Choose not to disclose 2024 9:37 AM RENTAL SALES ASSOCIATE Last Filed Vital Signs Vital Sign Reading [...] 11/26/2014) Results * DERMATOPATHOLOGY (09/05/2023 2:34 PM RENTAL SALES ASSOCIATE) Only the most recent of4 resultswithin the time period is included. Case Report Dermatopathology Report Case: [id number] Authorizing Provider: Merissa Eisenberg MD Collected: 09/05/2023 02:34 PM Ordering Location: [facility] - Received: 09/06/2023 02:03 PM [...] characteristic determined by the Dermatopathology Laboratory at [facility], directed by Dr. Jose Delacruz. These tests need not be, and therefore are not, approved by the [place] Food and Drug Administration. The tests are used for clinical purposes. Billing Codes Specimen Charges Stain Charges 47510 1 03/11/202 4 1:04 PM CDT DERMATOPATHOLOGY LABORATORY Embedded Images 4 1:04 PM CDT DERMATOPATHOLOGY LABORATORY Pathology/Cytolo gy TISSUE SPECIMEN FROM SKIN / Unknown 09/05/2023 2:34 PM RENTAL SALES ASSOCIATE 09/06/2023 2:03 PM RENTAL SALES ASSOCIATE Merissa Eisenberg MD LAB - PATHOLOGY/CYT OLOGY ORDERABLES DERMATOPATHOLOGY LABORATORY [facility] Department of Dermatology [address], 3rd Floor [address] [phone] * DERMATOPATH TECHNICAL REPORT (04/23/2018 12:00 AM CDT) Case Report Dermatopathology Report Case: [id number] Authorizing Provider: Merissa Eisenberg MD Collected: 04/23/2018 12:00 AM Pathologist: Gucci Delacruz MD Received: 04/25/2018 06:46 AM Specimen: Skin, right boykin 5:54 PM CDT DERMATOPATHOLOGY LABORATORY Clinical History BCC. Non-healing. Check margins. 5:54 PM CDT DERMATOPATHOLOGY LABORATORY Gross Description Specimen A: Received is one formalin filled container labeled with the patient's name and designated right boykin. The specimen consists of a shave measuring [id number]. The margin is inked green. Jar 0. [facility] Dermatopathology Laboratory performed the technical component [...] characteristic determined by the Dermatopathology Laboratory at [facility]. These tests need not be, and therefore are not, approved by the [place] Food and Drug Administration. The tests are used for clinical purposes. 5:54 PM T DERMATOPATHOLOGY LABORATORY Pathology/Cytolog y TISSUE SPECIMEN FROM SKIN / Unknown 04/23/2018 04/25/2018 6:46 AM CDT Merissa Eisenberg MD LAB - PATHOLOGY/CYT OLOGY ORDERABLES DERMATOPATHOLOGY LABORATORY [facility] - Department of Dermatology [address] [place] [address] 5th Floor Lab [address] [phone] * IMAGING/RADIOLOGY/XRAY RESULTS ORDER (11/26/2014) Only the most recent of2 resultswithin the time period is included. Anatomical Region Laterality Modality Other Provider Unknown IMAGING Care Teams Heel Builder Relationship Specialty Start Date End Date Yves Boyer MD [address] [place] [address] PCP - General Family Medicine 08/29/24
--- OUTSIDE RECORDS SUMMARY | 2024-09-08 09:13 | XMS_ITS | Encounter Summary ---
Author Organization [facility] Address [address] [place] [address] Care Team Providers Care Stereoptician Name Role Phone Kari Leblanc MD Primary Care Provider [phone] Yves Boyer MD Primary Care Provider [phone] Encounter Details Date Type Department Care Team (Late st Contact Info) Description 09/05/2023 Lab Requisition [facility] - DermPath Lab [address] [facility] [place] [address] Merissa Eisenberg MD [address] [facility] [address] DEPT [place] [address] Social History Tobacco Use Types Packs/Day Years Used Date Smoking Tobacco: Never Alcohol Use Standard Drinks/Week Comments Not Asked 0 (1 standard drink = 0.6 oz pur e alcohol) Sex and Gender Information Value Date Recorded Sex Assigned at Female 08/22/2024 9:37 AM STRINGED INSTRUMENT ASSEMBLER Gender Identity Female 08/22/2024 9:37 AM STRINGED INSTRUMENT ASSEMBLER Sexual Orientation Choose not to disclose 2024 9:37 AM STRINGED INSTRUMENT ASSEMBLER documented as of this encounter Plan of Treatment Upcoming Encounters Date Type Department Care Team (Late st Contact Info) Description 10/27/2024 9:45 AM CDT Procedure visit [facility] - General Dermatology [address] [place] [id number] 10/29/2024 9:45 AM CDT Procedure visit [facility] - General Dermatology [address] [place] [address] 10/31/2024 9:20 AM CDT Procedure visit [facility] - General Dermatology [address] [place] [address] Radha Aguilar MD [address] [facility] [address] DEPT [place] [phone] documented as of this encounter Procedures Procedure Name Priority Date/Time Associated Diagnosis Comments DERMATOPATHOLOGY Routine 09/05/2023 2:34 PM STRINGED INSTRUMENT ASSEMBLER documented in this encounter Results * DERMATOPATHOLOGY (09/05/2023 2:34 PM STRINGED INSTRUMENT ASSEMBLER) Case Report Dermatopathology Report Case: [id number] Authorizing Provider: Merissa Eisenberg MD Collected: 09/05/2023 02:34 PM Ordering Location: [facility] - Received: 09/06/2023 02:03 PM DermPath Lab Pathologist: Radha Aguilar MD Specimen: Skin, left lower lip 4 1:04 PM CDT DERMATOPATHOLOGY LABORATORY Final Diagnosis Specimen A. 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 4 1:04 PM CDT DERMATOPATHOLOGY LABORATORY Disclaimer An [...] purposes. Billing Codes Specimen Charges Stain Charges 01637 1 4 1:04 PM CDT DERMATOPATHOLOGY LABORATORY Embedded Images 4 1:04 PM CDT DERMATOPATHOLOGY LABORATORY Pathology/Cytolo gy TISSUE SPECIMEN FROM SKIN / Unknown 09/05/2023 2:34 PM STRINGED INSTRUMENT ASSEMBLER 09/06/2023 2:03 PM STRINGED INSTRUMENT ASSEMBLER Merissa Eisenberg MD LAB - PATHOLOGY/CYT OLOGY ORDERABLES DERMATOPATHOLOGY LABORATORY [facility] - Department of Dermatology [facility] Medicine [address] [place] [address], [address]rd Floor [address] [phone] documented in this encounter Visit Diagnoses Not on filedocumented in this encounter Care Teams Stereoptician Relationship Specialty Start Date End Date Kari Leblanc MD [address] [place] [phone] PCP - General Gastroenterology 09/13/15 08/28/24 Yves Boyer MD [address] [facility] [address] [place] [address] PCP - General Family Medicine 08/29/24 documented as of this encounter
--- OUTSIDE RECORDS SUMMARY | 2024-09-08 09:13 | XMS_ITS | Clinical Summary ---
Author Organization [facility] Care Team Providers Care Linen Grader Name Role Phone Unavailable Primary Care Provider Unavailabl e Social History Tobacco Use Types Packs/Day Years Used Date Smoking Tobacco: Never Assessed Comments Unknown Sex and Gender Information Value Date Recorded Sex Assigned at Not on file Legal Sex Female 8:37 AM TITLE CLERK Gender Identity Not on file Sexual Orientation [...]
--- OUTSIDE RECORDS SUMMARY | 2024-09-08 09:13 | XMS_ITS | Clinical Summary ---
Author Organization [facility] [facility] Address [address] [facility] [address] Care Team Providers Care Gear Cutter Name Role Phone Yves Boyer MD Primary Care Provider Source Comments [facility] [facility],non-owned Affiliates and Associated Physician Practices is amultiple site organization consisting of ambulatory clinics and hospital sitesin [place], [place], [place] and [place]. This disclosure is being madepursuant to the Care Everywhere program and may not contain all information available regarding this patient. Last updated 18.[facility] [facility] Allergies Active Allergy Reactions Criticality Noted Date Comments Codeine Nausea and/or Vomiting 08/29/2024 Medications * Be aware that medications may not be up to date on this document. Alwaysverify current medications with the patient. Medication Sig Dispensed Refills Start Date End Date Status amLODIPine (NORVASC) 10 MG tablet Take 1 (one) tablet by mouth once daily 5 10/19/2015 Active brimonidine (ALPHAGAN) 0.2 % ophthalmic solution Instill 1 (one) drop into both eyes 2 times daily 5 09/15/2015 Active dorzolamide (TRUSOPT) 2 % ophthalmic solution Instill 1 Drop into both eyes 2 times daily 1 08/16/2015 Active famotidine (PEPCID) 20 MG tablet Take 20 mg by mouth once daily 5 09/05/2015 Active fluticasone propionate (FLONASE) 50 MCG/ACT nasal spray [place] 2 (two) sprays into each nostril once daily 5 10/19/2015 Active HYDROcodone-acetamin ophen (NORCO) 5-325 MG tablet Take 1 (one) tablet by mouth every 12 hours 0 10/22/2015 Active ipratropium (ATROVENT) 0.02 % nebulizer solution Inhale 3 mL by mouth as needed 11 10/19/2015 Active losartan (COZAAR) 100 MG tablet Take 1 (one) tablet by mouth once daily 11/03/2015 Active meloxicam (MOBIC) 15 MG tablet Take 1 (one) tablet by mouth once daily 5 10/19/2015 Active DULERA 200-5 MCG/ACT inhaler Inhale 2 Puffs by mouth 2 times daily 11/03/2015 Active montelukast (SINGULAIR) 10 MG tablet Take 1 (one) tablet by mouth once daily 5 10/19/2015 Active timolol maleate (TIMOPTIC) 0.5 % ophthalmic solution Instill 1 (one) drop into both eyes 2 times daily 2 09/15/2015 Active vitamin D3 (CHOLECACIFEROL) 5000 UNITS Take 5,000 Units by mouth once daily Active calcium 600 MG tablet Take 1 Tab by mouth 2 times daily with morning and evening meal Active diclofenac sodium EC (VOLTAREN) 75 MG tablet Take 1 Tab by mouth as directed 180 Tab 3 11/11/2015 Active Additional Information Patient not taking.Reported on 08/29/2024 Ventolin HFA 108 (90 Base) MCG/ACT inhaler Inhale 1 (one) puff by mouth every 6 hours as needed Active benzonatate (Tessalon) 200 MG capsule Take 1 (one) capsule by mouth 3 times daily as needed for cough 08/06/2024 Active cetirizine (ZyrTEC) 10 MG tablet Take 1 (one) tablet by mouth once daily 06/09/2024 Active cyclobenzaprine (Flexeril) 10 MG tablet Take 1 (one) tablet by mouth 3 times daily 06/13/2024 Active Fluticasone-Umeclidi n-Vilant (Trelegy Ellipta) 100-62.5-25 MCG/ACT Inhale 1 (one) puff by mouth once daily Active hydroCHLOROthiazide (Hydrodiuril) 25 MG tablet Take 1 (one) tablet by mouth once daily Active lansoprazole (Prevacid) 30 MG capsule Take 1 (one) capsule by mouth daily before breakfast Active latanoprost (Xalatan) 0.005 % ophthalmic solution Instill 1 (one) drop into both eyes at bedtime 08/27/2024 Active predniSONE (Deltasone) 10 MG tablet Take 1 (one) tablet by mouth as directed TAKE 3 TABLETS BY MOUTH EVERY DAY FOR 3 DAYS THEN TAKE 2 TABLETS BY MOUTH EVERY DAY FOR 3 DAYS THEN TAKE 1 TABLET BY MOUTH EVERY DAY FOR 3 DAYS 06/17/2024 Active terbinafine (LamISIL) 250 MG tablet Take 1 (one) tablet by mouth once daily 05/14/2024 Active triamcinolone acetonide (Kenalog) 0.1 % cream Apply to affected area 2 times daily 11/26/2023 Active Active Problems No known active problems Encounters Date Type Department Care Team Description 08/29/2024 10:20 AM ETCHER MACHINE Office Visit [facility] - General Dermatology [address], [facility] [address] [place] [address] Radha Aguilar MD Allergic dermatitis due to other chemical product (Primary Dx); Lentigines; Lichen planus-like keratosis (LPLK) 08/29/2024 Travel 06/19/2024 Travel from Last 3 Months Family History Medical History Relation Name Comments Hypertension Brother Cancer Father Asthma Mother CAD (Coronary Artery Disease) Mother Diabetes Mother Hypertension Mother Arthritis - Osteo Other Migraine Other Seizures Other Thyroid Disease Other Arthritis - Rheumatoid Neg Hx Relation Name Status Comments Brother Father Mother Other Social History Tobacco Use Types Packs/Day Years Used Date Smoking Tobacco: Former Cigarettes Q uit: 2012 Tobacco Cessation:Counseling Given: Not Answered Alcohol Use Standard Drinks/Week Comments Not Currently 0 (1 standard drink = 0.6 oz pur e alcohol) 4 Sex and Gender Information Value Date Recorded Sex Assigned at Female 08/22/2024 9:37 AM ETCHER MACHINE Gender Identity Female 08/22/2024 9:37 AM ETCHER MACHINE Sexual Orientation Choose not to disclose 2024 9:37 AM ETCHER MACHINE Last Filed Vital Signs Vital Sign Reading [...] Description 10/27/2024 9:45 AM CDT Procedure visit [facility] - General Dermatology [address] [place] [phone] 10/29/2024 9:45 AM CDT Procedure visit [facility] - General Dermatology [address] [place] [address] 10/31/2024 9:20 AM CDT Procedure visit [facility] - General Dermatology [address] [place] [address] Radha Aguilar MD [address] [place] [id number] Health Maintenance Due Date Last Done Comments [...] age to complete this topic Care Teams Gear Cutter Relationship Specialty Start Date End Date Yves Boyer MD [address] [place] [address] PCP - General Family Medicine 08/29/24
--- OUTSIDE RECORDS SUMMARY | 2024-09-08 09:13 | XMS_ITS | Referral Summary ---
Author Organization [facility] Address [address] [facility] [place] [address] Care Team Providers Care Passenger Tire Inspector Name Role Phone Yves Boyer MD Primary Care Provider [phone] Source Comments [facility],non-owned Affiliates and Associated Physician Practices is amultiple site organization consisting of ambulatory clinics and hospital sitesin [place], [place], [place] and [place]. This disclosure is being madepursuant to the Care Everywhere program and may not contain all information available regarding this patient. Last updated 18.[facility] Encounters Date Type Department Care Team Description 08/29/2024 Travel 08/29/2024 10:20 AM SPINNING MACHINE TENDER Office Visit [facility] - General Dermatology [address], [facility] [address] [place] [address] Radha Aguilar MD Allergic dermatitis due to other chemical product (Primary Dx); Lentigines; Lichen planus-like keratosis (LPLK) 06/19/2024 Travel from Last 3 Months Allergies Active Allergy Reactions Criticality Noted Date [...] fluticasone propionate (FLONASE) 50 MCG/ACT nasal spray [place] 2 (two) sprays into each nostril once [...] Active Active Problems No known active problems Social History Tobacco Use Types Packs/Day Years Used Date Smoking Tobacco: Former Cigarettes Q uit: 2011 Tobacco Cessation:Counseling Given: Not Answered Alcohol Use Standard Drinks/Week Comments Not Currently 0 (1 standard drink = 0.6 oz pur e alcohol) 4 Sex and Gender Information Value Date Recorded Sex Assigned at Female 08/22/2024 9:37 AM SPINNING MACHINE TENDER Gender Identity Female 08/22/2024 9:37 AM SPINNING MACHINE TENDER Sexual Orientation Choose not to disclose 2024 9:37 AM SPINNING MACHINE TENDER Last Filed Vital Signs Vital Sign Reading [...] Dermatology [address] [place] [address] 10/29/2024 9:45 AM CDT Procedure visit [facility] - General Dermatology [address] [place] [address] 10/31/2024 9:20 AM CDT Procedure visit [facility] - General Dermatology [address] [place] [address] Radha Aguilar MD [address] [place] [phone] Care Teams Passenger Tire Inspector Relationship Specialty Start Date End Date Yves Boyer MD [address] [facility] [address] [place] [address] PCP - General Family Medicine 08/29/24
--- OUTSIDE RECORDS SUMMARY | 2024-09-08 09:13 | XMS_ITS | Encounter Summary ---
Author Organization [facility] Address [address] [place] [address] Care Team Providers Care Adult Manager Name Role Phone Kari Leblanc MD Primary Care Provider [phone] Yves Boyer MD Primary Care Provider Encounter Details Date Type Department Care Team (Late Contact Info) Description 05/05/2020 Lab Requisition [facility] [address] [facility] [place] [phone] Merissa Eisenberg MD [address] [place] [address] Social History Tobacco Use Types Packs/Day Years Used Date Smoking Tobacco: Never Alcohol Use Standard Drinks/Week Comments Not Asked 0 (1 standard drink = 0.6 oz pur e alcohol) Sex and Gender Information Value Date Recorded Sex Assigned at Female 08/22/2024 9:37 AM HEATER ROOM HELPER Gender Identity Female 08/22/2024 9:37 AM HEATER ROOM HELPER Sexual Orientation Choose not to disclose 2024 9:37 AM HEATER ROOM HELPER documented as of this encounter Plan of Treatment Upcoming Encounters Date Type Department Care Team (Late Contact Info) Description 10/27/2024 9:45 AM CDT Procedure visit [facility] - General Dermatology [address], [facility] 200 [place] [address] 10/29/2024 9:45 AM CDT Procedure visit [facility] - General Dermatology [address], [address] [place] [address] 10/31/2024 9:20 AM CDT Procedure visit [facility] - General Dermatology [address], [address] [place] [address] Radha Aguilar MD [address] [facility] 3 DE[place] [phone] documented as of this encounter Procedures Procedure Name Priority Date/Time Associated Diagnosis Comments DERMATOPATHOLOGY Routine 05/04/2020 12:0 0 AM HEATER ROOM HELPER documented in this encounter Results * DERMATOPATHOLOGY (05/04/2020 12:00 AM HEATER ROOM HELPER) Case Report Dermatopathology Report Case: [id number] Authorizing Provider: Merissa Eisenberg MD Collected: 05/04/2020 12:00 AM Ordering Location: [facility] Received: 05/05/2020 07:26 AM Pathologist: Gucci Delacruz MD Specimen: Skin, left lower leg 0 12:23 PM HEATER ROOM HELPER DERMATOPATHOLOGY LABORATORY Final Diagnosis Specimen A. SKIN, left lower leg: LICHEN PLANUS-LIKE KERATOSIS (BENIGN LICHENOID KERATOSIS) (L82.1) STASIS DERMATITIS (L30.8) 0 12:23 PM [facility] DERMATOPATHOLOGY LABORATORY Clinical History R/O BCC vs SCC, irritated, non-healing. 0 12:23 PM HEATER ROOM HELPER DERMATOPATHOLOGY LABORATORY Gross Description Specimen A: Received is one formalin filled container labeled with the patient's name and designated left lower leg. The specimen consists of a shave measuring [id number]. Jar 0. 0 12:23 PM HEATER ROOM HELPER DERMATOPATHOLOGY LABORATORY Microscopic Description Specimen A. SKIN, left lower leg: The epidermis is mildly acanthotic. There is a lichenoid infiltrate with vacuolar changes of basilar keratinocytes and scattered necrotic keratinocytes. There is focal spongiosis. The dermis shows a sparse, perivascular lymphocytic infiltrate surrounding dilated, thick-walled vessels, which are increased in number. 0 12:23 PM HEATER ROOM HELPER DERMATOPATHOLOGY LABORATORY Disclaimer An external and internal positive and negative controls are appropriate for the histochemical, immunohistochemical and immunofluorescence stain(s) in this case (if any), except where stated explicitly. The performance characteristics of the stain(s) cited in this report were developed and its performance characteristic determined by the Dermatopathology Laboratory at [facility], directed by Dr. Jose Delacruz. These tests need not be, and therefore are not, approved by the [place] Food and Drug Administration. The tests are used for clinical purposes. Billing Codes Specimen Charges Stain Charges 31380 1 0 12:23 PM HEATER ROOM HELPER DERMATOPATHOLOGY LABORATORY Embedded Images 0 12:23 PM HEATER ROOM HELPER DERMATOPATHOLOGY LABORATORY Pathology/Cytolog y TISSUE SPECIMEN FROM SKIN / Unknown 05/04/2020 05/05/2020 7:26 AM HEATER ROOM HELPER Merissa Eisenberg MD LAB - PATHOLOGY/CYT OLOGY ORDERABLES DERMATOPATHOLOGY LABORATORY [facility] - Department of Dermatology [facility] Medicine [address] [place] [address], [address] [phone] documented in this encounter Visit Diagnoses Not on filedocumented in this encounter Care Teams Adult Manager Relationship Specialty Start Date End Date Kari Leblanc MD [address] [place] [id number] PCP - General Gastroenterology 09/13/15 08/28/24 Yves Boyer MD [address] [facility] [address] [place] [address] PCP - General Family Medicine 08/29/24 documented as of this encounter
--- OUTSIDE RECORDS SUMMARY | 2024-09-08 09:13 | XMS_ITS | Encounter Summary ---
Author Organization [facility] Address [address] [facility] [place] [address] Care Team Providers Care Shiatsu Therapist Name Role Phone Kari Leblanc MD Primary Care Provider [phone] Yves Boyer MD Primary Care Provider [phone] Encounter Details Date Type Department Care Team (Late Contact Info) Description 04/25/2018 Lab Requisition [facility] [address] [facility], [facility] [place] [address] Merissa Eisenberg MD [address] [place] [address] Social History Tobacco Use Types Packs/Day Years Used Date Smoking Tobacco: Never Alcohol Use Standard Drinks/Week Comments Not Asked 0 (1 standard drink = 0.6 oz pur e alcohol) Sex and Gender Information Value Date Recorded Sex Assigned at Female 08/22/2024 9:37 AM GRINDING WHEEL FACER Gender Identity Female 08/22/2024 9:37 AM GRINDING WHEEL FACER Sexual Orientation Choose not to disclose 2024 9:37 AM GRINDING WHEEL FACER documented as of this encounter Plan of Treatment Upcoming Encounters Date Type Department Care Team (Late Contact Info) Description 10/27/2024 9:45 AM CDT Procedure visit [facility] - General Dermatology [address], [facility] 200 [place] [address] 10/29/2024 9:45 AM CDT Procedure visit [facility] - General Dermatology [address], [address] [place] [address] 10/31/2024 9:20 AM CDT Procedure visit [facility] - General Dermatology [address], [address] [place] [address] Radha Aguilar MD [address] [facility] 3 [place] [address] documented as of this encounter Procedures Procedure Name Priority Date/Time Associated Diagnosis Comments DERMATOPATH TECHNICAL REPORT Routine 04/23/2018 12:00 AM CDT documented in this encounter Results * DERMATOPATH TECHNICAL REPORT (04/23/2018 12:00 AM CDT) Case Report Dermatopathology Report Case: [id number] Authorizing Provider: Merissa Eisenberg MD Collected: 04/23/2018 12:00 AM Pathologist: Gucci Delacruz MD Received: 04/25/2018 06:46 AM Specimen: Skin, right boykin 5:54 PM CDT DERMATOPATHOLOGY LABORATORY Clinical History BCC. Non-healing. Check margins. 5:54 PM CDT DERMATOPATHOLOGY LABORATORY Gross Description Specimen A: Received is one formalin filled container labeled with the patient's name and designated right boykin. The specimen consists of a shave measuring [id number]. The margin is inked green. Jar 0. [facility] Dermatopathology Laboratory performed the technical component [...] characteristic determined by the Dermatopathology Laboratory at [facility]. These tests need not be, and therefore are not, approved by the [place] Food and Drug Administration. The tests are used for clinical purposes. 8 5:54 PM CDT DERMATOPATHOLOGY LABORATORY Pathology/Cytolog y TISSUE SPECIMEN FROM SKIN / Unknown 04/23/2018 04/25/2018 6:46 AM CDT Merissa Eisenberg MD LAB - PATHOLOGY/CYT OLOGY ORDERABLES DERMATOPATHOLOGY LABORATORY [facility] - Department of Dermatology [address] [place] [address], 5th Floor Lab B [address] [phone] documented in this encounter Visit Diagnoses Not on filedocumented in this encounter Care Teams Shiatsu Therapist Relationship Specialty Start Date End Date Kari Leblanc MD [address] [place], [place] [phone] PCP - General Gastroenterology 09/13/15 08/28/24 Yves Boyer MD [address] [place] [address] PCP - General Family Medicine 08/29/24 documented as of this encounter
--- OUTSIDE RECORDS SUMMARY | 2024-09-08 09:14 | XMS_ITS | Continuity of Care Document ---
Author Organization [facility] Address [address] [facility] [address] [place] [address] Phone Care Team Providers Care Analytical Lab Analyst Name Role Phone Ritesh HOLGUIN, Adrian Unavailable [...] Optic Nerve SPECIAL EYE EVALUATION OFFICE/OUTPATIENT VISIT, [facility] GDX Optic Nerve Advance Directives Directive Yes / No Effective Date File Name No Information Encounters Encounter Description Practice Location Reason(s) For Visit Diagnoses Date Provider Providers Copied on Encounter [facility], [address] [place] [address], [id number], tel:[phone] OPH CONSULT KAYE MERCER No Information 8 Ritesh Campbell. [address] [place] [address], [address], [address], [place]. tel:[phone] Referring Provider: Adrian Mei, [address] [place] [address], [address]. tel:[phone] [facility], [address] [place] [address], [id number], tel:[phone] OPH CONSULT KAYE MERCER POAG (chief complaint) Primary open-angle glaucoma, moderate stageVitreous degeneration, bilateralAge-r elated nuclear cataract, bilateral Mar- 6 Ritesh Campbell. [address] [place] [address], [address], [address], [place]. tel:[phone] Referring Provider: Adrian Mei, [address] [place] [address], [place], [address]. tel:[phone] OFFICE/OUTPA TIENT VISIT, NEW [facility], [address] [facility], [place], [place], [id number], [place] tel:[phone] Oph Consult [facility] Office Glc eval (chief complaint) Age-related nuclear cataract, bilateralPrima ry open-angle glaucoma, moderate stageVitreous degeneration, bilateral 6 Eliseo Howard. [address] [facility], [address], [place], [address], [place]. tel:[phone] Referring Provider: Lee Weston, [address] [facility] [address], [place], [address]. tel:[phone] Family History Family Member Type Diagnosis Age At Onset Mother Problem (finding) Glaucoma Maternal grandmother Problem (finding) Glaucoma Payers Payer name Insurance type Covered green party ID Authoriza tion(s) No Information Social History [...]
--- OUTSIDE RECORDS SUMMARY | 2024-09-08 09:14 | XMS_ITS | CONTINUITY OF CARE DOCUMENT ---
Author Name olga espinoza Address Unknown Organization [facility] Address [address] [facility] [address] [place] [address] Phone [phone] Care Team Providers Care Pillowcase Maker Name Role Phone Jama HOLGUIN, Emily Unavailable INSURANCE PROVIDERS Payer name Policy type / Coverage type Tobias red constitution party ID [employer] FAMILY [employer] Medicaid 1 [id number]
--- OUTSIDE RECORDS SUMMARY | 2024-09-08 09:14 | XMS_ITS | Clinical Summary ---
Author Organization [facility] Address [address] [place] [address] Care Team Providers Care Projector Operator Name Role Phone Kari Leblanc MD Primary Care Provider [phone] Social History Tobacco Use Types Packs/Day Years [...] age to complete this topic Care Teams Projector Operator Relationship Specialty Start Date End Date Kari Leblanc MD [address] [place] [address] PCP - General 12/23/15
--- OUTSIDE RECORDS SUMMARY | 2024-09-08 09:14 | XMS_ITS | Continuity of Care Document ---
Author Organization [facility] Address [address] [facility] [address] [place] [address] Phone Care Team Providers Care Mask Design Engineer Name Role Phone Osito Aragon Unavailable Unavailable [...] Providers Copied on Encounter Office/outpat ient Visit, [facility], [address] [place] [address] [address], [place], [place], [id number], [place] tel:[phone] [facility] No Information 0-201 0 Mahesh Mcneill. [address], [place], [address], [place]. tel:[phone] Office/outpat ient Visit, [facility], [address] [place] [address] [address], [place], [place], [id number], [place] tel:[phone] [facility] No Information Mar-0 8-201 0 Krishnasamy Osito. [address] [place], [place] [address]ate [place] [address], [place], [place], [facility], [place]. tel:[phone] [facility], [address] [place] [address] [address], [place], [place], [id number], [place] tel:[phone] [facility] No Information Apr-1 5-200 9 Krishnasamy Osito. [address] [place] [address], [facility], [place]. tel:[phone] Referring Provider: Osito her, [address] [place], [place] [address]ate [place] [address], [place], [place], [facility]. tel:[phone] Office/outpat ient Visit, [facility], [address] [place] [address] [address], [place], [place], [id number], [place] tel:[phone] [facility] No Information Bernardino-1 6-200 9 Krishnasamy Osito. [address] [place], [place] [address]ate [address], [facility], [place]. tel:[phone] [facility], [address] [place] [address] [address], [place], [place], [id number], [place] tel:[phone] [facility] No Information Aug-2 4-200 9 Krishnasamy Osito. [address] [place], [place] [address]ate [address], [facility], [place]. tel:[phone] [facility], [address] [place] [address] [address], [place], [place], [id number], [place] tel:[phone] [facility] No Information Apr-2 7-200 8 Krishnasamy Osito. [address] [place], [place] [address] [address], [facility], [place]. tel:[phone] Referring Provider: Osito her, [address] [place] [address] 102, [place], [place], [facility]. tel:[phone] Office/outpat ient Visit, [facility], [address], [place], [place], [id number], [place] tel:[phone] [facility] No Information 3-200 8 Krishnasamy Osito. [address] [place] [address] 102, [place], [place], [facility], [place]. tel:[phone] [facility]pat ient [facility], [facility], [address] [place] [address] [address], [place], [place], [id number], [place] tel:[phone] [facility] No Information 0-200 8 Krishnasamy Osito. [address] [place] [address], [facility], [place]. tel:[phone] Office/outpat ient Visit, [facility], [address] [place] [address] [address], [place], [place], [id number], [place] tel:[phone] [facility] No Information 6-200 8 Krishnasamy Osito. [address] [place] [address], [facility], [place]. tel:[phone] Office/outpat ient Visit, [facility], [address] [place] [address] [address], [place], [place], [id number], [place] tel:[phone] [facility] No Information 5-200 8 Krishnasamy Osito. [address] [place] [address], [place], [facility], [place]. tel:[phone] [facility], [address] [place] [address] [address], [place], [place], [id number], tel:[phone] [facility] No Information 0-200 7 April Hunter. [address] [place], [place], [id number], . tel:[phone] Referring Provider: Dale Mei, [address] [place], [address] . tel:[phone] Office/outpat ient Visit, [facility], [address], [place], [place], [id number], tel:[phone] [facility] No Information 6200 7 April Hunter. [address] [facility], [place], [place], [id number], . tel:[phone] Office/outpat ient Visit, [facility], [address], [place], [place], [id number], [place] tel:[phone] [facility] No Information 0200 7 April Hunter. [address] [place], [place], [id number], [place]. tel:[phone] Office/outpat ient Visit, [facility], [address], [place], [place], [address], [place] tel:[phone] [facility] No Information 9-200 7 April Hunter. [address] [place], [place], [id number], . tel:[phone] Family History Family Member Type Diagnosis Age At Onset No Information Payers Payer name Insurance type Covered constitution party ID Vinicio houstonsergey(s) Medicaid [facility] [id number] Social History Type Description Quantity Date Captured [...]
--- OUTSIDE RECORDS SUMMARY | 2024-09-08 09:14 | XMS_ITS | Encounter Summary ---
Author Organization [facility] Address [address] [facility] [place] [address] Care Team Providers Care Guest History Clerk Name Role Phone Kari Leblanc MD Primary Care Provider [phone] Yves Boyer MD Primary Care Provider [phone] Encounter Details Date Type Department Care Team (Late Contact Info) Description 05/21/2019 Lab Requisition [facility] [address] [facility], [facility] [place] [address] Elise Aguilar, DO [address] [facility] 3 [place] [address] Social History Tobacco Use Types Packs/Day Years Used Date Smoking Tobacco: Never Alcohol Use Standard Drinks/Week Comments Not Asked 0 (1 standard drink = 0.6 oz pur e alcohol) Sex and Gender Information Value Date Recorded Sex Assigned at Female 08/22/2024 9:37 AM SIGN SHOP SUPERVISOR Gender Identity Female 08/22/2024 9:37 AM SIGN SHOP SUPERVISOR Sexual Orientation Choose not to disclose 2024 9:37 AM SIGN SHOP SUPERVISOR documented as of this encounter Plan of Treatment Upcoming Encounters Date Type Department Care Team (Late Contact Info) Description 10/27/2024 9:45 AM CDT Procedure visit [facility] - General Dermatology [address], [facility] 200 [place] [address] 10/29/2024 9:45 AM CDT Procedure visit [facility] - General Dermatology [address], [address] [place] [address] 10/31/2024 9:20 AM CDT Procedure visit [facility] - General Dermatology [address], [address] [place] [address] Radha Aguilar MD [address] [facility] 3 [place] [address] documented as of this encounter Procedures Procedure Name Priority Date/Time Associated Diagnosis Comments DERMATOPATHOLOGY Routine 05/20/2019 12:0 0 AM SIGN SHOP SUPERVISOR documented in this encounter Results * DERMATOPATHOLOGY (05/20/2019 12:00 AM SIGN SHOP SUPERVISOR) Case Report Dermatopathology Report Case: [id number] Authorizing Provider: Elise Aguilar DO Collected: 05/20/2019 12:00 AM Ordering Location: [facility] Lab Received: 05/21/2019 05:39 AM Pathologist: Gucci Delacruz MD Specimens: A) - Skin, right upper back B) - Skin, right mid arm C) - Skin, right ventral FA 9 1:39 PM [facility] DERMATOPATHOLOGY [facility]ORATORY Final Diagnosis Specimen A. SKIN, right upper back: ACANTHOSIS AND HYPERKERATOSIS (L98.8) (see microscopic description and comment) Specimen B. SKIN, right mid arm: HYPERPLASTIC (HYPERTROPHIC) ACTINIC KERATOSIS (L57.0) EPIDERMAL NECROSIS SUGGESTIVE OF EXCORIATION (L98.499) Specimen C. SKIN, right ventral FA: ACTINIC KERATOSIS, LICHENOID (L57.0) 9 1:39 PM [facility] DERMATOPATHOLOGY LABORATORY Clinical History A: DF R/O atypia. B-C: R/O NMSC. 9 1:39 PM [facility] DERMATOPATHOLOGY [facility]ORATORY Gross Description Specimen A: Received is one formalin filled container labeled with the patient's name and designated right upper back. The specimen consists of a shave measuring [id number]. Jar 0. Specimen B: Received is one formalin filled container labeled with the patient's name and designated right mid arm. The specimen consists of a shave measuring [id number]. Jar 0. Specimen C: Received is one formalin filled container labeled with the patient's name and designated right ventral FA. The specimen consists of a shave measuring [id number]. Jar 0. 9 1:39 PM [facility] DERMATOPATHOLOGY [facility]ORATORY Microscopic Description Specimen A. SKIN, [...] some basal vacuolar alteration. 9 1:39 PM [facility] DERMATOPATHOLOGY [facility]ORATORY Disclaimer An external and internal positive and negative controls are appropriate for the histochemical, immunohistochemical and immunofluorescence stain(s) in this case (if any), except where stated explicitly. The performance characteristics of the stain(s) cited in this report were developed and its performance characteristic determined by the Dermatopathology Laboratory at [facility], directed by Dr. Jose Delacruz. These tests need not be, and therefore are not, approved by the [place] Food and Drug Administration. The tests are used for clinical purposes. Billing Codes Specimen Charges Stain Charges 39116 64989 58557 1 1 1 9 1:39 PM [facility] DERMATOPATHOLOGY LABORATORY Embedded Images 1:39 PM [facility] DERMATOPATHOLOGY [facility]ORATORY Pathology/Cytology TISSUE SPECIMEN FROM SKIN / Unknown 05/20/2019 05/21/2019 5:39 AM [facility] Miscellaneous samples (specimen) TISSUE SPECIMEN FROM SKIN / Unknown 05/20/2019 05/21/2019 5:39 AM SIGN SHOP SUPERVISOR Miscellaneous samples (specimen) TISSUE SPECIMEN FROM SKIN / Unknown 05/20/2019 05/21/2019 5:39 AM SIGN SHOP SUPERVISOR Elise Aguilar DO LAB - PATHOLOGY/C YTOLOGY ORDERABLES DERMATOPATHOLOGY LABORATORY [facility] - Department of Dermatology [address] [place] [address], 5th Floor Lab B [address] [phone] documented in this encounter Visit Diagnoses Not on filedocumented in this encounter Care Teams Guest History Clerk Relationship Specialty Start Date End Date Kari Leblanc MD [address] [place], [place] [phone] PCP - General Gastroenterology 09/13/15 08/28/24 Yves Boyer MD [address] [place] [address] PCP - General Family Medicine 08/29/24 documented as of this encounter
--- OUTSIDE RECORDS SUMMARY | 2024-09-08 09:14 | XMS_ITS | Data Portability ---
Author Organization [facility] FRANCISCOBetty Ordoñez Address [address] [place] [address] Care Team Providers Care Activities Attendant Name Role Phone KARI RODRIGUEZ Primary Care Provider Assessment No assessment recorded. Plan of Treatment Reminders Order Date Submit Date Provider Last Modified By Organization Details Last Modified Time Details Appointments None recorded. 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 Denies being exposed to pos COVID person. [place] 100. 2019 020 [facility] (Lab), [address] [place], [address], 0 11:50:43 CBC 2015 016 [place] [address] [facility], [address] [place] [address], [facility] [address], [place], [address], 6 11:18:52 CMP, serum or plasma 2015 016 KENT [facility], [facility], [address], [place], [address], 6 02:34:45 lipid panel, serum 2015 016 [place] [address] [facility], [address] [place] [address], [address], [place], [address], 6 11:18:52 Referral pulmonolog ist referral 03/08/ 2016 03/08/2 016 [email or web address] Not available 6 09:28:41 neurosurge ry referral 2015 016 HAI Not available 6 10:06:46 ophthalmol ogist referral - Glaucoma 2015 016 [email or web address] Vinod Gaston MD, [address], [address], 6 09:27:44 Procedures None recorded. Surgeries None recorded. Imaging None recorded. Medication Orders cetirizine 10 mg tablet 2015 016 INTERFACE [facility] #[id number], [address], [place], [place], [id number], 6 12:26:18 hydrocodon e 5 mg-acetami nophen 325 mg tablet [address] [facility]58, [address], [id number], 6 11:18:52 fluticason e propionate 50 mcg/actuat ion nasal spray,susp ension [address] [facility]61518, [address] [place], [id number], 6 11:18:52 amlodipine 10 mg tablet [address] [facility]59059, [address], [id number], 6 11:18:52 amoxicilli n 875 mg-potassi um clavulanat e 125 mg tablet 2015 016 [email or web address] [facility] #67905, [address], [id number], 6 12:08:54 hydrocodon e 5 mg-acetami nophen 325 mg tablet [address] [facility]25546, [address] , [place], [place], [id number], 6 11:14:30 Patient TargetsNo targets recorded. Patient Instructions Encounter Date Encounter Id Patient Instructions Last Modified By Organization Details Last Modified Time 12/16/2019 [id number] Reviewed the following recommendations: -Stay home and [...] Not available 12/16/2019 13:00:39 Reason for Referral Cardiovascular Disease Specialist Referral for Glaucoma Glaucoma Glaucoma Referring Physician: Kari Rodriguez, Internal Medicine, Encounter Date: 09/07/2015 Safety Tech Referral for A sta asthma/COPD Referring Physician: [...] KRISTY CONSU LTATI ON, PLEAS E CALL . ===== ===== ===== ===== ===== ===== ===== ===== ===== ===== ===== ===== ===== === Not Available [facility] [address], [place], [address], 10/30/2015 15:13:23 10/22/19 16 10/30/2015 drug scree n, urine pdf . Not Available [facility] [address], [place], [address], 10/30/2015 15:13:23 02/08/20 16 02/09/2016 LDL, direc t, serum direct LDL 150 mg/dL <130 high Ro able range <100 mg/dL for patie nts with CHD or diabe kris and <70 mg/dL for diabe tic patie nts with known heart disea se. Not Available [address] [place], [address], 02/09/2016 02:34:43 02/08/20 16 02/09/2016 desire stero l, total , serum cholesterol, total 230 mg/dL 125-20 0 high Not Available [facility] [address], [address], 02/09/2016 02:34:44 02/08/20 16 02/09/2016 trigl yceri lissette, serum triglyceride s 128 mg/dL <150 normal Not Available [address], [address], 02/09/2016 02:34:44 02/08/20 16 02/09/2016 CMP, serum or plasm a glucose 98 mg/dL 65-99 normal Fasti ng refer ence inter rolanda Not Available [address], [address], 02/09/2016 02:34:44 02/08/20 16 02/09/2016 CMP, serum or plasm a urea nitrogen (BUN) 15 mg/dL 7-25 normal Not Available [facility] [address], [address], 02/09/2016 02:34:44 02/08/2002/09/2016 CMP, serum or plasm a creatinine 0.74 mg/dL 0.50-1 .05 normal For patie nts >49 years of age, the refer ence limit for Creat inine is appro ximat hollis 13% highe r for peopl e ident ified as Afric an-Am julian n. Not Available [facility] [address], [address], 02/09/2016 02:34:44 02/08/20 16 02/09/2016 CMP, serum or plasm a eGFR non-afr. bruneian 94 mL/mi n/1.7 3m2 > or = 60 normal Not Available [address], [address], 02/09/2016 02:34:44 02/08/20 16 02/09/2016 CMP, serum or plasm a eGFR 109 mL/mi n/1.7 3m2 > or = 60 normal Not Available [address], [address], 02/09/2016 02:34:44 02/08/2002/09/2016 CMP, serum or plasm a BUN/creatini ne ratio NOT APPLIC ABLE (calc ) 6-22 Not Available [address], [address], 02/09/2016 02:34:44 02/08/20 16 02/09/2016 CMP, serum or plasm a sodium 145 mmol/ L 135-14 6 normal Not Available [address], [address], 02/09/2016 02:34:44 02/08/20 16 02/09/2016 CMP, serum or plasm a potassium 4.3 mmol/ L 3.5-5. 3 normal Not Available [address], [address], 02/09/2016 02:34:44 02/08/2002/09/2016 CMP, serum or plasm a chloride 102 mmol/ L 98-110 normal Not Available [facility] [address], [address], 02/09/2016 02:34:44 02/08/2002/09/2016 CMP, serum or plasm a carbon dioxide 28 mmol/ L 20-31 normal Not Available [address], [address], 02/09/2016 02:34:44 02/08/20 16 02/09/2016 CMP, serum or plasm a calcium 10.2 mg/dL 8.6-10 .4 normal Not Available [address], [address], 02/09/2016 02:34:44 02/08/2002/09/2016 CMP, serum or plasm a protein, total 7.0 g/dL 6.1-8. 1 normal Not Available [address], [address], 02/09/2016 02:34:44 02/08/2002/09/2016 CMP, serum or plasm a albumin 4.4 g/dL 3.6-5. 1 normal Not Available [address], [address], 02/09/2016 02:34:44 02/08/20 16 02/09/2016 CMP, serum or plasm a globulin 2.6 g/dL_ (calc ) 1.9-3. 7 normal Not Available [address], [address], 02/09/2016 02:34:44 02/08/20 16 02/09/2016 CMP, serum or plasm a albumin/glob ulin ratio 1.7 (calc ) 1.0-2. 5 normal Not Available [address], [address], 02/09/2016 02:34:44 02/08/2002/09/2016 CMP, serum or plasm a bilirubin, total 0.4 mg/dL 0.2-1. 2 normal Not Available [address], [address], 02/09/2016 02:34:44 02/08/2002/09/2016 CMP, serum or plasm a alkaline phosphatase 84 U/L 33-130 normal Not Available [address], [address], 02/09/2016 02:34:44 02/08/20 16 02/09/2016 CMP, serum or plasm a AST 24 U/L 10-35 normal Not Available [address], [address], 02/09/2016 02:34:44 02/08/2002/09/2016 CMP, serum or plasm a ALT 41 U/L 6-29 high Not Available [address], [address], 02/09/2016 02:34:44 02/08/2002/09/2016 HDL desire stero l, serum HDL cholesterol 54 mg/dL > or = 46 normal Not Available [address], [address], 02/09/2016 02:34:45 02/08/2002/09/2016 CBC w/ auto diff white blood cell count 5.7 thous and/u L 3.8-10 .8 normal Not Available [address], [address], 02/09/2016 02:34:45 02/08/20 16 02/09/2016 CBC w/ auto diff red blood cell count 5.27 cynthia on/uL 3.80-5 .10 high Not Available [address], [address], 02/09/2016 02:34:45 02/08/2002/09/2016 CBC w/ auto diff hemoglobin 15.4 g/dL 11.7-1 5.5 normal Not Available [address], [address], 02/09/2016 02:34:45 02/08/2002/09/2016 CBC w/ auto diff hematocrit 47.4 % 35.0-4 5.0 high Not Available [address], [address], 02/09/2016 02:34:45 02/08/20 16 02/09/2016 CBC w/ auto diff MCV 90.1 fL 80.0-1 00.0 normal Not Available [address], [address], 02/09/2016 02:34:45 02/08/2002/09/2016 CBC w/ auto diff MCH 29.3 pg 27.0-3 3.0 normal Not Available [address], [address], 02/09/2016 02:34:45 02/08/2002/09/2016 CBC w/ auto diff MCHC 32.5 g/dL 32.0-3 6.0 normal Not Available [address], [address], 02/09/2016 02:34:45 02/08/2002/09/2016 CBC w/ auto diff RDW 13.7 % 11.0-1 5.0 normal Not Available [address], [address], 02/09/2016 02:34:45 02/08/2002/09/2016 CBC w/ auto diff platelet count 199 thous and/u L 140-40 0 normal Not Available [address], [address], 02/09/2016 02:34:45 02/08/2002/09/2016 CBC w/ auto diff MPV 9.3 fL 7.5-11 .5 normal Not Available [address], [address], 02/09/2016 02:34:45 02/08/2002/09/2016 CBC w/ auto diff absolute neutrophils 3380 cells /uL 1500-7 800 normal Not Available [place] [address] [place], [address], 02/09/2016 02:34:45 02/08/2002/09/2016 CBC w/ auto diff absolute lymphocytes 1813 cells /uL 850-39 00 normal Not Available [address] [address] [place], [address], 02/09/2016 02:34:45 02/08/2002/09/2016 CBC w/ auto diff absolute monocytes 376 cells /uL 200-95 0 normal Not Available [facility] [place] [address] [place], [address], 02/09/2016 02:34:45 02/08/2002/09/2016 CBC w/ auto diff absolute eosinophils 97 cells /uL 15-500 normal Not Available [address] [place], [address], 02/09/2016 02:34:45 02/08/2002/09/2016 CBC w/ auto diff absolute basophils 34 cells /uL 0-200 normal Not Available [place] [address] [place], [address], 02/09/2016 02:34:45 02/08/2002/09/2016 CBC w/ auto diff neutrophils 59.3 % normal Not Available [address] [address] [place], [address], 02/09/2016 02:34:45 02/08/2002/09/2016 CBC w/ auto diff lymphocytes 31.8 % normal Not Available [facility] [place] [address] [address] [place], [address], 02/09/2016 02:34:45 02/08/2002/09/2016 CBC w/ auto diff monocytes 6.6 % normal Not Available [facility] [place] [address] [address] [place], [address], 02/09/2016 02:34:45 02/08/2002/09/2016 CBC w/ auto diff eosinophils 1.7 % normal Not Available [facility] [address] [place], [address], 02/09/2016 02:34:45 02/08/20 16 02/09/2016 CBC w/ auto diff basophils 0.6 % normal Not Available [facility] [address] [place], [address], 02/09/2016 02:34:45 12/16/19 20 12/16/2019 SARS CoV 2 RNA (COVI D-19) , QL, 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 Not Available 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 Not Available 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 Not Available 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 Not Available 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 This testi ng was perfo [facility]med in the [facility] [place] [place] [address] (CLIA Licen se #[id number] 53414 5, CAP #[id number], AU-ID #[id number]). Not Available 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 (Lab) [address] [place], [address], 12/30/2019 11:08:51 10/27/19 16 10/27/2015 MRI cervi kristy spine wwo FABY COY JAMAL LAL 7613 ADMIT/ SERVIC E DATE: ACCT: [id number] DISCHA RGE DATE: : 1964 SEX: F [facility]: REG CLI ORDERAviva BURROUGHS MD: DEEJAY RODRIGUEZ ND, MD STUDY DATE REPORT # ORDER # EXT ORDER ID [id number] 3.001 PROC CODE: CSPW+W OC PROCED URE [...] T AND WITH CONTRA ST. ACCESS ION: [id number] EXAM DATE/T MARIIA: 016 5:56 PM CLINIC [...] IS. T1-2 LEVEL: RIGHT PARACE NTRAL PROTRU DERICK T1-2 DISC. NO SIGNIF ICANT CANAL STENOS IS. NO CORD COMPRE SSION. ELECTR ONICAL LY SIGNED BY: THERESA ROSSI ER10/26 7:28 PM [email or web address] [facility], [place], [address], 12/07/2015 11:56:44 10/27/19 16 10/27/2015 MRI lumba r spine wwo JASWINDER Gao,FABY LAL 7613 ADMIT/ SERVIC E DATE: ACCT: [id number] DISCHA RGE DATE: : 1964 SEX: F ORD SITE: [facility] PT TYPE: REG CLI ORDERAviva BURROUGHS MD: DEEJAY RODRIGUEZ ND, MD STUDY DATE REPORT # ORDER # EXT ORDER ID [id number] 4.001 PROC CODE: LSPW+W OC PROCED URE [...] AND WITHOU T CONTRA ST ACCESS ION: [id number] EXAM DATE/T MARIIA: 016 5:56 PM CLINIC [...] JOINT DISEAS E, AND SOME PROMIN ENT COMMUTATOR TESTER IOR CANAL EPIDUR AL FAT. NO SIGNIF ICANT FORAMI NAL STENOS IS AT THIS LEVEL. MODERA TE CANAL STENOS IS L4-5 LEVEL DUE TO COMMUTATOR TESTER IOR BONY BAR AND FACET JOINT DISEAS [...] SIGNED BY: THERESA ROSSI ER10/26 7:36 PM [email or web address] [facility] [address], [place], [address], 12/07/2015 11:57:16 Result Notes None recorded. Problems Name Problem SNOMED Code Status Onset Date Resolution Date Notes Provider Name and Address Organization Details Recorded Time Asthma 303617694 Active Kari Rodriguez MD Attn: Alcira lemus,[address] [facility], [place], [place], [address] [place] [address] 2, [place] - [facility] 6 15:11:01 Essential hypertension 07085256 Active Kari Rodriguez MD Attn: Alcira lemus,[address] [place], [place], [address] [place] [address], [place] [facility] 6 11:18:51 Gastroesophage al reflux disease 389646399 Active Kari Rodriguez MD Attn: Alcira lemus,[address] [place], [place], [address] [place] [address] 2, [place] [facility] 6 12:17:03 Osteoarthritis 784784599 Active Kari Rodriguez MD Attn: Alcira lemus,[address] [facility], [place], [place], [address] [place] [address] 2, [place] [facility] 6 11:18:52 Venous insufficiency of leg 304409274 Active Kari Rodriguez MD Attn: Alcira lemus,[address] [facility], [place], [address], [place] [facility] 6 12:17:03 Glaucoma 06863050 Active Jen Cardenas LPN null, [place] [facility] 6 10:19:57 Multiple joint pain 04895157 Active Kim Peña LPN [place], [place] [facility] 6 12:11:53 Allergic rhinitis 83046414 Active Kari Rodriguez MD Attn: Alcira lemus,[address] [facility], [place], [address], [place] [facility] 6 11:18:51 Obesity 221836908 Active Kari Rodriguez MD Attn: Ricardodulce lemus,[address] [facility], [place], [address], [place] [facility] 6 12:17:03 Neck pain 61826582 Active Kari Rodriguez MD Attn: Alcira lemus,[address] [facility], [place], [address], [place] [facility] 6 11:14:30 Sinusitis 32215747 Active Kari Rodriguez MD Attn: Alcira lemus,[address] [facility], [place], [address], [place] [facility] 6 15:11:01 Chronic obstructive pulmonary disease 09829519 Active Kari Rodriguez MD Attn: Ricardodulce lemus,[address] [facility], [place], [address], [place] [facility] 6 11:18:51 Hypoxia 273814735 Active Kari Rodriguez MD Attn: Alcira lemus,[address] [facility], [place], [address], [place] [facility] 6 15:11:01 Spinal stenosis 43114782 Active Kari Rodriguez MD Attn: Ricardodulce lemus,[address] [facility], [place], [address], [place] [facility] 6 11:18:52 Problem Notes None recorded. Procedures Surgical History Date Name Laterality Status Provider Name and Address Organization Details Recorded Time 07/02/19 15 Eye Surgery completed Kari Rodriguez MD Attn: Accounting,[address] [facility], [place], [address], [place] [facility] 07/08/2015 11:43:51 07/02/19 09 Other completed Kari Rodriguez MD Attn: Accounting,[address] [facility], [place], [address], [facility] 07/08/2015 11:38:19 07/02/18 98 Cholecystectomy completed Kari Rodriguez MD Attn: Accounting,[address] , [place], [address], [facility] 07/08/2015 11:38:19 Tubal Ligation completed Ankur Hassan MA [facility] 07/08/2015 11:15:31 Hysterectomy completed Ankur Hassan MA [facility] 07/08/2015 11:15:31 Imaging Results Imaging Date Name Status LastModified by Organiz ation Details LastModified Time 10/27/2015 MRI cervical spine wwo completed [address], [address], 12/07/2015 11:56:44 10/27/2015 MRI lumbar spine wwo completed [address], [address], 12/07/2015 11:57:16 Procedure Notes None recorded. Medical [...] [degF] 39.4 kg/m2 80 /min 167.64 cm 189071. 66941 g 126 mm[Hg] 80 mm[Hg] [facility] 6 10:11:47 Date Recorded Body height Body mass index (BMI) Oxygen saturation Oxygen saturation in Arterial blood by Pulse oximetry Body temperature Heart rate Body weight Systolic blood pressure Diastolic blood pressure Provider Name and Address Organization Details Last Updated DateTime 6 167.64 cm 38.4 kg/m2 91 % 91 % 98.3 [degF] 89 /min 332201. 08291 g 122 mm[Hg] 84 mm[Hg] Ella Ibarra MA [facility] 6 14:43:45 Date Recorded Body weight Body height Body mass index (BMI) Body temperature Systolic blood pressure Diastolic blood pressure Provider Name and Address Organization Details Last Updated DateTime 6 643914. 05796 g 167.64 cm 37.8 kg/m2 98 [degF] 144 mm[Hg] 76 mm[Hg] Ella Ibarra MA [facility] 6 10:35:14 Date Recorded Body height Body weight Body mass index (BMI) Heart rate Body temperature Oxygen saturation Oxygen saturation in Arterial blood by Pulse oximetry Systolic blood pressure Diastolic blood pressure Provider Name and Address Organization Details Last Updated DateTime 6 167.64 cm 930224. 13 g 39.5 kg/m2 85 /min 98.2 [degF] 93 % 93 % 140 mm[Hg] 84 mm[Hg] Andrew NielsOLGA [place] - [facility] 6 12:08:16 Social History None recorded. Functional Status None recorded. Mental Status None recorded. Family History Relationship Description Onset Age of this Age Resolved Age Notes LastModified by Organization Details LastModified Time Mother Diabetes mellitus [email or web address] Not available 2015 11:39:59 Mother Hypertensive disorder [email or web address] Not available 2015 11:39:59 Mother Hypercholest erolemia [email or web address] Not available 2015 11:39:59 Father Malignant tumor of lung 2013 [email or web address] Not available 2015 11:39:59 Medical History Condition [...] SNOMED-CT Code Diagnosis ICD10 Code Diagnosis Note [id number] Maria Victoria Odenfernando Barba (Adult Med) [address] [place] [address] 07/08/2015 10:32:47 07/08/2015 18:08:53 Asthma 162730372 J45.909 Essential hypertension 65560104 I10 Gastroesop hageal reflux disease 059769417 K21.9 Osteoarthritis 807436917 M19.90 Venous ins ufficiency of leg 373803660 I87.2 Glaucoma 68849651 H40.9 Multiple joint pain 3567 8005 M25.50 Neck and back pain. Had been referred to Allergic rhinitis 999605 04 J30.9 Obesity 030089466 E66.9 [id number] Kandy aBrba (Adult Med) [address] [place] [address] 09/07/2015 09:38:45 09/07/2015 11:16:40 Asthma 316413402 J45.909 Neck pain 57557861 M54.2 Glaucoma 66571141 H40.9 [id number] Kandy green Freda (Adult Med) [address] [place] [address] 12/22/2015 14:19:21 12/22/2015 18:06:27 Sinusitis 95542501 J32.9 Essential hypertension 01371701 I10 Asthma 301795188 J45.90 9 Allergic rhinitis 904404 04 J30.9 Chronic ob structive pulmonary disease 71110262 J44.9 Hypoxia 109349088 G47.34 Long-term oxygen therapy 251336045 Z99.81 [id number] Ankur Ivan Barba (Adult Med) [address] [place] [address] 01/11/2016 09:46:45 01/12/2016 09:56:55 Chronic obstructive pulmonary disease 15969332 J44.9 Pt to call pulmonolog ist for further management . Essential hypertension 50286764 I10 Allergic rhinitis 107697 04 J30.9 Spinal stenosis 15971977 M48.00 Osteoarthritis 317864671 M19.90 Medication monitoring 39 0158962 Z51.81 [id number] MD Freda Vazquez (Adult Med) [address] [place] [address] 06/22/2016 11:51:42 06/22/2016 12:27:47 Allergic rhinitis 66676336 J30.9 Chronic ob structive pulmonary disease 67949138 J44.9 [id number] NII [facility] [address] [place] [address] 12/16/2019 11:57:01 12/17/2019 14:53:23 Suspected COVID-19 565726659 Z03.818 D/w pt the current pandemic of COVID-19 and call for social isolation in order to blunt the curve and minimize risk and spread. Encouraged patient and family to take restrictio ns seriously. They have verbalized understand ing of such. Viral syndrome 084981767 B34.9 Coronavirus infection 18 2704371 B34.2 Health Concerns Section Related Observation LastModified by Organization Detai ls LastModified Time None Recorded Concern Status LastModified by Organization Details LastModified Time None Recorded Advance Directives Directive None Recorded Payers Encounter Date Sequence Insurance Name Policy Number Policy Hutchinson Covered Member ID Hutchinson Member ID Guarantor Name 09/07/2015 1 [facility] [place] [facility] [place] [id number] Autumn Vicentedouglas [id number] Autumn Eli 12/22/2015 1 [facility] [place] [facility] [place] [facility] [place] [id number] Autumn Hayesler [id number] Autumn Eli 01/11/2016 1 [facility] [place] [facility] [place] [facility] [id number] Autumn Hayesler [id number] Autumn Eli 06/22/2016 1 [facility] [place] [id number] Autumn Hayesler [id number] Autumn Eli 12/16/2019 1 [place] [id number] Autumn Kedouglas [id number] Autumn Kedouglas Notes Date Note Type Note Provider Name and Address Organization Details Recorded Time 09/07/2015 text/html Has found a list neurosurgeons re her neck pain. Noticed a sore on the inner lip. Kari Rodriguez MD Attn: Accounting,[address] [place], [address], [facility] 09/07/2015 11:14:38 12/22/2015 text/html raad congestion, frontal headache, minimal cough production for 3 days. No nasal drainage. Has increased nebulizer use. O2 sat 72% when first checked in office. >90% on RA after resting awhile. Uses home O2 at night. Kari Rodriguez MD Attn: Accounting,[address] [place], [address], [facility] 12/22/2015 15:11:24 01/11/2016 text/html Has had au URI s job last visit. Was given tapering prednisone by pulmonary, and had CXR. Feels tired. Has been seen by NS. NSAID changed to Diclofenac but does not offer relief. Kari Rodriguez MD Attn: Accounting,[address] [place], [address], [facility] 01/11/2016 11:19:03 06/22/2016 text/html Upper respirator y sx in past few days. Prescribed azithromycin and prednisone from solar sales assessor Kari Rodriguez MD Attn: Accounting,[address] [facility], [place], [address], [facility] 06/22/2016 12:26:20 12/16/2019 text/html COVID ScreeningReported bypatient.Onset/Durati [...] person. NII Fuchs NP Attn: Accounting,[address] [facility], [place], [address], [facility] 12/16/2019 13:01:15 OBGyn Episode No OBEpisode recorded.
[2024-09-08 09:37] LABS: Alanine Aminotransferase 46 U/L (6-35); Aspartate Amino Transferase 32 U/L (14-36)
== END 2024-09-08 08:39 | disposition home or self-care (01) ==
LOC: ANHLAB 08:39
PROVIDERS: PCP Family Medicine; Visit Provider Podiatrist Foot & Ankle Surgery
DX: B35.1 Tinea unguium (principal)
CPT/HCPCS: 36415; 84450; 84460

== ENCOUNTER 2024-12-03 10:13 | Outpatient (CLI) | payer MEDICARE, OTHER, SELFPAY ==
--- NOTE | ~2024-12-03 | CT_ITS ---
CT Scan of the Chest without Contrast: Clinical Indication: Pulmonary nodule Technique: Contiguous sections were acquired throughout the chest without intravenous contrast. Dose reduction technique was used on this scan by utilizing automated exposure control and iterative recon struction technique. The dose-length product (DLP) was 567.70 mGy-cm. COMPARISON: 06/18/2024 Findings: There is no evidence of any significant mediastinal, hilar or axillary lymphadenopathy. The mediastin al soft tissues appear normal. There is no evidence of pleural or pericardial effusion. Stable right apical scarring. Moderate to advanced emphysema present. Stable 5 mm nodule at the infer ior right upper lobe (axial image 65). Stable 3 mm nodule at the left lower lobe. 3 mm left upper lob e present (axial image 54). Additional 3 mm left upper lobe nodule present (axial image 47).. Images through the upper abdomen reveal no abnormalities. Impression: Subcentimeter pulmonary nodules, as detailed above. 2 left upper lobe nodules are new from prior exam . These are still most likely benign and infectious/inflammatory in nature. Additional follow-up exam in 6-12 months should be considered given the presence of new nodules. Moderate to advanced emphysema. Reviewed, dictated and finalized at [facility]. Impression: Subcentimeter pulmonary nodules, as detailed above. 2 left upper lobe nodules a re new from prior exam. These are still most likely benign and infectious/infla mmatory in nature. Additional follow-up exam in 6-12 months should be considere d given the presence of new nodules. Moderate to advanced emphysema.
--- OUTSIDE RECORDS SUMMARY | 2024-12-03 10:23 | XMS_ITS | Clinical Summary ---
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
== END 2024-12-03 10:14 | disposition home or self-care (01) ==
PROVIDERS: PCP Family Medicine; Visit Provider Physician Assistant
DX: R91.8 Other nonspecific abnormal finding of lung field (principal)
CPT/HCPCS: 71250

== ENCOUNTER 2025-02-16 15:17 | Outpatient (CLI) | payer MEDICARE, OTHER, SELFPAY ==
--- NOTE | ~2025-02-16 | XR_ITS ---
[id number] 02/16/2025 15:51 Indication: Left knee pain Procedure: 2 views left knee Comparison: No prior studies for comparison. Findings: No fracture, subluxation or dislocation. Mild osteoarthritis of the left knee. No significa nt joint effusion. No foreign bodies. Impression: 1: Mild osteoarthritis of the left knee. 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 Impression: 1: Mild osteoarthritis of the left knee.
--- OUTSIDE RECORDS SUMMARY | 2025-02-16 16:01 | XMS_ITS | Clinical Summary ---
Author Organization [facility] Care Team Providers Care Travel Clerk Name Role Phone Unavailable Primary Care Provider Unavailabl e Social History Tobacco Use Types Packs/Day Years Used Date Smoking Tobacco: Never Assessed Comments Unknown Sex and Gender Information Value Date Recorded Sex Assigned at Not on file Legal Sex Female 8:37 AM SOCIAL SECURITY ASSESSOR Gender Identity Not on file Sexual Orientation Not on file Plan of Treatment Health Maintenance Due Date Last Done Comments Hepatitis C Virus (HCV) Screening 1965 TdaP Immunization 1965 Pap Smear 1986 Cervical Cancer Screening (CCS) 1995 HPV/Cotest 1995 Cologuard 2010 Colonoscopy 2010 Colorectal Cancer Screening 2010 Immunochemical Fecal Occult Blood 2010 Pneumococcal Immunization (5 0+ years) (1 of 1 - PCV) 2015 Zoster Immunization (1 of 2) 2015 SARS-COV-2 Immunization ( - season) 2024 10/01/2020, 09/10/2020 Influenza Immunization (#1) 2025 06/30/2019 Respiratory Syncytial Virus (RSV) Immunization (Adult) (1 - 1-dose 75+ series) 01/21/2040 Hepatitis B Immunization Aged Out No longer eligible based on patient's age to complete this topic Human Papillomavirus (HPV) Immunization Aged Out No longer eligible b ased on patient's age to complete this topic Meningococcal Immunization (ACWY) Aged Out No longer eligible b ased on patient's age to complete this topic Rotavirus Immunization Aged Out No lo nger eligible based on patient's age to complete this topic
== END 2025-02-16 15:18 | disposition home or self-care (01) ==
PROVIDERS: PCP Family Medicine
DX: M17.12 Unilateral primary osteoarthritis, left knee (principal)
CPT/HCPCS: 73560

== ENCOUNTER 2025-04-20 09:26 | Outpatient (CLI) | payer MEDICARE, OTHER, SELFPAY ==
--- OUTSIDE RECORDS SUMMARY | 2025-04-20 10:37 | XMS_ITS | Encounter Summary ---
Author Organization [facility] Address [address] [place] [address] Care Team Providers Care Door Serviceman Name Role Phone Kari Leblanc MD Primary Care Provider [phone] Yves Boyer MD Primary Care Provider [phone] Encounter Details Date Type Department Care Team (Late st Contact Info) Description 05/21/2019 Lab Requisition [facility] [address] [facility], [facility] [place] [id number] Elise Aguilar, DO [address] [facility] 3 [place] [address] Social History Tobacco Use Types Packs/Day Years Used Date Smoking Tobacco: Never Alcohol Use Standard Drinks/Week Comments Not Asked 0 (1 standard drink = 0.6 oz pur e alcohol) Comments Unknown Sex and Gender Information Value Date Recorded Sex Assigned at Female 08/22/2024 9:37 AM PARAPROFESSIONAL INTERPRETER Legal Sex Female 6:31 AM PARAPROFESSIONAL INTERPRETER Gender Identity Female 08/22/2024 9:37 AM PARAPROFESSIONAL INTERPRETER Sexual Orientation Choose not to disclose 2024 9:37 AM PARAPROFESSIONAL INTERPRETER 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 Not on file Not on file Not on file documented as of this encounter Plan of Treatment Not on file documented as of this encounter Procedures Procedure Name Priority Date/Time Associated Diagnosis Comments DERMATOPATHOLOGY Routine 05/20/2019 12:0 0 AM PARAPROFESSIONAL INTERPRETER documented in this encounter Results * DERMATOPATHOLOGY (05/20/2019 12:00 AM [facility] Case Report Dermatopathology Report Case: [id number] Authorizing Provider: Elise Aguilar DO Collected: 05/20/2019 12:00 AM Ordering Location: [facility] Lab Received: 05/21/2019 05:39 AM Pathologist: Gucci Delacruz MD Specimens: A) - Skin, right upper back B) - Skin, right mid arm C) - Skin, right ventral FA 9 1:39 PM [facility] Final Diagnosis Specimen A. SKIN, right upper back: ACANTHOSIS AND HYPERKERATOSIS (L98.8) (see microscopic description and comment) Specimen B. SKIN, right mid arm: HYPERPLASTIC (HYPERTROPHIC) ACTINIC KERATOSIS (L57.0) EPIDERMAL NECROSIS SUGGESTIVE OF EXCORIATION (L98.499) Specimen C. SKIN, right ventral FA: ACTINIC KERATOSIS, LICHENOID (L57.0) 9 1:39 PM [facility] D[facility]ATORY at 1339 PARAPROFESSIONAL INTERPRETER Clinical History A: DF R/O atypia. B-C: R/O NMSC. 9 1:39 PM [facility] Gross Description Specimen A: Received is one formalin filled container labeled with the patient's name and designated right upper back. The specimen consists of a shave measuring [id number]. Jar 0. Specimen B: Received is one formalin filled container labeled with the patient's name and designated right mid arm. The specimen consists of a shave measuring 7l3m2cv. Jar 0. Specimen C: Received is one formalin filled container labeled with the patient's name and designated right ventral FA. The specimen consists of a shave measuring [id number]. Jar 0. 9 1:39 PM [facility] Microscopic Description Specimen A. SKIN, [...] some basal vacuolar alteration. 9 1:39 PM [facility] D[facility]ORY Disclaimer An external and internal positive and negative controls are appropriate for the histochemical, immunohistochemical and immunofluorescence stain(s) in this case (if any), except where stated explicitly. The performance characteristics of the stain(s) cited in this report were developed and its performance characteristic determined by the Dermatopathology Laboratory at [facility], directed by Dr. Jose Delacruz. These tests need not be, and therefore are not, approved by the [place] Food and Drug Administration. The tests are used for clinical purposes. Billing Codes Specimen Charges Stain Charges 31963 13754 02403 1 1 1 9 1:39 PM PARAPROFESSIONAL INTERPRETER DERMATOPATHOLOGY LABORATORY Embedded Images 9 1:39 PM PARAPROFESSIONAL INTERPRETER DERMATOPATHOLOGY LABORATORY Pathology/Cytology TISSUE SPECIMEN FROM SKIN / Unknown 05/20/2019 05/21/2019 5:39 AM PARAPROFESSIONAL INTERPRETER Miscellaneous samples (specimen) TISSUE SPECIMEN FROM SKIN / Unknown 05/20/2019 05/21/2019 5:39 AM PARAPROFESSIONAL INTERPRETER Miscellaneous samples (specimen) TISSUE SPECIMEN FROM SKIN / Unknown 05/20/2019 05/21/2019 5:39 AM PARAPROFESSIONAL INTERPRETER us Elise Aguilar DO LAB - PATHOLOGY/CYTOLOGY ORDERABLES Final Result DERMATOPATHOLOGY LABORATORY [facility] - Department of Dermatology [address] [facility], [address]th [place] [address], [facility] [phone] documented in this encounter Visit Diagnoses Not on filedocumented in this encounter Care Teams Door Serviceman Relationship Specialty [place] [address] [place] [phone] PCP - General Gastroenterology 09/13/15 08/28/24 Yves Boyer MD [address] [facility] [address] [place] [address] PCP - General Family Medicine 08/29/24 documented as of this encounter
--- OUTSIDE RECORDS SUMMARY | 2025-04-20 10:37 | XMS_ITS | Encounter Summary ---
Author Organization [facility] Address [address] [facility] [place] [address] Care Team Providers Care Case Manager Name Role Phone Kari Leblanc MD Primary Care Provider [phone] Yves Boyer MD Primary Care Provider [phone] Encounter Details Date Type Department Care Team (Late st Contact Info) Description 04/25/2018 Lab Requisition [facility] [address] [facility], [facility] [place] [phone] Merissa Eisenberg MD [address] [facility] 3 [place] [address] Social History Tobacco Use Types Packs/Day Years Used Date Smoking Tobacco: Never Alcohol Use Standard Drinks/Week Comments Not Asked 0 (1 standard drink = 0.6 oz pur e alcohol) Comments Unknown Sex and Gender Information Value Date Recorded Sex Assigned at Female 08/22/2024 9:37 AM RUBY ON RAILS SOFTWARE DEVELOPER Legal Sex Female 6:31 AM RUBY ON RAILS SOFTWARE DEVELOPER Gender Identity Female 08/22/2024 9:37 AM RUBY ON RAILS SOFTWARE DEVELOPER Sexual Orientation Choose not to disclose 2024 9:37 AM RUBY ON RAILS SOFTWARE DEVELOPER 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 Not on file Not on file documented as of this encounter Plan of Treatment Not on file documented as of this encounter Procedures Procedure Name Priority Date/Time Associated Diagnosis Comments DERMATOPATH TECHNICAL REPORT Routine 04/23/2018 12:00 AM CDT documented in this encounter Results * DERMATOPATH TECHNICAL REPORT (04/23/2018 12:00 AM CDT) Case Report Dermatopathology Report Case: [id number] Authorizing Provider: Merissa Eisenberg MD Collected: 04/23/2018 12:00 AM Pathologist: Gucci Delacruz MD Received: 04/25/2018 06:46 AM Specimen: Skin, right boykin 5:54 PM CDT DERMATOPATHOLOGY LABORATORY Clinical History BCC. Non-healing. Check margins. 5:54 PM CDT DERMATOPATHOLOGY LABORATORY Gross Description Specimen A: Received is one formalin filled container labeled with the patient's name and designated right boykin. The specimen consists of a shave measuring [id number]. The margin is inked green. Jar 0. [facility] Dermatopathology Laboratory performed the technical [...] characteristic determined by the Dermatopathology Laboratory at [facility]. These tests need not be, and therefore are not, approved by the [place] Food and Drug Administration. The tests are used for clinical purposes. 5:54 PM CDT DERMATOPATHOLOGY LABORATORY at 1754 CDT Pathology/Cytolog y TISSUE SPECIMEN FROM SKIN / Unknown 04/23/2018 04/25/2018 6:46 AM CDT us Merissa Eisenberg MD LAB - PATHOLOGY/CYTOLOGY OR DERABLES Final Result DERMATOPATHOLOGY LABORATORY [facility] - Department of Dermatology [address] [facility], 5th [place] [address], [facility] [phone] documented in this encounter Visit Diagnoses Not on filedocumented in this encounter Care Teams Case Manager Relationship Specialty Start Date End Date Kari Leblanc MD [address] [place], [place] [phone] PCP - General Gastroenterology 09/13/15 08/28/24 Yves Boyer MD [address] [facility] [address] [place] [address] PCP - General Family Medicine 08/29/24 documented as of this encounter
--- OUTSIDE RECORDS SUMMARY | 2025-04-20 10:37 | XMS_ITS | Encounter Summary ---
Author Organization [facility] Address [address] [facility] [place] [address] Care Team Providers Care Stationary Engineer Supervisor Name Role Phone Kari Leblanc MD Primary Care Provider [phone] Yves Boyer MD Primary Care Provider [phone] Encounter Details Date Type Department Care Team (Late st Contact Info) Description 09/05/2023 Lab Requisition [facility] - DermPath Lab [address] [facility], [facility] [place] [address] Merissa Eisenberg MD [address] [facility] 3 [place] [address] Social History Tobacco Use Types Packs/Day Years Used Date Smoking Tobacco: Never Alcohol Use Standard Drinks/Week Comments Not Asked 0 (1 standard drink = 0.6 oz pur e alcohol) Comments Unknown Sex and Gender Information Value Date Recorded Sex Assigned at Female 08/22/2024 9:37 AM INDUSTRIAL GAS FITTER HELPER Legal Sex Female 6:31 AM INDUSTRIAL GAS FITTER HELPER Gender Identity Female 08/22/2024 9:37 AM INDUSTRIAL GAS FITTER HELPER Sexual Orientation Choose not to disclose 2024 9:37 AM INDUSTRIAL GAS FITTER HELPER 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 Not on file Not on file documented as of this encounter Plan of Treatment Not on file documented as of this encounter Procedures Procedure Name Priority Date/Time Associated Diagnosis Comments DERMATOPATHOLOGY Routine 09/05/2023 2:34 PM INDUSTRIAL GAS FITTER HELPER documented in this encounter Results * DERMATOPATHOLOGY (09/05/2023 2:34 PM INDUSTRIAL GAS FITTER HELPER) Case Report Dermatopathology Report Case: [id number] Authorizing Provider: Merissa Eisenberg MD Collected: 09/05/2023 02:34 PM Ordering Location: [facility] - Received: 09/06/2023 02:03 PM DermPath Lab Pathologist: Radha Aguilar MD Specimen: Skin, left lower lip 1:04 PM CDT DERMATOPATHOLOGY LABORATORY Final Diagnosis Specimen A. SKIN, left lower lip: ACTINIC CHEILITIS (L57.0) 1:04 PM CDT DERMATOPATHOLOGY LABORATORY at 1304 CDT Clinical History Growing Non Healing Painful R/O [...] characteristic determined by the Dermatopathology Laboratory at [facility], directed by Dr. Jose Delacruz. These tests need not be, and therefore are not, approved by the [place] Food and Drug Administration. The tests are used for clinical purposes. Billing Codes Specimen Charges Stain Charges 97148 1 1:04 PM CDT DERMATOPATHOLOGY LABORATORY Embedded Images 1:04 PM CDT DERMATOPATHOLOGY LABORATORY Pathology/Cytolo gy TISSUE SPECIMEN FROM SKIN / Unknown 09/05/2023 2:34 PM INDUSTRIAL GAS FITTER HELPER 09/06/2023 2:03 PM INDUSTRIAL GAS FITTER HELPER Merissa Eisenberg MD LAB - PATHOLOGY/CYTOLOGY OR DERABLES Final Result DERMATOPATHOLOGY LABORATORY [facility] - Department of Dermatology [facility] [address] [place] [address], [address] [phone] documented in this encounter Visit Diagnoses Not on filedocumented in this encounter Care Teams Stationary Engineer Supervisor Relationship Specialty Start Date End Date Kari Leblanc MD [address] [place], [place] [phone] PCP - General Gastroenterology 09/13/15 08/28/24 Yves Boyer MD [address] [place] [address] PCP - General Family Medicine 08/29/24 documented as of this encounter
--- OUTSIDE RECORDS SUMMARY | 2025-04-20 10:37 | XMS_ITS | Clinical Summary ---
Author Organization [facility] Address [address] [facility] [place] [address] Care Team Providers Care Hot Worker Name Role Phone Yves Boyer MD Primary Care Provider [phone] Source Comments [facility],non-owned Affiliates and Associated Physician Practices is amultiple site organization consisting of ambulatory clinics and hospital sitesin [place], [place], [place] and [place]. This disclosure is being madepursuant to the Care Everywhere program and may not contain all information available regarding this patient. Last updated 18.[facility] Allergies Active Allergy Reactions Criticality Noted Date Comments Codeine Nausea and/or Vomiting 08/29/2024 Medications * Be aware that medications may not be up to date on this document. Alwaysverify current medications with the patient. amLODIPine (NORVASC) 10 MG tablet Take 1 (one) tablet by mouth once daily 5 6 Active brimonidine (ALPHAGAN) 0.2 % ophthalmic solution Instill 1 (one) drop into both eyes 2 times daily 5 6 Active dorzolamide (TRUSOPT) 2 % ophthalmic solution Instill 1 Drop into both eyes 2 times daily 1 6 Active famotidine (PEPCID) 20 MG tablet Take 20 mg by mouth once daily 5 6 Active fluticasone propionate (FLONASE) 50 MCG/ACT nasal spray [place] 2 (two) sprays into each nostril once daily 5 6 Active HYDROcodone-jaleel taminophen (NORCO) 5-325 MG tablet Take 1 (one) tablet by mouth every 12 hours 0 6 Active ipratropium (ATROVENT) 0.02 % nebulizer solution Inhale 3 mL by mouth as needed 11 6 Active losartan (COZAAR) 100 MG tablet Take 1 (one) tablet by mouth once daily 6 Active meloxicam (MOBIC) 15 MG tablet Take 1 (one) tablet by mouth once daily 5 6 Active DULERA 200-5 MCG/ACT inhaler Inhale 2 Puffs by mouth 2 times daily 6 Active montelukast (SINGULAIR) 10 MG tablet Take 1 (one) tablet by mouth once daily 5 6 Active timolol maleate (TIMOPTIC) 0.5 % ophthalmic solution Instill 1 (one) drop into both eyes 2 times daily 2 6 Active vitamin D3 (CHOLECACIFEROL ) 5000 UNITS Take 5,000 Units by mouth once daily Active calcium 600 MG tablet Take 1 Tab by mouth 2 times daily with morning and evening meal Active diclofenac sodium EC (VOLTAREN) 75 MG tablet Take 1 Tab by mouth as directed 180 Tab 3 6 Active Ventolin HFA 108 (90 Base) MCG/ACT inhaler Inhale 1 (one) puff by mouth every 6 hours as needed Active benzonatate (Tessalon) 200 MG capsule Take 1 (one) capsule by mouth 3 times daily as needed for cough 5 Active cetirizine (ZyrTEC) 10 MG tablet Take 1 (one) tablet by mouth once daily 4 Active cyclobenzaprine (Flexeril) 10 MG tablet Take 1 (one) tablet by mouth 3 times daily 4 Active Fluticasone-Ume clidin-Vilant (Trelegy Ellipta) 100-62.5-25 MCG/ACT Inhale 1 (one) puff by mouth once daily Active hydroCHLOROthia zide (Hydrodiuril) 25 MG tablet Take 1 (one) tablet by mouth once daily Active lansoprazole (Prevacid) 30 MG capsule Take 1 (one) capsule by mouth daily before breakfast Active latanoprost (Xalatan) 0.005 % ophthalmic solution Instill 1 (one) drop into both eyes at bedtime 5 Active predniSONE (Deltasone) 10 MG tablet Take 1 (one) tablet by mouth as directed TAKE 3 TABLETS BY MOUTH EVERY DAY FOR 3 DAYS THEN TAKE 2 TABLETS BY MOUTH EVERY DAY FOR 3 DAYS THEN TAKE 1 TABLET BY MOUTH EVERY DAY FOR 3 DAYS 4 Active terbinafine (LamISIL) 250 MG tablet Take 1 (one) tablet by mouth once daily 4 Active triamcinolone acetonide (Kenalog) 0.1 % cream Apply to affected area 2 times daily 4 Active Ensifentrine (Ohtuvayre) 3 MG/2.5ML SUSP Inhale 1 Dose by mouth once daily as needed (for Nebulizer treatment) Active Active Problems No known active problems Family History Medical History Relation Name Comments [...] = 0.6 oz pur e alcohol) 4 Comments Unknown Sex and Gender Information Value Date Recorded Sex Assigned at Female 08/22/2024 9:37 AM PIPELINE INSPECTOR Legal Sex Female 6:31 AM PIPELINE INSPECTOR Gender Identity Female 08/22/2024 9:37 AM PIPELINE INSPECTOR Sexual Orientation Choose not to disclose 2024 9:37 AM PIPELINE INSPECTOR 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 Not on file Not on file Not on file Last Filed Vital Signs Vital Sign Reading Time Taken Comments Blood Pressure 152/82 11/10/2015 10:27 AM CDT Pulse 84 11/10/2015 10:27 AM CDT Temperature - - Respiratory Rate - - Oxygen Saturation - - Inhaled Oxygen Concentration - - Weight 112.9 kg (249 lb) 11/10/2015 10:27 AM CDT Height 167.6 cm (5' 6) 11/10/2015 10:27 AM CDT Body Mass Index 40.19 11/10/2015 10:27 AM CDT Plan of Treatment Health Maintenance Due Date Last Done Comments COLOGUARD (AGES 45-75) - COL ON CA SCREENING 1965 COLON MONITORING 1965 COLONOSCOPY - COLON CA SCREENING 1965 CT COLONOGRAPHY - COLON CA SCREENING 1965 Colorectal Cancer Screening 1965 FIT - COLON CA SCREENING 1965 FLEX SIG - COLON CA SCREENING 1965 LIPID TESTING 1965 MAMMOGRAM 1965 MEDICARE AWV 12 MONTHS 1965 HIV SCREENING 01/21/1980 HEPATITIS C SCREENING 01/16/1983 DTAP/TDAP/TD VACCINES (1 - Tdap) 01/21/1984 PNEUMOCOCCAL VACCINE 50+ (1 of 1 - PCV) 2015 ZOSTER VACCINE (1 of 2) 2015 DEPRESSION SCREENING 07/02/2024 Respiratory Syncytial Virus (RSV) Vaccine Pt: or over 60 yrs (1 - Risk 60-74 years 1-dose series) 2025 COVID-19 VACCINE (1 - 2023-2 5 season) 2025 INFLUENZA VACCINE (#1) 2025 HEPATITIS B VACCINE Aged Out No longe r eligible based on patient's age to complete this topic HIB VACCINE Aged Out No longer eligi ble based on patient's age to complete this topic HPV VACCINE Aged Out No longer eligi ble based on patient's age to complete this topic MENINGOCOCCAL (Group B) VACC INE SHARED DECISION-MAKING Aged Out No longer eligibl e based on patient's age to complete this topic MENINGOCOCCAL GROUPS A/C/Y/W VACCINE Aged Out No longer eligible b ased on patient's age to complete this topic Insurance MEDICARE [facility] Care Teams Hot Worker Relationship Specialty Start Date End Date Yves Boyer MD [address] [place] [address] PCP - General Family Medicine 08/29/24
--- OUTSIDE RECORDS SUMMARY | 2025-04-20 10:37 | XMS_ITS | Clinical Summary ---
Author Organization [facility] Address [address] [place] [address] Care Team Providers Care Welt Wheeler Name Role Phone Kari Leblanc MD Primary Care Provider Unavail able Social History Tobacco Use Types Packs/Day Years [...] Screening with HPV 1995 Mammogram Screening 2005 Pneumococcal Vaccine: 50+ Ye ars (1 of 1 - PCV) 2015 Zoster Vaccines (1 of 2) 2015 COVID-19 Vaccine ( - 2023-2 5 season) 2025 Influenza Adult (#1) 2025 RSV Immunization or 60+ Years (1 - 1-dose 75+ series) 01/21/2040 Hepatitis A Vaccines Aged Out No long er eligible based on patient's age to complete this topic Meningococcal B Vaccine Aged Out No l onger eligible based on patient's age to complete this topic Meningococcal Vaccine Aged Out No basia savanah eligible based on patient's age to complete this topic RSV Immunizations Under 20 Months Aged Out No longer eligible based on patient's age to complete this topic Care Teams Welt Wheeler Relationship Specialty Start Date End Date Kari Leblanc MD PCP - General 12/23/15
--- OUTSIDE RECORDS SUMMARY | 2025-04-20 10:37 | XMS_ITS | Clinical Summary ---
Author Organization [facility] Care Team Providers Care Physician Office Assistant Name Role Phone Unavailable Primary Care Provider Unavailabl e Social History Tobacco Use Types Packs/Day Years Used Date Smoking Tobacco: Never Assessed Comments Unknown Sex and Gender Information Value Date Recorded Sex Assigned at Not on file Legal Sex Female 8:37 AM BAR ROLLER Gender Identity Not on file Sexual Orientation [...] (1 of 2) 2015 Influenza Immunization (#1) 2025 06/30/2019 SARS-COV-2 Immunization ( season) 2025 10/01/2020, 09/10/2020 Respiratory Syncytial Virus (RSV) Immunization [...]
--- OUTSIDE RECORDS SUMMARY | 2025-04-20 10:37 | XMS_ITS | Encounter Summary ---
Author Organization [facility] Address [address] [facility] [address] Care Team Providers Care Fiberglass Machine Operator Name Role Phone Kari Leblanc MD Primary Care Provider [phone] Yves Boyer MD Primary Care Provider Encounter Details Date Type Department Care Team (Late st Contact Info) Description 05/05/2020 Lab Requisition [facility] [address] [facility], [facility] [place] [phone] Merissa Eisenberg MD [address] [place] [address] Social History Tobacco Use Types Packs/Day Years Used Date Smoking Tobacco: Never Alcohol Use Standard Drinks/Week Comments Not Asked 0 (1 standard drink = 0.6 oz pur e alcohol) Comments Unknown Sex and Gender Information Value Date Recorded Sex Assigned at Female 08/22/2024 9:37 AM FIRER DIESEL LOCOMOTIVE Legal Sex Female 6:31 AM FIRER DIESEL LOCOMOTIVE Gender Identity Female 08/22/2024 9:37 AM FIRER DIESEL LOCOMOTIVE Sexual Orientation Choose not to disclose 2024 9:37 AM FIRER DIESEL LOCOMOTIVE 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 DermPath Lab Received: 05/05/2020 07:26 AM Pathologist: Gucci Delacruz MD Specimen: Skin, left lower leg 0 12:23 PM [facility] DERMATOPATHOLOGY LABORATORY Final Diagnosis Specimen A. SKIN, left lower leg: LICHEN PLANUS-LIKE KERATOSIS (BENIGN LICHENOID KERATOSIS) (L82.1) STASIS DERMATITIS (L30.8) 0 12:23 PM [facility] DERMATOPATHOLOGY LABORATORY at 1223 FIRER DIESEL LOCOMOTIVE Clinical History R/O BCC vs SCC, irritated, non-healing. 0 12:23 PM [facility] DERMATOPATHOLOGY LABORATORY Gross Description Specimen A: Received is one formalin filled container labeled with the patient's name and designated left lower leg. The specimen consists of a shave measuring [id number]. Jar 0. 0 12:23 PM [facility] DERMATOPATHOLOGY LABORATORY Microscopic Description Specimen A. SKIN, left lower leg: The epidermis is mildly acanthotic. There is a lichenoid infiltrate with vacuolar changes of basilar keratinocytes and scattered necrotic keratinocytes. There is focal spongiosis. The dermis shows a sparse, perivascular lymphocytic infiltrate surrounding dilated, thick-walled vessels, which are increased in number. 0 12:23 PM [facility] DERMATOPATHOLOGY LABORATORY Disclaimer An external and internal positive and negative controls are appropriate for the histochemical, immunohistochemical and immunofluorescence stain(s) in this case (if any), except where stated explicitly. The performance characteristics of the stain(s) cited in this report were developed and its performance characteristic determined by the Dermatopathology Laboratory at [facility], directed by Dr. Jose Delacruz. These tests need not be, and therefore are not, approved by the [place] Food and Drug Administration. The tests are used for clinical purposes. Billing Codes Specimen Charges Stain Charges 82420 1 0 12:23 PM [facility] DERMATOPATHOLOGY LABORATORY Embedded Images 0 12:23 PM FIRER DIESEL LOCOMOTIVE DERMATOPATHOLOGY LABORATORY Pathology/Cytolog y TISSUE SPECIMEN FROM SKIN / Unknown 05/04/2020 05/05/2020 7:26 AM FIRER DIESEL LOCOMOTIVE Merissa Eisenberg MD LAB - PATHOLOGY/CYTOLOGY OR DERABLES Final Result DERMATOPATHOLOGY LABORATORY [facility] - Department of Dermatology [facility] Specialized Medicine [address] [place] [address], [address] [phone] documented in this encounter Visit Diagnoses Not on filedocumented in this encounter Care Teams Fiberglass Machine Operator Relationship Specialty Start Date End Date Kari Leblanc MD [address] [place], [place] [phone] PCP - General Gastroenterology 09/13/15 08/28/24 Yves Boyer MD [address] [facility] [address] [place] [address] PCP - General Family Medicine 08/29/24 documented as of this encounter
[2025-04-20 10:44] LABS: Add Urine Microscopic? NO; Appearance Urine Clear (Clear); Glucose Urine UA Negative (Negative); Leukocyte Esterase Ur Negative LEU/UL (Negative); Nitrate Urine Negative (Negative); Specific Grav Ur 1.020 (1.001-1.035)
[2025-04-20 10:48] LABS: Hematocrit 46.3 % (37.0-47.0); Hemoglobin 15.1 g/dL (12.0-15.0); Mean Corpuscular HGB Conc 32.6 g/dl (32-36); Mean Corpuscular Hemoglobin 28.9 pg (26-34); Mean Corpuscular Volume 88.7 fl (80-100); Platelet Count Result 199 k/mm3 (150-375); Red Blood Count 5.22 M/mm3 (4.2-5.4); White Blood Count 7.7 K/mm3 (4.5-10.0)
[2025-04-20 10:56] LABS: Hemoglobin A1C 5.4 % (<5.7)
[2025-04-20 11:11] LABS: Alanine Aminotransferase 45 U/L (6-35); Albumin Level 4.4 g/dL (3.5-5.1); Alkaline Phosphatase 109 U/L (38-126); Anion Gap 8 mmol/L (4-12); Aspartate Amino Transferase 49 U/L (14-36); Bilirubin,Total 0.5 mg/dL (0.2-1.3); Blood Urea Nitrogen 17 mg/dL (7-17); Calcium 9.0 mg/dL (8.4-10.2); Carbon Dioxide 33 mmol/L (22-30); Chloride 101 mmol/L (98-107); Cholesterol 206 mg/dL (0-200); Estimated Glomerular Filt Rate > 60; Glucose 100 mg/dL (65-110); HDL Direct 41 mg/dL; Potassium 3.4 mmol/L (3.4-5.0); Sodium 142 mmol/L (137-145); Total Protein 7.6 g/dL (6.3-8.2); Triglycerides 176 mg/dL (<150)
[2025-04-20 11:46] LABS: Thyroid Stimulating Hormone 2.120 uIU/mL (0.465-4.680)
== END 2025-04-20 09:27 | disposition home or self-care (01) ==
PROVIDERS: PCP Family Medicine; Visit Provider Family Medicine
DX: R73.01 Impaired fasting glucose (principal); I10 Essential (primary) hypertension; E78.5 Hyperlipidemia, unspecified
CPT/HCPCS: 36415; 80053; 80061; 81003; 83036; 84443; 85027

== ENCOUNTER 2025-04-20 14:37 | Outpatient (CLI) | payer MEDICARE, OTHER, SELFPAY ==
[2025-04-20] VITALS (7 sets, daily range): PULSE 82–120; O2SAT 86–92
--- OUTSIDE RECORDS SUMMARY | 2025-04-20 17:04 | XMS_ITS | Clinical Summary ---
Author Organization [facility] Care Team Providers Care Machining And Assembly Supervisor Name Role Phone Unavailable Primary Care Provider Unavailabl e Social History Tobacco Use Types Packs/Day Years Used Date Smoking Tobacco: Never Assessed Comments Unknown Sex and Gender Information Value Date Recorded Sex Assigned at Not on file Legal Sex Female 8:37 AM SPRING CLIPPER Gender Identity Not on file Sexual Orientation [...]
--- OUTSIDE RECORDS SUMMARY | 2025-04-20 17:05 | XMS_ITS | Encounter Summary ---
Author Organization [facility] Address [address] [place] [address] Care Team Providers Care First Grade Teacher Name Role Phone Kari Leblanc MD Primary Care Provider [phone] Yves Boyer MD Primary Care Provider [phone] Encounter Details Date Type Department Care Team (Late st Contact Info) Description 05/21/2019 Lab Requisition [facility] [address] [facility], [facility] [place] [phone] Elise Aguilar, DO [address] [facility] 3 [place] [address] Social History Tobacco Use Types Packs/Day Years Used Date Smoking Tobacco: Never Alcohol Use Standard Drinks/Week Comments Not Asked 0 (1 standard drink = 0.6 oz pur e alcohol) Comments Unknown Sex and Gender Information Value Date Recorded Sex Assigned at Female 08/22/2024 9:37 AM SENIOR MARKETING MANAGER Legal Sex Female 6:31 AM SENIOR MARKETING MANAGER Gender Identity Female 08/22/2024 9:37 AM SENIOR MARKETING MANAGER Sexual Orientation Choose not to disclose 2024 9:37 AM SENIOR MARKETING MANAGER 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 Not on file Not on file documented as of this encounter Plan of Treatment Not on file documented as of this encounter Procedures Procedure Name Priority Date/Time Associated Diagnosis Comments DERMATOPATHOLOGY Routine 05/20/2019 12:0 0 AM SENIOR MARKETING MANAGER documented in this encounter Results * DERMATOPATHOLOGY (05/20/2019 12:00 AM [facility]) Case Report Dermatopathology Report Case: [id number] Authorizing Provider: Elise Aguilar DO Collected: 05/20/2019 12:00 AM Ordering Location: [facility] DermPath Lab Received: 05/21/2019 05:39 AM Pathologist: Gucci Delacruz MD Specimens: A) - Skin, right upper back B) - Skin, right mid arm C) - Skin, right ventral FA 9 1:39 PM [facility] DERMATOPATHOLOGY LABORATORY Final Diagnosis Specimen A. SKIN, right upper back: ACANTHOSIS AND HYPERKERATOSIS (L98.8) (see microscopic description and comment) Specimen B. SKIN, right mid arm: HYPERPLASTIC (HYPERTROPHIC) ACTINIC KERATOSIS (L57.0) EPIDERMAL NECROSIS SUGGESTIVE OF EXCORIATION (L98.499) Specimen C. SKIN, right ventral FA: ACTINIC KERATOSIS, LICHENOID (L57.0) 9 1:39 PM [facility] DERMATOPATHOLOGY LABORATORY at [address] SENIOR MARKETING MANAGER Clinical History A: DF R/O atypia. B-C: R/O NMSC. 9 1:39 PM [facility] DERMATOPATHOLOGY LABORATORY Gross Description Specimen A: Received is one formalin filled container labeled with the patient's name and designated right upper back. The specimen consists of a shave measuring [id number]. Jar 0. Specimen B: Received is one formalin filled container labeled with the patient's name and designated right mid arm. The specimen consists of a shave measuring [id number]. Jar 0. Specimen C: Received is one formalin filled container labeled with the patient's name and designated right ventral FA. The specimen consists of a shave measuring 3g1g3lz. Jar 0. 9 1:39 PM [facility] DERMATOPATHOLOGY LABORATORY Microscopic Description Specimen A. [...] some basal vacuolar alteration. 9 1:39 PM [facility] DERMATOPATHOLOGY LABORATORY Disclaimer An external and internal positive and negative controls are appropriate for the histochemical, immunohistochemical and immunofluorescence stain(s) in this case (if any), except where stated explicitly. The performance characteristics of the stain(s) cited in this report were developed and its performance characteristic determined by the Dermatopathology Laboratory at [facility], directed by Dr. Jose Delacruz. These tests need not be, and therefore are not, approved by the [place] Food and Drug Administration. The tests are used for clinical purposes. Billing Codes Specimen Charges Stain Charges 94627 62885 38561 1 1 1 9 1:39 PM SENIOR MARKETING MANAGER DERMATOPATHOLOGY LABORATORY Embedded Images 9 1:39 PM SENIOR MARKETING MANAGER DERMATOPATHOLOGY LABORATORY Pathology/Cytology TISSUE SPECIMEN FROM SKIN / Unknown 05/20/2019 05/21/2019 5:39 AM SENIOR MARKETING MANAGER Miscellaneous samples (specimen) TISSUE SPECIMEN FROM SKIN / Unknown 05/20/2019 05/21/2019 5:39 AM SENIOR MARKETING MANAGER Miscellaneous samples (specimen) TISSUE SPECIMEN FROM SKIN / Unknown 05/20/2019 05/21/2019 5:39 AM SENIOR MARKETING MANAGER us Elise Aguilar DO LAB - PATHOLOGY/CYTOLOGY ORDERABLES Final Result DERMATOPATHOLOGY LABORATORY [facility] - Department of Dermatology [address] [facility], 5th [place] [address], [facility] [phone] documented in this encounter Visit Diagnoses Not on filedocumented in this encounter Care Teams First Grade Teacher Relationship Specialty [place] [address] [place] [phone] PCP - General Gastroenterology 09/13/15 08/28/24 Yves Boyer MD [address] [facility] [address] [place] [address] PCP - General Family Medicine 08/29/24 documented as of this encounter
--- OUTSIDE RECORDS SUMMARY | 2025-04-20 17:05 | XMS_ITS | Encounter Summary ---
Author Organization [facility] Address [address] [facility] [place] [address] Care Team Providers Care Reimbursement Analyst Name Role Phone Kari Leblanc MD Primary Care Provider [phone] Yves Boyer MD Primary Care Provider [phone] Encounter Details Date Type Department Care Team (Late st Contact Info) Description 04/25/2018 Lab Requisition [facility] [address] [facility], [place] [address] Merissa Eisenberg MD [address] [facility] [address] [place] [address] Social History Tobacco Use Types Packs/Day Years Used Date Smoking Tobacco: Never Alcohol Use Standard Drinks/Week Comments Not Asked 0 (1 standard drink = 0.6 oz pur e alcohol) Comments Unknown Sex and Gender Information Value Date Recorded Sex Assigned at Female 08/22/2024 9:37 AM HUMAN RELATIONS MANAGER Legal Sex Female 6:31 AM HUMAN RELATIONS MANAGER Gender Identity Female 08/22/2024 9:37 AM HUMAN RELATIONS MANAGER Sexual Orientation Choose not to disclose 2024 9:37 AM HUMAN RELATIONS MANAGER 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 Not on file Not on file documented as of this encounter Plan of Treatment Not on file documented as of this encounter Procedures Procedure Name Priority Date/Time Associated Diagnosis Comments DERMATOPATH TECHNICAL REPORT Routine 04/23/2018 12:00 AM CDT documented in this encounter Results * DERMATOPATH TECHNICAL REPORT (04/23/2018 12:00 AM CDT) Case Report Dermatopathology Report Case: [id number] Authorizing Provider: Merissa Eisenberg MD Collected: 04/23/2018 12:00 AM Pathologist: Gucci Delacruz MD Received: 04/25/2018 06:46 AM Specimen: Skin, right boykin 5:54 PM CDT DERMATOPATHOLOGY LABORATORY Clinical History BCC. Non-healing. Check margins. 5:54 PM CDT DERMATOPATHOLOGY LABORATORY Gross Description Specimen A: Received is one formalin filled container labeled with the patient's name and designated right boykin. The specimen consists of a shave measuring 58m3y2ez. The margin is inked green. Jar 0. [facility] Dermatopathology Laboratory performed the technical component only. [...] characteristic determined by the Dermatopathology Laboratory at [facility]. These tests need not be, and therefore [...] LABORATORY [facility] - Department of Dermatology [address] [facility], 5th [place] [address], [facility] [phone] documented in this encounter Visit Diagnoses Not on filedocumented in this encounter Care Teams Reimbursement Analyst Relationship Specialty Start Date End Date Kari Leblanc MD [address] [place], [place] [phone] PCP - General Gastroenterology 09/13/15 08/28/24 Yves Boyer MD [address] [facility] [address] [place] [address] PCP - General Family Medicine 08/29/24 documented as of this encounter
--- OUTSIDE RECORDS SUMMARY | 2025-04-20 17:06 | XMS_ITS | Encounter Summary ---
Author Organization [facility] Address [address] [place] [address] Care Team Providers Care Rehabilitation Caseworker Name Role Phone Kari Leblanc MD Primary Care Provider [phone] Yves Boyer MD Primary Care Provider [phone] Encounter Details Date Type Department Care Team (Late st Contact Info) Description 05/05/2020 Lab Requisition [facility] [address] [facility], [facility] [place] [address] Merissa Eisenberg MD [address] [facility] 3 [place] [address] Social History Tobacco Use Types Packs/Day Years Used Date Smoking Tobacco: Never Alcohol Use Standard Drinks/Week Comments Not Asked 0 (1 standard drink = 0.6 oz pur e alcohol) Comments Unknown Sex and Gender Information Value Date Recorded Sex Assigned at Female 08/22/2024 9:37 AM LOBBY PORTER Legal Sex Female 6:31 AM LOBBY PORTER Gender Identity Female 08/22/2024 9:37 AM LOBBY PORTER Sexual Orientation Choose not to disclose 2024 9:37 AM LOBBY PORTER 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 Not on file Not on file documented as of this encounter Plan of Treatment Not on file documented as of this encounter Procedures Procedure Name Priority Date/Time Associated Diagnosis Comments DERMATOPATHOLOGY Routine 05/04/2020 12:0 0 AM LOBBY PORTER documented in this encounter Results * DERMATOPATHOLOGY (05/04/2020 12:00 AM LOBBY PORTER) Case Report Dermatopathology Report Case: [id number] Authorizing Provider: Merissa Eisenberg MD Collected: 05/04/2020 12:00 AM Ordering Location: [facility] DermPath Lab Received: 05/05/2020 07:26 AM Pathologist: Gucci Delacruz MD Specimen: Skin, left lower leg 0 12:23 PM [facility] DERMATOPATHOLOGY LABORATORY Final Diagnosis Specimen A. SKIN, left lower leg: LICHEN PLANUS-LIKE KERATOSIS (BENIGN LICHENOID KERATOSIS) (L82.1) STASIS DERMATITIS (L30.8) 0 12:23 PM [facility] DERMATOPATHOLOGY LABORATORY at 1223 LOBBY PORTER Clinical History R/O BCC vs SCC, irritated, non-healing. 0 12:23 PM [facility] DERMATOPATHOLOGY LABORATORY Gross Description Specimen A: Received is one formalin filled container labeled with the patient's name and designated left lower leg. The specimen consists of a shave measuring [id number]. Jar 0. 0 12:23 PM [facility] DERMATOPATHOLOGY LABORATORY Microscopic Description Specimen A. SKIN, left lower leg: The epidermis is mildly acanthotic. There is a lichenoid infiltrate with vacuolar changes of basilar keratinocytes and scattered necrotic keratinocytes. There is focal spongiosis. The dermis shows a sparse, perivascular lymphocytic infiltrate surrounding dilated, thick-walled vessels, which are increased in number. 0 12:23 PM [facility] DERMATOPATHOLOGY LABORATORY Disclaimer An external and internal positive and negative controls are appropriate for the histochemical, immunohistochemical and immunofluorescence stain(s) in this case (if any), except where stated explicitly. The performance characteristics of the stain(s) cited in this report were developed and its performance characteristic determined by the Dermatopathology Laboratory at [facility], directed by Dr. Jose Delacruz. These tests need not be, and therefore are not, approved by the [place] Food and Drug Administration. The tests are used for clinical purposes. Billing Codes Specimen Charges Stain Charges 82490 1 0 12:23 PM [facility] DERMATOPATHOLOGY LABORATORY Embedded Images 0 12:23 PM LOBBY PORTER DERMATOPATHOLOGY LABORATORY Pathology/Cytolog y TISSUE SPECIMEN FROM SKIN / Unknown 05/04/2020 05/05/2020 7:26 AM LOBBY PORTER Merissa Eisenberg MD LAB - PATHOLOGY/CYTOLOGY OR DERABLES Final Result DERMATOPATHOLOGY LABORATORY [facility] - Department of Dermatology [facility] Specialized Medicine [address] [place] [address], [address]rd [address] [phone] documented in this encounter Visit Diagnoses Not on filedocumented in this encounter Care Teams Rehabilitation Caseworker Relationship Specialty Start Date End Date Kari Leblanc MD [address] [place], [place] [phone] PCP - General Gastroenterology 09/13/15 08/28/24 Yves Boyer MD [address] [facility] [address] [place] [address] PCP - General Family Medicine 08/29/24 documented as of this encounter
--- OUTSIDE RECORDS SUMMARY | 2025-04-20 17:06 | XMS_ITS | Clinical Summary ---
Author Organization [facility] Address [address] [facility] [place] [address] Care Team Providers Care Leasing Manager Name Role Phone Yves Boyer MD Primary Care Provider [phone] Source Comments [facility],non-owned Affiliates and Associated Physician Practices is amultiple site organization consisting of ambulatory clinics and hospital sitesin [place], [place], [place] and [place]. This disclosure is being madepursuant to the Care Everywhere program and may not contain all information available regarding this patient. 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
--- OUTSIDE RECORDS SUMMARY | 2025-04-20 17:06 | XMS_ITS | Encounter Summary ---
Author Organization [facility] Address [address] [facility] [place] [address] Care Team Providers Care Rural Health Consultant Name Role Phone Kari Leblanc MD Primary Care Provider [phone] Yves Boyer MD Primary Care Provider [phone] Encounter Details Date Type Department Care Team (Late st Contact Info) Description 09/05/[address] [facility] - DermPath Lab [address] [facility], [facility] [place] [address] Merissa Eisenberg MD [address] [facility] 3 [place] [address] Social History Tobacco Use Types Packs/Day Years Used Date Smoking Tobacco: Never Alcohol Use Standard Drinks/Week Comments Not Asked 0 (1 standard drink = 0.6 oz pur e alcohol) Comments Unknown Sex and Gender Information Value Date Recorded Sex Assigned at Female 08/22/2024 9:37 AM SERVICE DESK DIRECTOR Legal Sex Female 6:31 AM SERVICE DESK DIRECTOR Gender Identity Female 08/22/2024 9:37 AM SERVICE DESK DIRECTOR Sexual Orientation Choose not to disclose 2024 9:37 AM SERVICE DESK DIRECTOR 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 - Received: 09/06/2023 02:03 PM [...] characteristic determined by the Dermatopathology Laboratory at [facility], directed by Dr. Jose Delacruz. These tests need not be, and therefore are not, approved by the [place] Food and Drug Administration. The tests are used for clinical purposes. Billing Codes Specimen Charges Stain Charges 30281 1 1:04 PM CDT DERMATOPATHOLOGY LABORATORY Embedded Images 1:04 PM CDT DERMATOPATHOLOGY LABORATORY Pathology/Cytolo gy TISSUE SPECIMEN FROM SKIN / Unknown 09/05/2023 2:34 PM SERVICE DESK DIRECTOR 09/06/2023 2:03 PM SERVICE DESK DIRECTOR Merissa Eisenberg MD LAB - PATHOLOGY/CYTOLOGY OR DERABLES Final Result DERMATOPATHOLOGY LABORATORY [facility] - Department of Dermatology [facility] Medicine [address] [place] [address], [address]rd Floor [address] [phone] documented in this encounter Visit Diagnoses Not on filedocumented in this encounter Care Teams Rural Health Consultant Relationship Specialty Start Date End Date Kari Leblanc MD [address] [place], [place] [phone] PCP - General Gastroenterology 09/13/15 08/28/24 Yves Boyer MD [address] [place] [address] PCP - General Family Medicine 08/29/24 documented as of this encounter
--- OUTSIDE RECORDS SUMMARY | 2025-04-20 17:06 | XMS_ITS | Clinical Summary ---
Author Organization [facility] Address [address] [place] [address] Care Team Providers Care Leno Sewer Name Role Phone Kari Leblanc MD Primary [...] age to complete this topic Care Teams Leno Sewer Relationship Specialty Start Date End Date Kari Leblanc MD PCP - General 12/23/15
--- NOTE | 2025-05-25 00:25 | WPDPFTINT ---
PFT Procedure Performed PFT Procedure Performed Spirometry with Pre/Post Bronchodilator Plethysmography (Lung Vol) Diffusing Cap (DLCO) Flow Vol Loop PFT Interpretation DOS: 04/20/2025 REQUESTING: Jo Galindo PA-C REASON FOR TESTING: COPD PULMONARY FUNCTION TESTS Results are reliable and reproducible. Repeatability of spirometry FEV1 maneuver pre and post bronchodilator is Grade A. Neville: GLI 2012 reference equations were used. Spirometry: The pre-bronchodilator FEV1 is 0.93 L, 35%. The pre-bronchodilator FVC is 2.17 L, 61%. The FEV1/FVC ratio is 43%. After bronchodilator, the FEV1 is 0.98 L, +5%. After bronchodilator, the FVC is 2.30 L, +6%. The FEV1/FVC ratio is 42%. Lung volumes: The total lung capacity is 5.68 L, 106%. The residual volume is 3.16 L, 141%. The RV/TLC is 56%. The functional residual capacity is 3.94 L, 129%. Airway resistance is increased. Diffusion: DLCO is 11.7, 52%. The DLCO/VA is 3.16, 73%. Flow volume loop: The flow volume loop shows severe coving of the expiratory limb. IMPRESSION: There is a severe obstructive ventilatory impairment without response to bronchodilator, moderate air trapping, moderate diffusion impairment that corrects for alveolar volume. Lack of response to bronchodilator should not preclude use if clinically indicated. Compared to PFT on 01/07/2021, values are similar. FEV1 was 0.98 L 35% predicted. The residual volume was 148%, now 141%. Same diffusion impairment, previosuly was 56%, now 52%. On the prior study, there was a significant response to bronchodilator. Skyla Anderson MD
== END 2025-04-20 14:38 | disposition home or self-care (01) ==
LOC: ANHPFT 14:38
PROVIDERS: PCP Family Medicine; Visit Provider Physician Assistant
DX: J44.9 Chronic obstructive pulmonary disease, unspecified (principal)
CPT/HCPCS: 94060; 94618; 94726; 94729

== ENCOUNTER 2025-05-04 08:45 | Outpatient (CLI) | payer MEDICARE, OTHER, SELFPAY ==
--- OUTSIDE RECORDS SUMMARY | 2010-02-08 03:15 | XMS_ITS | Continuity of Care Document ---
Author Organization [facility] Address [address] [facility] [address] [place] [address] Phone Care Team Providers Care Chemical Laboratory Tester Name Role Phone sOito Aragon Unavailable Unavailable Procedures Procedure Date Office/outpatient Visit, Est Office/outpatient Visit, Est Visual Field Examination(s) Office/outpatient Visit, Est Eye Exam & Treatment Refraction Visual Field Examination(s) Office/outpatient Visit, Est Office/outpatient Visit, Est Office/outpatient Visit, Est Office/outpatient Visit, Est Visual Field Examination(s) Office/outpatient Visit, Est Office/outpatient Visit, Est Office/outpatient Visit, Est Advance Directives Directive Yes / No Effective Date File Name No Information Encounters Encounter Description Practice Location Reason(s) For Visit Diagnoses Date Provider Providers Copied on Encounter Office/outpat ient Visit, [facility] [place] [place], [address] [place] [address] [address], [place], [place], [id number], [place] tel:[phone] [facility] [place] No Information 0-201 0 Mahesh Mcneill. [address] [facility] [place] [address], [place], [address], [place]. tel:[phone] Office/outpat ient Visit, [facility] [place], [address] [place] [address] [address], [place], [place], [id number], [place] tel:[phone] [facility] [place] No Information Mar-0 8-201 0 Krishnasamy Osito. [address] [place], [place] [address]ate [place] [address], [place], [place], [facility], [place]. tel:[phone] [facility], [address] [place] [address] [address], [place], [place], [id number], [place] tel:[phone] [facility] [place] No Information Apr-1 5-200 9 Krishnasamy Osito. [address] [place] [address], [facility], [place]. tel:[phone] Referring Provider: Osito her, [address] [place], [place] [address]ate [place] [address], [place], [place], [facility]. tel:[phone] Office/outpat ient Visit, [facility], [address] [place] [address] [address], [place], [place], [id number], [place] tel:[phone] [facility] [place] No Information Bernardino-1 6-200 9 Krishnasamy Osito. [address] [place], [place] [address]ate [address], [facility], [place]. tel:[phone] [facility], [address] [place] [address] [address], [place], [place], [id number], [place] tel:[phone] [facility] [place] No Information Aug-2 4-200 9 Krishnasamy Osito. [address] [place], [place] [address]ate [address], [facility], [place]. tel:[phone] [facility], [address] [place] [address] [address], [place], [place], [id number], [place] tel:[phone] [facility] [place] No Information Apr-2 7-200 8 Krishnasamy Osito. [address] [place], [place] [address]ate [address], [facility], [place]. tel:[phone] Referring Provider: Osito her, [address] [place] [address] 102, [place], [place], [facility]. tel:[phone] Office/outpat ient Visit, [facility], [address], [place], [place], [address], [place] tel:[phone] [facility] No Information 3-200 8 Krishnasamy Osito. [address] [place] [address] 102, [place], [facility], [place]. tel:[phone] Office/outpat ient [facility], [facility], [address] [place] [address] [address], [place], [place], [address], [place] tel:[phone] [facility] No Information 0-200 8 Krishnasamy Osito. [address] [place] [address], [facility], [place]. tel:[phone] Office/outpat ient Visit, [facility], [address] [place] [address] [address], [place], [place], [address], [place] tel:[phone] [facility] No Information 6-200 8 Krishnasamy Osito. [address] [place] [address], [facility], [place]. tel:[phone] Office/outpat ient Visit, [facility], [address] [place] [address] [address], [place], [place], [address], [place] tel:[phone] [facility] No Information 5-200 8 Krishnasamy Osito. [address] [place] [address], [place], [facility], [place]. tel:[phone] [facility], [address] [place] [address] [address], [place], [place], [address], tel:[phone] [facility] No Information 0-200 7 April Hunter. [address] [place], [place], [id number], . tel:[phone] Referring Provider: Dale Mei, [address] [place], [address] . tel:[phone] Office/outpat ient Visit, [facility], [address], [place], [place], [id number], tel:[phone] [facility] No Information 6200 7 April Hunter. [address] [facility], [place], [place], [address], . tel:[phone] Office/outpat ient Visit, [facility] [place] [place], [address], [place], [place], [address], [place] tel:[phone] [facility] No Information 0200 7 April Hunter. [address] [place], [place], [address], [place]. tel:[phone] Office/outpat ient Visit, [facility] [place] [place], [address], [place], [place], [address], [place] tel:[phone] [facility] No Information 9-200 7 April Hunter. [address] [place], [place], [address], . tel:[phone] Family History Family Member Type Diagnosis Age At Onset No Information Payers Payer name Insurance type Covered constitution party ID Vinicio houstonsergey(s) Medicaid [employer] [id number] Social History Type Description Quantity Date Captured Comments Sex Female Smoking Status No Information Chief Complaint And Reason For Visit No Information Reason For Referral Reason For Referral No Information History Of Present Illness Encounter Date Complaint History Of Prese nt Illness No Information Functional Status Date Functional Assessmen t No Information Instructions Date Instruction Additional Infor mation No Information Assessments Type Assessment Date No Information Patient Care Teams Name Effective Dates (start - stop) Status Members No Information
--- OUTSIDE RECORDS SUMMARY | 2017-10-08 03:57 | XMS_ITS | Continuity of Care Document ---
Author Organization [facility] Address [address] [facility] [address] [place] [address] Phone Care Team Providers Care Beveling And Edging Machine Operator Name Role Phone Ritesh HOLGUIN, Adrian Unavailable Unavailable Allergies, Adverse Reactions, Alerts Substance Reaction Status Criticality No Known Allergies Active No Inform ation Medications Medication Instructions Dosage Effective Dates (start - stop) Status Comments dorzolamide 2 % eye drops 1 gtt BID OU - Active 5 ML or largest bottle covered. OK for 90 day supply. latanoprost 0.005 % eye drops instill 1 drop by ophthalmic route every day into affected eye(s) in the evening 1.00 drop - Active Betimol 0.5 % eye drops instill 1 drop by ophthalmic route 2 times every day into affected eye(s) 1.00 drop - Active Vitamin D3 400 unit capsule qd - Active omeprazole 40 mg capsule,delayed release take 1 capsule by oral route every day before a meal 40 MG - Active montelukast 10 mg tablet take 1 tablet by oral route every day in the evening 10 MG - Active meloxicam 15 mg tablet take 1 tablet by oral route every day 15 MG - Active losartan 50 mg tablet take 1 tablet by oral route every day 50 MG - Active hydrocodone 5 mg-acetaminophen 300 mg tablet take 1 tablet by oral route every 4 - 6 hours as needed for pain 1.00 tablet - Active Flovent Diskus 50 mcg/actuation powder for inhalation inhale 1 puff by inhalation route 2 times every day - Active Dulera 200 mcg-5 mcg/actuation HFA aerosol inhaler inhale 2 puff by inhalation route 2 times every day in the morning and evening 2.00 puff - Active Combivent Respimat 20 mcg-100 mcg/actuation solution for inhalation inhale 1 puff by inhalation route 4 times every day ; may take additional puffs as needed not to exceed 6 puffs in 24hrs 1.00 puff - Active amlodipine 10 mg tablet take 1 tablet by oral route every day 10 MG - Active brimonidine 0.2 % eye drops instill 1 drop by ophthalmic route 2 times every day into both eyes 1 drop - Active dorzolamide 2 % eye drops instill 1 drop by ophthalmic route 2 times every day into affected eye(s) 1 drop - No Longer Active Procedures Procedure Date EYE EXAM & TREATMENT VISUAL FIELD EXAMINATION(S) GDX Optic Nerve SPECIAL EYE EVALUATION OFFICE/OUTPATIENT VISIT, [facility] GDX Optic Nerve Advance Directives Directive Yes / No Effective Date File Name No Information Encounters Encounter Description Practice Location Reason(s) For Visit Diagnoses Date Provider Providers Copied on Encounter [facility], [address] [place] [address], [address] [place] [address], tel:[phone] OPH CONSULT KAYE MERCER No Information 8 Ritesh Campbell. [address] [place] [address], [address], [address], [place]. tel:[phone] Referring Provider: Adrian Mei, [address] [place] [address] [facility], [place], [address]. tel:[phone] [facility], [address] [place] [address], [id number], tel:[phone] OPH CONSULT KAYE MERCER POAG (chief complaint) Primary open-angle glaucoma, moderate stageVitreous degeneration, bilateralAge-r elated nuclear cataract, bilateral 6 Ritesh Campbell. [address] [place] [address], [address], [address], [place]. tel:[phone] Referring Provider: Adrian Mei, [address] [facility] [address], [place], [address]. tel:[phone] OFFICE/OUTPA TIENT VISIT, [facility], [address], [place], [place], [id number], [place] tel:[phone] Oph Consult [facility] Office Glc eval (chief complaint) Age-related nuclear cataract, bilateralPrima ry open-angle glaucoma, moderate stageVitreous degeneration, bilateral [address] Eliseo [address]. [address] [facility], [address], [place], [place], [address], [place]. tel:[phone] Referring Provider: Lee Weston, [address] [facility] [address], [place], [address]. tel:[phone] Family History Family Member Type Diagnosis Age At Onset Mother Problem (finding) glaucoma Maternal grandmother Problem (finding) glaucoma Payers Payer name Insurance type Covered democrat ID Authoriza tion(s) No Information Social History Type Description Quantity Date Captured Comments Sex Female Smoking Status No Information Chief Complaint And Reason For Visit No Information Reason For Referral Reason For Referral No Information History Of Present Illness Encounter Date Complaint History Of Prese nt Illness POAG The 51 year old female presents for evaluation of POAG in the right > left. It started about 4 month(s) ago. The symptom is constant. The condition is moderate. Patients current gtts are Latanoprost QHS OU, Dorzolamide BID OU, Timolol BID OU, Brimonidine BID OU. OCT ordered toadyS/P SLT OU Glc eval The 50 year old female presents for evaluation of Glc eval in the right eye and left eye. It started about 1 year(s) ago. It affects OU. The symptom is constant. The condition is moderate. Pt presents for a glc eval, she has been treated for glc for 10-15 years. Currently pt is taking Latanoprost QHS Timolol BID Dorzolimide BID and Brimonidine BID OUS/P SLT OUDue to insurance change pt is establishing a new physician. Was followed by Dr. Jacobo Functional Status Date Functional Assessmen t No Information Instructions Date Instruction Additional Infor davin Impression/Plan - No treatment currently recommended. The patient will monitor vision changes and contact us with any decrease in vision. Related to Age-related nuclear cataract, bilateral Impression/Plan - Th ere is no evidence of retinal pathology. All signs and risks of retinal detachment and tears were discussed in detail. Patient instructed to call office immediately if any symptoms noted. Related to Vitreous degeneration, bilateral Impression/Plan - In traocular pressure well controlled, tolerating medications. Will continue with same regimen.OCT today severe damage OU VF today WNLPhysician ordered VF and OCT and Gonio test today, test were ordered to help assess glaucoma eval OU today S/P SLT as per pt. Pt is taking- Latanoprost 1 gtt QHS OU, Timolol 1 gtt BID OU, Dorzol. 1 gtt BID OU, Brimonindine 1 gtt BID OU (as per pt medication list) RTO 6 mths for IOP check with [facility] Related to Primary open-angle glaucoma, moderate stage Impression/Plan - No treatment currently recommended. The patient will monitor vision changes and contact us with any decrease in vision. Related to Age-related nuclear cataract, bilateral Impression/Plan - In traocular pressure well controlled, tolerating medications. Will continue with same regimen. Latanoprost OU QHS , Dorzolamide OU BID, Betimol BID OU. Consult recommended Dr. Awad Related to Primary open-angle glaucoma, moderate stage Impression/Plan - Al l signs and risks of retinal detachment and tears were discussed in detail. Patient instructed to call the office immediately if any symptoms noted. Related to Vitreous degeneration, bilateral Follow up - Return i n PRN with for Complete Exam , OCT (ON). Assessments Type Assessment Date No Information Patient Care Teams Name Effective Dates (start - stop) Status Members No Information
--- NOTE | ~2025-05-04 | US_ITS ---
LIMITED ABDOMINAL ULTRASOUND INDICATION: R74.01 - Elevation of levels of liver transaminase levels COMPARISON: None. FINDINGS: The exam is suboptimal because of body habitus. Liver: Mildly enlarged. It is echogenic and attenuates the sound beam, most likely secondary to fatty infiltration. Common bile duct: Normal in size. Gallbladder: Surgically absent. Pancreas: The imaged portions appear normal. Right kidney: Right kidney appears normal on the images provided. There is normally directed flow in the portal vein. IMPRESSION: Mildly enlarged liver. Probable fatty infiltrate. 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 ESTATE FINANCIAL ANALYST
--- OUTSIDE RECORDS SUMMARY | 2025-05-04 09:05 | XMS_ITS | Encounter Summary ---
Author Organization [facility] Address [address] [place] [address] Care Team Providers Care Electrician Constructor Supervisor Name Role Phone Kari Leblanc MD Primary Care Provider [phone] Yves Boyer MD Primary Care Provider [phone] Encounter Details Date Type Department Care Team (Late st Contact Info) Description 09/05/2023 Lab Requisition [facility] - DermPath Lab [address] [facility], [facility] [place] [address] Merissa Eisenberg MD [address] [facility] 3 [place] [address] Social History Tobacco Use Types Packs/Day Years Used Date Smoking Tobacco: Never Alcohol Use Standard Drinks/Week Comments Not Asked 0 (1 standard drink = 0.6 oz pur e alcohol) Comments Unknown Sex and Gender Information Value Date Recorded Sex Assigned at Female 08/22/2024 9:37 AM WARE CLEANER Legal Sex Female 6:31 AM WARE CLEANER Gender Identity Female 08/22/2024 9:37 AM WARE CLEANER Sexual Orientation Choose not to disclose 2024 9:37 AM WARE CLEANER 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 Not on file Not on file documented as of this encounter Plan of Treatment Not on file documented as of this encounter Procedures Procedure Name Priority Date/Time Associated Diagnosis Comments DERMATOPATHOLOGY Routine 09/05/2023 2:34 PM WARE CLEANER documented in this encounter Results * DERMATOPATHOLOGY (09/05/2023 2:34 PM WARE CLEANER) Case Report Dermatopathology Report Case: [id number] Authorizing Provider: Merissa Eisenberg MD Collected: 09/05/2023 02:34 PM Ordering Location: [facility] - Received: 09/06/2023 02:03 [...] characteristic determined by the Dermatopathology Laboratory at [facility], directed by Dr. Jose Delacruz. These tests need not be, and therefore are not, approved by the [place] Food and Drug Administration. The tests are used for clinical purposes. Billing Codes Specimen Charges Stain Charges 70614 1 1:04 PM CDT DERMATOPATHOLOGY LABORATORY Embedded Images 1:04 PM CDT DERMATOPATHOLOGY LABORATORY Pathology/Cytolo gy TISSUE SPECIMEN FROM SKIN / Unknown 09/05/2023 2:34 PM WARE CLEANER 09/06/2023 2:03 PM WARE CLEANER Merissa Eisenberg MD LAB - PATHOLOGY/CYTOLOGY OR DERABLES Final Result DERMATOPATHOLOGY LABORATORY [facility] - Department of Dermatology [facility] Medicine [address] [place] [address], [address] [phone] documented in this encounter Visit Diagnoses Not on filedocumented in this encounter Care Teams Electrician Constructor Supervisor Relationship Specialty Start Date End Date Kari Leblanc MD [address] [place], [place] [phone] PCP - General Gastroenterology 09/13/15 08/28/24 Yves Boyer MD [address] [place] [address] PCP - General Family Medicine 08/29/24 documented as of this encounter
--- OUTSIDE RECORDS SUMMARY | 2025-05-04 09:05 | XMS_ITS | Encounter Summary ---
Author Organization [facility] Address [address] [place] [address] Care Team Providers Care Motion Picture Set Worker Name Role Phone Kari Leblanc MD Primary Care Provider [phone] Yves Boyer MD Primary Care Provider [phone] Encounter Details Date Type Department Care Team (Late st Contact Info) Description 05/21/2019 Lab Requisition [facility] [address] [facility], [facility] [place] [address] Elise Aguilar, [address] 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 Not on file Not on file documented as of this encounter Plan of Treatment Not on file documented as of this encounter Procedures Procedure Name Priority Date/Time Associated Diagnosis Comments DERMATOPATHOLOGY Routine 05/20/2019 12:0 0 AM MANAGER BUSINESS PROCESS documented in this encounter Results * DERMATOPATHOLOGY (05/20/2019 12:00 AM [facility]) Case Report Dermatopathology Report Case: [id number] Authorizing Provider: Elise Aguilar DO Collected: 05/20/2019 12:00 AM Ordering Location: [facility] DermPath Lab Received: 05/21/2019 05:39 AM Pathologist: Gucci Delacruz MD Specimens: A) - Skin, right upper back B) - Skin, right mid arm C) - Skin, right ventral FA 9 1:39 PM [facility] DERMATOPATHOLOGY LABORATORY Final Diagnosis Specimen A. SKIN, right upper back: ACANTHOSIS AND HYPERKERATOSIS (L98.8) (see microscopic description and comment) Specimen B. SKIN, right mid arm: HYPERPLASTIC (HYPERTROPHIC) ACTINIC KERATOSIS (L57.0) EPIDERMAL NECROSIS SUGGESTIVE OF EXCORIATION (L98.499) Specimen C. SKIN, right ventral FA: ACTINIC KERATOSIS, LICHENOID (L57.0) 9 1:39 PM [facility] DERMATOPATHOLOGY LABORATORY at [address]9 MANAGER BUSINESS PROCESS Clinical History A: DF R/O atypia. B-C: R/O NMSC. 9 1:39 PM [facility] DERMATOPATHOLOGY LABORATORY Gross Description Specimen A: Received is one formalin filled container labeled with the patient's name and designated right upper back. The specimen consists of a shave measuring 7l8i3ds. Jar 0. Specimen B: Received is one formalin filled container labeled with the patient's name and designated right mid arm. The specimen consists of a shave measuring 1z3c5pc. Jar 0. Specimen C: Received is one formalin filled container labeled with the patient's name and designated right ventral FA. The specimen consists of a shave measuring 9t0x4gs. Jar 0. 9 1:39 PM [facility] DERMATOPATHOLOGY LABORATORY Microscopic Description Specimen A. [...] some basal vacuolar alteration. 9 1:39 PM [facility] DERMATOPATHOLOGY LABORATORY Disclaimer An external and internal positive and negative controls are appropriate for the histochemical, immunohistochemical and immunofluorescence stain(s) in this case (if any), except where stated explicitly. The performance characteristics of the stain(s) cited in this report were developed and its performance characteristic determined by the Dermatopathology Laboratory at [facility], directed by Dr. Jose Delacruz. These tests need not be, and therefore are not, approved by the [place] Food and Drug Administration. The tests are used for clinical purposes. Billing Codes Specimen Charges Stain Charges 56900 81500 84383 1 1 1 9 1:39 PM MANAGER BUSINESS PROCESS DERMATOPATHOLOGY LABORATORY Embedded Images 9 1:39 PM MANAGER BUSINESS PROCESS DERMATOPATHOLOGY LABORATORY Pathology/Cytology TISSUE SPECIMEN FROM SKIN / Unknown 05/20/2019 05/21/2019 5:39 AM MANAGER BUSINESS PROCESS Miscellaneous samples (specimen) TISSUE SPECIMEN FROM SKIN / Unknown 05/20/2019 05/21/2019 5:39 AM MANAGER BUSINESS PROCESS Miscellaneous samples (specimen) TISSUE SPECIMEN FROM SKIN / Unknown 05/20/2019 05/21/2019 5:39 AM MANAGER BUSINESS PROCESS us Elise Aguilar DO LAB - PATHOLOGY/CYTOLOGY ORDERABLES Final Result DERMATOPATHOLOGY LABORATORY [facility] - Department of Dermatology [address] [facility], 5th [place] [address], [facility] [phone] documented in this encounter Visit Diagnoses Not on filedocumented in this encounter Care Teams Motion Picture Set Worker Relationship Specialty [place] [address] [place] [phone] PCP - General Gastroenterology 09/13/15 08/28/24 Yves Boyer MD [address] [facility] [address] [place] [address] PCP - General Family Medicine 08/29/24 documented as of this encounter
--- OUTSIDE RECORDS SUMMARY | 2025-05-04 09:05 | XMS_ITS | Encounter Summary ---
Author Organization [facility] Address [address] [place] [address] Care Team Providers Care Ornamental Plaster Sticker Name Role Phone Kari Leblanc MD Primary Care Provider [phone] Yves Boyer MD Primary Care Provider [phone] Encounter Details Date Type Department Care Team (Late st Contact Info) Description 04/25/2018 Lab Requisition [facility] [address] [facility], [facility] [place] [address] Merissa Eisenberg MD [address] [facility] 3 [place] [address] Social History Tobacco Use Types Packs/Day Years Used Date Smoking Tobacco: Never Alcohol Use Standard Drinks/Week Comments Not Asked 0 (1 standard drink = 0.6 oz pur e alcohol) Comments Unknown Sex and Gender Information Value Date Recorded Sex Assigned at Female 08/22/2024 9:37 AM EMERGENCY PHYSICIAN Legal Sex Female 6:31 AM EMERGENCY PHYSICIAN Gender Identity Female 08/22/2024 9:37 AM EMERGENCY PHYSICIAN Sexual Orientation Choose not to disclose 2024 9:37 AM EMERGENCY PHYSICIAN 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 Not on file Not on file documented as of this encounter Plan of Treatment Not on file documented as of this encounter Procedures Procedure Name Priority Date/Time Associated Diagnosis Comments DERMATOPATH TECHNICAL REPORT Routine 04/23/2018 12:00 AM CDT documented in this encounter Results * DERMATOPATH TECHNICAL REPORT (04/23/2018 12:00 AM CDT) Case Report Dermatopathology Report Case: [id number] Authorizing Provider: Merissa Eisenberg MD Collected: 04/23/2018 12:00 AM Pathologist: Gucci Delacruz MD Received: 04/25/2018 06:46 AM Specimen: Skin, right boykin 5:54 PM CDT DERMATOPATHOLOGY LABORATORY Clinical History BCC. Non-healing. Check margins. 5:54 PM CDT DERMATOPATHOLOGY LABORATORY Gross Description Specimen A: Received is one formalin filled container labeled with the patient's name and designated right boykin. The specimen consists of a shave measuring 40d2y5rm. The margin is inked green. Jar 0. [facility] Dermatopathology Laboratory performed the [...] characteristic determined by the Dermatopathology Laboratory at [facility]. These tests need not [...] LABORATORY [facility] - Department of Dermatology [address] [facility], 5th [place] [address], [facility] [phone] documented in this encounter Visit Diagnoses Not on filedocumented in this encounter Care Teams Ornamental Plaster Sticker Relationship Specialty Start Date End Date Kari Leblanc MD [address] [place], [place] [phone] PCP - General Gastroenterology 09/13/15 08/28/24 Yves Boyer MD [address] [facility] [address] [place] [address] PCP - General Family Medicine 08/29/24 documented as of this encounter
--- OUTSIDE RECORDS SUMMARY | 2025-05-04 09:05 | XMS_ITS | Clinical Summary ---
Author Organization [facility] Care Team Providers Care Prospect Manager Name Role Phone Unavailable Primary Care Provider Unavailabl e Social History Tobacco Use Types Packs/Day Years Used Date Smoking Tobacco: Never Assessed Comments Unknown Sex and Gender Information Value Date Recorded Sex Assigned at Not on file Legal Sex Female 8:37 AM INSPECTOR QUALITY ASSURANCE Gender Identity Not on file Sexual Orientation [...]
--- OUTSIDE RECORDS SUMMARY | 2025-05-04 09:05 | XMS_ITS | Clinical Summary ---
Author Organization [facility] Address [address] [place] [address] Care Team Providers Care Acute Care Physician Name Role Phone Yves Boyer MD Primary Care Provider [phone] Source Comments [facility],non-owned Affiliates and Associated Physician Practices is amultiple site organization consisting of ambulatory clinics and hospital sitesin [place], [place], [place] and [place]. This disclosure is being madepursuant to the Care Everywhere program and may not contain all information available regarding this patient. 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
--- OUTSIDE RECORDS SUMMARY | 2025-05-04 09:05 | XMS_ITS | Encounter Summary ---
Author Organization [facility] Address [address] [place] [address] Care Team Providers Care Surgical First Assistant Name Role Phone Kari Leblanc MD Primary Care Provider [phone] Yves Boyer MD Primary Care Provider [phone] Encounter Details Date Type Department Care Team (Late st Contact Info) Description 05/05/2020 Lab Requisition [facility] [address] [facility], [facility] [place] [address] Merissa Eisenberg MD [address] [facility] [address] [place] [address] Social History Tobacco Use Types Packs/Day Years Used Date Smoking Tobacco: Never Alcohol Use Standard Drinks/Week Comments Not Asked 0 (1 standard drink = 0.6 oz pur e alcohol) Comments Unknown Sex and Gender Information Value Date Recorded Sex Assigned at Female 08/22/2024 9:37 AM CARTOGRAPHY TECHNICIAN Legal Sex Female 6:31 AM CARTOGRAPHY TECHNICIAN Gender Identity Female 08/22/2024 9:37 AM CARTOGRAPHY TECHNICIAN Sexual Orientation Choose not to disclose 2024 9:37 AM CARTOGRAPHY TECHNICIAN 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 Not on file Not on file documented as of this encounter Plan of Treatment Not on file documented as of this encounter Procedures Procedure Name Priority Date/Time Associated Diagnosis Comments DERMATOPATHOLOGY Routine 05/04/2020 12:0 0 AM CARTOGRAPHY TECHNICIAN documented in this encounter Results * DERMATOPATHOLOGY (05/04/2020 12:00 AM CARTOGRAPHY TECHNICIAN) Case Report Dermatopathology Report Case: [id number] Authorizing Provider: Merissa Eisenberg MD Collected: 05/04/2020 12:00 AM Ordering Location: [facility] DermPath Lab Received: 05/05/2020 07:26 AM Pathologist: Gucci Delacruz MD Specimen: Skin, left lower leg 0 12:23 PM [facility] DERMATOPATHOLOGY LABORATORY Final Diagnosis Specimen A. SKIN, left lower leg: LICHEN PLANUS-LIKE KERATOSIS (BENIGN LICHENOID KERATOSIS) (L82.1) STASIS DERMATITIS (L30.8) 0 12:23 PM [facility] DERMATOPATHOLOGY LABORATORY at 1223 CARTOGRAPHY TECHNICIAN Clinical History R/O BCC vs SCC, irritated, non-healing. 0 12:23 PM [facility] DERMATOPATHOLOGY LABORATORY Gross Description Specimen A: Received is one formalin filled container labeled with the patient's name and designated left lower leg. The specimen consists of a shave measuring [id number]. Jar 0. 0 12:23 PM [facility] DERMATOPATHOLOGY LABORATORY Microscopic Description Specimen A. SKIN, left lower leg: The epidermis is mildly acanthotic. There is a lichenoid infiltrate with vacuolar changes of basilar keratinocytes and scattered necrotic keratinocytes. There is focal spongiosis. The dermis shows a sparse, perivascular lymphocytic infiltrate surrounding dilated, thick-walled vessels, which are increased in number. 0 12:23 PM [facility] DERMATOPATHOLOGY LABORATORY Disclaimer An external and internal positive and negative controls are appropriate for the histochemical, immunohistochemical and immunofluorescence stain(s) in this case (if any), except where stated explicitly. The performance characteristics of the stain(s) cited in this report were developed and its performance characteristic determined by the Dermatopathology Laboratory at [facility], directed by Dr. Jose Delacruz. These tests need not be, and therefore are not, approved by the [place] Food and Drug Administration. The tests are used for clinical purposes. Billing Codes Specimen Charges Stain Charges 35947 1 0 12:23 PM [facility] DERMATOPATHOLOGY LABORATORY Embedded Images 0 12:23 PM CARTOGRAPHY TECHNICIAN DERMATOPATHOLOGY LABORATORY Pathology/Cytolog y TISSUE SPECIMEN FROM SKIN / Unknown 05/04/2020 05/05/2020 7:26 AM CARTOGRAPHY TECHNICIAN Merissa Eisenberg MD LAB - PATHOLOGY/CYTOLOGY OR DERABLES Final Result DERMATOPATHOLOGY LABORATORY [facility] - Department of Dermatology [facility] Medicine [address] [place] [address], [address] [phone] documented in this encounter Visit Diagnoses Not on filedocumented in this encounter Care Teams Surgical First Assistant Relationship Specialty Start Date End Date Kari Leblanc MD [address] [place], [place] [phone] PCP - General Gastroenterology 09/13/15 08/28/24 Yves Boyer MD [address] [facility] [address] [place] [address] PCP - General Family Medicine 08/29/24 documented as of this encounter
== END 2025-05-04 08:46 | disposition home or self-care (01) ==
PROVIDERS: PCP Family Medicine
DX: R74.01 Elevation of levels of liver transaminase levels (principal); E66.01 Morbid (severe) obesity due to excess calories; Z68.42 Body mass index [BMI] 45.0-49.9, adult
CPT/HCPCS: 76705

== ENCOUNTER 2025-06-11 15:32 | Outpatient (CLI) | payer MEDICARE, OTHER, SELFPAY ==
[2025-06-11 16:18] LABS: Hematocrit 47.8 % (37.0-47.0); Hemoglobin 15.8 g/dL (12.0-15.0); Mean Corpuscular HGB Conc 33.1 g/dl (32-36); Mean Corpuscular Hemoglobin 29.6 pg (26-34); Mean Corpuscular Volume 89.7 fl (80-100); Platelet Count Result 207 k/mm3 (150-375); Red Blood Count 5.33 M/mm3 (4.2-5.4); White Blood Count 9.2 K/mm3 (4.5-10.0)
[2025-06-11 16:30] LABS: INR 0.9; Prothrombin Time 12.4 Seconds (11.1-14.7)
[2025-06-11 16:31] LABS: Alanine Aminotransferase 41 U/L (6-35); Albumin Level 4.7 g/dL (3.5-5.1); Alkaline Phosphatase 111 U/L (38-126); Anion Gap 5 mmol/L (4-12); Aspartate Amino Transferase 37 U/L (14-36); Bilirubin,Total 0.5 mg/dL (0.2-1.3); Blood Urea Nitrogen 15 mg/dL (7-17); Calcium 10.2 mg/dL (8.4-10.2); Carbon Dioxide 34 mmol/L (22-30); Chloride 101 mmol/L (98-107); Estimated Glomerular Filt Rate > 60; Glucose 113 mg/dL (65-110); Potassium 3.7 mmol/L (3.4-5.0); Sodium 140 mmol/L (137-145); Total Protein 8.1 g/dL (6.3-8.2)
[2025-06-11 16:33] LABS: Iron 95 ug/dL (37-170)
[2025-06-11 16:43] LABS: Percent Iron Saturation 33 % (20-50)
[2025-06-11 17:02] LABS: Hepatitis B Surface Antigen Negative (Negative)
[2025-06-11 17:14] LABS: Ferritin 101.00 ng/mL (11.1-264)
[2025-06-11 17:20] LABS: Hepatitis B Surface Anti Res Negative
--- OUTSIDE RECORDS SUMMARY | 2025-06-11 18:39 | XMS_ITS | Encounter Summary ---
Author Organization [facility] Address [address] [facility] [place] [address] Care Team Providers Care Commercial Center Manager Name Role Phone Kari Leblanc MD Primary Care Provider [phone] Yves Boyer MD Primary Care Provider [phone] Encounter Details Date Type Department Care Team (Late st Contact Info) Description 05/21/2019 Lab Requisition [facility] [address] [facility], [facility] [place] [phone] Elise Aguilar, [address] [facility] [address] [place] [address] Social History Tobacco Use Types Packs/Day Years Used Date Smoking Tobacco: Never Alcohol Use Standard Drinks/Week Comments Not Asked 0 (1 standard drink = 0.6 oz pur e alcohol) Comments Unknown Sex and Gender Information Value Date Recorded Sex Assigned at Female 08/22/2024 9:37 AM ASSEMBLY LINE LEADER Legal Sex Female 6:31 AM ASSEMBLY LINE LEADER Gender Identity Female 08/22/2024 9:37 AM ASSEMBLY LINE LEADER Sexual Orientation Choose not to disclose 2024 9:37 AM ASSEMBLY LINE LEADER 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 Not on file Not on file documented as of this encounter Plan of Treatment Not on file documented as of this encounter Procedures Procedure Name Priority Date/Time Associated Diagnosis Comments DERMATOPATHOLOGY Routine 05/20/2019 12:0 0 AM ASSEMBLY LINE LEADER documented in this encounter Results * DERMATOPATHOLOGY (05/20/2019 12:00 AM [facility]) Case Report Dermatopathology Report Case: [id number] Authorizing Provider: Elise Aguilar DO Collected: 05/20/2019 12:00 AM Ordering Location: [facility] D[facility] Lab Received: 05/21/2019 05:39 AM Pathologist: Gucci Delacruz MD Specimens: A) - Skin, right upper back B) - Skin, right mid arm C) - Skin, right ventral FA 9 1:39 PM [facility] DERMATOPATHOLOGY LABORATORY Final Diagnosis Specimen A. SKIN, right upper back: ACANTHOSIS AND HYPERKERATOSIS (L98.8) (see microscopic description and comment) Specimen B. SKIN, right mid arm: HYPERPLASTIC (HYPERTROPHIC) ACTINIC KERATOSIS (L57.0) EPIDERMAL NECROSIS SUGGESTIVE OF EXCORIATION (L98.499) Specimen C. SKIN, right ventral FA: ACTINIC KERATOSIS, LICHENOID (L57.0) 9 1:39 PM [facility] DERMATOPATHOLOGY LABORATORY at [address] ASSEMBLY LINE LEADER Clinical History A: DF R/O atypia. B-C: R/O NMSC. 9 1:39 PM [facility] DERMATOPATHOLOGY LABORATORY Gross Description Specimen A: Received is one formalin filled container labeled with the patient's name and designated right upper back. The specimen consists of a shave measuring 3s5y6be. Jar 0. Specimen B: Received is one formalin filled container labeled with the patient's name and designated right mid arm. The specimen consists of a shave measuring 9s8y1sh. Jar 0. Specimen C: Received is one formalin filled container labeled with the patient's name and designated right ventral FA. The specimen consists of a shave measuring 2m4q9kr. Jar 0. 9 1:39 PM [facility] DERMATOPATHOLOGY LABORATORY Microscopic Description Specimen [...] some basal vacuolar alteration. 9 1:39 PM [facility] DERMATOPATHOLOGY LABORATORY Disclaimer An external [...] purposes. Billing Codes Specimen Charges Stain Charges 79289 [id number] 1 1 1 9 1:39 PM ASSEMBLY LINE LEADER DERMATOPATHOLOGY LABORATORY Embedded Images 9 1:39 PM ASSEMBLY LINE LEADER DERMATOPATHOLOGY LABORATORY Pathology/Cytology TISSUE SPECIMEN FROM SKIN / Unknown 05/20/2019 05/21/2019 5:39 AM ASSEMBLY LINE LEADER Miscellaneous samples (specimen) TISSUE SPECIMEN FROM SKIN / Unknown 05/20/2019 05/21/2019 5:39 AM ASSEMBLY LINE LEADER Miscellaneous samples (specimen) TISSUE SPECIMEN FROM SKIN / Unknown 05/20/2019 05/21/2019 5:39 AM ASSEMBLY LINE LEADER us Elise Aguilar DO LAB - PATHOLOGY/CYTOLOGY ORDERABLES Final Result DERMATOPATHOLOGY LABORATORY [facility] - Department of Dermatology [address] [facility], [address]th [place] [address], [facility] [phone] documented in this encounter Visit Diagnoses Not on filedocumented in this encounter Care Teams Commercial Center Manager Relationship Specialty [place] [address] [place] [address] [phone] PCP - General Gastroenterology 09/13/15 08/28/24 Yves Boyer MD [address] [facility] [address] [place] [address] PCP - General Family Medicine 08/29/24 documented as of this encounter
--- OUTSIDE RECORDS SUMMARY | 2025-06-11 18:39 | XMS_ITS | Encounter Summary ---
Author Organization [facility] Address [address] [place] [address] Care Team Providers Care Personnel Director Name Role Phone Kari Leblanc MD Primary Care Provider [phone] Yves Boyer MD Primary Care Provider [phone] Encounter Details Date Type Department Care Team (Late st Contact Info) Description 09/05/2023 Lab Requisition [facility] - DermPath Lab [address] [facility] [place] [address] Merissa Eisenberg MD [address] [facility] [address] [place] [address] Social History Tobacco Use Types Packs/Day Years Used Date Smoking Tobacco: Never Alcohol Use Standard Drinks/Week Comments Not Asked 0 (1 standard drink = 0.6 oz pur e alcohol) Comments Unknown Sex and Gender Information Value Date Recorded Sex Assigned at Female 08/22/2024 9:37 AM RECEIVING WORKER Legal Sex Female 6:31 AM RECEIVING WORKER Gender Identity Female 08/22/2024 9:37 AM RECEIVING WORKER Sexual Orientation Choose not to disclose 2024 9:37 AM RECEIVING WORKER 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 Billing Codes Specimen Charges Stain Charges [id number] 1 1:04 PM CDT DERMATOPATHOLOGY LABORATORY Embedded Images 1:04 PM CDT DERMATOPATHOLOGY LABORATORY Pathology/Cytolo gy TISSUE SPECIMEN FROM SKIN / Unknown 09/05/2023 2:34 PM RECEIVING WORKER 09/06/2023 2:03 PM RECEIVING WORKER Merissa Eisenberg MD LAB - PATHOLOGY/CYTOLOGY OR DERABLES Final Result DERMATOPATHOLOGY LABORATORY [facility] - Department of Dermatology [facility] Medicine [address] [place] [address], [address] [phone] documented in this encounter Visit Diagnoses Not on filedocumented in this encounter Care Teams Personnel Director Relationship Specialty Start Date End Date Kari Leblanc MD [address] [place], [place] [phone] PCP - General Gastroenterology 09/13/15 08/28/24 Yves Boyer MD [address] [place] [address] PCP - General Family Medicine 08/29/24 documented as of this encounter
--- OUTSIDE RECORDS SUMMARY | 2025-06-11 18:39 | XMS_ITS | Encounter Summary ---
Author Organization [facility] Address [address] [facility] [address] Care Team Providers Care Crayon Sorting Machine Feeder Name Role Phone Kari Leblanc MD Primary Care Provider [phone] Yves Boyer MD Primary Care Provider [phone] Encounter Details Date Type Department Care Team (Late st Contact Info) Description 04/25/2018 Lab Requisition [facility] [address] [facility] [place] [phone] Merissa Eisenberg MD [address] 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 Not on file Not on file Not on file documented as of this encounter Plan of Treatment Not on file documented as of this encounter Procedures Procedure Name Priority Date/Time Associated Diagnosis Comments DERMATOPATH TECHNICAL REPORT Routine 04/23/2018 12:00 AM CDT documented in this encounter Results * DERMATOPATH TECHNICAL REPORT (04/23/2018 12:00 AM CDT) Case Report Dermatopathology Report Case: [id number] Authorizing Provider: Merissa Eisenberg MD Collected: 04/23/2018 12:00 AM Pathologist: Gucci Delacruz MD Received: 04/25/2018 06:46 AM Specimen: Skin, right boykin 5:54 PM CDT DERMATOPATHOLOGY LABORATORY Clinical History BCC. Non-healing. Check margins. 5:54 PM CDT DERMATOPATHOLOGY LABORATORY Gross Description Specimen A: Received is one formalin filled container labeled with the patient's name and designated right boykin. The specimen consists of a shave measuring 12s4s6ig. The margin is inked green. Jar 0. [...] LABORATORY [facility] - Department of Dermatology [address] [facility], 5th [place] [address], [facility] [phone] documented in this encounter Visit Diagnoses Not on filedocumented in this encounter Care Teams Crayon Sorting Machine Feeder Relationship Specialty Start Date End Date Kari Leblanc MD [address] [place], [place] [phone] PCP - General Gastroenterology 09/13/15 08/28/24 Yves Boyer MD [address] [facility] [address] [place] [address] PCP - General Family Medicine 08/29/24 documented as of this encounter
--- OUTSIDE RECORDS SUMMARY | 2025-06-11 18:39 | XMS_ITS | Data Portability ---
Author Organization [facility] Address [address] [place] [address] Assessment No assessment recorded. Plan of Treatment Reminders Order Date Submit Date Provider Last Modified By Organization Details Last Modified Time Details Appointments None recorded. 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 Denies being exposed to pos COVID person. [place] 100. 2019 020 [facility] (Lab), [address] [place], [address], 0 11:50:43 CBC 2015 016 [place] [address] [facility], [address] [place] [address], [facility] [address], [place], [address], 6 11:18:52 CMP, serum or plasma 2015 016 [place] [facility], [address] [place] [address], [address], [place], [address], 6 02:34:45 lipid panel, serum 2015 016 [place] [address] [facility], [address] [place] [address], [address], [place], [address], 6 11:18:52 Referral pulmonolog ist referral 2015 016 [email or web address] Not available 6 09:28:41 neurosurge ry referral 2015 016 HAI Not available 6 10:06:46 ophthalmol ogist referral - Glaucoma 2015 016 [email or web address] Vinod Gaston MD, [address], [address], 6 09:27:44 Procedures None recorded. Surgeries None recorded. Imaging None recorded. Medication Orders cetirizine 10 mg tablet 2015 016 INTERFACE [facility]81096, [address], [place], [place], [id number], 6 12:26:18 hydrocodon e 5 mg-acetami nophen 325 mg tablet [address] [facility]20123, [address], [id number], 6 11:18:52 fluticason e propionate 50 mcg/actuat ion nasal spray,susp ension [address] [facility]03264, [address], [place], [place], [id number], 6 11:18:52 amlodipine 10 mg tablet [address] [facility]58740, [address], [id number], 6 11:18:52 amoxicilli n 875 mg-potassi um clavulanat e 125 mg tablet 2015 016 [email or web address] [facility] #02899, [address], [place], [place], [id number], 6 12:08:54 hydrocodon e 5 mg-acetami nophen 325 mg tablet 2015 016 [email or web address] [facility], [address], [place], [place], [id number], 6 11:14:30 Patient TargetsNo targets recorded. Patient Instructions Encounter Date Encounter Id Patient Instructions Last Modified By Organization Details Last Modified Time 12/16/2019 [id number] Reviewed the following recommendations: -Stay home and [...] Not available 12/16/2019 13:00:39 Reason for Referral Marketing Representative Referral for Glaucoma Glaucoma Glaucoma Referring Physician: Kari Rodriguez, Internal Medicine, Encounter Date: 09/07/2015 Flour Inspector Referral for A sthma asthma/COPD Referring Physician: Kari Rodriguez, Internal Medicine, [...] ===== === Not Available [facility] [address], [place], [address], 10/30/2015 15:13:23 10/22/19 16 10/30/2015 drug scree n, urine pdf . Not Available [facility] [address], [place], [address], 10/30/2015 15:13:23 02/08/20 16 02/09/2016 LDL, direc t, serum direct LDL 150 mg/dL <130 high Ro able range <100 mg/dL for patie nts with CHD or diabe kris and <70 mg/dL for diabe tic patie nts with known heart disea se. Not Available [address], [address], 02/09/2016 02:34:43 02/08/2002/09/2016 desire stero l, total , serum cholesterol, total 230 mg/dL 125-20 0 high Not Available [address], [address], 02/09/2016 02:34:44 02/08/2002/09/2016 trigl yceri lissette, serum triglyceride s 128 mg/dL <150 normal Not Available [address], [address], 02/09/2016 02:34:44 02/08/2002/09/2016 CMP, serum or plasm a glucose 98 mg/dL 65-99 normal Fasti ng refer ence inter rolanda Not Available [address], [address], 02/09/2016 02:34:44 02/08/2002/09/2016 CMP, serum or plasm a urea nitrogen (BUN) 15 mg/dL 7-25 normal Not Available [facility] [address], [address], 02/09/2016 02:34:44 02/08/2002/09/2016 CMP, serum or plasm a creatinine 0.74 mg/dL 0.50-1 .05 normal For patie nts >49 years of age, the refer ence limit for Creat inine is appro ximat hollis 13% highe r for peopl e ident ified as Afric an-Am julian n. Not Available [facility] [address], [address], 02/09/2016 02:34:44 02/08/2002/09/2016 CMP, serum or plasm a eGFR non-afr. tongan 94 mL/mi n/1.7 3m2 > or = 60 normal Not Available [address], [address], 02/09/2016 02:34:44 02/08/20 16 02/09/2016 CMP, serum or plasm a eGFR 109 mL/mi n/1.7 3m2 > or = 60 normal Not Available [facility] [address], [address], 02/09/2016 02:34:44 02/08/2002/09/2016 CMP, serum or plasm a BUN/creatini ne ratio NOT APPLIC ABLE (calc ) 6-22 Not Available [address], [address], 02/09/2016 02:34:44 02/08/2002/09/2016 CMP, serum or plasm a sodium 145 mmol/ L 135-14 6 normal Not Available [address], [address], 02/09/2016 02:34:44 02/08/2002/09/2016 CMP, serum or plasm a potassium 4.3 mmol/ L 3.5-5. 3 normal Not Available [address], [address], 02/09/2016 02:34:44 02/08/2002/09/2016 CMP, serum or plasm a chloride 102 mmol/ L 98-110 normal Not Available [facility] [address], [address], 02/09/2016 02:34:44 02/08/2002/09/2016 CMP, serum or plasm a carbon dioxide 28 mmol/ L 20-31 normal Not Available [facility] [address], [address], 02/09/2016 02:34:44 02/08/2002/0802/09/2016 CMP, serum or plasm a calcium 10.2 mg/dL 8.6-10 .4 normal Not Available [address], [address], 02/09/2016 02:34:44 02/08/2002/09/2016 CMP, serum or plasm a protein, total 7.0 g/dL 6.1-8. 1 normal Not Available [address], [address], 02/09/2016 02:34:44 02/08/2002/09/2016 CMP, serum or plasm a albumin 4.4 g/dL 3.6-5. 1 normal Not Available [address], [address], 02/09/2016 02:34:44 02/08/2002/09/2016 CMP, serum or plasm a globulin 2.6 g/dL_ (calc ) 1.9-3. 7 normal Not Available [address], [address], 02/09/2016 02:34:44 02/08/20 16 02/09/2016 CMP, serum or plasm a albumin/glob ulin ratio 1.7 (calc ) 1.0-2. 5 normal Not Available [address], [address], 02/09/2016 02:34:44 02/08/2002/09/2016 CMP, serum or plasm a bilirubin, total 0.4 mg/dL 0.2-1. 2 normal Not Available [address], [address], 02/09/2016 02:34:44 02/08/2002/09/2016 CMP, serum or plasm a alkaline phosphatase 84 U/L 33-130 normal Not Available [facility] [employer] [address], [address], 02/09/2016 02:34:44 02/08/20 16 02/09/2016 CMP, serum or plasm a AST 24 U/L 10-35 normal Not Available [address], [address], 02/09/2016 02:34:44 02/08/20 16 02/09/2016 CMP, serum or plasm a ALT 41 U/L 6-29 high Not Available [address], [address], 02/09/2016 02:34:44 02/08/2002/09/2016 HDL desire stero l, serum HDL cholesterol 54 mg/dL > or = 46 normal Not Available [address], [address], 02/09/2016 02:34:45 02/08/2002/09/2016 CBC w/ auto diff white blood cell count 5.7 thous and/u L 3.8-10 .8 normal Not Available [address], [address], 02/09/2016 02:34:45 02/08/20 16 02/09/2016 CBC w/ auto diff red blood cell count 5.27 cynthia on/uL 3.80-5 .10 high Not Available [address], [address], 02/09/2016 02:34:45 02/08/2002/09/2016 CBC w/ auto diff hemoglobin 15.4 g/dL 11.7-1 5.5 normal Not Available [facility] [address], [address], 02/09/2016 02:34:45 02/08/2002/09/2016 CBC w/ auto diff hematocrit 47.4 % 35.0-4 5.0 high Not Available [address], [address], 02/09/2016 02:34:45 02/08/20 16 02/09/2016 CBC w/ auto diff MCV 90.1 fL 80.0-1 00.0 normal Not Available [address], [address], 02/09/2016 02:34:45 02/08/2002/09/2016 CBC w/ auto diff MCH 29.3 pg 27.0-3 3.0 normal Not Available [address], [address], 02/09/2016 02:34:45 02/08/2002/09/2016 CBC w/ auto diff MCHC 32.5 g/dL 32.0-3 6.0 normal Not Available [address], [address], 02/09/2016 02:34:45 02/08/20 16 02/09/2016 CBC w/ auto diff RDW 13.7 % 11.0-1 5.0 normal Not Available [address], [address], 02/09/2016 02:34:45 02/08/2002/09/2016 CBC w/ auto diff platelet count 199 thous and/u L 140-40 0 normal Not Available [address], [address], 02/09/2016 02:34:45 02/08/2002/09/2016 CBC w/ auto diff MPV 9.3 fL 7.5-11 .5 normal Not Available [address], [address], 02/09/2016 02:34:45 02/08/2002/09/2016 CBC w/ auto diff absolute neutrophils 3380 cells /uL 1500-7 800 normal Not Available [address], [address], 02/09/2016 02:34:45 02/08/2002/09/2016 CBC w/ auto diff absolute lymphocytes 1813 cells /uL 850-39 00 normal Not Available [address], [address], 02/09/2016 02:34:45 02/08/2002/09/2016 CBC w/ auto diff absolute monocytes 376 cells /uL 200-95 0 normal Not Available [address], [address], 02/09/2016 02:34:45 02/08/2002/09/2016 CBC w/ auto diff absolute eosinophils 97 cells /uL 15-500 normal Not Available [address], [address], 02/09/2016 02:34:45 02/08/2002/09/2016 CBC w/ auto diff absolute basophils 34 cells /uL 0-200 normal Not Available [address], [address], 02/09/2016 02:34:45 02/08/2002/09/2016 CBC w/ auto diff neutrophils 59.3 % normal Not Available [address], [address], 02/09/2016 02:34:45 02/08/2002/09/2016 CBC w/ auto diff lymphocytes 31.8 % normal Not Available [address], [address], 02/09/2016 02:34:45 02/08/2002/09/2016 CBC w/ auto diff monocytes 6.6 % normal Not Available [address], [address], 02/09/2016 02:34:45 02/08/2002/09/2016 CBC w/ auto diff eosinophils 1.7 % normal Not Available [facility] [address] [place], [address], 02/09/2016 02:34:45 02/08/20 16 02/09/2016 CBC w/ auto diff basophils 0.6 % normal Not Available 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 This testi ng was [facility]fo [facility]med in the [facility] [place] [address] (CLIA Licen se #[id number] 5, CAP #[id number], AU-ID #[id number]). 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, respi rator y speci men covidcom6 Facts heet for healt hcare provi ders: https ://[employer] .gov/ media /8659 56/do wnloa d Facts heet for patie nts: https ://[employer] .gov/ media /1360 57/do wnloa d Not Available [facility] (Lab) [address] [place], [address], 12/30/2019 11:08:51 10/27/19 16 10/27/2015 MRI cervi kristy spine wwo KARLAMESERETSTEPHEN R,CHRI JAMAL LAL 7613 ADMIT/ SERVIC E DATE: ACCT: [id number] DISCHA RGE DATE: : 1964 SEX: F [facility]: REG CLI ORDERAviva BURROUGHS MD: DEEJAY RODRIGUEZ ND, MD STUDY DATE REPORT # ORDER # EXT ORDER ID [id number] 3.001 PROC CODE: CSPW+W OC PROCED URE [...] T AND WITH CONTRA ST. ACCESS ION: [id number] EXAM DATE/T MARIIA: 016 5:56 PM CLINIC [...] SIGNED BY: THERESA ROSSI ER10/26 7:28 PM [email or web address] [facility] [address] [facility], [place], [address], 12/07/2015 11:56:44 10/27/19 16 10/27/2015 MRI lumba r spine wwo JASWINDER Murray,FABY JAMAL LAL 7613 ADMIT/ SERVIC E DATE: ACCT: [id number] DISCHA RGE DATE: : 1964 SEX: F ORD SITE: [facility] PT TYPE: REG CLI YAMILE BURROUGHS MD: DEEJAY RODRIGUEZ ND, MD STUDY DATE REPORT # ORDER # EXT ORDER ID [id number] 4.001 PROC CODE: LSPW+W OC PROCED URE [...] AND WITHOU T CONTRA ST ACCESS ION: [id number] EXAM DATE/T MARIIA: 016 5:56 PM CLINIC [...] JOINT DISEAS E, AND SOME PROMIN ENT NURSE WOUND IOR CANAL EPIDUR AL FAT. NO SIGNIF ICANT FORAMI NAL STENOS IS AT THIS LEVEL. MODERA TE CANAL STENOS IS L4-5 LEVEL DUE TO NURSE WOUND IOR BONY BAR AND FACET JOINT DISEAS [...] SIGNED BY: THERESA ROSSI ER10/26 7:36 PM [email or web address] [facility] [address], [place], [address], 12/07/2015 11:57:16 Result Notes None recorded. Problems Name Problem SNOMED Code Status Onset Date Resolution Date Notes Provider Name and Address Organization Details Recorded Time Asthma 652852348 Active Kari Rodriguez MD Attn: Alcira lemus,[address] [facility], [place], [address], [place] [facility] 6 15:11:01 Essential hypertension 70301470 Active Kari Rodriguez MD Attn: Alcira lemus,[address] [facility], [place], [address], [place] [facility] 6 11:18:51 Gastroesophage al reflux disease 921856253 Active Kari Rodriguez MD Attn: Alcira lemus,[address] [facility], [place], [address], [place] [facility] 6 12:17:03 Osteoarthritis 499939990 Antoinette Rodriguez MD Attn: Alcira lemus,[address] [facility], [place], [address], [place] [facility] 6 11:18:52 Venous insufficiency of lower limb 315699382 Antoinette Rodriguez MD Attn: Alcira lemus,[address] [facility], [place], [address], [place] [facility] 6 12:17:03 Glaucoma 45054637 Active Jen Cardenas LPN null, [place] [facility] 6 10:19:57 Pain of multiple joints 85138059 Active Kim Peña LPN null, [place] [facility] 6 12:11:53 Allergic rhinitis 14763534 Antoinette Rodriguez MD Attn: Alcira lemus,[address] [facility], [place], [address], [place] [facility] 6 11:18:51 Obesity 661788813 Active Kari Rodriguez MD Attn: Alcira lemus,[address] [facility], [place], [address], [place] [facility] 6 12:17:03 Neck pain 45754245 Active Kari Rodriguez MD Attn: Alcira lemus,[address] [facility], [place], [address], [place] [facility] 6 11:14:30 Sinusitis 06493703 Active Kari Rodriguez MD Attn: Alcira lemus,[address] [facility], [place], [address], [facility] - [facility] 6 15:11:01 Chronic obstructive pulmonary disease 49389800 Active Kari Rodriguez MD Attn: Alcira lemus,[address] [facility], [place], [address], [place] [facility] 6 11:18:51 Hypoxia 437589758 Active Kari Rodriguez MD Attn: Alcira lemus,[address] [facility], [place], [address], [place] [facility] 6 15:11:01 Spinal stenosis 28199260 Active Kari Rodriguez MD Attn: Alcira lemus,[address] [facility], [place], [address], [place] [facility] 6 11:18:52 Problem Notes None recorded. Procedures Surgical History Date Name Laterality Status Provider Name and Address Organization Details Recorded Time 07/02/19 15 Eye Surgery completed Kari Rodriguez MD Attn: Accounting,[address] [facility], [place], [address], [place] [facility] 07/08/2015 11:43:51 07/02/19 09 Other completed Kari Rodriguez MD Attn: Accounting,[address] [facility], [place], [address], [facility] - [facility] 07/08/2015 11:38:19 07/02/18 98 Cholecystectomy completed Kari Rodriguez MD Attn: Accounting,[address] [facility], [place], [address], [facility] 07/08/2015 11:38:19 Tubal Ligation completed Ankur Hassan MA [facility] 07/08/2015 11:15:31 Hysterectomy completed Ankur Hassan MA [facility] 07/08/2015 11:15:31 Imaging Results None recorded. Procedure Notes None recorded. Medical Equipment None [...] Not Available N ot Available Afluria Qd 2019-20 (36 mos up)(PF)60 mcg (15 mcg x4)/0.5 mL IM syringe active Not Available Not Available N ot Available Vitals Date Recorded Body temperature Body mass index (BMI) Heart rate Body height Body weight Systolic And Diastolic Provider Name and Address Organization Details Last Updated DateTime 6 98.6 [degF] 39.4 kg/m2 80 /min 167.64 cm 932114. 80053 g 126/80 mm[Hg] Glenis Bojorquez MA [facility] 6 10:11:47 Date Recorded Body height Body mass index (BMI) Oxygen saturation Body temperature Heart rate Body weight Systolic And Diastolic Provider Name and Address Organization Details Last Updated DateTime 6 167.64 cm 38.4 kg/m2 91 % 98.3 [degF] 89 /min 902845. 08225 g 122/84 mm[Hg] Ella Ibarra MA [facility] 6 14:43:45 Date Recorded Body weight Body height Body mass index (BMI) Body temperature Systolic And Diastolic Provider Name and Address Organization Details Last Updated DateTime 01/11/2016 493118.6 1458 g 167.64 cm 37.8 kg/m2 98 [degF] 144/76 mm[Hg] Ella Ibarra MA [facility] 6 10:35:14 Date Recorded Body height Body weight Body mass index (BMI) Heart rate Body temperature Oxygen saturation Systolic And Diastolic Provider Name and Address Organization Details Last Updated DateTime 6 167.64 cm 090844. 13 g 39.5 kg/m2 85 /min 98.2 [degF] 93 % 140/84 mm[Hg] Andrew Bowser MA [facility] 6 12:08:16 Social History None recorded. Functional Status None recorded. Mental Status None recorded. Family History Relationship Description Onset Age of this Age Resolved Age Notes LastModified by Organization Details LastModified Time Mother Diabetes mellitus [email or web address] Not available 2015 11:39:59 Mother Hypertensive disorder [email or web address] Not available 2015 11:39:59 Mother Hypercholest erolemia [email or web address] Not available 2015 11:39:59 Father Malignant neoplasm of lung 2013 [email or web address] Not available 2015 11:39:59 Medical History Condition Response Other High Blood Pressure Y COPD Y Acid Reflux (GERD) Y Kidney or Bladder Problems Y GI Problems Y Asthma Y Gynecological History Statement/Question Response Current Control Method Hysterectom y Obstetrics History GPAL:G 0 P 0 0 0 0 Past Encounters Encounter ID Performer Location Encounter Start Date Encounter Closed Date Diagnosis/Indication Diagnosis SNOMED-CT Code Diagnosis ICD10 Code Diagnosis IMO Codes Diagnosis Note [id number] MD Freda Vazquez (Adult Med) [address] [place] [address] 07/08/2015 10:32:47 07/08/2015 18:08:53 Asthma 949960832 J45.909 Essential hypertension 84693254 I10 Gastroesop hageal reflux disease 120179093 K21.9 Osteoarthritis 911468876 M19.90 Venous ins ufficiency of lower limb 155254788 I87.2 Glaucoma 74686721 H40.9 Pain of mu ltiple joints 31408577 M25.50 Neck and back pain. Had been referred to Allergic rhinitis 502058 04 J30.9 Obesity 163599302 E66.9 [id number] MD Freda Vazquez (Adult Med) [address] [place] [address] 09/07/2015 09:38:45 09/07/2015 11:16:40 Asthma 599723232 J45.909 Neck pain 09128908 M54.2 Glaucoma 25114547 H40.9 [id number] MD Freda Vazquez (Adult Med) [address] [place] [address] 12/22/2015 14:19:21 12/22/2015 18:06:27 Sinusitis 06727960 J32.9 Essential hypertension 91085944 I10 Asthma 820686869 J45.90 9 Allergic rhinitis 130314 04 J30.9 Chronic ob structive pulmonary disease 14853665 J44.9 Hypoxia 235453879 G47.34 Long-term oxygen therapy 223696303 Z99.81 [id number] MD Freda Vazquez (Adult Med) [address] [place] [address] 01/11/2016 09:46:45 01/12/2016 09:56:55 Chronic obstructive pulmonary disease 86991203 J44.9 Pt to call pulmonolog ist for further management . Essential hypertension 72034895 I10 Allergic rhinitis 133520 04 J30.9 Spinal stenosis 52918623 M48.00 Osteoarthritis 084004207 M19.90 Medication monitoring 39 9263983 Z51.81 [id number] MD Freda Vazquez (Adult Med) [address] [place] [address] 06/22/2016 11:51:42 06/22/2016 12:27:47 Allergic rhinitis 29626078 J30.9 Chronic ob structive pulmonary disease 67067564 J44.9 [id number] VENANCIO Akhtar [address] [place] [address] 12/16/2019 11:57:01 12/17/2019 14:53:23 Suspected COVID-19 057677713 Z03.818 D/w pt the current pandemic of COVID-19 and call for social isolation in order to blunt the curve and minimize risk and spread. Encouraged patient and family to take restrictio ns seriously. They have verbalized understand ing of such. Viral syndrome 270583966 B34.9 Coronavirus infection 18 5257583 B34.2 Health Concerns Section Related Observation LastModified by Organization Detai ls LastModified Time None Recorded Concern Status LastModified by Organization Details LastModified Time None Recorded Advance Directives Directive None Recorded Payers Insurance Date Sequence Insurance Name Policy Number Policy Hutchinson Covered Member ID Hutchinson Member ID Guarantor Name 12/16/2019 1 [facility] [id number] Autumn Eli [id number] Autumn Eli 12/16/2019 1 [facility] OPEN ACCESS (POS) [id number] Autumn Eli [id number] Autumn Eli Notes Date Note Type Note Provider Name and Address Organization Details Recorded Time 6 text/html Has found a list neurosurgeons re her neck pain. Noticed a sore on the inner lip. Kari Rodriguez MD Attn: Accounting,[address] [facility], [place], [address], [facility] - [facility] 09/07/2015 11:14:38 6 text/html raad congestion, frontal headache, minimal cough production for 3 days. No nasal drainage. Has increased nebulizer use. O2 sat 72% when first checked in office. >90% on RA after resting awhile. Uses home O2 at night. Kari Rodriguez MD Attn: Accounting,[address] [facility], [place], [address], [facility] - [facility] 12/22/2015 15:11:24 6 text/html Has had au URI since last visit. Was given tapering prednisone by pulmonary, and had CXR. Feels tired. Has been seen by NS. NSAID changed to Diclofenac but does not offer relief. Kari Rodriguez MD Attn: Accounting,[address] [facility], [place], [address], [facility] - [facility] 01/11/2016 11:19:03 6 text/html Upper respiratory sx in past few days. Prescribed azithromycin and prednisone from physician general practice Kari Rodriguez MD Attn: Accounting,[address] [facility], [place], [address], [facility] 06/22/2016 12:26:20 0 text/html COVID ScreeningReported by PatientHPIFor onset/duration of fever, patient reportsfeverbut reportshighest fever 101. For associated symptoms, patient reportscough. For comorbidities, patient reportscopd. COVID-19 Symptoms October 2019Reported by PatientUpper Respiratory SymptomsFor covid-19 signs and symptoms, patient reportsmuscle pain worseningandheadache worseningbut reportscough resolved,fever resolved,shortness of breath resolved,chills resolved,repeated shaking with chills resolved,sore throat resolved,loss of taste or smell resolved,vomiting or diarrhea resolved,fatigue resolved,anorexia resolved,cough same,fever same,shortness of breath same, andchills same. For quality, patient reportsdry cough. For context, patient reportsasthmaandcopd. For associated symptoms, patient reportswheezingbut reportsno sputum production,no runny nose,no vomiting,no diarrhea,no body aches,no nausea,no change in mental status,no hypotension, andno tachycardia.ROS as noted in the HPI 54 yo female ,spoke via phone with C/O, fever, headaches, cough body aches, chills and SOB, X 2 days. Denies being exposed to pos COVID person. NII Fuchs NP Attn: Accounting,[address] [facility], [place], [address], [facility] 12/16/2019 13:01:15 OBGyn Episode No OBEpisode recorded.
--- OUTSIDE RECORDS SUMMARY | 2025-06-11 18:39 | XMS_ITS | Clinical Summary ---
Author Organization [facility] Address [address] [place] [id number] Care Team Providers Care Collar Packer Name Role Phone Kari Leblanc MD Primary [...] Vaccines (1 of 2) 2015 COVID-19 Vaccine (2024-2 6 season) 2025 Influenza Adult (#1) 2025 RSV [...] age to complete this topic Care Teams Collar Packer Relationship Specialty Start Date End Date Kari Leblanc MD PCP - General 12/23/15
--- OUTSIDE RECORDS SUMMARY | 2025-06-11 18:39 | XMS_ITS | Clinical Summary ---
Author Organization [facility] Care Team Providers Care Credit Card Analyst Name Role Phone Unavailable Primary Care Provider Unavailabl e Social History Tobacco Use Types Packs/Day Years Used Date Smoking Tobacco: Never Assessed Comments Unknown Sex and Gender Information Value Date Recorded Sex Assigned at Not on file Legal Sex Female 8:37 AM [employer] TE[employer] Gender Identity Not on file Sexual Orientation [...]
--- OUTSIDE RECORDS SUMMARY | 2025-06-11 18:39 | XMS_ITS | Encounter Summary ---
Author Organization [facility] Address [address] [address] Care Team Providers Care Rework Machine Operator Name Role Phone Kari Leblacn MD Primary Care Provider [phone] Yves Boyer MD Primary Care Provider [phone] Encounter Details Date Type Department Care Team (Late st Contact Info) Description 05/05/2020 Lab Requisition [facility] [address] [facility], [facility] [place] [id number] Merissa Eisenberg MD [address] [facility] [address] [place] [address] Social History Tobacco Use Types Packs/Day Years Used Date Smoking Tobacco: Never Alcohol Use Standard Drinks/Week Comments Not Asked 0 (1 standard drink = 0.6 oz pur e alcohol) Comments Unknown Sex and Gender Information Value Date Recorded Sex Assigned at Female 08/22/2024 9:37 AM MELTER CASTER Legal Sex Female 6:31 AM MELTER CASTER Gender Identity Female 08/22/2024 9:37 AM MELTER CASTER Sexual Orientation Choose not to disclose 2024 9:37 AM MELTER CASTER 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 Not on file Not on file Not on file documented as of this encounter Plan of Treatment Not on file documented as of this encounter Procedures Procedure Name Priority Date/Time Associated Diagnosis Comments DERMATOPATHOLOGY Routine 05/04/2020 12:0 0 AM MELTER CASTER documented in this encounter Results * DERMATOPATHOLOGY (05/04/2020 12:00 AM MELTER CASTER) Case Report Dermatopathology Report Case: [id number] Authorizing Provider: Merissa Eisenberg MD Collected: 05/04/2020 12:00 AM Ordering Location: [facility] Received: 05/05/2020 07:26 AM Pathologist: Gucci Delacruz MD Specimen: Skin, left lower leg 0 12:23 PM [facility] Final Diagnosis Specimen A. SKIN, left lower leg: LICHEN PLANUS-LIKE KERATOSIS (BENIGN LICHENOID KERATOSIS) (L82.1) STASIS DERMATITIS (L30.8) 0 12:23 PM [facility] at [address] Clinical History R/O BCC vs SCC, irritated, non-healing. 0 12:23 PM [facility] Gross Description Specimen A: Received is one formalin filled container labeled with the patient's name and designated left lower leg. The specimen consists of a shave measuring [id number]. Jar 0. 0 12:23 PM [facility] Microscopic Description Specimen A. SKIN, left lower leg: The epidermis is mildly acanthotic. There is a lichenoid infiltrate with vacuolar changes of basilar keratinocytes and scattered necrotic keratinocytes. There is focal spongiosis. The dermis shows a sparse, perivascular lymphocytic infiltrate surrounding dilated, thick-walled vessels, which are increased in number. 0 12:23 PM [facility] Disclaimer An external and internal positive and negative controls are appropriate for the histochemical, immunohistochemical and immunofluorescence stain(s) in this case (if any), except where stated explicitly. The performance characteristics of the stain(s) cited in this report were developed and its performance characteristic determined by the Dermatopathology Laboratory at [facility], directed by Dr. Jose Delacruz. These tests need not be, and therefore are not, approved by the [place] Food and Drug Administration. The tests are used for clinical purposes. Billing Codes Specimen Charges Stain Charges 73356 1 0 12:23 PM [facility] Embedded Images 0 12:23 PM [facility] Pathology/Cytolog y TISSUE SPECIMEN FROM SKIN / Unknown 05/04/2020 05/05/2020 7:26 AM MELTER CASTER Merissa Eisenberg MD LAB - PATHOLOGY/CYTOLOGY OR DERABLES Final Result DERMATOPATHOLOGY LABORATORY [facility] - Department of Dermatology [facility] [address] [place] [address], [address] [phone] documented in this encounter Visit Diagnoses Not on filedocumented in this encounter Care Teams Rework Machine Operator Relationship Specialty Start Date End Date Kari Leblanc MD [address] [place], [place] [id number] PCP - General Gastroenterology 09/13/15 08/28/24 Yves Boyer MD [address] [facility] [address] [address] [place] [address] PCP - General Family Medicine 08/29/24 documented as of this encounter
--- OUTSIDE RECORDS SUMMARY | 2025-06-11 18:40 | XMS_ITS | Clinical Summary ---
Author Organization [facility] Address [address] [facility] [place] [address] Care Team Providers Care Sweeper Driver Name Role Phone Yves Boyer MD Primary Care Provider [phone] Source Comments [facility],non-owned Affiliates and Associated Physician Practices is amultiple site organization consisting of ambulatory clinics and hospital sitesin [place], [place], [place] and [place]. This disclosure is being madepursuant to the Care Everywhere program and may not contain all information available regarding this patient. Last updated 18.[facility] Allergies Active Allergy Reactions Criticality Noted Date [...] fluticasone propionate (FLONASE) 50 MCG/ACT nasal spray [place] 2 (two) sprays into each nostril once [...] Years Used Date Smoking Tobacco: Former Cigarettes 0 Q uit: 2011 Tobacco Cessation:Counseling Given: Not Answered Alcohol Use Standard Drinks/Week Comments Not Currently 0 (1 standard drink = 0.6 oz pur e alcohol) 4 Comments Unknown Sex and Gender Information Value Date Recorded Sex Assigned at Female 08/22/2024 9:37 AM MACHINE PAINT MIXER Legal Sex Female 6:31 AM MACHINE PAINT MIXER Gender Identity Female 08/22/2024 9:37 AM MACHINE PAINT MIXER Sexual Orientation Choose not to disclose 2024 9:37 AM MACHINE PAINT MIXER 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
[2025-06-12 15:09] LABS: ANA by IFA Rfx Titer/Pattern Negative (.)
== END 2025-06-11 15:33 | disposition home or self-care (01) ==
PROVIDERS: PCP Family Medicine; Visit Provider Nurse Practitioner Family
DX: R79.89 Other specified abnormal findings of blood chemistry (principal); K76.0 Fatty (change of) liver, not elsewhere classified
CPT/HCPCS: 36415; 80053; 82103; 82390; 82728; 83540; 83550; 85027; 85610; 86015; 86038; 86376; 86381; 86706; 86803; 87340